=== PATIENT | female | born 1960 | race Caucasian/White ===

== ENCOUNTER 2017-10-17 17:18 | Inpatient (IN) | payer MEDICARE, MEDICAID ==
--- NOTE | 2017-10-17 19:21 | RAD ---
HISTORY: Right hip pain COMPARISONS: None VIEWS: 3, Frontal view of the pelvis with frontal and crosstable lateral views of the right hip FINDINGS: BONE DENSITY: Normal. BONES: There is a displaced fracture of the right iliac wing involving the anterior superior iliac spine. The patient is status post spinal fusion and laminectomy. JOINTS: There is no arthropathy. ALIGNMENT: There is no dislocation. SOFT TISSUES: Unremarkable. OTHER FINDINGS: None. IMPRESSION: DISPLACED FRACTURE THROUGH THE RIGHT ILIAC WING. THIS IS OF UNCLEAR ETIOLOGY IN THE ABSENCE OF TRAUMA.
[2017-10-17] MEDS ORDERED: Morphine INJ* 4 MG/ML 1 ML CARPUJECT IV ONE (19:22)
[2017-10-17] MEDS ORDERED: Morphine INJ* 4 MG/ML 1 ML CARPUJECT ONE (19:23)
[2017-10-17] MEDS ORDERED: Ondansetron INJ* 2 MG/ML VIAL ONE (19:23)
[2017-10-17] MEDS ORDERED: PROCHLORPERAZINE INJ 5 MG/ML 2 ML VIAL IV ONE (19:25)
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
--- NOTE | 2017-10-17 19:41 | RAD ---
HISTORY: Preop COMPARISONS: December 20, 2014 VIEWS: 3: frontal dual-energy view of the chest FINDINGS: CARDIOMEDIASTINAL SILHOUETTE: The cardiomediastinal silhouette is normal. FANTA: The fanta are normal. PLEURA: The costophrenic angles are sharp. No pleural abnormalities are noted. LUNG PARENCHYMA: The lungs are clear. ABDOMEN: The upper abdomen is clear. There is no subphrenic gas. BONES AND SOFT TISSUES: No bone or soft tissue abnormalities are noted. OTHER: Surgical clips noted at the level of the GE junction. IMPRESSION: NO ACTIVE CARDIOPULMONARY DISEASE.
[2017-10-17] MEDS ORDERED: NS 0.9% 1000 ML* 1,000 ML IV ONE (19:47)
[2017-10-17 20:12] LABS: ABS Basophils 0.1 10^3/ul (0-0.2); ABS Eosinophils 0.4 10^3/ul (0-0.6); ABS Lymphocytes 2.5 10^3/ul (1.0-4.8); ABS Monocytes 0.6 10^3/ul (0-0.8); ABS Neutrophils 6.4 10^3/ul (1.5-7.7); ABS Nucleated RBC 0 10^3/ul; Eosinophil % 3.9 % (0-6); Hematocrit 38 % (35-47); Hemoglobin 13.4 g/dl (12.0-16.0); Lymphocyte % 25.2 % (25-47); Mean Corpuscular HGB Conc 35 g/dl (31-36); Mean Corpuscular Hemoglobin 35 pg (27-31); Mean Corpuscular Volume 100 fL (80-97); Mean Platelet Volume 7 um3 (7.4-10.4); Nucleated Red Blood Cells % 0.3; Platelet Count 277 10^3/ul (150-450); Red Blood Count 3.82 10^6/ul (4.0-5.4); Red Cell Distribution Width 14 % (10.5-15)
[2017-10-17 20:24] LABS: EGFR Non-African American 77.9 (>60)
--- NOTE | 2017-10-17 20:25 | RAD ---
HISTORY: Pelvic fracture COMPARISONS: Plain film dated October 17, 2017 TECHNIQUE: Multiple contiguous axial CT images are obtained of the pelvis, with coronal and sagittal multiplanar reconstructions, without intravenous contrast administration. FINDINGS: BONE DENSITY: Normal. BONES: There is a fracture through the right iliac crest including the anterior superior iliac spine. There is no appreciable underlying bone lesion. The lateral fracture fragment is displaced approximately 0.7 cm posteriorly, with approximately 0.7 cm of diastasis along the fracture line no other bone lesions are identified. The patient is status post multilevel laminectomy and spinal fusion. JOINTS: There is no arthropathy. MUSCULATURE: There is enlargement of the right iliacus muscle and of the hip flexors suggestive of edema/muscular hematoma. ALIGNMENT: There is no dislocation. SOFT TISSUES: There is a nonobstructing right renal calyceal stone. Injection granulomata are noted in the buttocks. OTHER FINDINGS: None. IMPRESSION: THERE IS A SLIGHTLY DISPLACED FRACTURE OF THE RIGHT ILIAC WING. THERE IS NO APPRECIABLE UNDERLYING OSSEOUS LESION; HOWEVER, PATHOLOGIC FRACTURE SHOULD BE CONSIDERED IN THE ABSENCE OF A HISTORY OF TRAUMA
[2017-10-17] MEDS ORDERED: HYDROmorphone INJ* 2 MG/ML CARPUJECT SYRINGE IV SLOW PU ONE (20:48)
[2017-10-17] MEDS ORDERED: Potassium Chlor TAB* 10 MEQ TAB.ER PO ONE (21:00)
[2017-10-17] MEDS ORDERED: Diazepam TAB(NF) 2 MG TAB - use 2.5 of 5 mg tab autosub PO PRN (21:22)
[2017-10-17] MEDS ORDERED: Potassium Chlor TAB* 20 MEQ TAB.ER PO ONE (21:25)
[2017-10-17] MEDS ORDERED: PROCHLORPERAZINE INJ 5 MG/ML 2 ML VIAL IV PRN (21:25)
[2017-10-17] MEDS ORDERED: traZODone TAB* 100 MG PO PRN (21:28)
[2017-10-17] MEDS ORDERED: Albuterol 2.5 MG/3 ML NEB.SOL* (0.083%) INH PRN (21:28)
[2017-10-17] MEDS ORDERED: Albuterol HFA INHALER* 8 gm MDI INH PRN (21:28)
[2017-10-17] MEDS ORDERED: Ibuprofen TAB* 800 MG PO PRN (21:28)
[2017-10-17] MEDS: HYDROmorphone INJ* 2 MG/ML CARPUJECT SYRINGE IV SLOW PU PRN (23:35)
[2017-10-18] MEDS: Heparin VIAL(*) 5000 UNITS/ML VIAL (FIVE THOUSAND) SUBCUT SCH ×4 (00:49→21:19)
[2017-10-18] MEDS: oxyCODONE/Acetamin 5/325 MG* TAB PO PRN ×5 (00:51→17:08)
--- NOTE | 2017-10-18 03:19 | HP ---
CC: Winter Vora NP * [facility] MEDICINE HISTORY AND PHYSICAL: DATE OF ADMISSION: 10/17/17 PRIMARY CARE PHYSICIAN: Winter Vora NP ATTENDING PHYSICIAN: Dr. Edd Abbasi * (dictation provided by Katharina Melendez NP). CHIEF COMPLAINT: Right hip pain. HISTORY OF PRESENT ILLNESS: Ms. Melendez is a 57-year-old female with a past medical history of obesity, COPD, schizophrenia, hypothyroidism, who presents to the hospital with concern for right hip pain. Ms. Melendez states that about 5 weeks ago, she fell on the ice on the left side. After that she had significant pain in her right hip; however, over the intervening weeks it was getting better. She was not evaluated for this fall. Today, she went to stand and heard a crack and thereafter had a very severe pain to the right hip and was unable to ambulate or bear weight. For that reason, she came into emergency room for evaluation. She denies any other complaints. She has had no headaches, chest pain, fever, shortness of breath, cough, nausea, vomiting, diarrhea, or abdominal pain. In the emergency room, Ms. Melendez had a CT of her pelvis which confirmed that she had a displaced right iliac wing fracture. Her labs are remarkable only for a low potassium at 2.8. Her vitals were stable. Despite pain medications in the emergency department, she continues to be unable to ambulate due to severe pain; therefore, she was being placed on observation in the hospital. PAST MEDICAL HISTORY: 1. COPD. 2. Hypothyroidism. 3. GERD. 4. Migraine. 5. Cervical cancer, status post abdominal hysterectomy. 6. Cardiac ablation. 7. MRSA lung infection many years ago. 8. History of right knee arthroscopy with meniscectomy in 2016. 9. Right wrist surgery. 10. Lumbar fusion. 11. History of SVT. 12. Hyperlipidemia. 13. Hypertension. MEDICATIONS: Outpatient are: 1. Alendronate 70 mg p.o. every . 2. Dymista 1 spray both nares b.i.d. 3. Super B-complex 1 cap p.o. daily. 4. Calcium carbonate with vitamin D 1 tab p.o. b.i.d. 5. Fluticasone/salmeterol 230/21 one puff inhaled b.i.d. 6. Multivitamin and mineral 1 tab p.o. q.a.m. 7. [place]-3 fatty acid 2 caps p.o. daily. 8. Invega Trinza 240 mg injected q.90 days. 9. Albuterol 2.5 mg 0.083% inhaled q.4 hours p.r.n. 10. Albuterol inhaler 2 puffs inhaled q.4 hours p.r.n. 11. Amitriptyline 75 mg p.o. at bedtime. 12. Amlodipine 5 mg p.o. q.a.m. 13. Atorvastatin 20 mg p.o. q.a.m. 14. Clopidogrel 75 mg p.o. q.a.m. 15. Zetia 10 mg p.o. q.a.m. 16. Fluoxetine 60 mg p.o. q.a.m. 17. Gabapentin 800 mg p.o. t.i.d. 18. Ibuprofen 800 mg p.o. t.i.d. p.r.n. 19. Levothyroxine 50 mcg p.o. q.a.m. 20. Lisinopril 10 mg p.o. q.a.m. 21. Latuda 120 mg p.o. at dinner. 22. Montelukast 10 mg p.o. at bedtime. 23. Nicotine patch 7 mg daily. 24. Pantoprazole 40 mg p.o. q.a.m. 25. Pentoxifylline CR 400 mg p.o. t.i.d. 26. Tiotropium 800 mcg p.o. q.a.m. 27. Torsemide 10 mg p.o. q.a.m. 28. Trazodone 300 mg p.o. at bedtime p.r.n. ALLERGIES: ASPIRIN, PENICILLIN, and SULFA ANTIBIOTICS. FAMILY HISTORY: Mom related to emphysema. Dad also had emphysema, related to suicide. SOCIAL HISTORY: The patient is working hard to quit smoking, but still is smoking intermittently. She denies any alcohol or drug use. She states her daughter, Rika would be the healthcare proxy. REVIEW OF SYSTEMS: A 14-point review of systems was completed with Ms. Melendez and all those not mentioned above were negative. PHYSICAL EXAMINATION GENERAL: Ms. Melendez is lying in the bed. She is in no acute distress. VITAL SIGNS: Temperature 97.9, pulse rate 102, respiratory rate 17, O2 saturation 95% on room air, blood pressure 171/91. HEENT: Extraocular movements are intact. LUNGS: Lungs are actually with rhonchi bilaterally that clears with coughing. There is good aeration. There is no accessory muscle use. HEART: S1, S2. No murmur, rub, or gallop and regular. ABDOMEN: Soft, nontender with bowel sounds positive x4. EXTREMITIES: No cyanosis or edema. NEUROLOGIC: She is alert, she is oriented x3. She moves all extremities equally. There is no facial asymmetry or facial weakness. SKIN: Intact. DIAGNOSTIC STUDIES/LAB DATA: Sodium 140, potassium 2.8, chloride 102, serum bicarbonate 29, BUN 11, creatinine 0.76, glucose 106, lactic acid 1.9. WBC 10.0 , hemoglobin 13.4, hematocrit 38, platelet count 277. Chest x-ray is read as follows: "No active cardiopulmonary disease." Pelvis x-ray is read as follows: "Displaced fracture to the right iliac wing, this is of unclear etiology." The pelvis CT is read as follows: "Slightly displaced fracture of the right iliac wing. No appreciable underlying osseous lesion." EKG, sinus rhythm with a heart rate of about 80 and no evidence of ischemia. ASSESSMENT AND PLAN: Ms. Alicia Melendez is a 57-year-old female with a past medical history of chronic obstructive pulmonary disease, schizophrenia, hypertension, hyperlipidemia, osteoporosis, hypothyroidism, who presents today to the hospital with concern for right hip pain, found to have a right iliac wing fracture. The patient does endorse a fall about 4 weeks ago since which time, she has had right hip pain and now an acute pain when standing today with a loud crack. Our plans are for observation in the hospital for the followin. Right iliac wing fracture. According to Dr. Patel, this is a nonoperative fracture. Dr. Patel will be seeing the patient in consultation tomorrow. In the meantime, the patient will have pain medication p.r.n. Physical Therapy will be ordered. 2. Schizophrenia. Plan to continue home medications. 3. Hypertension. Plan to continue amlodipine, torsemide, lisinopril. 4. Hyperlipidemia. Continue atorvastatin and Zetia. 5. Chronic obstructive pulmonary disease. No evidence of acute exacerbation. Continue inhalers, nebulizers as per home. 6. Hypokalemia. Plan to replete and recheck labs in AM. 7. Hypothyroidism. Continue levothyroxine. 8. DVT prophylaxis with heparin subcu. 9. Code status is full code. TIME SPENT: Approximately 60 minutes were spent on the admission of this patient, more than half time was spent with the patient at the bedside, reviewing the events leading up to this hospitalization, performing the physical examination, and reviewing my plan of care. KATHARINA MELENDEZ NP [id number]/CPS #: [id number] PINKY
[2017-10-18] MEDS: HYDROmorphone INJ* 2 MG/ML CARPUJECT SYRINGE IV SLOW PU PRN ×3 (03:55→13:04)
[2017-10-18] MEDS: Levothyroxine TAB* 50 MCG TAB PO SCH (05:37)
[2017-10-18] MEDS ORDERED: Nicotine Inhaler* 10 MG AMP INH PRN (05:44)
[2017-10-18] MEDS ORDERED: Mouth Piece, Nicotine* 1 EACH CARTRIDGE INH PRN (05:44)
[2017-10-18 06:09] LABS: EGFR Non-African American 77.9 (>60)
[2017-10-18] MEDS ORDERED: Nicotine PATCH 7 MG/24 HR* PATCH TRANSDERM SCH (09:00)
[2017-10-18] MEDS ORDERED: Spiriva Inhaler DEVICE* 1 EACH DEVICE INH ONE (09:00)
[2017-10-18] MEDS ORDERED: Influenza VAC *QUAD* 2017-18* 0.5 ML SYRINGE IM ONE (09:00)
[2017-10-18] MEDS: Tiotropium CAP.INH* CAP.INH/18 MCG (USE ORDER SET !) INH SCH (09:45)
[2017-10-18] MEDS: Torsemide TAB* 20 MG PO SCH (09:46)
[2017-10-18] MEDS: FLUoxetine CAP* 20 MG PO SCH (09:47)
[2017-10-18] MEDS: Pentoxifylline CR TAB* 400 MG PO SCH ×3 (09:47→20:45)
[2017-10-18] MEDS: Atorvastatin* 20 MG TAB PO SCH (09:47)
[2017-10-18] MEDS: Gabapentin CAP(*) 400 MG PO SCH ×3 (09:47→20:44)
[2017-10-18] MEDS: CMCS: Pantoprazole TAB (NF) 40 MG TAB PO SCH (09:48)
[2017-10-18] MEDS: Lisinopril TAB* 10 MG PO SCH (09:48)
[2017-10-18] MEDS: Clopidogrel TAB* 75 MG PO SCH (09:49)
[2017-10-18] MEDS: amLODIPine TAB* 5 MG PO SCH (09:49)
[2017-10-18] MEDS: Ezetimibe TAB* 10 MG PO SCH (09:49)
[2017-10-18] MEDS ORDERED: Magnesium Chloride EC TAB* 64 MG PO ONE (13:46)
--- NOTE | 2017-10-18 13:54 | PN ---
Subjective Date of Service: 10/18/17 Interval History: Patient seen and examined. States she is unable to bear weight on RLE. States it feels like the bones in her hip/pelvis are grinding and pain is so severe she can't stand. States that after the fall the pain was "sore" but now she can' t walk. Denies cough/SOB, but states she feels like she's wheezing. No further complaints. Objective Active Medications: Albuterol (Ventolin 2.5 Mg/3 Ml Neb.Anita*) 2.5 mg INH Q4H PRN PRN Reason: SOB/WHEEZING Albuterol (Ventolin Hfa Inhaler*) 2 puff INH Q4H PRN PRN Reason: SOB/WHEEZING Amitriptyline HCl (Elavil Tab*) 75 mg PO BEDTIME [facility] Amlodipine Besylate (Norvasc Tab*) 5 mg PO [facility] Last Admin: 10/18/17 09:49 Dose: 5 mg Atorvastatin Calcium (Lipitor*) 20 mg PO [facility] Last Admin: 10/18/17 09:47 Dose: 20 mg Clopidogrel Bisulfate (Plavix Tab*) 75 mg PO [facility] Last Admin: 10/18/17 09:49 Dose: 75 mg Device (Nicotine Mouth Piece*) 1 each INH .USE WITH NICOTROL PRN PRN Reason: CRAVING Diazepam (Valium Tab(*)) 2 mg PO Q8H PRN PRN Reason: muscle spasm Ezetimibe (Zetia Tab*) 10 mg PO [facility] Last Admin: 10/18/17 09:49 Dose: 10 mg Fluoxetine HCl (Prozac Cap*) 60 mg PO [facility] Last Admin: 10/18/17 09:47 Dose: 60 mg Gabapentin (Neurontin Cap(*)) 800 mg PO TID [facility] Last Admin: 10/18/17 13:33 Dose: 800 mg Heparin Sodium (Porcine) (Heparin Vial(*)) 5,000 units SUBCUT Q8HR [facility] Last Admin: 10/18/17 13:33 Dose: 5,000 units Hydromorphone HCl (Dilaudid Inj*) 0.5 mg IV SLOW PU Q4H PRN PRN Reason: PAIN Last Admin: 10/18/17 13:04 Dose: 0.5 mg Ibuprofen (Motrin Tab*) 800 mg PO TID PRN PRN Reason: PAIN Levothyroxine Sodium (Synthroid Tab*) 50 mcg PO DAILY@0600 [facility] Last Admin: 10/18/17 05:37 Dose: 50 mcg Lisinopril (Prinivil Tab*) [facility] [place] Admin: 10/18/17 09:48 Dose: 10 mg Lurasidone HCl (Latuda) 120 mg PO 1800 [facility] Magnesium Chloride (Slow Mag Ec Tab*) 64 mg PO ONCE ONE Stop: 10/18/17 13:47 Montelukast Sodium (Singulair Tab*) 10 mg PO BEDTIME [facility] Nicotine (Nicotine Inhaler*) 10 mg INH Q2H PRN PRN Reason: CRAVING Oxycodone/Acetaminophen (Percocet 5/325 Tab*) 1 tab PO Q4H PRN PRN Reason: PAIN Oxycodone/Acetaminophen (Percocet 5/325 Tab*) 2 tab PO Q4H PRN PRN Reason: PAIN Last Admin: 10/18/17 13:04 Dose: 2 tab Pantoprazole Sodium (Protonix Tab (Nf)) 40 mg PO [facility] Last Admin: 10/18/17 09:48 Dose: 40 mg Pentoxifylline (Trental Cr Tab*) 400 mg PO TID [facility] Last Admin: 10/18/17 13:34 Dose: 400 mg Prochlorperazine Edisylate (Compazine Inj*) 5 mg IV Q6H PRN PRN Reason: NAUSEA/VOMITING Tiotropium [place] (Spiriva Cap.Inh*) 1 cap INH [facility] Last Admin: 10/18/17 09:45 Dose: 1 inh Torsemide (Demadex*) 10 mg PO [facility] Last Admin: 10/18/17 09:46 Dose: 10 mg Trazodone HCl (Desyrel Tab*) 300 mg PO BEDTIME PRN PRN Reason: SLEEP Vital Signs - 8 hr 10/18/17 10/18/17 10/18/17 07:30 07:33 09:13 Temperature 98.2 F Pulse Rate 91 Respiratory 16 16 16 Rate Blood Pressure 152/93 (mmHg) O2 Sat by Pulse 92 Oximetry 10/18/17 10/18/17 10/18/17 09:14 09:30 09:47 Temperature Pulse Rate Respiratory 16 16 16 Rate Blood Pressure (mmHg) O2 Sat by Pulse Oximetry 10/18/17 10/18/17 10/18/17 12:32 13:04 13:33 Temperature Pulse Rate Respiratory 16 16 16 Rate Blood Pressure (mmHg) O2 Sat by Pulse Oximetry Oxygen Devices in Use Now: None Appearance: Alert, NAD Eyes: No Scleral Icterus, PERRLA Ears/Nose/Mouth/Throat: NL Teeth, Lips, Gums, Mucous Membranes Moist Neck: NL Appearance and Movements; NL JVP, Trachea Midline Respiratory: Symmetrical Chest Expansion and Respiratory Effort - Course breath sounds, insp/exp wheeze bilaterally Cardiovascular: NL Sounds; No Murmurs; No JVD, RRR Abdominal: NL Sounds; No Tenderness; No Distention Extremities: No Edema, No Clubbing, Cyanosis Skin: No Rash or Ulcers Neurological: Alert and Oriented x 3, NL Sensation - cannot bear weight RLE, NL Muscle Strength and Tone Nutrition: Taking PO's Result Diagrams: 10/17/17 19:36 10/18/17 05:30 Diagnostic Imaging: Patient Name: JASON MUJICA Medical Record#: [id number] Ordering Physician: Leyla POPE Acct.#: [id number] : 1960 Age: 57 Sex: F Location: EMERGENCY DEPARTMENT Exam Date: 10/17/171957 ADM Status: REG ER Order Information: CT PELVIS W/O Accession Number: [id number] CPT: 02301 HISTORY: Pelvic fracture COMPARISONS: Plain film dated October 17, 2017 TECHNIQUE: Multiple contiguous axial CT images are obtained of the pelvis, with coronal and sagittal multiplanar reconstructions, without intravenous contrast administration. FINDINGS: BONE DENSITY: Normal. BONES: There is a fracture through the right iliac crest including the anterior superior iliac spine. There is no appreciable underlying bone lesion. The lateral fracture fragment is displaced approximately 0.7 cm posteriorly, with approximately 0.7 cm of diastasis along the fracture line no other bone lesions are identified. The patient is status post multilevel laminectomy and spinal fusion. JOINTS: There is no arthropathy. MUSCULATURE: There is enlargement of the right iliacus muscle and of the hip flexors suggestive of edema/muscular hematoma. ALIGNMENT: There is no dislocation. SOFT TISSUES: There is a nonobstructing right renal calyceal stone. Injection granulomata are noted in the buttocks. OTHER FINDINGS: None. IMPRESSION: THERE IS A SLIGHTLY DISPLACED FRACTURE OF THE RIGHT ILIAC WING. THERE IS NO APPRECIABLE UNDERLYING OSSEOUS LESION; HOWEVER, PATHOLOGIC FRACTURE SHOULD BE CONSIDERED IN THE ABSENCE OF A HISTORY OF TRAUMA <Electronically signed by Dharmesh Oropeza MD in [place]> 10/17/172020 Dictated By: Dharmesh Oropeza MD Dictated Date/Time: 10/17/172020 Transcribed Date/Time: 10/17/172017 Copy to: CC:Leyla POPE; Ermias Hardy MD; Winter Vora NP Imaging - [facility] Imaging - [place] [facility] [place] Imaging - [facility] [address] [address] ph ([phone]) ph ([phone]) ph [phone]) 1 of 1 Assess/Plan/Problems-Billing Assessment: - Patient Problems (1) 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 Patel appreciated - Not a surgical candidate, recommending pain control, PT, WBAT (2) COPD (chronic obstructive pulmonary disease) Code(s): J44.9 - CHRONIC OBSTRUCTIVE PULMONARY DISEASE, UNSPECIFIED SNOMED Code(s): 65791196 Comment: - Counseled on smoking cessation - Nicotine patch - No acute exac noted (3) DVT prophylaxis Code(s): YLC5676 - SNOMED Code(s): 697523229 Comment: -SQ (4) Full code status Code(s): Z78.9 - OTHER SPECIFIED HEALTH STATUS SNOMED Code(s): 365011802 (5) Hypothyroidism Current Visit: No Status: Chronic Code(s): E03.9 - HYPOTHYROIDISM, UNSPECIFIED SNOMED Code(s): 38986048 (6) Schizophrenia in remission Code(s): F20.9 - SCHIZOPHRENIA, UNSPECIFIED SNOMED Code(s): 2386207 Comment: - Stable on current home regimen (7) Hypokalemia Code(s): E87.6 - HYPOKALEMIA SNOMED Code(s): 26105219 Comment: - Replete and monitor Status and Disposition: Remain inpatient for pain control, PT and electrolyte correction, and then DC to rehab when appropriate bed/referral obtained. Counseling and/or Coordination of Care Minutes: coordinated with patient and CM
[2017-10-18] MEDS: Multivitamins/Minerals TAB PO SCH (15:17)
[2017-10-18] MEDS: Lurasidone(*) 120 MG TAB PO SCH (18:10)
--- NOTE | 2017-10-18 19:48 | CONS ---
ORTHOPEDIC CONSULTATION NOTE: DATE OF CONSULT: 10/18/17 Thank you for this orthopedic consultation. CHIEF COMPLAINT: Right hip pain. HISTORY OF PRESENT ILLNESS: Ms. Melendez is a 57-year-old female who reports she stood up yesterday and felt a crack in her right hip. She immediately had 10/ 10 pain and was unable to bear weight on the right side. She was brought to [facility] and found to have a displaced right iliac wing fracture. On questioning, the patient reports she had a fall 5 weeks ago onto the left side. She fell on some ice. After that she had right-sided pain that seemed to be getting better. The patient has a significant past medical history of osteoporosis. She has a history of cervical cancer, but no other known cancer. PAST MEDICAL HISTORY: COPD, hypothyroidism, GERD, migraines, cervical cancer, cardiac ablation, lung infection with MRSA, right knee arthroscopy from meniscal tear and arthritis, right wrist surgery, chronic back pain, SVT, hyperlipidemia, and hypertension. PAST SURGICAL HISTORY: Wrist surgery unspecified type, right knee arthroscopy with Dr. Patel in 2015, abdominal hysterectomy. HOME MEDICATIONS: 1. Alendronate 70 mg p.o. q. weekly. 2. Dymista 1 spray b.i.d. 3. Super B complex 1 capsule p.o. q. daily. 4. Calcium with vitamin D 1 tab p.o. b.i.d. 5. Fluticasone salmeterol 230/21 one puff inhaled b.i.d. 6. Invega Trinza 240 mg injected q. 90 days. 7. Albuterol 2.5 q.4 hours p.r.n. 8. Albuterol inhaler 2 puffs q.4 hours p.r.n. 9. Amitriptyline 75 mg p.o. q.h.s. 10. Amlodipine 5 mg p.o. q.a.m. 11. Atorvastatin 20 mg p.o. q.a.m. 12. Clopidogrel 75 mg p.o. q.a.m. 13. Zetia 10 mg p.o. q.a.m. 14. Fluoxetine 60 mg p.o. q.a.m. 15. Gabapentin 800 mg p.o. t.i.d. 16. Ibuprofen as needed. 17. Levothyroxine 50 mcg p.o. q.a.m. 18. Lisinopril 10 mg p.o. q.a.m. 19. Latuda 120 mg p.o. q.h.s. 20. Montelukast 10 mg p.o. q.h.s. 21. Pantoprazole 40 mg p.o. q.a.m. 22. Nicotine patch 7 mg daily. 23. Pentoxifylline 400 mg p.o. t.i.d. 24. Tiotropium 80 mcg p.o. q.a.m. 25. Torsemide 10 mg p.o. q.a.m. 26. Trazodone 300 mg p.o. q.h.s. ALLERGIES: ASPIRIN, PENICILLIN, SULFA. FAMILY HISTORY: Maternal and paternal; emphysema, mental illness. SOCIAL HISTORY: The patient uses tobacco intermittently. No alcohol or drug use. She lives alone. Her daughter Rika is her healthcare proxy, normally an independent ambulator. REVIEW OF SYSTEMS: Fourteen systems were reviewed with the patient today. Positive for subacute fall, positive for acute right hip pain. Negative for fevers, chills, chest pain, shortness of breath, nausea, vomiting, headache or dizziness. Otherwise, the patient reports review of systems is negative or not relevant. PHYSICAL EXAM: Vitals: Temperature 98.8, pulse 97, blood pressure 163/72. General: The patient is an overweight female, in no apparent distress, alert and oriented x3, pleasant mood and appropriate affect. She is lying in bed. Gait is not assessed. HEENT: Atraumatic, normocephalic. Pupils are equal and reactive to light. Chest: Unlabored breathing. Bilateral upper extremities: The patient's skin is intact. No abrasions or open wounds. 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 Right lower extremity; any motion of the hip causes severe pain, tenderness to palpation along the iliac wing. Thighs soft and compressible. Distally 5/5 including dorsiflexion and plantar-flexion strength. Full sensation to light touch in ulnar distributions and 2+ palpable DP pulse. Left lower extremity, the patient can flex the hip to 90 degrees. She is distally neurovascularly intact. DIAGNOSTIC STUDIES/LAB DATA: On 10/18/17, a.m. labs shows sodium 137, potassium low at 3.0, chloride 101, glucose 106, hematocrit 38, white blood cells 10, platelets 277,000. Radiographs: Multiple views of the right hip and a pelvis CT are reviewed. These show what looks to be a displaced right iliac wing fracture. No obvious sacral fracture. No obvious acetabular fracture. No obvious femoral neck fracture. Appearance of the fracture on plain films shows findings consistent with this being a subacute fracture versus heterotropic ossification involvement. ASSESSMENT AND PLAN: Ms. Melendez is a 57-year-old female with the acute onset of right hip pain and a fall 5 weeks ago. It is likely that the patient displaced a nondisplaced fracture yesterday with twisting motion at the waist. She has a displaced right iliac wing fracture with severe pain and difficulty weightbearing. She was admitted to [facility] for discharge planning and pain control. She was found to have hypokalemia. I would make this patient weightbearing as tolerated. She will likely have to protect weightbearing on the right lower extremity for 3 to 4 weeks at least before a satisfactory callus forms. She will need p.r.n. analgesia. She should have physical therapy. The patient reported to me that she lives alone and has no one that can stay with her fci. She will likely need a SNF rehab placement. I will follow along the patient. She can follow up with me as an outpatient in 2 weeks' time. Thank you for this orthopedic consultation. [id number]/LEANNA #: [id number] PINKY
[2017-10-18] MEDS: Amitriptyline TAB* 25 MG PO SCH (20:45)
[2017-10-18] MEDS: Montelukast Sodium TAB* 10 MG PO SCH (20:45)
[2017-10-18] MEDS ORDERED: Nicotine Patch Removal NOTE PATCH OFF SCH (21:00)
[2017-10-19] MEDS: Heparin VIAL(*) 5000 UNITS/ML VIAL (FIVE THOUSAND) SUBCUT SCH ×3 (05:30→23:24)
[2017-10-19] MEDS: oxyCODONE/Acetamin 5/325 MG* TAB PO PRN ×3 (05:31→18:15)
[2017-10-19] MEDS: Levothyroxine TAB* 50 MCG TAB PO SCH (05:32)
[2017-10-19 05:37] LABS: EGFR Non-African American 46.4 (>60)
[2017-10-19] MEDS: Multivitamins/Minerals TAB PO SCH (08:20)
[2017-10-19] MEDS: FLUoxetine CAP* 20 MG PO SCH (08:20)
[2017-10-19] MEDS: Ezetimibe TAB* 10 MG PO SCH (08:21)
[2017-10-19] MEDS: CMCS: Pantoprazole TAB (NF) 40 MG TAB PO SCH (08:21)
[2017-10-19] MEDS: Tiotropium CAP.INH* CAP.INH/18 MCG (USE ORDER SET !) INH SCH (08:21)
[2017-10-19] MEDS: amLODIPine TAB* 5 MG PO SCH (08:21)
[2017-10-19] MEDS: Pentoxifylline CR TAB* 400 MG PO SCH ×3 (08:21→20:39)
[2017-10-19] MEDS: Lisinopril TAB* 10 MG PO SCH (08:21)
[2017-10-19] MEDS: Atorvastatin* 20 MG TAB PO SCH (08:22)
[2017-10-19] MEDS: Clopidogrel TAB* 75 MG PO SCH (08:22)
[2017-10-19] MEDS: Torsemide TAB* 20 MG PO SCH (08:22)
[2017-10-19] MEDS: Gabapentin CAP(*) 400 MG PO SCH ×3 (08:22→20:39)
--- NOTE | 2017-10-19 09:07 | PN ---
Progress Note - Progress Note Date of Service: 10/19/17 SOAP: Subjective: []Patient seen at bedside s/p R iliac wing fracture. She was able to get out of bed to the chair today but reports a continued 9/10 pain at the fracture site as well as radiating down the right anterior leg. She has no numbness or tingling down her legs. Denies CP, dizziness, nausea, fever or chills. She has baseline SOB due to COPD. Objective: [] Vital Signs Temp 96.9 F 10/19/17 07:23 Pulse 90 10/19/17 07:23 Resp 18 10/19/17 08:22 BP 104/54 10/19/17 07:23 Pulse Ox 94 10/19/17 07:23 Intake & Output 10/18/17 10/19/17 10/19/17 18:59 06:59 18:59 Intake Total 1090 980 Output Total 1000 600 550 Balance 90 380 -550 Intake: Oral 1090 980 Output: Urine 1000 600 550 Other: Estimated Void Large # Bowel Movements 0 Laboratory Last Values WBC 10.0 10^3/ul (3.5-10.8) 10/17/17 19:36 RBC 3.82 10^6/ul (4.0-5.4) L 10/17/17 19:36 Hgb 13.4 g/dl (12.0-16.0) 10/17/17 19:36 Hct 38 % (35-47) 10/17/17 19:36 MCV 100 fL (80-97) H 10/17/17 19:36 MCH 35 pg (27-31) H 10/17/17 19:36 MCHC 35 g/dl (31-36) 10/17/17 19:36 RDW 14 % (10.5-15) 10/17/17 19:36 Plt Count 277 10^3/ul (150-450) 10/17/17 19:36 MPV 7 um3 (7.4-10.4) L 10/17/17 19:36 Neut % (Auto) 64.1 % (38-83) 10/17/17 19:36 Lymph % (Auto) 25.2 % (25-47) 10/17/17 19:36 Saline % (Auto) 6.0 % (1-9) 10/17/17 19:36 Eos % (Auto) 3.9 % (0-6) 10/17/17 19:36 Baso % (Auto) 0.8 % (0-2) 10/17/17 19:36 Absolute Neuts (auto) 6.4 10^3/ul (1.5-7.7) 10/17/17 19:36 Absolute Lymphs (auto) 2.5 10^3/ul (1.0-4.8) 10/17/17 19:36 Absolute Monos (auto) 0.6 10^3/ul (0-0.8) 10/17/17 19:36 Absolute Eos (auto) 0.4 10^3/ul (0-0.6) 10/17/17 19:36 Absolute Basos (auto) 0.1 10^3/ul (0-0.2) 10/17/17 19:36 Absolute Nucleated RBC 0 10^3/ul 10/17/17 19:36 Nucleated RBC % 0.3 10/17/17 19:36 Sodium 133 mmol/L (133-145) 10/19/17 05:02 Potassium 3.6 mmol/L (3.5-5.0) 10/19/17 05:02 Chloride 96 mmol/L (101-111) L 10/19/17 05:02 Carbon Dioxide 33 mmol/L (22-32) H 10/19/17 05:02 Anion Gap 4 mmol/L (2-11) 10/19/17 05:02 BUN 12 mg/dL (6-24) 10/19/17 05:02 Creatinine 1.19 mg/dL (0.51-0.95) H 10/19/17 05:02 Est GFR ( Amer) 59.7 (>60) 10/19/17 05:02 Est GFR (Non-Af Amer) 46.4 (>60) 10/19/17 05:02 BUN/Creatinine Ratio 10.1 (8-20) 10/19/17 05:02 Glucose 109 mg/dL (70-100) H 10/19/17 05:02 Lactic Acid 1.9 mmol/L (0.5-2.0) 10/17/17 19:36 Calcium 9.2 mg/dL (8.6-10.3) 10/19/17 05:02 Total Bilirubin 0.30 mg/dL (0.2-1.0) 10/17/17 19:36 AST 53 U/L (13-39) H 10/17/17 19:36 ALT 50 U/L (7-52) 10/17/17 19:36 Alkaline Phosphatase 76 U/L (34-104) 10/17/17 19:36 Total Protein 6.1 g/dL (6.4-8.9) L 10/17/17 19:36 Albumin 3.3 g/dL (3.2-5.2) 10/17/17 19:36 Globulin 2.8 g/dL (2-4) 10/17/17 19:36 Albumin/Globulin Ratio 1.2 (1-3) 10/17/17 19:36 General: Well appearing, NAD. Sitting comfortably in the chair RLE: Tenderness to palpation of the iliac wing. No lacerations, abrasions or ecchymosis. DF/PF intact. 2+ DP/PT BL LE: Calves supple and nontender without erythema, edema or palpable cords Assessment: []Right Iliac Wing Fracture Plan: []WBAT RLE PT/OT May DC when deemed medically stable, pain controlled with PO pain meds. Outpatient follow up with Dr Patel in 2 weeks Bed offers at [facility] and [facility]
[2017-10-19] MEDS: Lurasidone(*) 120 MG TAB PO SCH (18:15)
--- NOTE | 2017-10-19 19:12 | PN ---
Subjective Date of Service: 10/19/17 Interval History: Patient seen and examined. states she still cannot bear weight on affected side. States pain at rest as well. Denies any further symptoms or complaints. Appears comfortable otherwise. Objective Active Medications: Albuterol (Ventolin 2.5 Mg/3 Ml Neb.Anita*) 2.5 mg INH Q4H PRN PRN Reason: SOB/WHEEZING Albuterol (Ventolin Hfa Inhaler*) 2 puff INH Q4H PRN PRN Reason: SOB/WHEEZING Last Admin: 10/18/17 22:40 Dose: 2 puff Amitriptyline HCl (Elavil Tab*) 75 mg PO BEDTIME [facility] Last Admin: 10/18/17 20:45 Dose: 75 mg Amlodipine Besylate (Norvasc Tab*) 5 mg PO [facility] Last Admin: 10/19/17 08:21 Dose: 5 mg Atorvastatin Calcium (Lipitor*) 20 mg PO [facility] Last Admin: 10/19/17 08:22 Dose: 20 mg Clopidogrel Bisulfate (Plavix Tab*) 75 mg PO [facility] Last Admin: 10/19/17 08:22 Dose: 75 mg Device (Nicotine Mouth Piece*) 1 each INH .USE WITH NICOTROL PRN PRN Reason: CRAVING Diazepam (Valium Tab(*)) 2 mg PO Q8H PRN PRN Reason: muscle spasm Ezetimibe (Zetia Tab*) 10 mg PO [facility] Last Admin: 10/19/17 08:21 Dose: 10 mg Fluoxetine HCl (Prozac Cap*) 60 mg PO [facility] Last Admin: 10/19/17 08:20 Dose: 60 mg Gabapentin (Neurontin Cap(*)) 800 mg PO TID [facility] Last Admin: 10/19/17 14:32 Dose: 800 mg Heparin Sodium (Porcine) (Heparin Vial(*)) 5,000 units SUBCUT Q8HR [facility] Last Admin: 10/19/17 14:33 Dose: 5,000 units Ibuprofen (Motrin Tab*) 800 mg PO TID PRN PRN Reason: PAIN Levothyroxine Sodium (Synthroid Tab*) 50 mcg PO DAILY@0600 [facility] Last Admin: 10/19/17 05:32 Dose: 50 mcg Lisinopril (Prinivil Tab*) 10 mg PO [facility] Last Admin: 10/19/17 08:21 Dose: 10 mg Lurasidone HCl (Latuda) 120 mg PO 1800 [facility] Last Admin: 10/19/17 18:15 Dose: 120 mg Montelukast Sodium (Singulair Tab*) 10 mg PO BEDTIME [facility] Last Admin: 10/18/17 20:45 Dose: 10 mg Multivitamins/Minerals (Theragran/Minerals Tab*) 1 tab PO DAILY [facility] Last Admin: 10/19/17 08:20 Dose: 1 tab Nicotine (Nicotine Inhaler*) 10 mg INH Q2H PRN PRN Reason: CRAVING Oxycodone/Acetaminophen (Percocet 5/325 Tab*) 1 tab PO Q4H PRN PRN Reason: PAIN Oxycodone/Acetaminophen (Percocet 5/325 Tab*) 2 tab PO Q4H PRN PRN Reason: PAIN Last Admin: 10/19/17 18:15 Dose: 2 tab Pantoprazole Sodium (Protonix Tab (Nf)) 40 mg PO QAM [facility] Last Admin: 10/19/17 08:21 Dose: 40 mg Pentoxifylline (Trental Cr Tab*) 400 mg PO TID [facility] Last Admin: 10/19/17 14:33 Dose: 400 mg Prochlorperazine Edisylate (Compazine Inj*) 5 mg IV Q6H PRN PRN Reason: NAUSEA/VOMITING Tiotropium [place] (Spiriva Cap.Inh*) 1 cap INH QAM [facility] Last Admin: 10/19/17 08:21 Dose: 1 inh Torsemide (Demadex*) 10 mg PO QAM [facility] Last Admin: 10/19/17 08:22 Dose: 10 mg Trazodone HCl (Desyrel Tab*) 300 mg PO BEDTIME PRN PRN Reason: SLEEP Vital Signs - 8 hr 10/19/17 10/19/17 10/19/17 11:27 11:32 11:33 Temperature 97.9 F Pulse Rate 81 Respiratory 18 18 18 Rate Blood Pressure 102/51 (mmHg) O2 Sat by Pulse 96 Oximetry 10/19/17 10/19/17 10/19/17 11:34 14:32 14:33 Temperature Pulse Rate Respiratory 18 18 18 Rate Blood Pressure (mmHg) O2 Sat by Pulse Oximetry 10/19/17 10/19/17 10/19/17 15:41 17:45 18:15 Temperature 97.6 F Pulse Rate 83 Respiratory 18 18 20 Rate Blood Pressure 110/58 (mmHg) O2 Sat by Pulse 95 Oximetry Oxygen Devices in Use Now: Nasal Cannula Appearance: Alert, NAD, resting comfortably and tolerating meal Ears/Nose/Mouth/Throat: NL Teeth, Lips, Gums, Mucous Membranes Moist Neck: NL Appearance and Movements; NL JVP, Trachea Midline Respiratory: Symmetrical Chest Expansion and Respiratory Effort - diminished bases, mild expiratory wheeze improved Cardiovascular: NL Sounds; No Murmurs; No JVD, RRR Abdominal: NL Sounds; No Tenderness; No Distention Extremities: No Edema, No Clubbing, Cyanosis Skin: No Rash or Ulcers Neurological: Alert and Oriented x 3, NL Sensation, NL Muscle Strength and Tone Nutrition: Taking PO's Result Diagrams: 10/17/17 19:36 10/19/17 05:02 Diagnostic Imaging: Patient Name: JASON MUJICA Medical Record#: [id number] Ordering Physician: Leyla POPE Acct.#: [id number] : 1960 Age: 57 Sex: F Location: EMERGENCY DEPARTMENT Exam Date: 10/17/171957 ADM Status: REG ER Order Information: CT PELVIS W/O Accession Number: [id number] CPT: 81725 HISTORY: Pelvic fracture COMPARISONS: Plain film dated October 17, 2017 TECHNIQUE: Multiple contiguous axial CT images are obtained of the pelvis, with coronal and sagittal multiplanar reconstructions, without intravenous contrast administration. FINDINGS: BONE DENSITY: Normal. BONES: There is a fracture through the right iliac crest including the anterior superior iliac spine. There is no appreciable underlying bone lesion. The lateral fracture fragment is displaced approximately 0.7 cm posteriorly, with approximately 0.7 cm of diastasis along the fracture line no other bone lesions are identified. The patient is status post multilevel laminectomy and spinal fusion. JOINTS: There is no arthropathy. MUSCULATURE: There is enlargement of the right iliacus muscle and of the hip flexors suggestive of edema/muscular hematoma. ALIGNMENT: There is no dislocation. SOFT TISSUES: There is a nonobstructing right renal calyceal stone. Injection granulomata are noted in the buttocks. OTHER FINDINGS: None. IMPRESSION: THERE IS A SLIGHTLY DISPLACED FRACTURE OF THE RIGHT ILIAC WING. THERE IS NO APPRECIABLE UNDERLYING OSSEOUS LESION; HOWEVER, PATHOLOGIC FRACTURE SHOULD BE CONSIDERED IN THE ABSENCE OF A HISTORY OF TRAUMA <Electronically signed by Dharmesh Oropeza MD in [place]> 10/17/172020 Dictated By: Dharmesh Oropeza MD Dictated Date/Time: 10/17/172020 Transcribed Date/Time: 10/17/172017 Copy to: CC:Leyla POPE; Ermias Hardy MD; Winter Vora NP Imaging - [facility] Imaging - [facility] Imaging - [facility] [address] [address] ph [phone]) ph [phone] ph ([phone]) 1 of 1 Assess/Plan/Problems-Billing Assessment: This is a 57 year old female patient s/p fall 4 weeks ago with subsequent right iliac crest fracture being treated conservatively. 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 Patel appreciated - Not a surgical candidate, recommending pain control, PT, WBAT - DC IV dilaudid today, continue PO pain meds - Will DC to rehab tomorrow (2) COPD (chronic obstructive pulmonary disease) Code(s): J44.9 - CHRONIC OBSTRUCTIVE PULMONARY DISEASE, UNSPECIFIED SNOMED Code(s): 47256205 Comment: - Counseled on smoking cessation - Nicotine patch - No acute exac noted - Oxygen as needed (3) DVT prophylaxis Code(s): UYQ9874 - SNOMED Code(s): 558084775 Comment: -SQ (4) Full code status Code(s): Z78.9 - OTHER SPECIFIED HEALTH STATUS SNOMED Code(s): 576796791 (5) Hypothyroidism Current Visit: No Status: Chronic Code(s): E03.9 - HYPOTHYROIDISM, UNSPECIFIED SNOMED Code(s): 97263931 (6) Schizophrenia in remission Code(s): F20.9 - SCHIZOPHRENIA, UNSPECIFIED SNOMED Code(s): 8520918 Comment: - Stable on current home regimen (7) Hypokalemia Code(s): E87.6 - HYPOKALEMIA SNOMED Code(s): 84172712 Comment: - Resolved Status and Disposition: Discharge to [facility] Wednesday.
[2017-10-19] MEDS: Amitriptyline TAB* 25 MG PO SCH (20:39)
[2017-10-19] MEDS: Montelukast Sodium TAB* 10 MG PO SCH (20:39)
[2017-10-20 04:07] LABS: Hematocrit 36 % (35-47); Hemoglobin 12.2 g/dl (12.0-16.0)
[2017-10-20] MEDS ORDERED: Thiamine IV* 100 MG/ML 2 ML VIAL IM ONE (04:44)
--- NOTE | 2017-10-20 04:46 | PN ---
Progress Note - Progress Note Date of Service: 10/20/17 Note: Nursing called concerned for hypoxic saO2 in the high 80s to low 90s on 2L oxygen NC, tachycardia, & confusion. Mrs Melendze is a 57YO obese female admitted 10/17/2017 for a mildly displaced iliac wing fracture with no report of explanatory trauma and no finding of pathologic osseous lesion. Upon my evaluation, she is oriented to person and place, but cannot give the year nor reason for hospitalization. She denies complaints until asked to lift her RLE when she complains of pelvic & back pain. ECG showed sinus tachycardia rate 118, no ischemia. pCXR shows cardiomegaly w/ no infiltrate. H&H is stable, ruling out anemia 2nd pelvic hematoma. Straight cath for UA yielded ~1000cc, but neither her tachycardia nor mental status improved. Temperature curve is afebrile. Lungs are clear excepting upper airway rhonchi. CV is TR/RR. Abdomen is SNTND. Extremities are warm and dry. She has prominent asterixis. Despite denying alcohol consumption on admission, she now states she drinks 2-3 vodka and cranberries a day. At this point, it is highly likely her pelvic wing fracture is due to a fall while intoxicated which she may or may not recall. 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
[2017-10-20 04:52] LABS: Urine Appearance Clear; Urine Blood Negative (Negative); Urine Color Yellow; Urine Ketones Negative (Negative); Urine Protein Negative (Negative); Urine Specific Gravity 1.009 (1.010-1.030); Urine Urobilinogen Negative (Negative)
[2017-10-20] MEDS: LORazepam INJ* 2 MG/ML 1 ML VIAL IV PUSH SCH ×2 (04:53→07:26)
[2017-10-20 05:18] LABS: ABS Basophils 0 10^3/ul (0-0.2); ABS Eosinophils 0.3 10^3/ul (0-0.6); ABS Lymphocytes 1.7 10^3/ul (1.0-4.8); ABS Monocytes 0.5 10^3/ul (0-0.8); ABS Neutrophils 4.3 10^3/ul (1.5-7.7); ABS Nucleated RBC 0 10^3/ul; Eosinophil % 4.5 % (0-6); Hematocrit 36 % (35-47); Hemoglobin 12.3 g/dl (12.0-16.0); Lymphocyte % 24.3 % (25-47); Mean Corpuscular HGB Conc 34 g/dl (31-36); Mean Corpuscular Hemoglobin 35 pg (27-31); Mean Corpuscular Volume 103 fL (80-97); Mean Platelet Volume 7 um3 (7.4-10.4); Nucleated Red Blood Cells % 0.1; Platelet Count 263 10^3/ul (150-450); Red Cell Distribution Width 13 % (10.5-15); White Blood Count 6.9 10^3/ul (3.5-10.8)
[2017-10-20 05:22] LABS: EGFR Non-African American 54.8 (>60)
[2017-10-20] MEDS: Levothyroxine TAB* 50 MCG TAB PO SCH (06:03)
[2017-10-20] MEDS: Heparin VIAL(*) 5000 UNITS/ML VIAL (FIVE THOUSAND) SUBCUT SCH ×3 (06:11→23:48)
--- NOTE | 2017-10-20 07:40 | RAD ---
HISTORY: Sinus tachycardia, confusion COMPARISONS: None VIEWS: 1: frontal portable view of the chest at 4:33 AM FINDINGS: LINES AND TUBES: None. CARDIOMEDIASTINAL SILHOUETTE: The cardiomediastinal silhouette is normal for portable technique. PLEURA: The costophrenic angles are sharp. No pleural abnormalities are noted. LUNG PARENCHYMA: The lung volumes are low. There is minimal patchy alveolar opacification of the lung bases bilaterally. ABDOMEN: The upper abdomen is clear. There is no subphrenic gas. BONES AND SOFT TISSUES: No bone or soft tissue abnormalities are noted. IMPRESSION: LOW LUNG VOLUMES WITH PATCHY BIBASILAR ATELECTASIS VERSUS EARLY CONSOLIDATION
--- NOTE | 2017-10-20 08:20 | PN ---
Progress Note - Progress Note Date of Service: 10/20/17 SOAP: Subjective: []Patient seen at bedside. She was unable to communicate but did squeeze my hand when prompted. Hospitalist service saw patient early this morning for hypoxia, tachycardia and confusion likely due to delirium tremens and aspiration. She is alternatively being worked up for a PE which is less likely due to SQ heparin. Objective: [] Vital Signs Temp 102.2 F 10/20/17 07:16 Pulse 134 10/20/17 07:16 Resp 24 10/20/17 07:26 BP 162/76 10/20/17 07:16 Pulse Ox 94 10/20/17 07:16 Intake & Output 10/19/17 10/20/17 10/20/17 18:59 06:59 18:59 Intake Total 730 600 Output Total 1450 1150 Balance -720 -550 Intake: Oral 730 600 Output: Urine 1450 0 Straight Cath 1150 Other: # Bowel Movements 0 Laboratory Last Values WBC 6.9 10^3/ul (3.5-10.8) 10/20/17 03:55 RBC 3.50 10^6/ul (4.0-5.4) L 10/20/17 03:55 Hgb 12.3 g/dl (12.0-16.0) 10/20/17 03:55 Hct 36 % (35-47) 10/20/17 03:55 MCV 103 fL (80-97) H 10/20/17 03:55 MCH 35 pg (27-31) H 10/20/17 03:55 MCHC 34 g/dl (31-36) 10/20/17 03:55 RDW 13 % (10.5-15) 10/20/17 03:55 Plt Count 263 10^3/ul (150-450) 10/20/17 03:55 MPV 7 um3 (7.4-10.4) L 10/20/17 03:55 Neut % (Auto) 62.9 % (38-83) 10/20/17 03:55 Lymph % (Auto) 24.3 % (25-47) L 10/20/17 03:55 [place] % (Auto) 7.9 % (1-9) 10/20/17 03:55 Eos % (Auto) 4.5 % (0-6) 10/20/17 03:55 Baso % (Auto) 0.4 % (0-2) 10/20/17 03:55 Absolute Neuts (auto) 4.3 10^3/ul (1.5-7.7) 10/20/17 03:55 Absolute Lymphs (auto) 1.7 10^3/ul (1.0-4.8) 10/20/17 03:55 Absolute Monos (auto) 0.5 10^3/ul (0-0.8) 10/20/17 03:55 Absolute Eos (auto) 0.3 10^3/ul (0-0.6) 10/20/17 03:55 Absolute Basos (auto) 0 10^3/ul (0-0.2) 10/20/17 03:55 Absolute Nucleated RBC 0 10^3/ul 10/20/17 03:55 Nucleated RBC % 0.1 10/20/17 03:55 Sodium 137 mmol/L (133-145) 10/20/17 04:13 Potassium 4.1 mmol/L (3.5-5.0) 10/20/17 04:13 Chloride 101 mmol/L (101-111) 10/20/17 04:13 Carbon Dioxide 30 mmol/L (22-32) 10/20/17 04:13 Anion Gap 6 mmol/L (2-11) 10/20/17 04:13 BUN 16 mg/dL (6-24) 10/20/17 04:13 Creatinine 1.03 mg/dL (0.51-0.95) H 10/20/17 04:13 Est GFR ( Amer) 70.5 (>60) 10/20/17 04:13 Est GFR (Non-Af Amer) 54.8 (>60) 10/20/17 04:13 BUN/Creatinine Ratio 15.5 (8-20) 10/20/17 04:13 Glucose 122 mg/dL (70-100) H 10/20/17 04:13 Lactic Acid 1.9 mmol/L (0.5-2.0) 10/17/17 19:36 Calcium 8.6 mg/dL (8.6-10.3) 10/20/17 04:13 Total Bilirubin 0.30 mg/dL (0.2-1.0) 10/17/17 19:36 AST 53 U/L (13-39) H 10/17/17 19:36 ALT 50 U/L (7-52) 10/17/17 19:36 Alkaline Phosphatase 76 U/L (34-104) 10/17/17 19:36 Total Protein 6.1 g/dL (6.4-8.9) L 10/17/17 19:36 Albumin 3.3 g/dL (3.2-5.2) 10/17/17 19:36 Globulin 2.8 g/dL (2-4) 10/17/17 19:36 Albumin/Globulin Ratio 1.2 (1-3) 10/17/17 19:36 Urine Color Yellow 10/20/17 04:30 Urine Appearance Clear 10/20/17 04:30 Urine pH 5.0 (5-9) 10/20/17 04:30 Ur Specific [place] 1.009 (1.010-1.030) L 10/20/17 04:30 Urine Protein Negative (Negative) 10/20/17 04:30 Urine Ketones Negative (Negative) 10/20/17 04:30 Urine Blood Negative (Negative) 10/20/17 04:30 Urine Nitrate Negative (Negative) 10/20/17 04:30 Urine Bilirubin Negative (Negative) 10/20/17 04:30 Urine Urobilinogen Negative (Negative) 10/20/17 04:30 Ur Leukocyte Esterase Negative (Negative) 10/20/17 04:30 Urine Glucose Negative (Negative) 10/20/17 04:30 General: Patient is laying in bed without ability to communicate or follow commands, she was able to squeeze my hand but was otherwise not responding to my commands. She is tachypnic and has increased work of breathing BL LE: 2+ DP. Calves soft and nontender without erythema, edema or palpable cords. Assessment: []right iliac wing fracture Delirium Tremens, possible aspiration Plan: []- Once medically stable patient will be WBAT RLE and continue PT/OT - Per hospitalist service patient will be transferred to ICU, continue IV med including Ativan and thiamine, NPO except meds if she is able to swallow, support with IVF, Clindamycin for possible aspiration PNA, CTA ordered but pending - Dr Patel made aware
--- NOTE | 2017-10-20 08:42 | PN ---
Progress Note - Progress Note Date of Service: 10/20/17 Note: Arrived to see pt in distress. RR>30, HR 120's, 02 sat 94% on simple 02 mask, Tepm 102, pt squeezes hand to command, but nonverbal suspect due to sedation( received a total of 7 mg of IV Ativan this aM) and tachypnea. On exam :nonverbal, tachypneic, withdraws to pain in all 4 extr Resp: increased WOB, shallow breathing , decreased breath sounds at b/l bases CV: RRR, no murmur, tachy Adb: soft, NT, BS + A/P -Severe DT's-transfer to ICU, cont IV med including Ativan an thiamine -Place pt NPO except meds if she is able to swallow, support with IVF -start Clindamycin for possible aspiration PNA, labs reviewed, lactic acid ordered -CTA to r/o PE ordered at night -pending -Check ABG-suspect C02 retention -noted to have 1100 ml urine residual at night, Peñaloza ordered will sign off to the ICU attending
[2017-10-20] MEDS ORDERED: Multivitamins/Minerals TAB PO SCH (09:00)
[2017-10-20] MEDS ORDERED: Clindamycin 600 MG IVPREMIX(* 600 MG/50 ML SDV IV SCH (09:00)
[2017-10-20] MEDS ORDERED: Folic Acid TAB* 1 MG PO SCH (09:00)
[2017-10-20] MEDS ORDERED: Thiamine TAB* 100 MG TAB PO SCH (09:00)
[2017-10-20] MEDS ORDERED: D5LR 20 MEQ KCL 1000 ML BAG* 1,000 ML IV SCH ×2 (09:00→16:58)
[2017-10-20] MEDS ORDERED: Pantoprazole IV* 40 MG IV SCH (09:00)
[2017-10-20] MEDS: Tiotropium CAP.INH* CAP.INH/18 MCG (USE ORDER SET !) INH SCH (09:30)
[2017-10-20] MEDS: Clopidogrel TAB* 75 MG PO SCH (09:33)
[2017-10-20] MEDS: FLUoxetine CAP* 20 MG PO SCH (09:33)
[2017-10-20] MEDS ORDERED: Acetaminophen SUPP* 650 MG SUPP PR PRN (09:34)
[2017-10-20] MEDS ORDERED: Perflutren Lipid Microsphere* 3 ML VIAL ONE (10:55)
[2017-10-20] MEDS ORDERED: Thiamine IV* 100 MG/ML 2 ML VIAL IV SCH (11:00)
[2017-10-20] MEDS ORDERED: LORazepam INJ* 2 MG/ML 1 ML VIAL IV PUSH PRN (12:05)
[2017-10-20] MEDS ORDERED: Morphine INJ* 2 MG/ML 1 ML SYRINGE (TWO MG - NEW SYRINGE VERSION) IV PRN (12:06)
--- NOTE | 2017-10-20 14:08 | ECHO ---
Patient: JASON MUJICA [facility] Rec#: [id number] : 1960 Date: 10/20/2017 Age: 57y Height: 152.4 cm / 60.0 in Weight: 79.83 kg / 175.9 lbs Sex: F BSA: 1.77 Room#: ICU8 Admit Date#: 10/17/2017 Type: Inpatient Referring: Edd Abbasi MD Reading: Rylie Mckeon MD Control Systems Developer: Winter Alonso RDCS CC: Winter Vora NP Transthoracic Echocardiogram Indication: Resp Abn BP: 159/69 HR: 130 Rhythm: Tachycardia Findings History: COPD,,hypothyroid,GERD,cervical cancer,currently receiving WHAM protocol. Technical Comments: The study is technically limited due to poor apical windows. The study is technically limited due to patient body habitus. Definity used to enhance images. The study is technically limited due to the patient's history of COPD. Left Ventricle: The left ventricular chamber size is normal. Septal wall hypertrophy is observed. Global left ventricular wall motion and contractility are within normal limits. The left ventricle appears hyperdynamic. The estimated ejection fraction is greater than 65%. There is no consistent Doppler evidence of clinically significant diastolic dysfunction. The patient was unable to perform a Valsalva maneuver. Left Atrium: The left atrial chamber size is normal. Right Ventricle: The right ventricular cavity size is normal. The right ventricular global systolic function is normal. Right Atrium: The right atrial cavity size is normal. Aortic Valve: The aortic valve is trileaflet. There is no evidence of aortic valve thickening. There is no evidence of aortic regurgitation. There is no evidence of aortic stenosis. Mitral Valve: The mitral valve leaflets are mildly thickened. There is no evidence of mitral regurgitation. There is no evidence of mitral stenosis. Tricuspid Valve: The tricuspid valve leaflets are normal. There is no evidence of tricuspid valve regurgitation. There is no tricuspid stenosis. Pulmonic Valve: The pulmonic valve appears normal. There is no evidence of pulmonic regurgitation. There is no pulmonic stenosis. Pericardium: A pericardial fat pad is visualized. Aorta: There is no dilatation of the ascending aorta. There is no dilatation of the aortic arch. There is no dilation of the aortic root. Pulmonary Artery: The main pulmonary artery appears normal. Venous: The inferior vena cava appears normal in size. Contrast: Definity was used to optimize study. A total of 4 ml used. Intravenous contrast was used to enhance endocardial border definition. Conclusions The left ventricular chamber size is normal, septal wall hypertrophy is observed. The left ventricle appears hyperdynamic with normal global wall motion. The estimated ejection fraction is greater than 65%. The right ventricular global systolic function is normal. There is no evidence of aortic valve thickening with normal function. Normal function of all valves. Technically difficult study. No prior study to compare. Measurements Name Value Normal Range RVIDd (AP) 2D 3 cm (0.9 - 2.6) IVSd (2D) 1.1 cm (0.6 - 1) LVPWd (2D) 1 cm (0.6 - 1) LVIDd (2D) 4.1 cm (3.6 - 5.4) LVIDs (2D) 2.4 cm - LV FS (2D) 41 % (25 - 45) Aortic Annulus 1.7 cm (1.4 - 2.6) Ao root diameter (2D) 2.8 cm (2.1 - 3.5) Ascending Ao 2.6 cm (2.1 - 3.4) Aortic arch 2.4 cm (1.8 - 3.4) Descending Ao 1.3 cm - LA dimension (AP) 2D 2.6 cm (2.3 - 3.8) Name Value Normal Range MV E-wave Vmax 1.1 m/sec - MV deceleration time 104 msec - MV A-wave Vmax 1.3 m/sec - MV E:A ratio 0.84 ratio - LV septal e' Vmax 0.1 m/sec - LV lateral e' Vmax 0.09 m/sec - LV E:e' septal ratio 11 ratio - LV E:e' lateral ratio 12.22 ratio - Name Value Normal Range AV Vmax 1.8 m/sec - AV VTI 25.6 cm - AV peak gradient 13.06 mmHg - AV mean gradient 6.35 mmHg - LVOT Vmax 1.2 m/sec - LVOT VTI 17.8 cm - LVOT peak gradient 5.83 mmHg - LVOT mean gradient 3.14 mmHg - Name Value Normal Range IVC diameter 2 cm - Name Value Normal Range PV Vmax 1.6 m/sec - PV peak gradient 10.4 mmHg -
--- NOTE | 2017-10-20 17:14 | PN ---
Date of Service: 10/20/17 Critical Care Services: Patient admitted to ICU this AM because of suspected delirium tremens, which is Rxed with IV lorazepam. Vital Signs: Temp Pulse Resp BP SpO2 FiO2 98.5 F 94 24 129/68 94 93 Physical Exam: Gen:Somnolent but arousable. Lungs: Clear Extremities:No tremors or diaphoresis Fluid Balance (Past 24 Hours): 10/20/17 06:59 Intake Total 1330 Output Total 2600 Balance -1270 Weight Intake: IV Fluids D5LR W/20 MEQ KCL Oral 1330 Output: Urine 1450 Peñaloza Straight Cath 1150 Other: Estimated Void # Bowel Movements 0 Labs: 10/20/17 10/20/17 03:55 04:13 WBC 6.9 Hgb 12.3 Hct 36 MCV 103 Sodium 137 Potassium 4.1 Chloride 101 Carbon Dioxide 30 BUN 16 Creatinine 1.03 Glucose 122 Lactic Acid Calcium 8.6 Urine Color Urine Appearance Urine pH Ur Specific [place] Urine Protein Urine Ketones Urine Blood Urine Nitrate Urine Bilirubin Urine Urobilinogen Ur Leukocyte Esterase Urine Glucose 10/20/17 10/20/17 10/20/17 04:30 08:55 10:28 WBC RBC Hgb Hct MCV MCH MCHC RDW Plt Count MPV Neut % (Auto) Lymph % (Auto) [place] % (Auto) Eos % (Auto) Baso % (Auto) Absolute Neuts (auto) Absolute Lymphs (auto) Absolute Monos (auto) Absolute Eos (auto) Absolute Basos (auto) Absolute Nucleated RBC Nucleated RBC % ABG pH 7.36 ABG pCO2 62 H ABG pO2 72 L ABG HCO3 30.9 ABG O2 Saturation 96.9 ABG Base Excess 7.7 H O2 Delivery Device oxymask FiO2 3 Sodium Potassium Chloride Carbon Dioxide Anion Gap BUN Creatinine Est GFR ( Amer) Est GFR (Non-Af Amer) BUN/Creatinine Ratio Glucose Lactic Acid 0.5 Calcium Urine Color Yellow Urine Appearance Clear Urine pH 5.0 Ur Specific [place] 1.009 L Urine Protein Negative Urine Ketones Negative Urine Blood Negative Urine Nitrate Negative Urine Bilirubin Negative Urine Urobilinogen Negative Ur Leukocyte Esterase Negative Urine Glucose Negative Studies: None today Impression: 1. ETOH withdrawal, controlled with IV benzodiazepines. 2. COPD with hypercapnia Plan: Minimize benzodiazepine dose because of hypercapnia. Critical Care Time: 40 minutes
[2017-10-20] MEDS: Lurasidone(*) 120 MG TAB PO SCH (18:16)
[2017-10-21] MEDS: Acetaminophen TAB* 325 MG PO PRN ×3 (01:19→20:19)
[2017-10-21 04:51] LABS: Hematocrit 34 % (35-47); Hemoglobin 11.8 g/dl (12.0-16.0); Mean Corpuscular HGB Conc 34 g/dl (31-36); Mean Corpuscular Hemoglobin 35 pg (27-31); Mean Corpuscular Volume 102 fL (80-97); Mean Platelet Volume 7 um3 (7.4-10.4); Platelet Count 267 10^3/ul (150-450); Red Blood Count 3.39 10^6/ul (4.0-5.4); Red Cell Distribution Width 13 % (10.5-15); White Blood Count 8.3 10^3/ul (3.5-10.8)
[2017-10-21 05:29] LABS: EGFR Non-African American 96.7 (>60)
[2017-10-21] MEDS ORDERED: Mouth Piece, Nicotine* 1 EACH CARTRIDGE INH PRN ×2 (05:33)
[2017-10-21] MEDS ORDERED: Nicotine Inhaler* 10 MG AMP INH PRN (05:33)
[2017-10-21] MEDS: Heparin VIAL(*) 5000 UNITS/ML VIAL (FIVE THOUSAND) SUBCUT SCH ×3 (05:57→22:35)
[2017-10-21] MEDS: Levothyroxine TAB* 50 MCG TAB PO SCH (05:58)
[2017-10-21] MEDS: Tiotropium CAP.INH* CAP.INH/18 MCG (USE ORDER SET !) INH SCH (08:13)
--- NOTE | 2017-10-21 09:10 | PN ---
Date of Service: 10/21/17 Critical Care Services: Mental status much improved this AM - is awake, oriented, and in no apparent distress. ETOH withdrawal treated with relatively low doses of lorazepam (1 mg IV q 4h PRN) Vital Signs: Temp Pulse Resp BP SpO2 FiO2 97.3 F 94 20 150/75 93 93 Physical Exam: Gen:As mentioned earlier. Cardiac: No tachycardia. Extremities: No tremors or diaphoresis Fluid Balance (Past 24 Hours): 10/21/17 06:59 Intake Total 1297 Output Total 1900 Balance -603 Weight 173 lb Intake: IV Fluids 1297 D5LR W/20 MEQ KCL 1297 Oral Output: Urine Peñaloza 1900 Other: Estimated Void # Bowel Movements Labs: 10/21/17 10/21/17 10/21/17 04:40 04:40 06:05 WBC 8.3 Hgb 11.8 Hct 34 MCV 102 Plt Count 267 Sodium 139 Potassium TNP 3.7 Chloride 101 Carbon Dioxide 34 BUN 7 Creatinine 0.63 Glucose 123 Calcium 8.8 Magnesium 1.9 Studies: Cardiac ECHO yesterday: Normal study except for septal wall hypertrophy. Nutrition: Oral diet (unrestricted) to start today. Impression: No signs of ETOH withdrawal at the present time. Macrocytic anemia noted. Plan: Transfer out of ICU today. Start folate for macrocytic anemia.
[2017-10-21] MEDS: Clopidogrel TAB* 75 MG PO SCH (09:15)
[2017-10-21] MEDS: FLUoxetine CAP* 20 MG PO SCH (09:15)
[2017-10-21] MEDS ORDERED: NS 0.9% 1000 ML* 1,000 ML IV SCH (09:30)
[2017-10-21] MEDS: Folic Acid TAB* 1 MG PO SCH (09:36)
--- NOTE | 2017-10-21 14:17 | PN ---
Progress Note - Progress Note Date of Service: 10/21/17 SOAP: Subjective: []Patient seen at bedside. She is aware and communicating with me today. She confirms pain of fracture site and states that she is additionally sore all over. She is still somewhat confused. She confirms dizziness. She denies chest pain, shortness of breath or nausea. Objective: [] Vital Signs Temp 98.7 F 10/21/17 12:41 Pulse 92 10/21/17 12:41 Resp 20 10/21/17 12:57 BP 161/67 10/21/17 12:41 Pulse Ox 95 10/21/17 12:41 Intake & Output 10/20/17 10/21/17 10/21/17 18:59 06:59 18:59 Intake Total 470 827 Output Total 600 1300 950 Balance -130 -473 -950 Weight 173 lb 11.588 oz Intake: IV Fluids 470 827 D5LR W/20 MEQ KCL 470 827 Output: Urine 950 Peñaloza 600 1300 Other: Estimated Void Large Laboratory Last Values WBC 8.3 10^3/ul (3.5-10.8) 10/21/17 04:40 RBC 3.39 10^6/ul (4.0-5.4) L 10/21/17 04:40 Hgb 11.8 g/dl (12.0-16.0) L 10/21/17 04:40 Hct 34 % (35-47) L 10/21/17 04:40 MCV 102 fL (80-97) H 10/21/17 04:40 MCH 35 pg (27-31) H 10/21/17 04:40 MCHC 34 g/dl (31-36) 10/21/17 04:40 RDW 13 % (10.5-15) 10/21/17 04:40 Plt Count 267 10^3/ul (150-450) 10/21/17 04:40 MPV 7 um3 (7.4-10.4) L 10/21/17 04:40 Neut % (Auto) 62.9 % (38-83) 10/20/17 03:55 Lymph % (Auto) 24.3 % (25-47) L 10/20/17 03:55 [place] % (Auto) 7.9 % (1-9) 10/20/17 03:55 Eos % (Auto) 4.5 % (0-6) 10/20/17 03:55 Baso % (Auto) 0.4 % (0-2) 10/20/17 03:55 Absolute Neuts (auto) 4.3 10^3/ul (1.5-7.7) 10/20/17 03:55 Absolute Lymphs (auto) 1.7 10^3/ul (1.0-4.8) 10/20/17 03:55 Absolute Monos (auto) 0.5 10^3/ul (0-0.8) 10/20/17 03:55 Absolute Eos (auto) 0.3 10^3/ul (0-0.6) 10/20/17 03:55 Absolute Basos (auto) 0 10^3/ul (0-0.2) 10/20/17 03:55 Absolute Nucleated RBC 0 10^3/ul 10/20/17 03:55 Nucleated RBC % 0.1 10/20/17 03:55 Patient Temperature Not Reportable 10/20/17 08:55 ABG pH 7.36 (7.35-7.45) 10/20/17 08:55 ABG pH (Temp Correct) Not Reportable 10/20/17 08:55 ABG pCO2 62 mmHg (35-45) H 10/20/17 08:55 ABG pCO2 (Temp Corrct Not Reportable 10/20/17 08:55 ABG pO2 72 mmHg (80-100) L 10/20/17 08:55 ABG pO2 (Temp Correct Not Reportable 10/20/17 08:55 ABG HCO3 30.9 mmol/L (19-31) 10/20/17 08:55 ABG O2 Saturation 96.9 % (95-98) 10/20/17 08:55 ABG Base Excess 7.7 (-2.0-2.0) H 10/20/17 08:55 Respiration Rate Not Reportable 10/20/17 08:55 O2 Delivery Device oxymask 10/20/17 08:55 Ventilator Type Not Reportable 10/20/17 08:55 Vent Mode Not Reportable 10/20/17 08:55 FiO2 3 10/20/17 08:55 Inspiratory Time Not Reportable 10/20/17 08:55 PEEP Not Reportable 10/20/17 08:55 Pressure Support Not Reportable 10/20/17 08:55 Pressure Control Not Reportable 10/20/17 08:55 EPAP Not Reportable 10/20/17 08:55 IPAP Not Reportable 10/20/17 08:55 BiPAP Not Reportable 10/20/17 08:55 Sodium 139 mmol/L (133-145) 10/21/17 04:40 Potassium 3.7 mmol/L (3.5-5.0) 10/21/17 06:05 Chloride 101 mmol/L (101-111) 10/21/17 04:40 Carbon Dioxide 34 mmol/L (22-32) H 10/21/17 04:40 Anion Gap 4 mmol/L (2-11) 10/21/17 04:40 BUN 7 mg/dL (6-24) 10/21/17 04:40 Creatinine 0.63 mg/dL (0.51-0.95) 10/21/17 04:40 Est GFR ( Amer) 124.4 (>60) 10/21/17 04:40 Est GFR (Non-Af Amer) 96.7 (>60) 10/21/17 04:40 BUN/Creatinine Ratio 11.1 (8-20) 10/21/17 04:40 Glucose 123 mg/dL (70-100) H 10/21/17 04:40 Lactic Acid 0.5 mmol/L (0.5-2.0) 10/20/17 10:28 Calcium 8.8 mg/dL (8.6-10.3) 10/21/17 04:40 Magnesium 1.9 mg/dL (1.9-2.7) 10/21/17 04:40 Total Bilirubin 0.30 mg/dL (0.2-1.0) 10/17/17 19:36 AST 53 U/L (13-39) H 10/17/17 19:36 ALT 50 U/L (7-52) 10/17/17 19:36 Alkaline Phosphatase 76 U/L (34-104) 10/17/17 19:36 Total Protein 6.1 g/dL (6.4-8.9) L 10/17/17 19:36 Albumin 3.3 g/dL (3.2-5.2) 10/17/17 19:36 Globulin 2.8 g/dL (2-4) 10/17/17 19:36 Albumin/Globulin Ratio 1.2 (1-3) 10/17/17 19:36 Urine Color Yellow 10/20/17 04:30 Urine Appearance Clear 10/20/17 04:30 Urine pH 5.0 (5-9) 10/20/17 04:30 Ur Specific [place] 1.009 (1.010-1.030) L 10/20/17 04:30 Urine Protein Negative (Negative) 10/20/17 04:30 Urine Ketones Negative (Negative) 10/20/17 04:30 Urine Blood Negative (Negative) 10/20/17 04:30 Urine Nitrate Negative (Negative) 10/20/17 04:30 Urine Bilirubin Negative (Negative) 10/20/17 04:30 Urine Urobilinogen Negative (Negative) 10/20/17 04:30 Ur Leukocyte Esterase Negative (Negative) 10/20/17 04:30 Urine Glucose Negative (Negative) 10/20/17 04:30 Influenza A (Rapid) Negative (Negative) 10/20/17 22:36 Influenza B (Rapid) Negative (Negative) 10/20/17 22:36 General: Well appearing, NAD Psych: Alert and oriented to person, place and time. Somewhat unsure of place but answered correctly. RLE: Bruising over right iliac wing with tenderness over this area. Flexion and extension of right hip, knee and ankle intact. 2+ DP BL LE: Calves supple and nontender without erythema, edema or palpable cords Assessment: []Right Iliac Wing fracture Delirium Tremens Plan: []WBAT PT/OT Ortho to continue to follow When medically stable can DC. manager of case will need to meet with patient to discuss DC options when patient is medically ready.
[2017-10-21] MEDS: Lurasidone(*) 120 MG TAB PO SCH (17:28)
[2017-10-22] MEDS: Heparin VIAL(*) 5000 UNITS/ML VIAL (FIVE THOUSAND) SUBCUT SCH ×2 (05:22→14:11)
[2017-10-22] MEDS: Levothyroxine TAB* 50 MCG TAB PO SCH (05:23)
[2017-10-22] MEDS: Tiotropium CAP.INH* CAP.INH/18 MCG (USE ORDER SET !) INH SCH (07:36)
[2017-10-22] MEDS: oxyCODONE/Acetamin 5/325 MG* TAB PO PRN ×2 (08:00→12:10)
[2017-10-22] MEDS: Clopidogrel TAB* 75 MG PO SCH (08:26)
[2017-10-22] MEDS: FLUoxetine CAP* 20 MG PO SCH (08:26)
[2017-10-22] MEDS: Folic Acid TAB* 1 MG PO SCH (08:27)
[2017-10-22] MEDS ORDERED: Thiamine TAB* 100 MG TAB PO SCH (09:00)
[2017-10-22 11:50] VITALS: BP 132/62
--- NOTE | 2017-10-22 12:40 | PN ---
Progress Note - Progress Note Date of Service: 10/22/17 SOAP: Subjective: 57 y/o female with non-operative iliac fracture followed by Dr. Patel. Patient continues to c/o pain, has not worked with PT yet. NO questions. VSS afenrile overnight. Objective: General- Well appearing, NAD, AO. MSK- non-tender with palpation over the right hip, neg log roll internal, + pain in groin with external log roll and abd past 20 degrees. PF/ DF = b/l, PT 2+ bl, no edema. hip flexion with knee bent to 90, non-painful. Vital Signs Temp 97.3 F 10/22/17 11:19 Pulse 84 10/22/17 11:19 Resp 18 10/22/17 12:10 BP 132/62 10/22/17 11:19 Pulse Ox 97 10/22/17 11:19 Intake & Output 10/21/17 10/22/17 10/22/17 18:59 06:59 18:59 Intake Total 360 980 Output Total 1650 1925 1150 Balance -1290 -945 -1150 Intake: Oral 360 980 Output: Urine 950 625 Peñaloza 700 1300 1150 Other: Estimated Void Large # Bowel Movements 1 2 Estimated Stool Amount Small Large Assessment: Stable 57 y/o female with non-operative iliac fracture followed by Dr. Patel. Plan: - Continue PT/ OT - FOllow up with DR Patel ~ 2 weeks - mobilize/ work with PT. - likely SNF placement Active Medications Generic Name Dose Route Start Last Admin Trade Name Freq PRN Reason Stop Dose Admin Acetaminophen 650 mg 10/20/17 04:44 10/21/17 20:19 Tylenol Tab* PO 650 mg Q4H PRN Administration PAIN Albuterol 2.5 mg 10/17/17 21:28 Ventolin 2.5 Mg/3 Ml Neb.Anita* INH Q4H PRN SOB/WHEEZING Albuterol 2 puff 10/17/17 21:28 10/18/17 22:40 Ventolin Hfa Inhaler* INH 2 puff Q4H PRN Administration SOB/WHEEZING Clopidogrel Bisulfate 75 mg 10/18/17 09:00 10/22/17 08:26 Plavix Tab* PO 75 mg QAM CHRISTIANO Administration Fluoxetine HCl 60 mg 10/18/17 09:00 10/22/17 08:26 Prozac Cap* PO 60 mg QAM CHRISTIANO Administration Folic Acid 1 mg 10/21/17 10:00 10/22/17 08:27 Folvite Tab* PO 1 mg DAILY CHRISTIANO Administration Heparin Sodium (Porcine) 5,000 units 10/17/17 22:00 10/22/17 05:22 Heparin Vial(*) SUBCUT 5,000 units Q8HR CHRISTIANO Administration Sodium Chloride 1,000 mls @ 0 mls/hr 10/21/17 09:30 10/21/17 09:36 Ns 0.9% 1000 Ml* IV 10 mls/hr .PER RATE CHRISTIANO Administration KVO Levothyroxine Sodium 50 mcg 10/21/17 06:00 10/22/17 05:23 Synthroid Tab* PO 50 mcg DAILY@0600 CHRISTIANO Administration Lorazepam 1 mg 10/20/17 12:05 Ativan Inj* IV PUSH Q4H PRN ANXIETY Lurasidone HCl 120 mg 10/18/17 18:00 10/21/17 17:28 Latuda PO 120 mg 1800 CHRISTIANO Administration Morphine Sulfate 2 mg 10/20/17 12:06 Morphine Inj (Syringe)* IV Q2H PRN PAIN - MILD Oxycodone/Acetaminophen 1 tab 10/17/17 21:22 10/22/17 12:10 Percocet 5/325 Tab* PO 1 tab Q4H PRN Administration PAIN Oxycodone/Acetaminophen 2 tab 10/17/17 21:22 10/19/17 18:15 Percocet 5/325 Tab* PO 2 tab Q4H PRN Administration PAIN Prochlorperazine Edisylate 5 mg 10/17/17 21:25 Compazine Inj* IV Q6H PRN NAUSEA/VOMITING Thiamine HCl 100 mg 10/22/17 09:00 10/22/17 08:27 Vitamin B-1 Tab* PO 100 mg DAILY CHRISTIANO Administration Tiotropium [place] 1 cap 10/18/17 09:00 10/22/17 07:36 Spiriva Cap.Inh* INH 1 inh QAM CHRISTIANO Administration Trazodone HCl 300 mg 10/17/17 21:28 10/21/17 01:19 Desyrel Tab* PO 300 mg BEDTIME PRN Administration SLEEP
--- NOTE | 2017-10-23 18:34 | DS ---
DISCHARGE SUMMARY: DATE OF ADMISSION: 10/17/17 DATE OF DISCHARGE: 10/22/17 PRIMARY CARE PHYSICIAN: Winter Vora NP ATTENDING PHYSICIAN: Dr. Carmen Brownlee. PRINCIPAL DISCHARGE DIAGNOSES: 1. Iliac wing fracture. 2. Delirium tremens. PHYSICAL EXAMINATION AT DISCHARGE: General: Alert, well-appearing female, in no distress. HEENT: Pupils equal, round, and reactive to light. There is no nystagmus. Moist mucosa. Neck: No JVP. No lymphadenopathy. Chest: Regular rate and rhythm. PMI nondisplaced. Lungs: Clear bilaterally. Abdomen: Soft , nontender, nondistended. Extremities: No asterixis. Strength 5+ throughout. Neurologic: No hallucinations. Sensorium intact. HOSPITAL COURSE BY PROBLEM: 1. Iliac wing fracture. Ms. Melendez had fallen about a month prior to admission on the ice and said that she had had hip pain since that time. However, on the day of admission, she was standing and felt a crack in her hip, so she came to the emergency department. Imaging revealed an iliac wing fracture and Orthopedic Surgery was consulted. They recommended conservative management as this was a nonoperative fracture. She was treated with pain management and Physical Therapy, who recommended short-term rehab. She is being discharged to [facility] for short-term rehab. 2. Schizophrenia. She did have hallucinations during this hospitalization, and she was transferred to the ICU for concern for DTs, but she denied any etoh history, so it was determined that hallucinations were related to schizophrenia 3. History of SVT, status post ablation. She is allergic to ASPIRIN. For this reason, she is on Plavix. 4. Disposition. She is being discharged to [facility] for short-term rehab. 5. Diet. Unrestricted. 6. Activity. Weightbearing as tolerated. TIME SPENT: Greater than 60 minutes was spent on this discharge. [id number]/[facility] #: [id number] PINKY
== END 2017-10-22 14:59 | DRG 535 ==
LOC: ED 17:18 → SSU 21:18 → OBSVTOIN 22:00 → ICU 10-20 09:02 → SSU 10-21 12:50
PROVIDERS: ADMIT Hospitalist; ATTEND Internal Medicine
DX: S32.391A Other fracture of right ilium, initial encounter for closed fracture (principal); J69.0 Pneumonitis due to inhalation of food and vomit; F10.231 Alcohol dependence with withdrawal delirium; W00.0XXA Fall on same level due to ice and snow, initial encounter; Y92.9 Unspecified place or not applicable; J44.9 Chronic obstructive pulmonary disease, unspecified; E03.9 Hypothyroidism, unspecified; K21.9 Gastro-esophageal reflux disease without esophagitis; G43.909 Migraine, unspecified, not intractable, without status migrainosus; E78.5 Hyperlipidemia, unspecified; I10 Essential (primary) hypertension; F17.210 Nicotine dependence, cigarettes, uncomplicated; F20.9 Schizophrenia, unspecified; E87.6 Hypokalemia; D53.9 Nutritional anemia, unspecified; R33.9 Retention of urine, unspecified; R06.89 Other abnormalities of breathing; M81.0 Age-related osteoporosis without current pathological fracture; Z85.41 Personal history of malignant neoplasm of cervix uteri; Z79.1 Long term (current) use of non-steroidal anti-inflammatories (NSAID); Z79.899 Other long term (current) drug therapy; Z88.6 Allergy status to analgesic agent; Z88.2 Allergy status to sulfonamides; Z88.0 Allergy status to penicillin; Z81.8 Family history of other mental and behavioral disorders; Z82.5 Family history of asthma and other chronic lower respiratory diseases
CPT/HCPCS: 36415; 36600; 71045; 72192; 80048; 80053; 81003; 82803; 83605; 83735; 85014; 85018; 85025; 85027; 87040; 87502; 87641; 90686; 93005; 93306; 94640; 94760; 99283; A9270-GY; C8929; G8978-GP-CJ; G8979-GP-CI; G8980-GP-CJ; J1170; J1644; J2060; J2270; J2405; J3411

== ENCOUNTER 2017-11-20 18:12 | Emergency (ER) | payer MEDICARE, MEDICAID ==
[2017-11-20] MEDS ORDERED: Cyclobenzaprine TAB* 10 MG PO ONE (19:12)
[2017-11-20] MEDS ORDERED: oxyCODONE/Acetamin 5/325 MG* TAB PO ONE (19:13)
--- NOTE | 2017-11-20 20:51 | RAD ---
Indication: Low back pain. CT of the lumbar spine was obtained in the axial plane. Sagittal and coronal reconstructed images were obtained. The vertebral bodies appear normal in height. There is fusion of L4-L5. No fracture is identified. Degenerative disc disease at L3-L4 is noted. No fracture is identified. At L1-L2 and L2-L3 disc space is unremarkable. IMPRESSION: FUSION OF L4, L5 AND S1. GRADE 1 SPONDYLOLISTHESIS OF L3 ON 4.
[2017-11-20 21:35] VITALS: BP 134/70
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
== END 2017-11-20 21:34 | disposition home or self-care (01) ==
LOC: ED 18:12
DX: M54.5 Low back pain (principal); F17.210 Nicotine dependence, cigarettes, uncomplicated; Z86.79 Personal history of other diseases of the circulatory system; I25.2 Old myocardial infarction; Z95.2 Presence of prosthetic heart valve; Z85.41 Personal history of malignant neoplasm of cervix uteri
CPT/HCPCS: 72131; 99283; A9270-GY

== ENCOUNTER 2018-04-04 11:49 | Emergency (ER) | payer MEDICARE, MEDICAID ==
[2018-04-04] MEDS ORDERED: Tetan/Diph/Pertus SYR(Tdap)* 0.5 ML SYR(BOOSTRIX) use SYR IM ONE (12:27)
[2018-04-04 12:44] VITALS: BP 114/84
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
== END 2018-04-04 12:42 | disposition home or self-care (01) ==
LOC: ED 11:49
DX: S61.212A Laceration without foreign body of right middle finger without damage to nail, initial encounter (principal); W25.XXXA Contact with sharp glass, initial encounter; Y93.G1 Activity, food preparation and clean up; Y92.9 Unspecified place or not applicable; K21.9 Gastro-esophageal reflux disease without esophagitis; F20.9 Schizophrenia, unspecified; F17.210 Nicotine dependence, cigarettes, uncomplicated; E07.9 Disorder of thyroid, unspecified; Z23 Encounter for immunization; Z95.2 Presence of prosthetic heart valve; Z79.899 Other long term (current) drug therapy; Z88.6 Allergy status to analgesic agent; Z88.2 Allergy status to sulfonamides
CPT/HCPCS: 90471; 90715; 99282

== ENCOUNTER 2019-10-07 17:42 | Emergency (ER) | payer MEDICARE, MEDICAID ==
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
--- OUTSIDE RECORDS SUMMARY | 2019-10-07 18:09 | XMS REPORT ---
:1960 Author Organization [facility] Care Team Providers Name Role Phone Unavailable Unavailable Unavailable Problems Condition Condition Condition Status Onset Resolution Last Treating Comments Name Details Category Date Date Treatment Clinician Date Chronic Chronic Diagnosis Active Blaire obstructive obstructive 01-18 Bruno pulmonary pulmonary [id number] disease, disease, unspecified unspecified Patient's Patient's Diagnosis Active Blaire other other 01-18 Bruno noncomplian noncomplian [id number] ce with ce with medication medication regimen regimen Schizophren Schizophren Diagnosis Active Blaire ia, ia, 01-18 Bruno unspecified unspecified [id number] Essential Essential Diagnosis Active Blaire (primary) (primary) 01-18 Bruno hypertensio hypertensio [id number] n n Hypothyroid Hypothyroid Diagnosis Active Blaire ism, ism, 01-18 Bruno unspecified unspecified [id number] Dependence Dependence Diagnosis Active Blaire on on 01-18 Bruno supplementa supplementa [id number] l oxygen l oxygen Anemia, Anemia, Diagnosis Active Blaire unspecified unspecified Bruno [id number] Nicotine Nicotine Diagnosis Active Blaire dependence, dependence, Bruno cigarettes, cigarettes, [id number] uncomplicat uncomplicat ed ed Pain frequent Pain Mgmt Resolve 2018-11-09 Elissa pain d 01-18 08:50:00 Jessica 13:00: [id number] 00 Pain knowledge/s Pain Mgmt Resolve 2018-05-13 Elissa kill d 01-18 11:18:00 [place] deficit: pt 13:00: [id number] 00 Cardio knowledge/s Cardiovasc Resolve 2018-06-07 Elissa wheeler ular d 01-18 15:30:00 [place] deficit: pt 13:00: [id number] 00 Respiratory oxygen Respirator Resolve 2018-07-05 Elissa treatments y d 01-18 09:20:00 [place] in home 13:00: [id number] 00 Respiratory nebulizer Respirator Resolve 2018-07-05 Elissa treatment y d 01-18 09:20:00 [place] in home 13:00: [id number] 00 Respiratory dyspnea Respirator Resolve 2018-07-05 Elissa present y d 01-18 09:20:00 [place] 13:00: [id number] 00 Endo/Derek anti-coagul Endo/Derek Resolve 2018-07-12 Elissa ation d 01-18 09:48:00 Jessica therapy 13:00: [id number] 00 Nutrition nutritional Nutrition Resolve 2018-04-12 Elissa restriction d 01-18 10:11:00 [place] s 13:00: [id number] 00 Elimination urinary Eliminatio Resolve 2018-05-13 Elissa frequency n d 01-18 11:18:00 Jessica 13:00: [id number] 00 Neuro impaired Neuro/Emot Resolve 2018-08-09 Elissa decision-ma ion d 01-18 08:44:00 [place] rosanne 13:00: [id number] 00 Activity ADL Activity Resolve 2018-04-12 Adia assistance d 01-18 10:11:00 Guidelli required 13:00: [id number] 00 Safety risk for Safety Resolve 2018-05-13 Elissa hospitaliza d 01-18 11:18:00 Jessica tion 13:00: [id number] 00 Safety can be left Safety Resolve 2018-05-13 Elissa alone for d 01-18 11:18:00 Jessica only short 13:00: [id number] 00 Safety fall risk Safety Resolve 2018-05-13 Elissa factor d 01-18 11:18:00 Jessica present 13:00: [id number] 00 Medication knowledge/s Meds Resolve 2018-06-07 Elissa kill d 01-18 15:30:00 Jessica deficit: pt 13:00: [id number] 00 Medication oral med Meds Resolve 2018-06-07 Elissa assistance d 01-18 15:30:00 Jessica required 13:00: [id number] 00 Medication injectable Meds Resolve 2018-06-07 Elissa med d 01-18 15:30:00 Jessica assistance 13:00: [id number] required 00 Medication potential Meds Resolve 2018-06-07 Elissa clinically d 01-18 15:30:00 [place] significant 13:00: [id number] medication 00 issue Diagnoses knowledge/s Diagnoses Active Elissa kill 01-18 Jessica deficit: pt 13:00: [id number] 00 Musculoskel requires Musculoske Resolve 2018-05-13 Elissa etal human letal d 01-18 11:18:00 Jessica assist to 13:00: [id number] leave home 00 Musculoskel transfer Musculoske Resolve 2018-05-13 Adia etal assistance letal d 01-18 11:18:00 Guidelli required 13:00: [id number] 00 Respiratory lung sounds Respirator Resolve 2018-07-05 Elissa deficit y d 01-25 09:20:00 [place] 16:00: [id number] 00 Safety knowledge/s Safety Resolve 2018-05-13 Elissa kill d 01-25 11:18:00 [place] deficit: pt 16:00: [id number] 00 Elimination constipatio Eliminatio Resolve 2018-05-13 Elissa n n d 6-19 11:18:00 Cristal 11:43: [id number] 00 Nutrition nutritional Nutrition Resolve 2018-06-07 Elissa restriction d 17 15:30:00 Cristal s 11:18: [id number] 00 Respiratory smoker Respirator Resolve 2018-07-05 Elissa y d 06-07 09:20:00 Cristal 15:30: [id number] 00 Elimination urinary Eliminatio Resolve 2018-06-07 Elissa frequency n d 06-07 15:30:00 Cristal 15:30: [id number] 00 Safety knowledge/s Safety Active Elissa kill 06-07 Cristal deficit: pt 15:30: [id number] 00 Safety risk for Safety Resolve 2018-07-05 [facility] 09:[facility]00 Cristal tion 15:30: [id number] 00 Safety risk for Safety Unknown 2017-09 [facility] [place] tion 14:00: [id number] 00 Respiratory dyspnea Respirator Resolve 2017-092018-08-09 Blaire present y d 0-16 08:44:00 Bruno 09:48: [id number] 00 Respiratory lung sounds Respirator Resolve 2017-092018-08-09 Blaire deficit y d 016 08:44:00 Bruno 09:48: [id number] 00 Safety risk for Safety Resolve 2017-092018-08-09 Blaire hospitaliza d 016 08:44:00 Bruno tion 09:48: [id number] 00 Respiratory oxygen Respirator Resolve 2017-092018-08-09 Blaire treatments y d 1 08:44:00 Bruno in home 08:44: [id number] 00 Respiratory nebulizer Respirator Resolve 2017-092018-08-09 Blaire treatment y d 10-09 08:44:00 Bruno in home 08:44: [id number] 00 Neuro anxiety Neuro/Emot Resolve 2017-092018-08-09 Blaire present ion d 10-09 08:44:00 Bruno 08:44: [id number] 00 Safety risk for Safety Resolve 2017[facility]092018-08-[facility] [place] tion 10:46: [id number] 00 Respiratory oxygen Respirator Resolve 2017-092018-09-13 Blaire treatments y d 10-31 09:53:00 Bruno in home 09:20: [id number] 00 Respiratory lung sounds Respirator Resolve 2017-092018-09-13 Blaire deficit y d 10-31 09:53:00 Bruno 09:20: [id number] 00 Respiratory smoker Respirator Resolve 2017-092018-09-13 Blaire y d 10-31 09:53:00 Bruno 09:20: [id number] 00 Respiratory nebulizer Respirator Resolve 2017-092018-09-13 Blaire treatment y d 10-31 09:53:00 Bruno in home 09:20: [id number] 00 Endo/Derek anti-coagul Endo/Derek Resolve 2017-092018-09-13 Blaire ation d 10-31 09:53:00 Bruno therapy 09:20: [id number] 00 Neuro anxiety Neuro/Emot Resolve 2017-092018-09-13 Blaire present ion d 10-31 09:53:00 Bruno 09:20: [id number] 00 Safety safety Safety Resolve 2017-092018-08-30 Blaire hazards d 10-31 09:20:00 Bruno present 09:20: [id number] 00 Safety risk for Safety Resolve 2017-092018-09-13 Arin hospitaliza d 11-07 09:53:00 Carrier RN tion 10:00: 00 Respiratory dyspnea Respirator Resolve 2017-092018-09-13 Blaire present y d 11-14 09:53:00 Bruno 09:53: [id number] 00 Safety risk for Safety Resolve 2017-092018-09-26 [facility] hospital[facility] d 11-20 09:45:00 [place] tion 10:00: [id number] 00 Respiratory dyspnea Respirator Resolve 2017-092019-01-03 Blaire present y d 09:25:00 Bruno 09:45: [id number] 00 Respiratory oxygen Respirator Resolve 2017-092019-01-03 Blaire treatments y d 09:25:00 Bruno in home 09:45: [id number] 00 Respiratory lung sounds Respirator Resolve 2017-092018-10-25 Blaire deficit y d 09:26:00 Bruno 09:45: [id number] 00 Respiratory smoker Respirator Resolve 2017-092018-09-26 Blaire y d 2 09:45:00 Bruno 09:45: [id number] 00 Respiratory nebulizer Respirator Resolve 2017-092019-01-03 Blaire treatment y d 09:25:00 Bruno in home 09:45: [id number] 00 Medication oral med Meds Resolve 2017-092019-03-09 Blaire assistance d 14:06:00 Bruno required 09:45: [id number] 00 Medication injectable Meds Resolve 2017-092019-03-09 Blaire med d 14:06:00 Bruno assistance 09:45: [id number] required 00 Nutrition nutritional Nutrition Resolve 2018-11-09 Jazz restriction d 09-30 08:50:00 [place] s 12:19: [id number] 00 Safety risk for Safety Resolve 2018-10-25 [facility] hospitaliza d 09-30 09:26:00 [place] tion 12:19: [id number] 00 Respiratory lung sounds Respirator Resolve 2018-11-09 Jazz deficit y d 2 08:50:00 [place] 10:20: [id number] 00 Safety risk for Safety Resolve 2018-11-09 [facility] hospitaliza d 11-01 08:50:00 [place] tion 10:20: [id number] 00 Respiratory smoker Respirator Resolve 2018-12-20 Blaire y d 11-09 09:22:00 Bruno 08:50: [id number] 00 Neuro anxiety Neuro/Emot Resolve 2018-11-09 Blaire present ion d 11-09 08:50:00 Bruno 08:50: [id number] 00 Nutrition nutritional Nutrition Resolve 2018-12-06 Jazz restriction d 11-15 10:45:00 [place] s 11:00: [id number] 00 Safety risk for Safety Resolve 2018-12-06 [facility] hospitaliza d 11-15 10:45:00 [place] tion 11:00: [id number] 00 Respiratory lung sounds Respirator Resolve 2018-12-20 Blaire deficit y d 3 09:22:00 Bruno 10:45: [id number] 00 Respiratory pneumonia Respirator Resolve 2018-12-20 Blaire y d 312 09:22:00 Bruno 10:45: [id number] 00 Respiratory asthma Respirator Resolve 2019-01-03 Blaire y d 12-06 09:25:00 Bruno 10:45: [id number] 00 Nutrition nutritional Nutrition Resolve 2018-12-20 Blaire restriction d 12-13 09:22:00 Bruno s 09:45: [id number] 00 Safety risk for Safety Resolve 2018-12-20 Blaire hospitaliza d 12-13 09:22:00 Bruno tion 09:45: [id number] 00 Safety safety Safety Resolve 2018-2018-12-20 Blaire hazards d 3- 09:22:00 Bruno present 09:22: [id number] 00 Respiratory knowledge/s Respirator Resolve 2018-2019-01-03 Blaire kill y d 12-27 09:25:00 Bruno deficit: pt 10:07: [id number] 00 Respiratory lung sounds Respirator Resolve 2019-01-03 Blaire deficit y d 12-27 09:25:00 Bruno 10:07: [id number] 00 Respiratory CPAP Respirator Resolve 2019-01-03 Blaire treatments y d 12-27 09:25:00 Bruno in home 10:07: [id number] 00 Respiratory smoker Respirator Resolve 2019-01-03 Blaire y d 12-27 09:25:00 Bruno 10:07: [id number] 00 Nutrition nutritional Nutrition Resolve 2019-01-03 Blaire restriction d 12-27 09:25:00 Bruno s 10:07: [id number] 00 Neuro impaired Neuro/Emot Resolve 2019-01-03 Blaire decision-ma ion d 12-27 09:25:00 Bruno rosanne 10:07: [id number] 00 Safety risk for Safety Resolve 2019-01-03 Blaire hospitaliza d 12-27 09:25:00 Bruno tion 10:07: [id number] 00 Neuro memory Neuro/Emot Unknown Blaire deficit ion 01-03 Bruno needing 09:25: [id number] supervision 00 Respiratory dyspnea Respirator Resolve 2019-03-28 Blaire present y d 01-10 09:06:00 Bruno 09:27: [id number] 00 Respiratory knowledge/s Respirator Resolve 2019-03-07 Blaire kill y d 01-10 09:45:00 Bruno deficit: pt 09:27: [id number] 00 Respiratory lung sounds Respirator Resolve 2019-03-07 Blaire deficit y d 01-10 09:45:00 Bruno 09:27: [id number] 00 Respiratory smoker Respirator Resolve 2019-03-07 Blaire y d 01-10 09:45:00 Bruno 09:27: [id number] 00 Nutrition nutritional Nutrition Resolve 2019-02-07 Blaire restriction d 4-16 09:39:00 Bruno s 09:27: [id number] 00 Neuro impaired Neuro/Emot Unknown Blaire decision-ma ion 4-16 Bruno rosanne 09:27: [id number] 00 Neuro memory Neuro/Emot Unknown Blaire deficit ion 4-16 Bruno needing 09:27: [id number] supervision 00 Safety fall risk Safety Resolve 2019-02-07 Blaire factor d 416 09:39:00 Bruno present 09:27: [id number] 00 Safety risk for Safety Resolve 2019-02-07 Blaire hospitaliza d 01-10 09:39:00 Bruno tion 09:27: [id number] 00 Respiratory oxygen Respirator Resolve 2019-03-28 Elissa treatments y d 01-24 09:06:00 Barbara in home 09:00: [employer] 00 [id number] Respiratory nebulizer Respirator Resolve 2019-03-28 Elissa treatment y d 01-24 09:06:00 Barbara in home 09:00: [employer] 00 [id number] Respiratory asthma Respirator Resolve 2019-03-28 Consuelo y d 01-25 09:06:00 [place] 11:00: 00 Elimination urinary Eliminatio Resolve 2019-02-07 Elissa incontinenc n d 01-31 09:39:00 Barbara e 08:30: [employer] 00 [id number] Nutrition nutritional Nutrition Resolve 2019-03-07 Elissa restriction d 02-14 09:45:00 Barbara s 08:13: [employer] 00 [id number] Safety risk for Safety Resolve 2019-03-07 Elissa hospitaliza d 02-14 09:45:00 Barbara tion 08:13: [employer] 00 [id number] Respiratory lung sounds Respirator Resolve 2019-03-09 Blaire deficit y d 6 14:06:00 Bruno 14:06: [id number] 00 Respiratory smoker Respirator Resolve 2019-03-09 Blaire y d 6 14:06:00 Bruno 14:06: [id number] 00 Nutrition nutritional Nutrition Resolve 2019-03-28 Blaire restriction d 6-13 09:06:00 Bruno s 14:06: [id number] 00 Safety safety Safety Resolve 2019-03-28 Blaire hazards d 6-13 09:06:00 Bruno present 14:06: [id number] 00 Safety fall risk Safety Resolve 2019-03-28 Blaire factor d 6-13 09:06:00 Bruno present 14:06: [id number] 00 Safety risk for Safety Resolve 2019-03-28 Blaire hospitaliza d 613 09:06:00 Bruno tion 14:06: [id number] 00 Medication potential Meds Resolve 2019-03-09 Blaire clinically d 6 14:06:00 Bruno significant 14:06: [id number] medication 00 issue Respiratory lung sounds Respirator Resolve 2019-03-28 Elissa deficit y d 618 09:06:00 Barbara 07:45: [employer] 00 [id number] Respiratory lung sounds Respirator Resolve 2019-04-25 Elissa deficit y d 04-04 09:45:00 Barbara 08:00: [employer] 00 [id number] Nutrition nutritional Nutrition Resolve 2019-04-25 Elissa restriction d 04-04 09:45:00 Barbara s 08:00: [employer] 00 [id number] Safety risk for Safety Resolve 2019-04-25 Elissa hospitaliza d 04-04 09:45:00 Barbara tion 08:00: [employer] 00 [id number] Neuro anxiety Neuro/Emot Resolve 2019-04-25 Blaire present ion d 04-25 09:45:00 Bruno 09:45: [id number] 00 Safety risk for Safety Resolve 2019-05-09 Elissa hospitaliza d 05-02 12:05:00 Barbara tion 08:15: [employer] 00 [id number] Respiratory lung sounds Respirator Resolve 2019-05-30 Blaire deficit y d 8- 08:38:00 Bruno 12:05: [id number] 00 Medication injectable Meds Resolve 2019-05-30 Blaire med d 8 08:38:00 Bruno assistance 12:05: [id number] required 00 Safety risk for Safety Resolve 2019-05-30 [facility] 08:38:00 Barbara tion 08:02: [employer] 00 [id number] Neuro impaired Neuro/Emot Resolve 2019-05-30 Blaire decision-ma ion d 05-30 08:38:00 Bruno rosanne 08:38: [id number] 00 Neuro memory Neuro/Emot Resolve 2019-05-30 Blaire deficit ion d 05-30 08:38:00 Bruno needing 08:38: [id number] supervision 00 Safety risk for Safety Resolve 2019-06-27 Elissa [facility] d 9 08:40:00 Barbara tion 07:56: [employer] 00 [id number] Respiratory lung sounds Respirator Resolve 2019-06-27 Elissa deficit y d 9 08:40:00 Barbara 07:30: [employer] 00 [id number] Respiratory nebulizer Respirator Resolve 2018-092019-06-27 Blaire treatment y d 0-01 08:40:00 Bruno in home 08:40: [id number] 00 Elimination urinary Eliminatio Resolve 2018-092019-07-11 Elissa incontinenc n d 0-08 10:13:00 Barbara e 08:00: [employer] 00 [id number] Safety risk for Safety Resolve 2018-092019-08-07 Elissa [facility] d 0-08 12:15:00 Barbara tion 08:00: [employer] 00 [id number] Respiratory oxygen Respirator Resolve 2018-092019-10-03 Blaire treatments y d 0-15 09:32:00 Bruno in home 10:13: [id number] 00 Respiratory nebulizer Respirator Resolve 2018-092019-10-03 Blaire treatment y d 0-15 09:32:00 Bruno in home 10:13: [id number] 00 Respiratory lung sounds Respirator Resolve 2018-092019-07-11 Blaire deficit y d 0-15 10:13:00 Bruno 10:13: [id number] 00 Neuro anxiety Neuro/Emot Resolve 2018-092019-08-07 Blaire present ion d 0-15 12:15:00 Bruno 10:13: [id number] 00 Neuro impaired Neuro/Emot Unknown 2018-09 Blaire decision-ma ion 0-15 Bruno rosanne 10:13: [id number] 00 Safety safety Safety Resolve 2018-092019-08-07 Blaire hazards d 0-15 12:15:00 Bruno present 10:13: [id number] 00 Safety fall risk Safety Resolve 2018-092019-08-07 Blaire factor d 0-15 12:15:00 Bruno present 10:13: [id number] 00 Medication injectable Meds Resolve 2018-092019-08-07 Blaire med d 0-15 12:15:00 Bruno assistance 10:13: [id number] required 00 Medication oral med Meds Resolve 2018-092019-08-07 Blaire assistance d 0-15 12:15:00 Bruno required 10:13: [id number] 00 Respiratory lung sounds Respirator Resolve 2018-092019-08-07 Blaire deficit y d 1-11 12:15:00 Bruno 12:15: [id number] 00 Elimination [facility]09[facility] 10:[facility] Barbara e 08:00: [employer] 00 [id number] Safety risk for Safety Resolve 2018-092019-09-05 [facility] Barbara tion 08:00: [employer] 00 [id number] Nutrition nutritional Nutrition Active 2018-09 Rosamaria restriction 1-30 Malnoske s 10:55: RN 00 Respiratory lung sounds Respirator Resolve 2018-092019-09-05 Blaire deficit y d 2-10 10:26:00 Bruno 10:26: [id number] 00 Medication oral med Meds Resolve 2018-092019-10-03 Blaire assistance d 2-10 09:32:00 Bruno required 10:26: [id number] 00 Medication injectable Meds Active 2018-09 Blaire med 2-10 Bruno assistance 10:26: [id number] required 00 Safety risk for Safety Resolve 2018-092019-10-03 [facility] 09:32:00 Barbara tion 08:00: [employer] 00 [id number] Respiratory lung sounds Respirator Resolve 2019-10-03 Blaire deficit y d 10-03 09:32:00 Bruno 09:32: [id number] 00 Allergies, Adverse Reactions, Alerts Allergy Name Allergy Status Severity Reaction(s) Onset Inactive Treating Comments Type Date Date Clinician sulfa Unknown Active Mild to Rash Elissa Moderate 01-25 Jessica [id number] aspirin Base Active Moderate Hives Elissa Ingredient 01-25 Jessica [id number] penicillin G Base Active Moderate Difficulty Elissa Ingredient to Severe swallowing 01-25 Jessica [id number] Medications Ordered Filled Start Stop Current Ordering Indication Dosage Frequency Signature Comments Components Medication Medication Date Date Medication? Clinician (SIG) Name Name other other 2017- No [place] 2L Unknown 01-18 Klaus MARIEE Vitamin D3 Vitamin D3 2017- No [place] 1 Unknown 1,000 unit 1,000 unit 01-18 Klaus MARIEE capsule capsule oxyCODONE-a oxyCODONE-a No [place] 5-325 Unknown cetaminophe cetaminophe 01-18 Klaus MARIEE n 5 mg-325 n 5 mg-325 mg tablet mg tablet atorvastati atorvastati 2017- No [place] 40 mg Unknown n 40 mg n 40 mg 01-18 Klaus MARIEE tablet tablet nebulizers nebulizers 2018- No [place] 1 Unknown 01-18 Klaus MARIEE Nicoabiodun CQ Nicoderm CQ 2018- No [place] 7 mg Unknown 7 mg/24 hr 7 mg/24 hr 01-18 Klaus MARIEE daily daily transdermal transdermal patch patch lisinopril lisinopril 2017- No [place] 5 mg Unknown 5 mg tablet 5 mg tablet 01-18 Brenden MARIEErit montelukast montelukast No [place] 10 mg Unknown sodium 10 sodium 10 01-18 Brenden MARIEErit mg tablet mg tablet Advair Advair 2018- No [place] one Unknown Diskus 500 Diskus 500 01-18 Klaus MARIEE puff mcg-50 mcg-50 mcg/dose mcg/dose powder for powder for inhalation inhalation Ventolin Ventolin No [place] 2 puffs Unknown HFA 90 HFA 90 01-18 Brenden MARIEErit mcg/actuati mcg/actuati on aerosol on aerosol inhaler inhaler iron 325 mg iron 325 mg 2017- No [place] 325 mg Unknown (65 mg (65 mg 01-18 Klaus MARIEE iron) iron) tablet tablet multivitami multivitami 2017- No [place] 1 Unknown n capsule n capsule 01-18 ,Klaus Calcium 600 Calcium 600 No [place] 600 mg Unknown with with 01-18 Klaus MARIEE Vitamin D3 Vitamin D3 600 mg 600 mg (1,500 (1,500 mg)-400 mg)-400 unit unit capsule capsule Fish Oil Fish Oil No [place] 1 Unknown 1,000 mg 1,000 mg 01-18 ,Klaus (120 mg-180 (120 mg-180 mg) capsule mg) capsule Invega Invega No Emilio 1.5 ml Unknown Sustenna Sustenna 01-18 ,Martin 234 mg/1.5 234 mg/1.5 mL mL intramuscul intramuscul ar syringe ar syringe PROzac 20 PROzac 20 2017- No Emilio 60 mg Unknown mg capsule mg capsule 01-18 Martin MARIEE pantoprazol pantoprazol 2017- No [place] 40 mg Unknown e 40 mg e 40 mg 01-18 ,Klaus tablet,feng tablet,feng yed release yed release clopidogrel clopidogrel 2017- No [place] 75 mg Unknown 75 mg 75 mg 01-18 ,Klaus tablet tablet pentoxifyll pentoxifyll 2017- No [place] 400 mg Unknown ine ER 400 ine ER 400 01-18 ,Klaus mg mg tablet,exte tablet,exte nded nded release release Spiriva Spiriva 2018- No [place] 1 Unknown with with 01-18 ,Klaus HandiHaler HandiHaler 18 mcg and 18 mcg and inhalation inhalation capsules capsules alendronate alendronate No [place] 70 mg Unknown 70 mg 70 mg 01-18 ,Klaus tablet tablet torsemide torsemide 2017- No [place] 10 mg Unknown 10 mg 10 mg 01-18 ,Klaus tablet tablet Latuda 120 Latuda 120 No Emilio 120 mg Unknown mg tablet mg tablet 01-18 Martin MARIEE prazosin 1 prazosin 1 2018- No Emilio 1 mg Unknown mg capsule mg capsule 01-18 03- Martin MARIEE amitriptyli amitriptyli 2017- No Emilio 100 mg Unknown ne 100 mg ne 100 mg 01-18 ,Matrin tablet tablet cyclobenzap cyclobenzap 2017- No Emilio 10 mg Unknown rine 10 mg rine 10 mg 01-18 10-16 ,Martin tablet tablet traZODone traZODone 2017- No Emilio 200 mg Unknown 100 mg 100 mg 01-18 10-15 ,Martin tablet tablet B Complex 1 B Complex 1 No [place] 1 Unknown tablet tablet 01-18 Klaus MARIEE levothyroxi levothyroxi No [place] 50 mcg Unknown ne 50 mcg ne 50 mcg 01-18 ,Klaus capsule capsule other other No [place] Oxygen Unknown 01-18 Brenden MARIEErit Vitamin D3 Vitamin D3 No [place] 1 Unknown 1,000 unit 1,000 unit 01-18 MDKlaus capsule capsule atorvastati atorvastati No [place] 40 mg Unknown n 40 mg n 40 mg 01-18 MDKlaus tablet tablet lisinopril lisinopril No [place] 5 mg Unknown 5 mg tablet 5 mg tablet 01-18 Brenden MARIEErit iron 325 mg iron 325 mg No [place] 325 mg Unknown (65 mg (65 mg 01-18 ,Klaus iron) iron) tablet tablet multivitami multivitami No [place] 1 Unknown n capsule n capsule 01-18 Brenden MARIEErit PROzac 20 PROzac 20 No Emilio 60 mg Unknown mg capsule mg capsule -24 Martin MARIEE pantoprazol pantoprazol No [place] 40 mg Unknown e 40 mg e 40 mg 01-18 MD,Klaus tablet,feng tablet,feng yed release yed release clopidogrel clopidogrel 2018- No [place] 75 mg Unknown 75 mg 75 mg 01-18- MD,Klaus tablet tablet pentoxifyll pentoxifyll No [place] 400 mg Unknown ine ER 400 ine ER 400 01-18 MD,Klaus mg mg tablet,exte tablet,exte nded nded release release torsemide torsemide No [place] 10 mg Unknown 10 mg 10 mg 01-18 MD,Klaus tablet tablet amitriptyli amitriptyli 2018- No Emilio 100 mg Unknown ne 100 mg ne 100 mg 01-18 MD,Martin tablet tablet B Complex 1 B Complex 1 No [place] 1 Unknown tablet tablet 01-18 MD,Klaus traZODone traZODone 2017-09 No Emilio Unknown Unknown 150 mg 150 mg 0-15 MD,Martin tablet tablet cyclobenzap cyclobenzap 2017-09 No [place] Unknown Unknown rine 10 mg rine 10 mg 0-16 MD,Klaus tablet tablet prazosin 2 prazosin 2 2017-09- No Emilio Unknown Unknown mg capsule mg capsule 10-16 Martin MARIEE doxycycline doxycycline 2018- No [place] Unknown Unknown monohydrate monohydrate 11-25 ,Klaus 100 mg 100 mg capsule capsule prazosin 2 prazosin 2 2018- No Emilio Unknown Unknown mg capsule mg capsule 12-07 Martin MARIEE amitriptyli amitriptyli 2018- No [place] Unknown Unknown ne 50 mg ne 50 mg 12-13 MD,Klaus tablet tablet albuterol albuterol No [place] Unknown Unknown sulfate 2.5 sulfate 2.5 - MD,Klaus mg/3 mL mg/3 mL (0.083 %) (0.083 %) solution solution for for nebulizatio nebulizatio n n Flonase Flonase No [place]aza Unknown Unknown Allergy Allergy 12-27 Ngozi MARIEE Relief 50 Relief 50 mcg/actuati mcg/actuati on nasal on nasal spray,suspe spray,suspe nsion nsion amitriptyli amitriptyli 2018- No Meilio Unknown Unknown ne 50 mg ne 50 mg 12-13 ,Martin tablet tablet prazosin 2 prazosin 2 2018- No Emilio Unknown Unknown mg capsule mg capsule 03-23 Martin MARIEE prazosin 2 prazosin 2 2018- No Emilio Unknown Unknown mg capsule mg capsule 03-23 ,Martin amitriptyli amitriptyli No Emilio Unknown Unknown ne 100 mg ne 100 mg 03-28 ,Martin tablet tablet prazosin 5 prazosin 5 No Emilio Unknown Unknown mg capsule mg capsule 04-25 Martin MARIEE Trelegy Trelegy No [place] Unknown Unknown Ellipta 100 Ellipta 100 04-18 Ngozi MARIEE mcg-62.5 mcg-62.5 mcg-25 mcg mcg-25 mcg powder for powder for inhalation inhalation Chantix Chantix 2018- No [place] Unknown Unknown Starting Starting 05-23 Klaus MARIEE Month Box Month Box 0.5 mg 0.5 mg (11)-1 mg (11)-1 mg (42) (42) tablets in tablets in dose pack dose pack ciprofloxac ciprofloxac 2018-09- Yes [place] Unknown Unknown in 500 mg in 500 mg 07-28 Klaus MARIEE tablet tablet Vital Signs Vital Name Observation Time Observation Value Comments SYSTOLIC mm[Hg] 2019-10-03 18:09:45 140 mm[Hg] mm[Hg] Method: Sit SYSTOLIC mm[Hg] 2019-09-06 18:09:18 122 mm[Hg] mm[Hg] Method: Stand DIASTOLIC mm[Hg] 2019-10-03 18:09:45 80 mm[Hg] mm[Hg] Method: Sit DIASTOLIC mm[Hg] 2019-09-06 18:09:18 70 mm[Hg] mm[Hg] Method: Stand PULSE 2019-10-03 18:09:45 86 /min /min RESP RATE 2019-10-03 18:09:45 16 /min /min TEMP 2019-10-03 18:09:45 97.4 [degF] Procedures This patient has no known procedures. Results This patient has no known results.
--- OUTSIDE RECORDS SUMMARY | 2019-10-07 18:09 | XMS REPORT ---
:1960 Author Organization [facility] Care Team Providers Name Role Phone Unavailable Unavailable Unavailable Problems Condition Condition Condition Status Onset Resolution Last Treating Comments Name Details Category Date Date Treatment Clinician Date Chronic Chronic Diagnosis Active Blaire obstructive obstructive 01-18 Bruno pulmonary pulmonary [id number] disease, disease, unspecified unspecified Patient's Patient's Diagnosis Active Blaire other other 01-18 Bruno noncomplian noncomplian [id number] ce with ce with medication medication regimen regimen Schizophren Schizophren Diagnosis Active Blaire ia, ia, 01-18 Bruno unspecified unspecified [id number] Essential Essential Diagnosis Active Blaire (primary) (primary) 01-18 Bruno hypertensio hypertensio [id number] n n Hypothyroid Hypothyroid Diagnosis Active Blaire ism, ism, 01-18 Bruno unspecified unspecified [id number] Dependence Dependence Diagnosis Active Blaire on on 01-18 Bruno supplementa supplementa [id number] l oxygen l oxygen Anemia, Anemia, Diagnosis Active Blaire unspecified unspecified Bruno [id number] Nicotine Nicotine Diagnosis Active Blaire dependence, dependence, Bruno cigarettes, cigarettes, [id number] uncomplicat uncomplicat ed ed Pain frequent Pain Mgmt Resolve 2018-11-09 Elissa pain d 01-18 08:50:00 Jessica 13:00: [id number] 00 Pain knowledge/s Pain Mgmt Resolve 2018-05-13 Elissa kill d 01-18 11:18:00 [place] deficit: pt 13:00: [id number] 00 Cardio knowledge/s Cardiovasc Resolve 2018-06-07 Elissa wheeler ular d 01-18 15:30:00 [place] deficit: pt 13:00: [id number] 00 Respiratory oxygen Respirator Resolve 2018-07-05 Elissa treatments y d 01-18 09:20:00 [place] in home 13:00: [id number] 00 Respiratory nebulizer Respirator Resolve 2018-07-05 Elissa treatment y d 01-18 09:20:00 Jessica in home 13:00: [id number] 00 Respiratory dyspnea Respirator Resolve 2018-07-05 Elissa present y d 01-18 09:20:00 Jessica 13:00: [id number] 00 Endo/Derek anti-coagul Endo/Derek Resolve 2018-07-12 Elissa ation d 01-18 09:48:00 [place] therapy 13:00: [id number] 00 Nutrition nutritional Nutrition Resolve 2018-04-12 Elissa restriction d 01-18 10:11:00 [place] s 13:00: [id number] 00 Elimination urinary Eliminatio Resolve 2018-05-13 Elissa frequency n d 01-18 11:18:00 [place] 13:00: [id number] 00 Neuro impaired Neuro/Emot Resolve 2018-08-09 Elissa decision-ma ion d 01-18 08:44:00 [place] rosanne 13:00: [id number] 00 Activity ADL Activity Resolve 2018-04-12 Adia assistance d 01-18 10:11:00 Guid[place] required 13:00: [id number] 00 Safety risk for Safety Resolve 2018-05-13 Elissa hospitaliza d 01-18 11:18:00 Jessica tion 13:00: [id number] 00 Safety can be left Safety Resolve 2018-05-13 Elissa alone for d 01-18 11:18:00 [place] only short 13:00: [id number] 00 Safety fall risk Safety Resolve 2018-05-13 Elissa factor d 01-18 11:18:00 Jessica present 13:00: [id number] 00 Medication knowledge/s Meds Resolve 2018-06-07 Elissa kill d 01-18 15:30:00 [place] deficit: pt 13:00: [id number] 00 Medication oral med Meds Resolve 2018-06-07 Elissa assistance d 01-18 15:30:00 Jessica required 13:00: [id number] 00 Medication injectable Meds Resolve 2018-06-07 Elissa med d 01-18 15:30:00 [place] assistance 13:00: [id number] required 00 Medication potential Meds Resolve 2018-06-07 Elissa clinically d 01-18 15:30:00 [place] significant 13:00: [id number] medication 00 issue Diagnoses knowledge/s Diagnoses Active Elissa kill 01-18 [place] deficit: pt 13:00: [id number] 00 Musculoskel requires Musculoske Resolve 2018-05-13 Elissa etal human letal d 01-18 11:18:00 Jessica assist to 13:00: [id number] leave home 00 Musculoskel transfer Musculoske Resolve 2018-05-13 Adia etal assistance letal d 01-18 11:18:00 Guidelli required 13:00: [id number] 00 Respiratory lung sounds Respirator Resolve 2018-07-05 Elissa deficit y d 01-25 09:20:00 Jessica 16:00: [id number] 00 Safety knowledge/s Safety Resolve 2018-05-13 Elissa kill d 01-25 11:18:00 Jessica deficit: pt 16:00: [id number] 00 Elimination constipatio Eliminatio Resolve 2018-05-13 Elissa n n d 6-19 11:18:00 Cristal 11:43: [id number] 00 Nutrition nutritional Nutrition Resolve 2018-06-07 Elissa restriction d 17 15:30:00 Cristal s 11:18: [id number] 00 Respiratory smoker Respirator Resolve 2018-07-05 Elissa y d 06-07 09:20:00 Cristal 15:30: [id number] 00 Elimination urinary Eliminatio Resolve 2018-06-07 Elissa frequency n d 06-07 15:30:00 Cristal 15:30: [id number] 00 Safety knowledge/s Safety Active Elissa kill 06-07 Cristal deficit: pt 15:30: [id number] 00 Safety risk for Safety Resolve 2018-07-05 [facility] 09:20[facility]00 Cristal tion 15:30: [id number] 00 Safety risk for Safety Unknown 2017-09 [facility] [place] tion 14:00: [id number] 00 Respiratory dyspnea Respirator Resolve 2017-092018-08-09 Blaire present y d 0-16 08:44:00 Bruno 09:48: [id number] 00 Respiratory lung sounds Respirator Resolve 2017-092018-08-09 Blaire deficit y d 016 08:44:00 Bruno 09:48: [id number] 00 Safety risk for Safety Resolve 2017-092018-08-09 Blaire hospitaliza d 016 08:44:00 Bruno tion 09:48: [id number] 00 Respiratory oxygen Respirator Resolve 2017-092018-08-09 Blaire treatments y d 1 08:44:00 Bruno in home 08:44: [id number] 00 Respiratory nebulizer Respirator Resolve 2017-092018-08-09 Blaire treatment y d 10-09 08:44:00 Bruno in home 08:44: [id number] 00 Neuro anxiety Neuro/Emot Resolve 2017-092018-08-09 Blaire present ion d 10-09 08:44:00 Bruno 08:44: [id number] 00 Safety risk for Safety Resolve 2017[facility]092018-08-[facility] Wilkinson tion 10:46: [id number] 00 Respiratory oxygen Respirator Resolve 2017-092018-09-13 Blaire treatments y d 10-31 09:53:00 Bruno in home 09:20: [id number] 00 Respiratory lung sounds Respirator Resolve 2017-092018-09-13 Blaire deficit y d 10-31 09:53:00 Bruno 09:20: [id number] 00 Respiratory smoker Respirator Resolve 2017-092018-09-13 Blaire y d 10-31 09:53:00 Bruno 09:20: [id number] 00 Respiratory nebulizer Respirator Resolve 2017-092018-09-13 Blaire treatment y d 10-31 09:53:00 Bruno in home 09:20: [id number] 00 Endo/Derek anti-coagul Endo/Derek Resolve 2017-092018-09-13 Blaire ation d 10-31 09:53:00 Bruno therapy 09:20: [id number] 00 Neuro anxiety Neuro/Emot Resolve 2017-092018-09-13 Blaire present ion d 10-31 09:53:00 Bruno 09:20: [id number] 00 Safety safety Safety Resolve 2017-092018-08-30 Blaire hazards d 10-31 09:20:00 Bruno present 09:20: [id number] 00 Safety risk for Safety Resolve 2017-092018-09-13 Arin hospitaliza d 11-07 09:53:00 Carrier RN tion 10:00: 00 Respiratory dyspnea Respirator Resolve 2017-092018-09-13 Blaire present y d 11-14 09:53:00 Bruno 09:53: [id number] 00 Safety risk for Safety Resolve 2017-092018-09-26 [facility] 11-20 09:45:00 Wilkinson tion 10:00: [id number] 00 Respiratory dyspnea Respirator Resolve 2017-092019-01-03 Blaire present y d 09:25:00 Rbuno 09:45: [id number] 00 Respiratory oxygen Respirator Resolve 2017-092019-01-03 Blaire treatments y d 09:25:00 Bruno in home 09:45: [id number] 00 Respiratory lung sounds Respirator Resolve 2017-092018-10-25 Blaire deficit y d 09:26:00 Bruno 09:45: [id number] 00 Respiratory smoker Respirator Resolve 2017-092018-09-26 Blaire y d 2 09:45:00 Bruno 09:45: [id number] 00 Respiratory nebulizer Respirator Resolve 2017-092019-01-03 Blaire treatment y d 09:25:00 Bruno in home 09:45: [id number] 00 Medication oral med Meds Resolve 2017-092019-03-09 Blaire assistance d 14:06:00 Bruno required 09:45: [id number] 00 Medication injectable Meds Resolve 2017-092019-03-09 Blaire med d 14:06:00 Bruno assistance 09:45: [id number] required 00 Nutrition nutritional Nutrition Resolve 2018-11-09 Jazz restriction d 09-30 08:50:00 Wilkinson s 12:19: [id number] 00 Safety risk for Safety Resolve 2018-10-25 [facility] hospitaliza d 09-30 09:26:00 Wilkinson tion 12:19: [id number] 00 Respiratory lung sounds Respirator Resolve 2018-11-09 Jazz deficit y d 2 08:50:00 Wilkinson 10:20: [id number] 00 Safety risk for Safety Resolve 2018-11-09 [facility] hospital[facility] d 11-01 08:50:00 Wilkinson tion 10:20: [id number] 00 Respiratory smoker Respirator Resolve 2018-12-20 Blaire y d 11-09 09:22:00 Bruno 08:50: [id number] 00 Neuro anxiety Neuro/Emot Resolve 2018-11-09 Blaire present ion d 11-09 08:50:00 Bruno 08:50: [id number] 00 Nutrition nutritional Nutrition Resolve 2018-12-06 Jazz restriction d 11-15 10:45:00 Wilkinson s 11:00: [id number] 00 Safety risk for Safety Resolve 2018-12-06 [facility] hospital[facility] d 11-15 10:45:00 Wilkinson tion 11:00: [id number] 00 Respiratory lung sounds Respirator Resolve 2018-12-20 Blaire deficit y d 3 09:22:00 Bruno 10:45: [id number] 00 Respiratory pneumonia Respirator Resolve 2018-12-20 Blaire y d 312 09:22:00 Bruno 10:45: [id number] 00 Respiratory asthma Respirator Resolve 2019-01-03 Blaire y d 12-06 09:25:00 Bruno 10:45: [id number] 00 Nutrition nutritional Nutrition Resolve 2018-12-20 Blaire restriction d 12-13 09:22:00 Bruno s 09:45: [id number] 00 Safety risk for Safety Resolve 2018-12-20 Blaire hospitaliza d 12-13 09:22:00 Bruno tion 09:45: [id number] 00 Safety safety Safety Resolve 2018-2018-12-20 Blaire hazards d 3- 09:22:00 Bruno present 09:22: [id number] 00 Respiratory knowledge/s Respirator Resolve 2018-2019-01-03 Blaire kill y d 12-27 09:25:00 Bruno deficit: pt 10:07: [id number] 00 Respiratory lung sounds Respirator Resolve 2019-01-03 Blaire deficit y d 12-27 09:25:00 Bruno 10:07: [id number] 00 Respiratory CPAP Respirator Resolve 2019-01-03 Blaire treatments y d 12-27 09:25:00 Bruno in home 10:07: [id number] 00 Respiratory smoker Respirator Resolve 2019-01-03 Blaire y d 12-27 09:25:00 Bruno 10:07: [id number] 00 Nutrition nutritional Nutrition Resolve 2019-01-03 Blaire restriction d 12-27 09:25:00 Bruno s 10:07: [id number] 00 Neuro impaired Neuro/Emot Resolve 2019-01-03 Blaire decision-ma ion d 12-27 09:25:00 Bruno rosanne 10:07: [id number] 00 Safety risk for Safety Resolve 2019-01-03 Blaire hospitaliza d 12-27 09:25:00 Bruno tion 10:07: [id number] 00 Neuro memory Neuro/Emot Unknown Blaire deficit ion 01-03 Bruno needing 09:25: [id number] supervision 00 Respiratory dyspnea Respirator Resolve 2019-03-28 Blaire present y d 01-10 09:06:00 Bruno 09:27: [id number] 00 Respiratory knowledge/s Respirator Resolve 2019-03-07 Blaire kill y d 01-10 09:45:00 Bruno deficit: pt 09:27: [id number] 00 Respiratory lung sounds Respirator Resolve 2019-03-07 Blaire deficit y d 01-10 09:45:00 Bruno 09:27: [id number] 00 Respiratory smoker Respirator Resolve 2019-03-07 Blaire y d 01-10 09:45:00 Bruno 09:27: [id number] 00 Nutrition nutritional Nutrition Resolve 2019-02-07 Blaire restriction d 4-16 09:39:00 Bruno s 09:27: [id number] 00 Neuro impaired Neuro/Emot Unknown Blaire decision-ma ion 4-16 Bruno rosanne 09:27: [id number] 00 Neuro memory Neuro/Emot Unknown Blaire deficit ion 4-16 Bruno needing 09:27: [id number] supervision 00 Safety fall risk Safety Resolve 2019-02-07 Blaire factor d 416 09:39:00 Bruno present 09:27: [id number] 00 Safety risk for Safety Resolve 2019-02-07 Blaire hospitaliza d 01-10 09:39:00 Bruno tion 09:27: [id number] 00 Respiratory oxygen Respirator Resolve 2019-03-28 Elissa treatments y d 01-24 09:06:00 Barbara in home 09:00: [employer] 00 [id number] Respiratory nebulizer Respirator Resolve 2019-03-28 Elissa treatment y d 01-24 09:06:00 Barbara in home 09:00: [employer] 00 [id number] Respiratory asthma Respirator Resolve 2019-03-28 Consuelo y d 01-25 09:06:00 Valle[place] 11:00: 00 Elimination urinary Eliminatio Resolve 2019-02-07 Elissa incontinenc n d 01-31 09:39:00 Barbara e 08:30: [employer] 00 [id number] Nutrition nutritional Nutrition Resolve 2019-03-07 Elissa restriction d 02-14 09:45:00 Barbara s 08:13: [employer] 00 [id number] Safety risk for Safety Resolve 2019-03-07 Elissa hospitaliza d 02-14 09:45:00 Barbara tion 08:13: [employer] 00 [id number] Respiratory lung sounds Respirator Resolve 2019-03-09 Blaire deficit y d 6 14:06:00 Bruno 14:06: [id number] 00 Respiratory smoker Respirator Resolve 2019-03-09 Blaire y d 6 14:06:00 Bruno 14:06: [id number] 00 Nutrition nutritional Nutrition Resolve 2019-03-28 Blaire restriction d 6-13 09:06:00 Bruno s 14:06: [id number] 00 Safety safety Safety Resolve 2019-03-28 Blaire hazards d 6-13 09:06:00 Bruno present 14:06: [id number] 00 Safety fall risk Safety Resolve 2019-03-28 Blaire factor d 6-13 09:06:00 Bruno present 14:06: [id number] 00 Safety risk for Safety Resolve 2019-03-28 Blaire hospitaliza d 613 09:06:00 Bruno tion 14:06: [id number] 00 Medication potential Meds Resolve 2019-03-09 Blaire clinically d 6 14:06:00 Bruno significant 14:06: [id number] medication 00 issue Respiratory lung sounds Respirator Resolve 2019-03-28 Elissa deficit y d 618 09:06:00 Barbara 07:45: [employer] 00 [id number] Respiratory lung sounds Respirator Resolve 2019-04-25 Elissa deficit y d 04-04 09:45:00 Barbara 08:00: [employer] 00 [id number] Nutrition nutritional Nutrition Resolve 2019-04-25 Elissa restriction d 04-04 09:45:00 Barbara s 08:00: [employer] 00 [id number] Safety risk for Safety Resolve 2019-04-25 Elissa hospitaliza d 04-04 09:45:00 Barbara tion 08:00: [employer] 00 [id number] Neuro anxiety Neuro/Emot Resolve 2019-04-25 Blaire present ion d 04-25 09:45:00 Bruno 09:45: [id number] 00 Safety risk for Safety Resolve 2019-05-09 Elissa hospitaliza d 05-02 12:05:00 Barbara tion 08:15: [employer] 00 [id number] Respiratory lung sounds Respirator Resolve 2019-05-30 Blaire deficit y d 8- 08:38:00 Bruno 12:05: [id number] 00 Medication injectable Meds Resolve 2019-05-30 Blaire med d 8 08:38:00 Bruno assistance 12:05: [id number] required 00 Safety risk for Safety Resolve 2019-05-30 [facility] 08:38[facility]00 Barbara tion 08:02: [employer] 00 [id number] Neuro impaired Neuro/Emot Resolve 2019-05-30 Blaire decision-ma ion d 05-30 08:38:00 Bruno rosanne 08:38: [id number] 00 Neuro memory Neuro/Emot Resolve 2019-05-30 Blaire deficit ion d 05-30 08:38:00 Bruno needing 08:38: [id number] supervision 00 Safety risk for Safety Resolve 2019-06-27 Elissa [facility] d 9 08:40:00 Barbara tion 07:56: [employer] 00 [id number] Respiratory lung sounds Respirator Resolve 2019-06-27 Elissa deficit y d 9 08:40:00 Barbara 07:30: [employer] 00 [id number] Respiratory nebulizer Respirator Resolve 2018-092019-06-27 Blaire treatment y d 0-01 08:40:00 Bruno in home 08:40: [id number] 00 Elimination urinary Eliminatio Resolve 2018-092019-07-11 Elissa incontinenc n d 0-08 10:13:00 Barbara e 08:00: [employer] 00 [id number] Safety risk for Safety Resolve 2018-092019-08-07 Elissa [facility] d 0-08 12:15:00 Barbara tion 08:00: [employer] 00 [id number] Respiratory oxygen Respirator Resolve 2018-092019-10-03 Blaire treatments y d 0-15 09:32:00 Bruno in home 10:13: [id number] 00 Respiratory nebulizer Respirator Resolve 2018-092019-10-03 Blaire treatment y d 0-15 09:32:00 Bruno in home 10:13: [id number] 00 Respiratory lung sounds Respirator Resolve 2018-092019-07-11 Blaire deficit y d 0-15 10:13:00 Bruno 10:13: [id number] 00 Neuro anxiety Neuro/Emot Resolve 2018-092019-08-07 Blaire present ion d 0-15 12:15:00 Bruno 10:13: [id number] 00 Neuro impaired Neuro/Emot Unknown 2018-09 Blaire decision-ma ion 0-15 Bruno rosanne 10:13: [id number] 00 Safety safety Safety Resolve 2018-092019-08-07 Blaire hazards d 0-15 12:15:00 Bruno present 10:13: [id number] 00 Safety fall risk Safety Resolve 2018-092019-08-07 Blaire factor d 0-15 12:15:00 Bruno present 10:13: [id number] 00 Medication injectable Meds Resolve 2018-092019-08-07 Blaire med d 0-15 12:15:00 Bruno assistance 10:13: [id number] required 00 Medication oral med Meds Resolve 2018-092019-08-07 Blaire assistance d 0-15 12:15:00 Bruno required 10:13: [id number] 00 Respiratory lung sounds Respirator Resolve 2018-092019-08-07 Blaire deficit y d 1-11 12:15:00 Bruno 12:15: [id number] 00 Elimination urinary Eliminatio Resolve 2018-092019-09-05 [facility] incontinenc n d - 10:26:00 Barbara e 08:00: [employer] 00 [id number] Safety risk for Safety Resolve 2018-092019-09-05 [facility] - 10:26[facility]00 Barbara tion 08:00: [employer] 00 [id number] Nutrition nutritional Nutrition Active 2018- Rosamaria restriction 1-30 Malnoske s 10:55: RN 00 Respiratory lung sounds Respirator Resolve 2018-092019-09-05 Blaire deficit y d 2-10 10:26:00 Bruno 10:26: [id number] 00 Medication oral med Meds Resolve 2018-092019-10-03 Blaire assistance d 2-10 09:32:00 Bruno required 10:26: [id number] 00 Medication injectable Meds Resolve 2018-092019-10-03 Blaire med d 2-10 09:32:00 Bruno assistance 10:26: [id number] required 00 Safety risk for Safety Resolve 2018-092019-10-03 Elissa hospitaliza d 2-17 09:32:00 Barbara tion 08:00: [facility] 00 [id number] Respiratory lung sounds Respirator Resolve 2019-10-03 Blaire edge d 10-03 09:32:00 Bruno 09:32: [id number] 00 Allergies, Adverse Reactions, Alerts Allergy Name Allergy Status Severity Reaction(s) Onset Inactive Treating Comments Type Date Date Clinician sulfa Unknown Active Mild to Rash Elissa Moderate 01-25 Jessica [id number] aspirin Base Active Moderate Hives Elissa Ingredient 01-25 Jessica [id number] penicillin G Base Active Moderate Difficulty Elissa Ingredient to Severe swallowing 01-25 Jessica [id number] Medications Ordered Filled Start Stop Current Ordering [...] 5 mg tablet 5 mg tablet 01-18 Klaus MARIEE montelukast montelukast No [place] 10 mg Unknown sodium 10 sodium 10 01-18 Brenden MARIEErit mg tablet mg tablet Advair Advair 2018- No [place] one Unknown Diskus 500 Diskus 500 01-18 Klaus MARIEE puff mcg-50 mcg-50 mcg/dose mcg/dose powder for powder for inhalation inhalation Ventolin Ventolin No [place] 2 puffs Unknown HFA 90 HFA 90 01-18 Klaus MARIEE mcg/actuati mcg/actuati on aerosol on aerosol inhaler inhaler iron 325 mg iron 325 mg 2017- No [place] 325 mg Unknown (65 mg (65 mg 01-18 Klaus MARIEE iron) iron) tablet tablet multivitami multivitami 2017- No [place] 1 Unknown n capsule n capsule 01-18 Klaus MARIEE Calcium 600 Calcium 600 No [place] 600 mg Unknown with with 01-18 Klaus MARIEE Vitamin D3 Vitamin D3 600 mg 600 mg (1,500 (1,500 mg)-400 mg)-400 unit unit capsule capsule Fish Oil Fish Oil No [place] 1 Unknown 1,000 mg 1,000 mg 01-18 MDKlaus (120 mg-180 (120 mg-180 mg) capsule mg) [...] No [place] 1 Unknown with with 01-18 Klaus MARIEE HandiHaler HandiHaler 18 mcg and 18 mcg [...] 1 mg Unknown mg capsule mg capsule 01-18- Martin MARIEE amitriptyli amitriptyli 2017- No Emilio 100 mg Unknown ne 100 mg ne 100 mg 01-18 ,Martin tablet tablet cyclobenzap cyclobenzap 2017- No Emilio 10 mg Unknown rine 10 mg rine 10 mg 01-18 10-16 ,Martin tablet tablet traZODone traZODone 2017- No Emilio 200 mg Unknown 100 mg 100 mg 01-18 10-15 ,Martin tablet tablet B Complex 1 B Complex 1 2017- No [place] 1 Unknown tablet tablet 01-18 Klaus MARIEE levothyroxi levothyroxi No [place] 50 mcg Unknown ne 50 mcg ne 50 mcg 01-18 ,Klaus capsule capsule other other No [place] Oxygen Unknown 01-18 Klaus MARIEE Vitamin D3 Vitamin D3 No [place] 1 Unknown 1,000 unit 1,000 unit 01-18 ,Klaus capsule capsule atorvastati atorvastati No [place] 40 mg Unknown n 40 mg n 40 mg 01-18 ,Klaus tablet tablet lisinopril lisinopril No [place] 5 mg Unknown 5 mg tablet 5 mg tablet 01-18 Brenden MARIEErit iron 325 mg iron 325 mg No [place] 325 mg Unknown (65 mg (65 mg 01-18 Klaus MARIEE iron) iron) tablet tablet multivitami multivitami No [place] 1 Unknown n capsule n capsule 01-18 MD,Klaus PROzac 20 PROzac 20 No Emilio 60 mg Unknown mg capsule mg capsule 01-18 Martin MARIEE pantoprazol pantoprazol No [place] 40 mg Unknown e 40 mg e 40 mg 01-18 ,Klaus tablet,feng tablet,feng yed release yed release clopidogrel clopidogrel 2018- No [place] 75 mg Unknown 75 mg 75 mg 01-18 ,Klaus tablet tablet pentoxifyll pentoxifyll No [place] 400 mg Unknown ine ER 400 ine ER 400 01-18 MD,Klaus mg mg tablet,exte tablet,exte nded nded release release torsemide torsemide No [place] 10 mg Unknown 10 mg 10 mg 01-18 MD,Klaus tablet tablet amitriptyli amitriptyli 2018- No Emilio 100 mg Unknown ne 100 mg ne 100 mg 01-18 ,Martin tablet tablet B Complex 1 B Complex 1 No [place] 1 Unknown tablet tablet 01-18 ,Klaus traZODone traZODone 2017-09 No Emilio Unknown Unknown 150 mg 150 mg 0-15 ,Martin tablet tablet cyclobenzap cyclobenzap 2017-09 No [place] Unknown Unknown rine 10 mg rine 10 mg 0-16 ,Klaus tablet tablet prazosin 2 prazosin 2 2017-09- [...] ne 50 mg ne 50 mg 12-13 ,Klaus tablet tablet albuterol albuterol No [place] Unknown Unknown sulfate 2.5 sulfate 2.5 - MD,Klaus mg/3 mL mg/3 mL (0.083 %) (0.083 %) solution solution for for nebulizatio nebulizatio n n Flonase Flonase No Raza Unknown Unknown Allergy Allergy 12-27 ,Ngozi Relief 50 Relief 50 mcg/actuati mcg/actuati on nasal on nasal spray,suspe spray,suspe nsion nsion amitriptyli amitriptyli 2018- No Emilio Unknown Unknown ne 50 mg ne 50 [...] Unknown Unknown Ellipta 100 Ellipta 100 04-18 ,Ngozi mcg-62.5 mcg-62.5 mcg-25 mcg mcg-25 mcg powder for powder for inhalation inhalation Chantix Chantix 2018- No [place] Unknown Unknown Starting Starting 05-23 Klaus MARIEE Month Box Month Box 0.5 mg 0.5 mg (11)-1 mg (11)-1 mg (42) (42) tablets in tablets in dose pack dose pack ciprofloxac ciprofloxac 2018-09- Yes [place] Unknown Unknown in 500 mg in 500 mg 07-28 ,Klaus tablet tablet ezetimibe ezetimibe Yes [place] Unknown Unknown 10 mg 10 mg 10-03 ,Klaus tablet tablet Vital Signs Vital Name Observation [...]
--- OUTSIDE RECORDS SUMMARY | 2019-10-07 18:09 | XMS REPORT ---
:1960 Author Organization [facility] Care Team Providers Name Role Phone Unavailable Unavailable Unavailable Problems Condition Condition Condition Status Onset Resolution Last Treating Comments Name Details Category Date Date Treatment Clinician Date Chronic Chronic Diagnosis Active Blaire obstructive obstructive 01-18 Bruno pulmonary pulmonary [id number] disease, disease, unspecified unspecified Patient's Patient's Diagnosis Active Blaire other other 01-18 Bruno noncomplian noncomplian [id number] ce with ce with medication medication regimen regimen Schizophren Schizophren Diagnosis Active Blaire ia, ia, 01-18 Bruno unspecified unspecified [id number] Essential Essential Diagnosis Active Blaire (primary) (primary) 01-18 Bruno hypertensio hypertensio [id number] n n Hypothyroid Hypothyroid Diagnosis Active Blaire ism, ism, 01-18 Bruno unspecified unspecified [id number] Dependence Dependence Diagnosis Active Blaire on on 01-18 Bruno supplementa supplementa [id number] l oxygen l oxygen Anemia, Anemia, Diagnosis Active Blaire unspecified unspecified Bruno [id number] Nicotine Nicotine Diagnosis Active Blaire dependence, dependence, Bruno cigarettes, cigarettes, [id number] uncomplicat uncomplicat ed ed Pain frequent Pain Mgmt Resolve 2018-11-09 Elissa pain d 01-18 08:50:00 Jessica 13:00: [id number] 00 Pain knowledge/s Pain Mgmt Resolve 2018-05-13 Elissa kill d 01-18 11:18:00 Crane deficit: pt 13:00: [id number] 00 Cardio knowledge/s Cardiovasc Resolve 2018-06-07 Elissa wheeler ular d 01-18 15:30:00 Crane deficit: pt 13:00: [id number] 00 Respiratory oxygen Respirator Resolve 2018-07-05 Elissa treatments y d 01-18 09:20:00 Crane in home 13:00: [id number] 00 Respiratory nebulizer Respirator Resolve 2018-07-05 Elissa treatment y d 01-18 09:20:00 Crane in home 13:00: [id number] 00 Respiratory dyspnea Respirator Resolve 2018-07-05 Elissa present y d 01-18 09:20:00 Crane 13:00: [id number] 00 Endo/Derek anti-coagul Endo/Derek Resolve 2018-07-12 Elissa ation d 01-18 09:48:00 Jessica therapy 13:00: [id number] 00 Nutrition nutritional Nutrition Resolve 2018-04-12 Elissa restriction d 01-18 10:11:00 Crane s 13:00: [id number] 00 Elimination urinary Eliminatio Resolve 2018-05-13 Elissa frequency n d 01-18 11:18:00 Jessica 13:00: [id number] 00 Neuro impaired Neuro/Emot Resolve 2018-08-09 Elissa decision-ma ion d 01-18 08:44:00 Crane rosanne 13:00: [id number] 00 Activity ADL Activity Resolve 2018-04-12 Adia assistance d 01-18 10:11:00 Guidelli required 13:00: [id number] 00 Safety risk for Safety Resolve 2018-05-13 Elissa hospitaliza d 01-18 11:18:00 Jessica tion 13:00: [id number] 00 Safety can be left Safety Resolve 2018-05-13 Elissa alone for d 01-18 11:18:00 Jessica only short 13:00: [id number] 00 Safety fall risk Safety Resolve 2018-05-13 Elissa factor d 01-18 11:18:00 Jessica present 13:00: [id number] 00 Medication knowledge/s Meds Resolve 2018-06-07 Elissa kill d 01-18 15:30:00 Jessica deficit: pt 13:00: [id number] 00 Medication oral med Meds Resolve 2018-06-07 Elissa assistance d 01-18 15:30:00 Jessica required 13:00: [id number] 00 Medication injectable Meds Resolve 2018-06-07 Elissa med d 01-18 15:30:00 Jessica assistance 13:00: [id number] required 00 Medication potential Meds Resolve 2018-06-07 Elissa clinically d 01-18 15:30:00 Crane significant 13:00: [id number] medication 00 issue Diagnoses knowledge/s Diagnoses Active Elissa kill 01-18 Jessica deficit: pt 13:00: [id number] 00 Musculoskel requires Musculoske Resolve 2018-05-13 Elissa etal human letal d 01-18 11:18:00 Jessica assist to 13:00: [id number] leave home 00 Musculoskel transfer Musculoske Resolve 2018-05-13 Adia etal assistance letal d 01-18 11:18:00 Guidelli required 13:00: [id number] 00 Respiratory lung sounds Respirator Resolve 2018-07-05 Elissa deficit y d 01-25 09:20:00 Crane 16:00: [id number] 00 Safety knowledge/s Safety Resolve 2018-05-13 Elissa kill d 01-25 11:18:00 Crane deficit: pt 16:00: [id number] 00 Elimination constipatio Eliminatio Resolve 2018-05-13 Elissa n n d 6-19 11:18:00 Cristal 11:43: [id number] 00 Nutrition nutritional Nutrition Resolve 2018-06-07 Elissa restriction d 17 15:30:00 Cristal s 11:18: [id number] 00 Respiratory smoker Respirator Resolve 2018-07-05 Elissa y d 06-07 09:20:00 Cristal 15:30: [id number] 00 Elimination urinary Eliminatio Resolve 2018-06-07 Elissa frequency n d 06-07 15:30:00 Cristal 15:30: [id number] 00 Safety knowledge/s Safety Active Elissa kill 06-07 Cristal deficit: pt 15:30: [id number] 00 Safety risk for Safety Resolve 2018-07-05 [facility] 09:[facility] Cristal tion 15:30: [id number] 00 Safety risk for Safety Unknown 2017-09 [facility] [place] tion 14:00: [id number] 00 Respiratory dyspnea Respirator Resolve 2017-092018-08-09 Blaire present y d 0-16 08:44:00 Bruno 09:48: [id number] 00 Respiratory lung sounds Respirator Resolve 2017-092018-08-09 Blaire deficit y d 016 08:44:00 Bruno 09:48: [id number] 00 Safety risk for Safety Resolve 2017-092018-08-09 Blaire hospitaliza d 016 08:44:00 Bruno tion 09:48: [id number] 00 Respiratory oxygen Respirator Resolve 2017-092018-08-09 Blaire treatments y d 1 08:44:00 Bruno in home 08:44: [id number] 00 Respiratory nebulizer Respirator Resolve 2017-092018-08-09 Blaire treatment y d 10-09 08:44:00 Bruno in home 08:44: [id number] 00 Neuro anxiety Neuro/Emot Resolve 2017-092018-08-09 Blaire present ion d 10-09 08:44:00 Bruno 08:44: [id number] 00 Safety risk for Safety [facility] [place] tion 10:46: [id number] 00 Respiratory oxygen Respirator Resolve 2017-092018-09-13 Blaire treatments y d 10-31 09:53:00 Bruno in home 09:20: [id number] 00 Respiratory lung sounds Respirator Resolve 2017-092018-09-13 Blaire deficit y d 10-31 09:53:00 Bruno 09:20: [id number] 00 Respiratory smoker Respirator Resolve 2017-092018-09-13 Blaire y d 10-31 09:53:00 Bruno 09:20: [id number] 00 Respiratory nebulizer Respirator Resolve 2017-092018-09-13 Blaire treatment y d 10-31 09:53:00 Bruno in home 09:20: [id number] 00 Endo/Derek anti-coagul Endo/Derek Resolve 2017-092018-09-13 Blaire ation d 10-31 09:53:00 Bruno therapy 09:20: [id number] 00 Neuro anxiety Neuro/Emot Resolve 2017-092018-09-13 Blaire present ion d 10-31 09:53:00 Bruno 09:20: [id number] 00 Safety safety Safety Resolve 2017-092018-08-30 Blaire hazards d 10-31 09:20:00 Bruno present 09:20: [id number] 00 Safety risk for Safety Resolve 2017-092018-09-13 Arin hospitaliza d 11-07 09:53:00 Carrier RN tion 10:00: 00 Respiratory dyspnea Respirator Resolve 2017-092018-09-13 Blaire present y d 11-14 09:53:00 Bruno 09:53: [id number] 00 Safety risk for Safety Resolve 2017-092018-09-26 Jazz hospitaliza d 11-20 09:45:00 [place] tion 10:00: [id number] 00 Respiratory dyspnea Respirator Resolve 2017-092019-01-03 Blaire present y d 09:25:00 Bruno 09:45: [id number] 00 Respiratory oxygen Respirator Resolve 2017-092019-01-03 Blaire treatments y d 09:25:00 Bruno in home 09:45: [id number] 00 Respiratory lung sounds Respirator Resolve 2017-092018-10-25 Blaire deficit y d 09:26:00 Bruno 09:45: [id number] 00 Respiratory smoker Respirator Resolve 2017-092018-09-26 Blaire y d 2 09:45:00 Bruno 09:45: [id number] 00 Respiratory nebulizer Respirator Resolve 2017-092019-01-03 Blaire treatment y d 09:25:00 Bruno in home 09:45: [id number] 00 Medication oral med Meds Resolve 2017-092019-03-09 Blaire assistance d 14:06:00 Bruno required 09:45: [id number] 00 Medication injectable Meds Resolve 2017-092019-03-09 Blaire med d 14:06:00 Bruno assistance 09:45: [id number] required 00 Nutrition nutritional Nutrition Resolve 2018-11-09 Jazz restriction d 09-30 08:50:00 [place] s 12:19: [id number] 00 Safety risk for Safety Resolve 2018-10-25 Jazz hospitaliza d 09-30 09:26:00 [place] tion 12:19: [id number] 00 Respiratory lung sounds Respirator Resolve 2018-11-09 Jazz deficit y d 2 08:50:00 [place] 10:20: [id number] 00 Safety risk for Safety Resolve 2018-11-09 Jazz hospitaliza d 11-01 08:50:00 [place] tion 10:20: [id number] 00 Respiratory smoker Respirator Resolve 2018-12-20 Blaire y d 11-09 09:22:00 Bruno 08:50: [id number] 00 Neuro anxiety Neuro/Emot Resolve 2018-11-09 Blaire present ion d 11-09 08:50:00 Bruno 08:50: [id number] 00 Nutrition nutritional Nutrition Resolve 2018-12-06 Jazz restriction d 11-15 10:45:00 [place] s 11:00: [id number] 00 Safety risk for Safety Resolve 2018-12-06 Jazz hospitaliza d 11-15 10:45:00 [place] tion 11:00: [id number] 00 Respiratory lung sounds Respirator Resolve 2018-12-20 Blaire deficit y d 3 09:22:00 Bruno 10:45: [id number] 00 Respiratory pneumonia Respirator Resolve 2018-12-20 Blaire y d 312 09:22:00 Bruno 10:45: [id number] 00 Respiratory asthma Respirator Resolve 2019-01-03 Blaire y d 12-06 09:25:00 Bruno 10:45: [id number] 00 Nutrition nutritional Nutrition Resolve 2018-12-20 Blaire restriction d 12-13 09:22:00 Bruno s 09:45: [id number] 00 Safety risk for Safety Resolve 2018-12-20 Blaire hospitaliza d 12-13 09:22:00 Bruno tion 09:45: [id number] 00 Safety safety Safety Resolve 2018-2018-12-20 Blaire hazards d 3- 09:22:00 Bruno present 09:22: [id number] 00 Respiratory knowledge/s Respirator Resolve 2018-2019-01-03 Blaire kill y d 12-27 09:25:00 Bruno deficit: pt 10:07: [id number] 00 Respiratory lung sounds Respirator Resolve 2019-01-03 Blaire deficit y d 12-27 09:25:00 Bruno 10:07: [id number] 00 Respiratory CPAP Respirator Resolve 2019-01-03 Blaire treatments y d 12-27 09:25:00 Bruno in home 10:07: [id number] 00 Respiratory smoker Respirator Resolve 2019-01-03 Blaire y d 12-27 09:25:00 Bruno 10:07: [id number] 00 Nutrition nutritional Nutrition Resolve 2019-01-03 Blaire restriction d 12-27 09:25:00 Bruno s 10:07: [id number] 00 Neuro impaired Neuro/Emot Resolve 2019-01-03 Blaire decision-ma ion d 12-27 09:25:00 Bruno rosanne 10:07: [id number] 00 Safety risk for Safety Resolve 2019-01-03 Blaire hospitaliza d 12-27 09:25:00 Bruno tion 10:07: [id number] 00 Neuro memory Neuro/Emot Unknown Blaire deficit ion 01-03 Bruno needing 09:25: [id number] supervision 00 Respiratory dyspnea Respirator Resolve 2019-03-28 Blaire present y d 01-10 09:06:00 Bruno 09:27: [id number] 00 Respiratory knowledge/s Respirator Resolve 2019-03-07 Blaire kill y d 01-10 09:45:00 Bruno deficit: pt 09:27: [id number] 00 Respiratory lung sounds Respirator Resolve 2019-03-07 Blaire deficit y d 01-10 09:45:00 Bruno 09:27: [id number] 00 Respiratory smoker Respirator Resolve 2019-03-07 Blaire y d 01-10 09:45:00 Bruno 09:27: [id number] 00 Nutrition nutritional Nutrition Resolve 2019-02-07 Blaire restriction d 4-16 09:39:00 Bruno s 09:27: [id number] 00 Neuro impaired Neuro/Emot Unknown Blaire decision-ma ion 4-16 Bruno rosanne 09:27: [id number] 00 Neuro memory Neuro/Emot Unknown Blaire deficit ion 4-16 Bruno needing 09:27: [id number] supervision 00 Safety fall risk Safety Resolve 2019-02-07 Blaire factor d 416 09:39:00 Bruno present 09:27: [id number] 00 Safety risk for Safety Resolve 2019-02-07 Blaire hospitaliza d 01-10 09:39:00 Bruno tion 09:27: [id number] 00 Respiratory oxygen Respirator Resolve 2019-03-28 Elissa treatments y d 01-24 09:06:00 Barbara in home 09:00: [employer] 00 [id number] Respiratory nebulizer Respirator Resolve 2019-03-28 Elissa treatment y d 01-24 09:06:00 Barbara in home 09:00: [employer] 00 [id number] Respiratory asthma Respirator Resolve 2019-03-28 Consuelo y d 01-25 09:06:00 Vallely 11:00: 00 Elimination urinary Eliminatio Resolve 2019-02-07 Elissa incontinenc n d 01-31 09:39:00 Barbara e 08:30: [employer] 00 [id number] Nutrition nutritional Nutrition Resolve 2019-03-07 Elissa restriction d 02-14 09:45:00 Barbara s 08:13: [employer] 00 [id number] Safety risk for Safety Resolve 2019-03-07 Elissa hospitaliza d 02-14 09:45:00 Barbara tion 08:13: [employer] 00 [id number] Respiratory lung sounds Respirator Resolve 2019-03-09 Blaire deficit y d 6 14:06:00 Bruno 14:06: [id number] 00 Respiratory smoker Respirator Resolve 2019-03-09 Blaire y d 6 14:06:00 Bruno 14:06: [id number] 00 Nutrition nutritional Nutrition Resolve 2019-03-28 Blaire restriction d 6-13 09:06:00 Bruno s 14:06: [id number] 00 Safety safety Safety Resolve 2019-03-28 Blaire hazards d 6-13 09:06:00 Bruno present 14:06: [id number] 00 Safety fall risk Safety Resolve 2019-03-28 Blaire factor d 6-13 09:06:00 Bruno present 14:06: [id number] 00 Safety risk for Safety Resolve 2019-03-28 Blaire hospitaliza d 613 09:06:00 Bruno tion 14:06: [id number] 00 Medication potential Meds Resolve 2019-03-09 Blaire clinically d 6 14:06:00 Bruno significant 14:06: [id number] medication 00 issue Respiratory lung sounds Respirator Resolve 2019-03-28 Elissa deficit y d 618 09:06:00 Barbara 07:45: [employer] 00 [id number] Respiratory lung sounds Respirator Resolve 2019-04-25 Elissa deficit y d 04-04 09:45:00 Barbara 08:00: [employer] 00 [id number] Nutrition nutritional Nutrition Resolve 2019-04-25 Elissa restriction d 04-04 09:45:00 Barbara s 08:00: [employer] 00 [id number] Safety risk for Safety Resolve 2019-04-25 Elissa hospitaliza d 04-04 09:45:00 Barbara tion 08:00: [employer] 00 [id number] Neuro anxiety Neuro/Emot Resolve 2019-04-25 Blaire present ion d 04-25 09:45:00 Bruno 09:45: [id number] 00 Safety risk for Safety Resolve 2019-05-09 Elissa hospitaliza d 05-02 12:05:00 Barbara tion 08:15: [employer] 00 [id number] Respiratory lung sounds Respirator Resolve 2019-05-30 Blaire deficit y d 8- 08:38:00 Bruno 12:05: [id number] 00 Medication injectable Meds Resolve 2019-05-30 Blaire med d 8 08:38:00 Bruno assistance 12:05: [id number] required 00 Safety risk for Safety Resolve 2019-05-30 [facility] 08:38:00 Barbara tion 08:02: [employer] 00 [id number] Neuro impaired Neuro/Emot Resolve 2019-05-30 Blaire decision-ma ion d 05-30 08:38:00 Bruno rosanne 08:38: [id number] 00 Neuro memory Neuro/Emot Resolve 2019-05-30 Blaire deficit ion d 05-30 08:38:00 Bruno needing 08:38: [id number] supervision 00 Safety risk for Safety Resolve 2019-06-27 [facility] 08:40:00 Barbara tion 07:56: [employer] 00 [id number] Respiratory lung sounds Respirator Resolve 2019-06-27 Elissa deficit y d 9 08:40:00 Barbara 07:30: [employer] 00 [id number] Respiratory nebulizer Respirator Resolve 2018-092019-06-27 Blaire treatment y d 0-01 08:40:00 Bruno in home 08:40: [id number] 00 Elimination urinary Eliminatio Resolve 2018-092019-07-11 Elissa incontinenc n d 0-08 10:13:00 Barbara e 08:00: [employer] 00 [id number] Safety risk for Safety Resolve 2018-092019-08-07 [facility] 12:15:00 Barbara tion 08:00: [employer] 00 [id number] Respiratory oxygen Respirator Active 2018-09 Blaire treatments y 0-15 Bruno in home 10:13: [id number] 00 Respiratory nebulizer Respirator Active 2018-09 Blaire treatment y 0-15 Bruno in home 10:13: [id number] 00 Respiratory lung sounds Respirator Resolve 2018-092019-07-11 Blaire deficit y d 0-15 10:13:00 Bruno 10:13: [id number] 00 Neuro anxiety Neuro/Emot Resolve 2018-092019-08-07 Blaire present ion d 0-15 12:15:00 Bruno 10:13: [id number] 00 Neuro impaired Neuro/Emot Unknown 2018-09 Blaire decision-ma ion 0-15 Bruno rosanne 10:13: [id number] 00 Safety safety Safety Resolve 2018-092019-08-07 Blaire hazards d 0-15 12:15:00 Bruno present 10:13: [id number] 00 Safety fall risk Safety Resolve 2018-092019-08-07 Blaire factor d 0-15 12:15:00 Bruno present 10:13: [id number] 00 Medication injectable Meds Resolve 2018-092019-08-07 Blaire med d 0-15 12:15:00 Bruno assistance 10:13: [id number] required 00 Medication oral med Meds Resolve 2018-092019-08-07 Blaire assistance d 0-15 12:15:00 Bruno required 10:13: [id number] 00 Respiratory lung sounds Respirator Resolve 2018-092019-08-07 Blaire deficit y d 1-11 12:15:00 Bruno 12:15: [id number] 00 Elimination urinary Eliminatio Resolve 2018-092019-09-05 [facility] 10:26:00 Barbara e 08:00: [employer] 00 [id number] Safety risk for Safety Resolve 2018[facility]092019-09-05 [facility] 10:26[facility]00 Barbara tion 08:00: [employer] 00 [id number] Nutrition nutritional Nutrition Active 2018-09 Rosamaria restriction 1-30 Malnoske s 10:55: RN 00 Respiratory lung sounds Respirator Resolve 2018-092019-09-05 Blaire deficit y d 2-10 10:26:00 Bruno 10:26: [id number] 00 Medication oral med Meds Active 2018-09 Blaire assistance 2-10 Bruno required 10:26: [id number] 00 Medication injectable Meds Active 2018-09 Blaire med 2-10 Bruno assistance 10:26: [id number] required 00 Safety risk for Safety Active 2018-09 [facility] 11-13 Barbara tion 08:00: [employer] 00 [id number] Allergies, Adverse Reactions, Alerts Allergy Name Allergy Status Severity Reaction(s) Onset Inactive Treating Comments Type Date Date Clinician sulfa Unknown Active Mild to Rash Elissa Moderate 01-25 Jessica [id number] aspirin Base Active Moderate Hives Elissa Ingredient 01-25 Jessica [id number] penicillin G Base Active Moderate Difficulty Elissa Ingredient to Severe swallowing 01-25 Jessica [id number] Medications Ordered Filled Start Stop Current Ordering [...] mg Unknown sodium 10 sodium 10 01-18 MDKlaus mg tablet mg tablet Advair Advair 2018- [...] ,Klaus iron) iron) tablet tablet multivitami multivitami 2017- No [place] 1 Unknown n capsule n capsule 01-18 ,Klaus Calcium 600 Calcium 600 No [place] 600 mg Unknown with with 01-18 MD,Klaus Vitamin D3 Vitamin D3 600 mg 600 mg (1,500 (1,500 mg)-400 mg)-400 unit unit capsule capsule Fish Oil Fish Oil No [place] 1 Unknown 1,000 mg 1,000 mg 01-18 MD,Klaus (120 mg-180 (120 mg-180 mg) capsule mg) [...] mg Unknown 70 mg 70 mg 01-18 MD,Klaus tablet tablet torsemide torsemide 2017- No [place] 10 mg Unknown 10 mg 10 mg 01-18 MD,Klaus tablet tablet Latuda 120 Latuda 120 No Emilio 120 mg Unknown mg tablet mg tablet 01-18 Martin MARIEE prazosin 1 prazosin 1 2018- No Emilio 1 mg Unknown mg capsule mg capsule 01-18 Martin MARIEE amitriptyli amitriptyli 2017- No Emilio 100 mg Unknown ne 100 mg ne 100 mg 01-18 ,Martin tablet tablet cyclobenzap cyclobenzap No Emilio 10 mg Unknown rine 10 mg rine 10 mg 01-18 ,Martin tablet tablet traZODone traZODone 2017- No Emilio 200 mg Unknown 100 mg 100 mg 01-18 ,Martin tablet tablet B [...] tablet 5 mg tablet 01-18 Klaus MARIEE iron 325 mg iron 325 mg No [place] 325 mg Unknown (65 mg (65 mg 01-18 Klaus MARIEE iron) iron) tablet tablet multivitami multivitami No [place] 1 Unknown n capsule n capsule 01-18 Klaus MARIEE PROzac 20 PROzac 20 No Emilio 60 mg Unknown mg capsule mg capsule 01-18 Martin MARIEE pantoprazol pantoprazol No [place] 40 mg Unknown e 40 mg e 40 mg 01-18 ,Klaus tablet,feng tablet,feng yed release yed release clopidogrel clopidogrel 2018- No [place] 75 mg Unknown 75 mg 75 mg 01-18 MD,Klaus tablet tablet pentoxifyll pentoxifyll No [place] [...] Emilio Unknown Unknown 150 mg 150 mg 0- MD,Martin tablet tablet cyclobenzap cyclobenzap 2017-09 No [place] Unknown Unknown rine 10 mg rine 10 mg 0 MD,Klaus tablet tablet prazosin 2 prazosin 2 2017-09- No Emilio Unknown Unknown mg capsule mg capsule 10-16 Martin MARIEE doxycycline doxycycline 2018- No [place] Unknown Unknown monohydrate monohydrate 11-25 ,Klaus 100 mg 100 mg capsule capsule prazosin 2 prazosin 2 2018- No Emilio Unknown Unknown mg capsule mg capsule 12-07 ,Martin amitriptyli amitriptyli 2018- No [place] Unknown Unknown ne 50 mg ne 50 mg 12-13 ,Klaus tablet tablet albuterol albuterol No [place] Unknown Unknown sulfate 2.5 sulfate 2.5 12-27 MD,Klaus mg/3 mL mg/3 mL (0.083 %) (0.083 %) solution solution for for nebulizatio nebulizatio n n Flonase Flonase No Raza Unknown Unknown Allergy Allergy 12-27 MD,Ngozi Relief 50 Relief 50 mcg/actuati mcg/actuati on nasal on nasal spray,suspe spray,suspe nsion nsion amitriptyli amitriptyli 2018- No Emilio Unknown Unknown ne 50 mg ne 50 mg 12-13 ,Martin tablet tablet prazosin 2 prazosin 2 2018- No Emilio Unknown Unknown mg capsule mg capsule 03-23 Martin MARIEE prazosin 2 prazosin 2 2018- No Emilio Unknown Unknown mg capsule mg capsule 03-23 Martin MARIEE amitriptyli amitriptyli No Emilio Unknown Unknown ne [...] in 500 mg in 500 mg 07-28 Brenden MARIEErit tablet tablet Vital Signs Vital Name Observation Time Observation Value Comments SYSTOLIC mm[Hg] 2019-09-27 18:09:39 122 mm[Hg] mm[Hg] Method: Sit SYSTOLIC mm[Hg] 2019-09-06 18:09:18 122 mm[Hg] mm[Hg] Method: Stand DIASTOLIC mm[Hg] 2019-09-27 18:09:39 72 mm[Hg] mm[Hg] Method: Sit DIASTOLIC mm[Hg] 2019-09-06 18:09:18 70 mm[Hg] mm[Hg] Method: Stand PULSE 2019-09-27 18:09:39 88 /min /min RESP RATE 2019-09-27 18:09:39 16 /min /min TEMP 2019-09-27 18:09:39 97.9 [degF] Procedures This patient has no known procedures. Results This patient has no known results.
--- OUTSIDE RECORDS SUMMARY | 2019-10-07 18:09 | XMS REPORT ---
:1960 Author Organization [facility] Care Team Providers Name Role Phone Elissa Lopez Primary Care Physician Unavailable Allergies, Adverse Reactions, Alerts Allergy Code CodeSystem Reaction Severity Criticality Status Start Substance Date Moderate Medications Medication Medication Medication Start Stop Route Dose Status Fill Code CodeSystem Date Date Instructions prazosin 136200 RxNorm 2018- oral 2 mg 2 completed Take 2 03-23 capsule capsule every every night night for 30 day(s) Latuda 0695236 RxNorm 2018- oral 120 mg active for 30 03-01- tablet day(s) prazosin 334132 RxNorm 2018- oral 5 mg 1 active Take 1 04-13 capsule capsule at at bedtime for bedtime 30 day(s) fluoxetine 018343 RxNorm oral 20 mg active for 30 capsule day(s) Invega 813797 RxNorm 2018- IM 234 active Inject 1 Sustenna 5-17 11-01 mg/1.5 mL syringe 1 syringe every four every weeks for 28 four day(s) weeks amitriptyline 572564 RxNorm 2018- oral 100 mg active for 30 03-15-16 tablet day(s) prazosin 544372 RxNorm 2018- oral 2 mg completed for 30 03-23 capsule day(s) amitriptyline 552738 RxNorm 2017-09 2019- oral 50 mg completed for 30 10-16- tablet day(s) trazodone 679008 RxNorm 2018- oral 150 mg active for 30 10-18- tablet day(s) Latuda 7101130 RxNorm 2018- oral 120 mg completed for 30 11-15-05 tablet day(s) Nicorette 046453 RxNorm 2018- bucl 4 mg 1 active Chew 1 piece 04-13 gum as as directed directed for 30 day(s) Problems Problem Name Code CodeSystem Alternate Alternate Start End Status Narrative Code CodeSystem Date Date Schizophreni [id number] SNOMED-CT 2018- Active a, - unspecified Relevant diagnostic tests/laboratory data Narrative No Information Procedures Procedure Code CodeSystem Target Date of Status Service Device Device Device Name Site Procedure Delivery Code Name UID Location Comprehensiv [id number] SNOMED-CT () 2019-01-19 complete Mental e medication 0 d [facility], [place] [address] [place], [place], [id number] Comprehensiv [id number] SNOMED-CT () 2019-02-16 complete Mental e medication 0 d Health- services, [place] [address] [place], [place], [id number] Comprehensiv 037659 SNOMED-CT () 2019-04-13 complete Mental e medication 0 d Health- services, [place] [address] [place], [place], [id number] Comprehensiv 725584 SNOMED-CT () 2019-03-16 complete Mental e medication 0 d Health- services, [place] [address] [place], [place], [id number] Comprehensiv 077165 SNOMED-CT () 2019-05-11 complete Mental e medication 0 d Health- services, [place] [address] [place], [place], [id number] Comprehensiv 265983 SNOMED-CT () 2019-06-08 complete Mental e medication 0 d Health- services, [place] [address] [place], [place], [id number] Comprehensiv 661148 SNOMED-CT () 2019-07-06 complete Mental e medication 0 d Health- services, [place] [address] [place], [place], [id number] Comprehensiv 690007 SNOMED-CT () 2019-08-03 complete Mental e medication 0 d Health- services, [place] [address] [place], [place], [id number] Comprehensiv 937913 SNOMED-CT () 2019-08-31 complete Mental e medication 0 d Health- services, [place] [address] [place] [address] [place] [address], [id number] Comprehensiv 159764 SNOMED-CT () 2019-09-28 complete Mental e medication 0 d Health- services, [place] [address] [place] [address] [place] [address], [id number] Office or [id number] SNOMED-CT () 2019-05-17 complete Mental other 7 d Health- outpatient [place] visit for [address], established [id number] patient, [id number] which requires at least 2 of these 3 ferguson components: An expanded problem focused history; An expanded problem focused examination; Medical decision making of low Office or 375589 SNOMED-CT () 2019-03-23 complete Mental other 7 d Health- outpatient [place] visit for [address], established [id number] patient, [id number] which requires at least 2 of these 3 ferguson components: An expanded problem focused history; An expanded problem focused examination; Medical decision making of low Office or 991271 SNOMED-CT () 2019-04-13 complete Mental other 7 d Health- outpatient [place] visit for [address], established [id number] patient, [id number] which requires at least 2 of these 3 ferguson components: An expanded problem focused history; An expanded problem focused examination; Medical decision making of low Office or 879550 SNOMED-CT () 2019-07-19 complete Mental other 6 d Health- outpatient [place] visit for [address], established [id number] patient, [id number] which requires at least 2 of these 3 ferguson components: A problem focused history; A problem focused examination; Straightforw marilyn medical decision making. Alie SNOMED-CT () 2019-09-28 complete Mental d Health- [place] [address], [id number] SNOMED-CT () 2019-08-31 complete Mental d [address], [id number] SNOMED-CT () 2019-06-22 complete Mental d [address], [id number] SNOMED-CT () 2019-07-[address] [facility] Mental d [address], [id number] SNOMED-CT () 2019-05-25 complete Mental d [address], [id number] SNOMED-CT () 2019-06-[address] [facility] Mental d [address], [id number] [id number] SNOMED-CT () 2019-04-[address] [facility] Mental d [address], [id number] SNOMED-CT () 2019-08-[address] [facility] Mental d [address], [id number] SNOMED-CT () 2019-08-[address] [facility] Mental [address], [id number] [phone] Encounters/Encounter Diagnoses Encounter Name Encounter Diagnosis Diagnosis Diagnosis Date of Service Code Code Name CodeSystem Diagnosis Delivery Location [place] [id number] Schizophrenia SNOMED-CT 2019-09-28 Behavioral Medication , unspecified [facility] [address] [place], [place], [id number] Vital Signs No Information Social History Element Description Description Start End Code CodeSystem AdditionalInfo Date Date SexAssignedAtBirth Female 1960-1 F AdministrativeGender 04 Hospital Discharge Instructions Reason For Referral Medical Equipment FDA Assessments
[2019-10-07 18:10] LABS: ABS Basophils 0.1 10^3/ul (0-0.2); ABS Eosinophils 0.4 10^3/ul (0-0.6); ABS Lymphocytes 3.2 10^3/ul (1.0-4.8); ABS Monocytes 0.6 10^3/ul (0-0.8); ABS Neutrophils 3.1 10^3/ul (1.5-7.7); Eosinophil % 5.5 %; Hematocrit 40 % (35-47); Hemoglobin 13.8 g/dL (12.0-16.0); Lymphocyte % 43.7 %; Mean Corpuscular HGB Conc 35 g/dL (31-36); Mean Corpuscular Hemoglobin 36 pg (27-31); Mean Corpuscular Volume 103 fL (80-97); Mean Platelet Volume 5.9 fL (7.4-10.4); Nucleated Red Blood Cells % 0.1; Platelet Count 263 10^3/uL (150-450); Red Cell Distribution Width 14 % (10-15); White Blood Count 7.4 10^3/uL (3.5-10.8)
--- OUTSIDE RECORDS SUMMARY | 2019-10-07 18:10 | XMS REPORT ---
:1960 Author Organization [facility] Team Providers Name Role Phone Unavailable Unavailable Unavailable Problems Condition Condition Condition Status Onset Resolution Last Treating Comments Name Details Category Date Date Treatment Clinician Date Pain frequent Pain Mgmt Resolve 2018-11-09 Elissa pain d 01-18 08:50:00 Jessica 13:00: [id number] 00 Pain knowledge/s Pain Mgmt Resolve 2018-05-13 Elissa kill d 01-18 11:18:00 [place] deficit: pt 13:00: [id number] 00 Cardio knowledge/s Cardiovasc Resolve 2018-06-07 Elissa kill ular d 01-18 15:30:00 [place] deficit: pt 13:00: [id number] 00 Respiratory oxygen Respirator Resolve 2018-07-05 Elissa treatments y d 01-18 09:20:00 [place] in home 13:00: [id number] 00 Respiratory nebulizer Respirator Resolve 2018-07-05 Elissa treatment y d 01-18 09:20:00 Jessica in home 13:00: [id number] 00 Respiratory dyspnea Respirator Resolve 2018-07-05 Elissa present y d 01-18 09:20:00 [place] 13:00: [id number] 00 Endo/Derek anti-coagul Endo/Derek Resolve 2018-07-12 Elissa ation d 01-18 09:48:00 Jessica therapy 13:00: [id number] 00 Nutrition nutritional Nutrition Resolve 2018-04-12 Elissa restriction d 01-18 10:11:00 [place] s 13:00: [id number] 00 Elimination urinary Eliminatio Resolve 2018-05-13 Elissa frequency n d 01-18 11:18:00 Jessica 13:00: [id number] 00 Neuro impaired Neuro/Emot Resolve 2018-08-09 Elissa goldman-will ion d 01-18 08:44:00 Jessica rosanne 13:00: [id number] 00 Activity ADL Activity Resolve 2018-04-12 Adia assistance d 01-18 10:11:00 Guid[place] required 13:00: [id number] 00 Safety risk for Safety Resolve 2018-05-13 Elissa hospitaliza d 01-18 11:18:00 Jessica tion 13:00: [id number] 00 Safety can be left Safety Resolve 2018-05-13 Elissa strong for d 01-18 11:18:00 Jessica only short 13:00: [id number] 00 Safety fall risk Safety Resolve 2018-05-13 Elissa factor d 01-18 11:18:00 Jessica present 13:00: [id number] 00 Medication knowledge/s Meds Resolve 2018-06-07 Elissa kill d 01-18 15:30:00 [place] deficit: pt 13:00: [id number] 00 Medication oral med Meds Resolve 2018-06-07 Elissa assistance d 01-18 15:30:00 [place] required 13:00: [id number] 00 Medication injectable Meds Resolve 2018-06-07 Elissa med d 01-18 15:30:00 [place] assistance 13:00: [id number] required 00 Medication potential Meds Resolve 2018-06-07 Elissa clinically d 01-18 15:30:00 Jessica significant 13:00: [id number] medication 00 issue Diagnoses knowledge/s Diagnoses Active Elissa kill 01-18 [place] deficit: pt 13:00: [id number] 00 Musculoskel requires Musculoske Resolve 2018-05-13 Elissa etal human letal d 01-18 11:18:00 [place] assist to 13:00: [id number] leave home 00 Musculoskel transfer Musculoske Resolve 2018-05-13 Adia etal assistance letal d 01-18 11:18:00 Guidelli required 13:00: [id number] 00 Respiratory lung sounds Respirator Resolve 2018-07-05 Elissa deficit y d 01-25 09:20:00 [place] 16:00: [id number] 00 Safety knowledge/s Safety Resolve 2018-05-13 Elissa kill d 01-25 11:18:00 [place] deficit: pt 16:00: [id number] 00 Elimination constipatio Eliminatio Resolve 2018-05-13 Elissa n n d 03-15 11:18:00 Cristal 11:43: [id number] 00 Nutrition nutritional Nutrition Resolve 2018-06-07 Elissa restriction d 05-13 15:30:00 Cristal s 11:18: [id number] 00 Respiratory smoker Respirator Resolve 2018-07-05 Elissa y d 06-07 09:20:00 Cristal 15:30: [id number] 00 Elimination urinary Eliminatio Resolve 2018-06-07 Elissa frequency n d 06-07 15:30:00 Cristal 15:30: [id number] 00 Safety knowledge/s Safety Active Elissa kill 06-07 Cristal deficit: pt 15:30: [id number] 00 Safety risk for Safety Resolve 2018-07-05 Elissa hospitaliza d 06-07 09:20:00 Cristal tion 15:30: [id number] 00 Safety risk for Safety [facility] [place] [facility] 14:00: [id number] 00 Respiratory dyspnea Respirator Resolve 2017-092018-08-09 Blaire present y d 0-16 08:44:00 Bruno 09:48: [id number] 00 Respiratory lung sounds Respirator Resolve 2017-092018-08-09 Blaire deficit y d 0-16 08:44:00 Bruno 09:48: [id number] 00 Safety risk for Safety Resolve 2017-092018-08-09 Blaire hospitaliza d 0-16 08:44:00 Bruno tion 09:48: [id number] 00 Respiratory oxygen Respirator Resolve 2017-092018-08-09 Blaire treatments y d 1- 08:44:00 Bruno in home 08:44: [id number] 00 Respiratory nebulizer Respirator Resolve 2017-092018-08-09 Blaire treatment y d 10-09 08:44:00 Bruno in home 08:44: [id number] 00 Neuro anxiety Neuro/Emot Resolve 2017-092018-08-09 Blaire present ion d 10-09 08:44:00 Bruno 08:44: [id number] 00 Safety risk for Safety Resolve 2017-092018-08-30 Jazz hospitaliza d 10-16 09:20:00 [place] tion 10:46: [id number] 00 Respiratory oxygen Respirator Resolve 2017-092018-09-13 Blaire treatments y d 10-31 09:53:00 Bruno in home 09:20: [id number] 00 Respiratory lung sounds Respirator Resolve 2017-092018-09-13 Blaire deficit y d 10-31 09:53:00 Bruno 09:20: [id number] 00 Respiratory smoker Respirator Resolve 2017-092018-09-13 Blaire y d 10-31 09:53:00 Bruno 09:20: [id number] 00 Respiratory nebulizer Respirator Resolve 2017-092018-09-13 Blaire treatment y d 10-31 09:53:00 Bruno in home 09:20: [id number] 00 Endo/Derek anti-coagul Endo/Derek Resolve 2017-092018-09-13 Blaire ation d 10-31 09:53:00 Bruno therapy 09:20: [id number] 00 Neuro anxiety Neuro/Emot Resolve 2017-092018-09-13 Blaire present ion d 10-31 09:53:00 Bruno 09:20: [id number] 00 Safety safety Safety Resolve 2017-092018-08-30 Blaire hazards d 10-31 09:20:00 Bruno present 09:20: [id number] 00 Safety risk for Safety Resolve 2017-092018-09-13 Arin hospitaliza d 11-07 09:53:00 Carrier RN tion 10:00: 00 Respiratory dyspnea Respirator Resolve 2017-092018-09-13 Blaire present y d 11-14 09:53:00 Bruno 09:53: [id number] 00 Safety risk for Safety Resolve 2017-092018-09-26 Jazz hospitaliza d 11-20 09:45:00 [place] tion 10:00: [id number] 00 Respiratory dyspnea Respirator Resolve 2017-092019-01-03 Blaire present y d 09:25:00 Bruno 09:45: [id number] 00 Respiratory oxygen Respirator Resolve 2017-092019-01-03 Blaire treatments y d 09:25:00 Bruno in home 09:45: [id number] 00 Respiratory lung sounds Respirator Resolve 2017-092018-10-25 Blaire deficit y d 09:26:00 Bruno 09:45: [id number] 00 Respiratory smoker Respirator Resolve 2017-092018-09-26 Blaire y d 09:45:00 Bruno 09:45: [id number] 00 Respiratory nebulizer Respirator Resolve 2017-092019-01-03 Blaire treatment y d 09:25:00 Bruno in home 09:45: [id number] 00 Medication oral med Meds Resolve 2017-092019-03-09 Blaire assistance d 14:06:00 Bruno required 09:45: [id number] 00 Medication injectable Meds Resolve 2017-092019-03-09 Blaire med d 14:06:00 Bruno assistance 09:45: [id number] required 00 Nutrition nutritional Nutrition Resolve 2018-11-09 Jazz restriction d 1 08:50:00 [place] s 12:19: [id number] 00 Safety risk for Safety Resolve 2018-10-25 Jazz hospitaliza d 1 09:26:00 [place] tion 12:19: [id number] 00 Respiratory lung sounds Respirator Resolve 2018-11-09 Jazz deficit y d 11-01 08:50:00 [place] 10:20: [id number] 00 Safety risk for Safety Resolve 2018-11-09 Jazz hospitaliza d 11-01 08:50:00 [place] tion 10:20: [id number] 00 Respiratory smoker Respirator Resolve 2018-12-20 Blaire y d 11-09 09:22:00 Bruno 08:50: [id number] 00 Neuro anxiety Neuro/Emot Resolve 2018-11-09 Blaire present ion d 11-09 08:50:00 Bruno 08:50: [id number] 00 Nutrition nutritional Nutrition Resolve 2018-12-06 Jazz restriction d 11-15 10:45:00 [place] s 11:00: [id number] 00 Safety risk for Safety Resolve 2018-12-06 Jazz hospitaliza d 11-15 10:45:00 [place] tion 11:00: [id number] 00 Respiratory lung sounds Respirator Resolve 2018-12-20 Blaire deficit y d 12-06 09:22:00 Bruno 10:45: [id number] 00 Respiratory pneumonia Respirator Resolve 2018-12-20 Blaire y d 12-06 09:22:00 Bruno 10:45: [id number] 00 Respiratory asthma Respirator Resolve 2019-01-03 Blaire y d 12-06 09:25:00 Bruno 10:45: [id number] 00 Nutrition nutritional Nutrition Resolve 2018-12-20 Blaire restriction d 12-13 09:22:00 Bruno s 09:45: [id number] 00 Safety risk for Safety Resolve 2018-12-20 Blaire hospitaliza d 12-13 09:22:00 Bruno tion 09:45: [id number] 00 Safety safety Safety Resolve 2018-12-20 Blaire hazards d 12-20 09:22:00 Bruno present 09:22: [id number] 00 Respiratory knowledge/s Respirator Resolve 2019-01-03 Blaire kill y d 12-27 09:25:00 Bruno deficit: pt 10:07: [id number] 00 Respiratory lung sounds Respirator Resolve 2019-01-03 Blaire deficit y d 4 09:25:00 Bruno 10:07: [id number] 00 Respiratory CPAP Respirator Resolve 2019-01-03 Blaire treatments y d 4-02 09:25:00 Bruno in home 10:07: [id number] 00 Respiratory smoker Respirator Resolve 2019-01-03 Blaire y d 4-02 09:25:00 Bruno 10:07: [id number] 00 Nutrition nutritional Nutrition Resolve 2019-01-03 Blaire restriction d 12-27 09:25:00 Bruno s 10:07: [id number] 00 Neuro impaired Neuro/Emot Resolve 2019-01-03 Blaire decision-ma ion d 12-27 09:25:00 Bruno rosanne 10:07: [id number] 00 Safety risk for Safety Resolve 2019-01-03 Blaire hospitaliza d 12-27 09:25:00 Bruno tion 10:07: [id number] 00 Neuro memory Neuro/Emot Unknown Blaire deficit ion - Bruno needing 09:25: [id number] supervision 00 Respiratory dyspnea Respirator Resolve 2019-03-28 Blaire present y d 01-10 09:06:00 Bruno 09:27: [id number] 00 Respiratory knowledge/s Respirator Resolve 2019-03-07 Blaire kill y d 01-10 09:45:00 Bruno deficit: pt 09:27: [id number] 00 Respiratory lung sounds Respirator Resolve 2019-03-07 Blaire deficit y d 01-10 09:45:00 Bruno 09:27: [id number] 00 Respiratory smoker Respirator Resolve 2019-03-07 Blaire y d 01-10 09:45:00 Bruno 09:27: [id number] 00 Nutrition nutritional Nutrition Resolve 2019-02-07 Blaire restriction d 01-10 09:39:00 Bruno s 09:27: [id number] 00 Neuro impaired Neuro/Emot Unknown Blaire decision-ma ion 01-10 Bruno rosanne 09:27: [id number] 00 Neuro memory Neuro/Emot Unknown Blaire deficit ion 01-10 Bruno needing 09:27: [id number] supervision 00 Safety fall risk Safety Resolve 2019-02-07 Blaire factor d 01-10 09:39:00 Bruno present 09:27: [id number] 00 Safety risk for Safety Resolve 2019-02-07 Blaire hospitaliza d 01-10 09:39:00 Bruno tion 09:27: [id number] 00 Respiratory oxygen Respirator Resolve 2019-03-28 Elissa treatments y d 01-24 09:06:00 Barbara in home 09:00: [facility] 00 [id number] Respiratory nebulizer Respirator Resolve 2019-03-28 Elissa treatment y d 4-30 09:06:00 Barbara in home 09:00: [employer] 00 [id number] Respiratory asthma Respirator Resolve 2019-03-28 Consuelo y d 5- 09:06:00 [place] 11:00: 00 Elimination urinary Eliminatio Resolve 2019-02-07 Elissa incontinenc n d 01-31 09:39:00 Barbara e 08:30: [employer] 00 [id number] Nutrition nutritional Nutrition Resolve 2019-03-07 Elissa restriction d 02-14 09:45:00 Barbara s 08:13: [employer] 00 [id number] Safety risk for Safety Resolve 2019-03-07 Elissa hospitaliza d 02-14 09:45:00 Barbara tion 08:13: [employer] 00 [id number] Respiratory lung sounds Respirator Resolve 2019-03-09 Blaire deficit y d 6-13 14:06:00 Bruno 14:06: [id number] 00 Respiratory smoker Respirator Resolve 2019-03-09 Blaire y d 613 14:06:00 Bruno 14:06: [id number] 00 Nutrition nutritional Nutrition Resolve 2019-03-28 Blaire restriction d 6-13 09:06:00 Bruno s 14:06: [id number] 00 Safety safety Safety Resolve 2019-03-28 Blaire hazards d 6-13 09:06:00 Bruno present 14:06: [id number] 00 Safety fall risk Safety Resolve 2019-03-28 Blaire factor d 6-13 09:06:00 Bruno present 14:06: [id number] 00 Safety risk for Safety Resolve 2019-03-28 Blaire hospitaliza d 6-13 09:06:00 Bruno tion 14:06: [id number] 00 Medication potential Meds Resolve 2019-03-09 Blaire clinically d 6-13 14:06:00 Bruno significant 14:06: [id number] medication 00 issue Respiratory lung sounds Respirator Resolve 2019-03-28 Elissa deficit y d 6-18 09:06:00 Barbara 07:45: [employer] 00 [id number] Respiratory lung sounds Respirator Resolve 2019-04-25 Elissa deficit y d 04-04 09:45:00 Barbara 08:00: [employer] 00 [id number] Nutrition nutritional Nutrition Resolve 2019-04-25 Elissa restriction d 04-04 09:45:00 Barbara s 08:00: [employer] 00 [id number] Safety risk for Safety Resolve 2019-04-25 [facility] 04-04 09:45:00 Barbara tion 08:00: [employer] 00 [id number] Neuro anxiety Neuro/Emot Resolve 2019-04-25 Blaire present ion d 04-25 09:45:00 Bruno 09:45: [id number] 00 Safety risk for Safety Resolve 2019-05-09 [facility] 05-02 12:05:00 Barbara tion 08:15: [employer] 00 [id number] Respiratory lung sounds Respirator Resolve 2019-05-30 Blaire deficit y d 05-09 08:38:00 Bruno 12:05: [id number] 00 Medication injectable Meds Resolve 2019-05-30 Blaire med d 05-09 08:38:00 Bruno assistance 12:05: [id number] required 00 Safety risk for Safety Resolve 2019-05-30 Elissa [facility] d 05-16 08:38:00 Barbara tion 08:02: [employer] 00 [id number] Neuro impaired Neuro/Emot Resolve 2019-05-30 Blaire decision-ma ion d 05-30 08:38:00 Bruno rosanne 08:38: [id number] 00 Neuro memory Neuro/Emot Resolve 2019-05-30 Blaire deficit ion d 05-30 08:38:00 Bruno needing 08:38: [id number] supervision 00 Safety risk for Safety Resolve 2019-06-27 [facility] 06-06 08:40:00 Barbara tion 07:56: [employer] 00 [id number] Respiratory lung sounds Respirator Resolve 2019-06-27 Elissa deficit y d 06-13 08:40:00 Barbara 07:30: [employer] 00 [id number] Respiratory nebulizer Respirator Resolve 2018-092019-06-27 Blaire treatment y d 0-01 08:40:00 Bruno in home 08:40: [id number] 00 Elimination urinary Eliminatio Resolve 2018-092019-07-11 Elissa incontinenc n d 0-08 10:13:00 Barbara e 08:00: [employer] 00 [id number] Safety risk for Safety Resolve 2018-092019-08-07 Elissa hospitaliza d 0-08 12:15:00 Barbara tion 08:00: [employer] 00 [id number] Respiratory oxygen Respirator Active 2018-09 Blaire treatments y 0-15 Bruno in home 10:13: [id number] 00 Respiratory nebulizer Respirator Active 2018-09 Blaire treatment y 0-15 Bruno in home 10:13: [id number] 00 Respiratory lung sounds Respirator Resolve 2018-092019-07-11 Blaire deficit y d 0-15 10:13:00 Bruno 10:13: [id number] 00 Neuro anxiety Neuro/Emot Resolve 2018-092019-08-07 Blaire present ion d 0-15 12:15:00 Bruno 10:13: [id number] 00 Neuro impaired Neuro/Emot Unknown 2018-09 Blaire decision-ma ion 0-15 Bruno rosanne 10:13: [id number] 00 Safety safety Safety Resolve 2018-092019-08-07 Blaire hazards d 0-15 12:15:00 Bruno present 10:13: [id number] 00 Safety fall risk Safety Resolve 2018-092019-08-07 Blaire factor d 0-15 12:15:00 Bruno present 10:13: [id number] 00 Medication injectable Meds Resolve 2018-092019-08-07 Blaire med d 0-15 12:15:00 Bruno assistance 10:13: [id number] required 00 Medication oral med Meds Resolve 2018-092019-08-07 Blaire assistance d 0-15 12:15:00 Bruno required 10:13: [id number] 00 Respiratory lung sounds Respirator Resolve 2018-092019-08-07 Blaire deficit y d 1-11 12:15:00 Bruno 12:15: [id number] 00 Elimination urinary Eliminatio Resolve 2018-092019-09-05 Elissa de souzaenc n d 10-15 10:26:00 Barbara e 08:00: [employer] 00 [id number] Safety risk for Safety Resolve 2018-092019-09-05 Elissa jiniza d -19 10:26:00 Barbara tion 08:00: [employer] 00 [id number] Nutrition nutritional Nutrition Active 2018-09 Rosamaria restriction -30 [place] s 10:55: RN 00 Respiratory lung sounds Respirator Resolve 2018-092019-09-05 Blaire deficit y d 2- 10:26:00 Bruno 10:26: [id number] 00 Medication oral med Meds Active 2018-09 Blaire assistance 2- Bruno required 10:26: [id number] 00 Medication injectable Meds Active 2018-09 Blaire med 11-06 Bruno assistance 10:26: [id number] required 00 Allergies, Adverse Reactions, Alerts Allergy Name Allergy Status Severity Reaction(s) Onset Inactive Treating Comments Type Date Date Clinician sulfa Unknown Active Mild to Rash Elissa Moderate 5-01 Jessica [id number] aspirin Base Active Moderate Hives 2018 Elissa Ingredient 5-01 [place] [id number] penicillin G Base Active Moderate Difficulty 2018 Elissa Ingredient to Severe swallowing 5-01 Jessica [id number] Medications Ordered Filled Start Stop Current Ordering [...] No [place] 1 Unknown 01-18 Klaus MARIEE CQ Nicoderm CQ 2018- No [place] 7 [...] 1 Unknown 1,000 mg 1,000 mg 01-18 Brenden MARIEErit (120 mg-180 (120 mg-180 mg) capsule mg) capsule Invega Invega No Emilio 1.5 ml Unknown Sustenna Sustenna 01-18 Martin MARIEE 234 mg/1.5 234 mg/1.5 mL mL intramuscul [...] 2018- No [place] 1 Unknown with with 01-18- ,Klaus HandiHaler HandiHaler 18 mcg and 18 [...] mg Unknown mg capsule mg capsule 01-18 03-13 Martin MARIEE amitriptyli amitriptyli 2017- No Emilio [...] No [place] 1 Unknown tablet tablet 01-18 Brenden MARIEErit levothyroxi levothyroxi No [place] 50 mcg Unknown ne 50 mcg ne 50 mcg 01-18 MD,Klaus capsule capsule other other No [place] Oxygen Unknown 01-18 Klaus MAIREE Vitamin D3 Vitamin D3 No [place] 1 Unknown 1,000 unit 1,000 unit 4-24 ,Klaus capsule capsule atorvastati atorvastati No [place] 40 mg Unknown n 40 mg n 40 mg - ,Klaus tablet tablet lisinopril lisinopril No [place] 5 mg Unknown 5 mg tablet 5 mg tablet -24 ,Klaus iron 325 mg iron 325 mg No [place] 325 mg Unknown (65 mg (65 mg - ,Klaus iron) iron) tablet tablet multivitami multivitami No [place] 1 Unknown n capsule n capsule -24 ,Klaus PROzac 20 PROzac 20 No Emilio 60 mg Unknown mg capsule mg capsule 01-18 Martin MARIEE pantoprazol pantoprazol No [place] 40 mg Unknown e 40 mg e 40 mg 01-18 ,Klaus tablet,feng tablet,feng yed release yed release clopidogrel clopidogrel 2018- No [place] 75 mg Unknown 75 mg 75 mg 01-18- ,Klaus tablet tablet pentoxifyll pentoxifyll No [place] 400 mg Unknown ine ER 400 ine ER 400 01-18 MD,Klaus mg mg tablet,exte tablet,exte nded nded release release torsemide torsemide No [place] 10 mg Unknown 10 mg 10 mg 01-18 MD,Klaus tablet tablet amitriptyli amitriptyli 2018- No Emilio 100 mg Unknown ne 100 mg ne 100 mg 01-18- ,Martin tablet tablet B Complex 1 B Complex 1 No [place] 1 Unknown tablet tablet 24 ,Klaus traZODone traZODone 2017-09 No Emilio Unknown Unknown 150 mg 150 mg 0-15 ,Martin tablet tablet cyclobenzap cyclobenzap 2017-09 No [place] Unknown Unknown rine 10 mg rine 10 mg 0-16 MD,Klaus tablet tablet prazosin 2 prazosin 2 2017-09- No Emilio Unknown Unknown mg capsule mg capsule 10-16- Martin MARIEE doxycycline doxycycline 2018- No [place] Unknown Unknown monohydrate monohydrate 11-25- Brenden MARIEErit 100 mg 100 mg capsule capsule prazosin 2 prazosin 2 2018- No Emilio Unknown Unknown mg capsule mg capsule 12-07 Martin MARIEE amitriptyli amitriptyli 2018- No [place] Unknown Unknown ne 50 mg ne 50 mg 12-13 MDKlaus tablet tablet albuterol albuterol No [place] Unknown Unknown sulfate 2.5 sulfate 2.5 12-27 Brenden MARIEErit mg/3 mL mg/3 mL (0.083 %) (0.083 %) solution solution for for nebulizatio nebulizatio n n Flonase Flonase No Raza Unknown Unknown Allergy Allergy 12-27 Ngozi MARIEE Relief 50 Relief 50 mcg/actuati mcg/actuati on nasal on nasal spray,suspe spray,suspe nsion nsion amitriptyli amitriptyli 2018- No Emilio Unknown Unknown ne 50 mg ne 50 mg 12-13 Martin MARIEE tablet tablet prazosin 2 prazosin 2 2018- No Emilio Unknown Unknown mg capsule mg capsule 03-23 Martin MARIEE prazosin 2 prazosin 2 2018- No Emilio Unknown Unknown mg capsule mg capsule 03-23 Martin MARIEE amitriptyli amitriptyli No Emilio Unknown Unknown ne 100 mg ne 100 mg 03-28 Martin MARIEE tablet tablet prazosin 5 prazosin 5 No Emilio Unknown Unknown mg capsule mg capsule 04-25 Martin MARIEE [facility] No R[place] Unknown Unknown Ellipta 100 Ellipta 100 04-18 Ngozi MARIEE mcg-62.5 mcg-62.5 mcg-25 mcg mcg-25 mcg powder for powder for inhalation inhalation Chantix Chantix 2018- No [place] Unknown Unknown Starting Starting 05-23 12-14 Klaus MARIEE Month Box Month Box 0.5 mg 0.5 mg (11)-1 mg (11)-1 mg (42) (42) tablets in tablets in dose pack dose pack ciprofloxac ciprofloxac 2018-09 2019- Yes Heetderrashaun Unknown Unknown in 500 mg in 500 mg 007-28 ,Klaus tablet tablet Vital Signs Vital Name Observation Time Observation Value Comments SYSTOLIC mm[Hg] 2019-09-06 18:09:18 122 mm[Hg] mm[Hg] Method: Sit SYSTOLIC mm[Hg] 2019-09-06 18:09:18 122 mm[Hg] mm[Hg] Method: Stand DIASTOLIC mm[Hg] 2019-09-06 18:09:18 70 mm[Hg] mm[Hg] Method: Sit DIASTOLIC mm[Hg] 2019-09-06 18:09:18 70 mm[Hg] mm[Hg] Method: Stand PULSE 2019-09-06 18:09:18 93 /min /min RESP RATE 2019-09-06 18:09:18 16 /min /min TEMP 2019-09-06 18:09:18 98 [degF] Procedures This patient has no known procedures. Results This patient has no known results.
--- OUTSIDE RECORDS SUMMARY | 2019-10-07 18:10 | XMS REPORT ---
:1960 Author Organization [facility] Care Team Providers Name Role Phone Unavailable Unavailable Unavailable Problems Condition Condition Condition Status Onset Resolution Last Treating Comments Name Details Category Date Date Treatment Clinician Date Chronic Chronic Diagnosis Active Blaire obstructive obstructive 01-18 Bruno pulmonary pulmonary [id number] disease, disease, unspecified unspecified Patient's Patient's Diagnosis Active Blaire other other 01-18 Bruno noncomplian noncomplian [id number] ce with ce with medication medication regimen regimen Schizophren Schizophren Diagnosis Active Blaire ia, ia, 01-18 Bruno unspecified unspecified [id number] Essential Essential Diagnosis Active Blaire (primary) (primary) 01-18 Bruno hypertensio hypertensio [id number] n n Hypothyroid Hypothyroid Diagnosis Active Blaire ism, ism, 01-18 Bruno unspecified unspecified [id number] Dependence Dependence Diagnosis Active Blaire on on 01-18 Bruno supplementa supplementa [id number] l oxygen l oxygen Anemia, Anemia, Diagnosis Active Blaire unspecified unspecified Bruno [id number] Nicotine Nicotine Diagnosis Active Blaire dependence, dependence, Bruno cigarettes, cigarettes, [id number] uncomplicat uncomplicat ed ed Pain frequent Pain Mgmt Resolve 2018-11-09 Elissa pain d 01-18 08:50:00 Jessica 13:00: [id number] 00 Pain knowledge/s Pain Mgmt Resolve 2018-05-13 Elissa kill d 01-18 11:18:00 Jessica deficit: pt 13:00: [id number] 00 Cardio knowledge/s Cardiovasc Resolve 2018-06-07 Elissa wheeler ular d 01-18 15:30:00 Randolph deficit: pt 13:00: [id number] 00 Respiratory oxygen Respirator Resolve 2018-07-05 Elissa treatments y d 01-18 09:20:00 Jessica in home 13:00: [id number] 00 Respiratory nebulizer Respirator Resolve 2018-07-05 Elissa treatment y d 01-18 09:20:00 Jessica in home 13:00: [id number] 00 Respiratory dyspnea Respirator Resolve 2018-07-05 Elissa present y d 01-18 09:20:00 Randolph 13:00: [id number] 00 Endo/Derek anti-coagul Endo/Derek Resolve 2018-07-12 Elissa ation d 01-18 09:48:00 Jessica therapy 13:00: [id number] 00 Nutrition nutritional Nutrition Resolve 2018-04-12 Elissa restriction d 01-18 10:11:00 Randolph s 13:00: [id number] 00 Elimination urinary Eliminatio Resolve 2018-05-13 Elissa frequency n d 01-18 11:18:00 Jessica 13:00: [id number] 00 Neuro impaired Neuro/Emot Resolve 2018-08-09 Elissa decision-ma ion d 01-18 08:44:00 Jessica rosanne 13:00: [id number] 00 Activity ADL Activity Resolve 2018-04-12 Adia assistance d 01-18 10:11:00 Guidelli required 13:00: [id number] 00 Safety risk for Safety Resolve 2018-05-13 Elissa hospitaliza d 01-18 11:18:00 Randolph tion 13:00: [id number] 00 Safety can be left Safety Resolve 2018-05-13 Elissa alone for d 01-18 11:18:00 Jessica only short 13:00: [id number] 00 Safety fall risk Safety Resolve 2018-05-13 Elissa factor d 01-18 11:18:00 Randolph present 13:00: [id number] 00 Medication knowledge/s Meds Resolve 2018-06-07 Elissa kill d 01-18 15:30:00 Randolph deficit: pt 13:00: [id number] 00 Medication oral med Meds Resolve 2018-06-07 Elissa assistance d 01-18 15:30:00 Randolph required 13:00: [id number] 00 Medication injectable Meds Resolve 2018-06-07 Elissa med d 01-18 15:30:00 Randolph assistance 13:00: [id number] required 00 Medication potential Meds Resolve 2018-06-07 Elissa clinically d 01-18 15:30:00 Jessica significant 13:00: [id number] medication 00 issue Diagnoses knowledge/s Diagnoses Active Elissa kill 01-18 Jessica deficit: pt 13:00: [id number] 00 Musculoskel requires Musculoske Resolve 2018-05-13 Elissa etal human letal d 01-18 11:18:00 Randolph assist to 13:00: [id number] leave home 00 Musculoskel transfer Musculoske Resolve 2018-05-13 Adia etal assistance letal d 01-18 11:18:00 Guidelli required 13:00: [id number] 00 Respiratory lung sounds Respirator Resolve 2018-07-05 Elissa deficit y d 01-25 09:20:00 Randolph 16:00: [id number] 00 Safety knowledge/s Safety Resolve 2018-05-13 Elissa kill d 01-25 11:18:00 Jessica deficit: pt 16:00: [id number] 00 Elimination constipatio Eliminatio Resolve 2018-05-13 Elissa n n d 6-19 11:18:00 Cristal 11:43: [id number] 00 Nutrition nutritional Nutrition Resolve 2018-06-07 Elissa restriction d 17 15:30:00 Cristal s 11:18: [id number] 00 Respiratory smoker Respirator Resolve 2018-07-05 Elissa y d 06-07 09:20:00 Cristal 15:30: [id number] 00 Elimination urinary Eliminatio Resolve 2018-06-07 Elissa frequency n d 06-07 15:30:00 Cristal 15:30: [id number] 00 Safety knowledge/s Safety Active Elissa kill 06-07 Cristal deficit: pt 15:30: [id number] 00 Safety risk for Safety Resolve 2018-07-05 [facility] 09:[facility] Cristal tion 15:30: [id number] 00 Safety risk for Safety Unknown 2017-09 [facility] Mingo tion 14:00: [id number] 00 Respiratory dyspnea Respirator Resolve 2017-092018-08-09 Blaire present y d 0-16 08:44:00 Bruno 09:48: [id number] 00 Respiratory lung sounds Respirator Resolve 2017-092018-08-09 Blaire deficit y d 016 08:44:00 Bruno 09:48: [id number] 00 Safety risk for Safety Resolve 2017-092018-08-09 Blaire hospitaliza d 016 08:44:00 Bruno tion 09:48: [id number] 00 Respiratory oxygen Respirator Resolve 2017-092018-08-09 Blaire treatments y d 1 08:44:00 Bruno in home 08:44: [id number] 00 Respiratory nebulizer Respirator Resolve 2017-092018-08-09 Blaire treatment y d 10-09 08:44:00 Bruno in home 08:44: [id number] 00 Neuro anxiety Neuro/Emot Resolve 2017-092018-08-09 Blaire present ion d 10-09 08:44:00 Bruno 08:44: [id number] 00 Safety risk for Safety [facility]08[facility] 09:[facility] Mingo tion 10:46: [id number] 00 Respiratory oxygen Respirator Resolve 2017-092018-09-13 Blaire treatments y d 10-31 09:53:00 Bruno in home 09:20: [id number] 00 Respiratory lung sounds Respirator Resolve 2017-092018-09-13 Blaire deficit y d 10-31 09:53:00 Bruno 09:20: [id number] 00 Respiratory smoker Respirator Resolve 2017-092018-09-13 Blaire y d 10-31 09:53:00 Bruno 09:20: [id number] 00 Respiratory nebulizer Respirator Resolve 2017-092018-09-13 Blaire treatment y d 10-31 09:53:00 Bruno in home 09:20: [id number] 00 Endo/Derek anti-coagul Endo/Derek Resolve 2017-092018-09-13 Blaire ation d 10-31 09:53:00 Bruno therapy 09:20: [id number] 00 Neuro anxiety Neuro/Emot Resolve 2017-092018-09-13 Blaire present ion d 10-31 09:53:00 Bruno 09:20: [id number] 00 Safety safety Safety Resolve 2017-092018-08-30 Blaire hazards d 10-31 09:20:00 Bruno present 09:20: [id number] 00 Safety risk for Safety Resolve 2017-092018-09-13 Arin hospital[facility] d 11-07 09:53:00 Carrier RN tion 10:00: 00 Respiratory dyspnea Respirator Resolve 2017-092018-09-13 Blaire present y d 11-14 09:53:00 Bruno 09:53: [id number] 00 Safety risk for Safety Resolve 2017-092018-09-26 [facility] hospital[facility] d 11-20 09:45:00 Mingo tion 10:00: [id number] 00 Respiratory dyspnea Respirator Resolve 2017-092019-01-03 Blaire present y d 09:25:00 Bruno 09:45: [id number] 00 Respiratory oxygen Respirator Resolve 2017-092019-01-03 Blaire treatments y d 09:25:00 Bruno in home 09:45: [id number] 00 Respiratory lung sounds Respirator Resolve 2017-092018-10-25 Blaire deficit y d 09:26:00 Bruno 09:45: [id number] 00 Respiratory smoker Respirator Resolve 2017-092018-09-26 Blaire y d 2 09:45:00 Bruno 09:45: [id number] 00 Respiratory nebulizer Respirator Resolve 2017-092019-01-03 Blaire treatment y d 09:25:00 Bruno in home 09:45: [id number] 00 Medication oral med Meds Resolve 2017-092019-03-09 Blaire assistance d 14:06:00 Bruno required 09:45: [id number] 00 Medication injectable Meds Resolve 2017-092019-03-09 Blaire med d 14:06:00 Bruno assistance 09:45: [id number] required 00 Nutrition nutritional Nutrition Resolve 2018-11-09 Jazz restriction d 09-30 08:50:00 Mingo s 12:19: [id number] 00 Safety risk for Safety Resolve 2018-10-25 Jazz hospitaliza d 09-30 09:26:00 Mingo tion 12:19: [id number] 00 Respiratory lung sounds Respirator Resolve 2018-11-09 Jazz deficit y d 2 08:50:00 Mingo 10:20: [id number] 00 Safety risk for Safety Resolve 2018-11-09 Jazz hospitaliza d 11-01 08:50:00 Mingo tion 10:20: [id number] 00 Respiratory smoker Respirator Resolve 2018-12-20 Blaire y d 11-09 09:22:00 Bruno 08:50: [id number] 00 Neuro anxiety Neuro/Emot Resolve 2018-11-09 Blaire present ion d 11-09 08:50:00 Bruno 08:50: [id number] 00 Nutrition nutritional Nutrition Resolve 2018-12-06 Jazz restriction d 11-15 10:45:00 Mingo s 11:00: [id number] 00 Safety risk for Safety Resolve 2018-12-06 Jazz hospitaliza d 11-15 10:45:00 Mingo tion 11:00: [id number] 00 Respiratory lung sounds Respirator Resolve 2018-12-20 Blaire deficit y d 3 09:22:00 Bruno 10:45: [id number] 00 Respiratory pneumonia Respirator Resolve 2018-12-20 Blaire y d 312 09:22:00 Bruno 10:45: [id number] 00 Respiratory asthma Respirator Resolve 2019-01-03 Blaire y d 12-06 09:25:00 Bruno 10:45: [id number] 00 Nutrition nutritional Nutrition Resolve 2018-12-20 Blaire restriction d 12-13 09:22:00 Bruno s 09:45: [id number] 00 Safety risk for Safety Resolve 2018-12-20 Blaire hospitaliza d 12-13 09:22:00 Bruno tion 09:45: [id number] 00 Safety safety Safety Resolve 2018-2018-12-20 Blaire hazards d 3- 09:22:00 Bruno present 09:22: [id number] 00 Respiratory knowledge/s Respirator Resolve 2018-2019-01-03 Blaire kill y d 12-27 09:25:00 Bruno deficit: pt 10:07: [id number] 00 Respiratory lung sounds Respirator Resolve 2019-01-03 Blaire deficit y d 12-27 09:25:00 Bruno 10:07: [id number] 00 Respiratory CPAP Respirator Resolve 2019-01-03 Blaire treatments y d 12-27 09:25:00 Bruno in home 10:07: [id number] 00 Respiratory smoker Respirator Resolve 2019-01-03 Blaire y d 12-27 09:25:00 Bruno 10:07: [id number] 00 Nutrition nutritional Nutrition Resolve 2019-01-03 Blaire restriction d 12-27 09:25:00 Bruno s 10:07: [id number] 00 Neuro impaired Neuro/Emot Resolve 2019-01-03 Blaire decision-ma ion d 12-27 09:25:00 Bruno rosanne 10:07: [id number] 00 Safety risk for Safety Resolve 2019-01-03 Blaire hospitaliza d 12-27 09:25:00 Bruno tion 10:07: [id number] 00 Neuro memory Neuro/Emot Unknown Blaire deficit ion 01-03 Bruno needing 09:25: [id number] supervision 00 Respiratory dyspnea Respirator Resolve 2019-03-28 Blaire present y d 01-10 09:06:00 Bruno 09:27: [id number] 00 Respiratory knowledge/s Respirator Resolve 2019-03-07 Blaire kill y d 01-10 09:45:00 Bruno deficit: pt 09:27: [id number] 00 Respiratory lung sounds Respirator Resolve 2019-03-07 Blaire deficit y d 01-10 09:45:00 Bruno 09:27: [id number] 00 Respiratory smoker Respirator Resolve 2019-03-07 Blaire y d 01-10 09:45:00 Bruno 09:27: [id number] 00 Nutrition nutritional Nutrition Resolve 2019-02-07 Blaire restriction d 4-16 09:39:00 Bruno s 09:27: [id number] 00 Neuro impaired Neuro/Emot Unknown Blaire decision-ma ion 4-16 Bruno rosanne 09:27: [id number] 00 Neuro memory Neuro/Emot Unknown Blaire deficit ion 4-16 Bruno needing 09:27: [id number] supervision 00 Safety fall risk Safety Resolve 2019-02-07 Blaire factor d 416 09:39:00 Brnuo present 09:27: [id number] 00 Safety risk for Safety Resolve 2019-02-07 Blaire hospitaliza d 01-10 09:39:00 Bruno tion 09:27: [id number] 00 Respiratory oxygen Respirator Resolve 2019-03-28 Elissa treatments y d 01-24 09:06:00 Barbara in home 09:00: [employer] 00 [id number] Respiratory nebulizer Respirator Resolve 2019-03-28 Elissa treatment y d 01-24 09:06:00 Barbara in home 09:00: [employer] 00 [id number] Respiratory asthma Respirator Resolve 2019-03-28 Consuelo y d 01-25 09:06:00 Vallely 11:00: 00 Elimination urinary Eliminatio Resolve 2019-02-07 Elissa incontinenc n d 01-31 09:39:00 Barbara e 08:30: [employer] 00 [id number] Nutrition nutritional Nutrition Resolve 2019-03-07 Elissa restriction d 02-14 09:45:00 Barbara s 08:13: [employer] 00 [id number] Safety risk for Safety Resolve 2019-03-07 Elissa hospitaliza d 02-14 09:45:00 Barbara tion 08:13: [employer] 00 [id number] Respiratory lung sounds Respirator Resolve 2019-03-09 Blaire deficit y d 6 14:06:00 Bruno 14:06: [id number] 00 Respiratory smoker Respirator Resolve 2019-03-09 Blaire y d 6 14:06:00 Bruno 14:06: [id number] 00 Nutrition nutritional Nutrition Resolve 2019-03-28 Blaire restriction d 6-13 09:06:00 Bruno s 14:06: [id number] 00 Safety safety Safety Resolve 2019-03-28 Blaire hazards d 6-13 09:06:00 Bruno present 14:06: [id number] 00 Safety fall risk Safety Resolve 2019-03-28 Blaire factor d 6-13 09:06:00 Bruno present 14:06: [id number] 00 Safety risk for Safety Resolve 2019-03-28 Blaire hospitaliza d 613 09:06:00 Bruno tion 14:06: [id number] 00 Medication potential Meds Resolve 2019-03-09 Blaire clinically d 6 14:06:00 Bruno significant 14:06: [id number] medication 00 issue Respiratory lung sounds Respirator Resolve 2019-03-28 Elissa deficit y d 618 09:06:00 Barbara 07:45: [employer] 00 [id number] Respiratory lung sounds Respirator Resolve 2019-04-25 Elissa deficit y d 04-04 09:45:00 Barbara 08:00: [employer] 00 [id number] Nutrition nutritional Nutrition Resolve 2019-04-25 Elissa restriction d 04-04 09:45:00 Barbara s 08:00: [employer] 00 [id number] Safety risk for Safety Resolve 2019-04-25 Elissa hospitaliza d 04-04 09:45:00 Barbara tion 08:00: [employer] 00 [id number] Neuro anxiety Neuro/Emot Resolve 2019-04-25 Blaire present ion d 04-25 09:45:00 Bruno 09:45: [id number] 00 Safety risk for Safety Resolve 2019-05-09 Elissa hospitaliza d 05-02 12:05:00 Barbara tion 08:15: [employer] 00 [id number] Respiratory lung sounds Respirator Resolve 2019-05-30 Blaire deficit y d 8- 08:38:00 Bruno 12:05: [id number] 00 Medication injectable Meds Resolve 2019-05-30 Blaire med d 8 08:38:00 Bruno assistance 12:05: [id number] required 00 Safety risk for Safety Resolve 2019-05-30 [facility] 08:38[facility]00 Barbara tion 08:02: [employer] 00 [id number] Neuro impaired Neuro/Emot Resolve 2019-05-30 Blaire decision-ma ion d 05-30 08:38:00 Bruno rosanne 08:38: [id number] 00 Neuro memory Neuro/Emot Resolve 2019-05-30 Blaire deficit ion d 05-30 08:38:00 Bruno needing 08:38: [id number] supervision 00 Safety risk for Safety Resolve 2019-06-27 [facility] 08:40:00 Barbara tion 07:56: [employer] 00 [id number] Respiratory lung sounds Respirator Resolve 2019-06-27 Elissa deficit y d 9 08:40:00 Barbara 07:30: [employer] 00 [id number] Respiratory nebulizer Respirator Resolve 2018-092019-06-27 Blaire treatment y d 0-01 08:40:00 Bruno in home 08:40: [id number] 00 Elimination urinary Eliminatio Resolve 2018-092019-07-11 Elissa incontinenc n d 0-08 10:13:00 Barbara e 08:00: [employer] 00 [id number] Safety risk for Safety Resolve 2018-092019-08-07 [facility] 12:15:00 Barbara tion 08:00: [employer] 00 [id number] Respiratory oxygen Respirator Active 2018-09 Blaire treatments y 0-15 Bruno in home 10:13: [id number] 00 Respiratory nebulizer Respirator Active 2018-09 Blaire treatment y 0-15 Bruno in home 10:13: [id number] 00 Respiratory lung sounds Respirator Resolve 2018-092019-07-11 Blaire deficit y d 0-15 10:13:00 Bruno 10:13: [id number] 00 Neuro anxiety Neuro/Emot Resolve 2018-092019-08-07 Blaire present ion d 0-15 12:15:00 Bruno 10:13: [id number] 00 Neuro impaired Neuro/Emot Unknown 2018-09 Blaire decision-ma ion 0-15 Bruno rosanne 10:13: [id number] 00 Safety safety Safety Resolve 2018-092019-08-07 Blaire hazards d 0-15 12:15:00 Bruno present 10:13: [id number] 00 Safety fall risk Safety Resolve 2018-092019-08-07 Blaire factor d 0-15 12:15:00 Bruno present 10:13: [id number] 00 Medication injectable Meds Resolve 2018-092019-08-07 Blaire med d 0-15 12:15:00 Bruno assistance 10:13: [id number] required 00 Medication oral med Meds Resolve 2018-092019-08-07 Blaire assistance d 0-15 12:15:00 Bruno required 10:13: [id number] 00 Respiratory lung sounds Respirator Resolve 2018-092019-08-07 Blaire deficit y d 1-11 12:15:00 Bruno 12:15: [id number] 00 Elimination urinary Eliminatio Resolve 2018-092019-09-05 Elissa incontinenc n d 1-19 10:26:00 Barbara e 08:00: [employer] 00 [id number] Safety risk for Safety Resolve 2018-092019-09-05 Elissa hospitaliza d 1-19 10:26:00 Barbara tion 08:00: [employer] 00 [id number] Nutrition nutritional Nutrition Active 2018-09 Rosamaria restriction 1-30 Malnoske s 10:55: RN 00 Respiratory lung sounds Respirator Resolve 2018-092019-09-05 Blaire deficit y d 2-10 10:26:00 Bruno 10:26: [id number] 00 Medication oral med Meds Active 2018-09 Blaire assistance 2-10 Bruno required 10:26: [id number] 00 Medication injectable Meds Active 2018-09 Blaire med 2-10 Bruno assistance 10:26: [id number] required 00 Allergies, Adverse Reactions, Alerts Allergy Name Allergy Status Severity Reaction(s) Onset Inactive Treating Comments Type Date Date Clinician sulfa Unknown Active Mild to Rash Elissa Moderate 5-01 Jessica [id number] aspirin Base Active Moderate Hives Elissa Ingredient 5-01 Randolph [id number] penicillin G Base Active Moderate Difficulty Elissa Ingredient to Severe swallowing 01-25 Jessica [id number] Medications Ordered Filled Start Stop Current Ordering [...] 40 mg e 40 mg 01-18 ,Klaus tablet,fegn tablet,feng yed release yed release clopidogrel clopidogrel [...] ne 100 mg 01-18 MD,Martin tablet tablet cyclobenzap cyclobenzap 2017- No Emilio 10 mg Unknown rine 10 mg rine 10 mg 01-18 10-16 MD,Martin tablet tablet traZODone traZODone 2017- No Emilio 200 mg Unknown 100 mg 100 mg 01-18 10-15 MD,Martin tablet tablet B Complex 1 B Complex 1 2017- No [place] 1 Unknown tablet tablet 01-18 Brenden MARIEErit levothyroxi levothyroxi No [place] 50 mcg Unknown ne 50 mcg ne 50 mcg 01-18 MD,Klaus capsule capsule other other No [place] Oxygen Unknown 01-18 ,Klaus Vitamin D3 Vitamin D3 No [place] 1 [...] 1 Unknown n capsule n capsule 01-18 MDKlaus PROzac 20 PROzac 20 No Emilio 60 [...] Unknown rine 10 mg rine 10 mg 0- MD,Klaus tablet tablet prazosin 2 prazosin 2 2017-09- No Emilio Unknown Unknown mg capsule mg capsule 10-16 ,Martin doxycycline doxycycline 2018- No [place] Unknown Unknown [...] Unknown ne 50 mg ne 50 mg 12-13- ,Martin tablet tablet prazosin 2 prazosin 2 [...] Unknown Unknown Ellipta 100 Ellipta 100 04-18 MDNgozi mcg-62.5 mcg-62.5 mcg-25 mcg mcg-25 mcg powder [...]
--- OUTSIDE RECORDS SUMMARY | 2019-10-07 18:10 | XMS REPORT ---
:1960 Author Organization [facility] Care Team Providers Name Role Phone Unavailable Unavailable Unavailable Problems Condition Condition Condition Status Onset Resolution Last Treating Comments Name Details Category Date Date Treatment Clinician Date Chronic Chronic Diagnosis Active Blaire obstructive obstructive 01-18 Bruno pulmonary pulmonary [id number] disease, disease, unspecified unspecified Patient's Patient's Diagnosis Active Blaire other other 01-18 Bruno noncomplian noncomplian [id number] ce with ce with medication medication regimen regimen Schizophren Schizophren Diagnosis Active Blaire ia, ia, 01-18 Bruno unspecified unspecified [id number] Essential Essential Diagnosis Active Blaire (primary) (primary) 01-18 Bruno hypertensio hypertensio [id number] n n Hypothyroid Hypothyroid Diagnosis Active Blaire ism, ism, 01-18 Bruno unspecified unspecified [id number] Dependence Dependence Diagnosis Active Blaire on on 01-18 Bruno supplementa supplementa [id number] l oxygen l oxygen Anemia, Anemia, Diagnosis Active Blaire unspecified unspecified Bruno [id number] Nicotine Nicotine Diagnosis Active Blaire dependence, dependence, Bruno cigarettes, cigarettes, [id number] uncomplicat uncomplicat ed ed Pain frequent Pain Mgmt Resolve 2018-11-09 Elissa pain d 01-18 08:50:00 Jessica 13:00: [id number] 00 Pain knowledge/s Pain Mgmt Resolve 2018-05-13 Elissa kill d 01-18 11:18:00 Downey deficit: pt 13:00: [id number] 00 Cardio knowledge/s Cardiovasc Resolve 2018-06-07 Elissa wheeler ular d 01-18 15:30:00 Downey deficit: pt 13:00: [id number] 00 Respiratory oxygen Respirator Resolve 2018-07-05 Elissa treatments y d 01-18 09:20:00 Downey in home 13:00: [id number] 00 Respiratory nebulizer Respirator Resolve 2018-07-05 Elissa treatment y d 01-18 09:20:00 Downey in home 13:00: [id number] 00 Respiratory dyspnea Respirator Resolve 2018-07-05 Elissa present y d 01-18 09:20:00 Downey 13:00: [id number] 00 Endo/Derek anti-coagul Endo/Derek Resolve 2018-07-12 Elissa ation d 01-18 09:48:00 Jessica therapy 13:00: [id number] 00 Nutrition nutritional Nutrition Resolve 2018-04-12 Elissa restriction d 01-18 10:11:00 Downey s 13:00: [id number] 00 Elimination urinary Eliminatio Resolve 2018-05-13 Elissa frequency n d 01-18 11:18:00 Jessica 13:00: [id number] 00 Neuro impaired Neuro/Emot Resolve 2018-08-09 Elissa decision-ma ion d 01-18 08:44:00 Downey rosanne 13:00: [id number] 00 Activity ADL Activity Resolve 2018-04-12 Adia assistance d 01-18 10:11:00 Guidelli required 13:00: [id number] 00 Safety risk for Safety Resolve 2018-05-13 Elissa hospitaliza d 01-18 11:18:00 Jessica tion 13:00: [id number] 00 Safety can be left Safety Resolve 2018-05-13 Elissa alone for d 01-18 11:18:00 Jessica only short 13:00: [id number] 00 Safety fall risk Safety Resolve 2018-05-13 Elissa factor d 01-18 11:18:00 Jessica present 13:00: [id number] 00 Medication knowledge/s Meds Resolve 2018-06-07 Elissa kill d 01-18 15:30:00 Jessica deficit: pt 13:00: [id number] 00 Medication oral med Meds Resolve 2018-06-07 Elissa assistance d 01-18 15:30:00 Jessica required 13:00: [id number] 00 Medication injectable Meds Resolve 2018-06-07 Elissa med d 01-18 15:30:00 Jessica assistance 13:00: [id number] required 00 Medication potential Meds Resolve 2018-06-07 Elissa clinically d 01-18 15:30:00 Downey significant 13:00: [id number] medication 00 issue Diagnoses knowledge/s Diagnoses Active Elissa kill 01-18 Jessica deficit: pt 13:00: [id number] 00 Musculoskel requires Musculoske Resolve 2018-05-13 Elissa etal human letal d 01-18 11:18:00 Jessica assist to 13:00: [id number] leave home 00 Musculoskel transfer Musculoske Resolve 2018-05-13 Adia etal assistance letal d 01-18 11:18:00 Guidelli required 13:00: [id number] 00 Respiratory lung sounds Respirator Resolve 2018-07-05 Elissa deficit y d 01-25 09:20:00 Downey 16:00: [id number] 00 Safety knowledge/s Safety Resolve 2018-05-13 Elissa kill d 01-25 11:18:00 Downey deficit: pt 16:00: [id number] 00 Elimination constipatio Eliminatio Resolve 2018-05-13 Elissa n n d 6-19 11:18:00 Cristal 11:43: [id number] 00 Nutrition nutritional Nutrition Resolve 2018-06-07 Elissa restriction d 17 15:30:00 Cristal s 11:18: [id number] 00 Respiratory smoker Respirator Resolve 2018-07-05 Elissa y d 06-07 09:20:00 Cristal 15:30: [id number] 00 Elimination urinary Eliminatio Resolve 2018-06-07 Elissa frequency n d 06-07 15:30:00 Cristal 15:30: [id number] 00 Safety knowledge/s Safety Active Elissa kill 06-07 Cristal deficit: pt 15:30: [id number] 00 Safety risk for Safety Resolve 2018-07-05 [facility] Cristal tion 15:30: [id number] 00 Safety risk for Safety Unknown 2017-09 [facility] [place] tion 14:00: [id number] 00 Respiratory dyspnea Respirator Resolve 2017-092018-08-09 Blaire present y d 0-16 08:44:00 Bruno 09:48: [id number] 00 Respiratory lung sounds Respirator Resolve 2017-092018-08-09 Blaire deficit y d 016 08:44:00 Bruno 09:48: [id number] 00 Safety risk for Safety Resolve 2017-092018-08-09 Blaire hospitaliza d 016 08:44:00 Bruno tion 09:48: [id number] 00 Respiratory oxygen Respirator Resolve 2017-092018-08-09 Blaire treatments y d 1 08:44:00 Bruno in home 08:44: [id number] 00 Respiratory nebulizer Respirator Resolve 2017-092018-08-09 Blaire treatment y d 10-09 08:44:00 Bruno in home 08:44: [id number] 00 Neuro anxiety Neuro/Emot Resolve 2017-092018-08-09 Blaire present ion d 10-09 08:44:00 Bruno 08:44: [id number] 00 Safety risk for Safety Resolve 2017-092018-08-30 [facility] 10-16 09:20:00 Oakes tion 10:46: [id number] 00 Respiratory oxygen Respirator Resolve 2017-092018-09-13 Blaire treatments y d 10-31 09:53:00 Bruno in home 09:20: [id number] 00 Respiratory lung sounds Respirator Resolve 2017-092018-09-13 Blaire deficit y d 10-31 09:53:00 Bruno 09:20: [id number] 00 Respiratory smoker Respirator Resolve 2017-092018-09-13 Blaire y d 10-31 09:53:00 Bruno 09:20: [id number] 00 Respiratory nebulizer Respirator Resolve 2017-092018-09-13 Blaire treatment y d 10-31 09:53:00 Bruno in home 09:20: [id number] 00 Endo/Derek anti-coagul Endo/Derek Resolve 2017-092018-09-13 Blaire ation d 10-31 09:53:00 Bruno therapy 09:20: [id number] 00 Neuro anxiety Neuro/Emot Resolve 2017-092018-09-13 Blaire present ion d 10-31 09:53:00 Bruno 09:20: [id number] 00 Safety safety Safety Resolve 2017-092018-08-30 Blaire hazards d 10-31 09:20:00 Bruno present 09:20: [id number] 00 Safety risk for Safety Resolve 2017-092018-09-13 Arin hospitaliza d 11-07 09:53:00 Carrier RN tion 10:00: 00 Respiratory dyspnea Respirator Resolve 2017-092018-09-13 Blaire present y d 11-14 09:53:00 Bruno 09:53: [id number] 00 Safety risk for Safety Resolve 2017-092018-09-26 Jazz hospitaliza d 11-20 09:45:00 Oakes tion 10:00: [id number] 00 Respiratory dyspnea Respirator Resolve 2017-092019-01-03 Blaire present y d 09:25:00 Bruno 09:45: [id number] 00 Respiratory oxygen Respirator Resolve 2017-092019-01-03 Blaire treatments y d 09:25:00 Bruno in home 09:45: [id number] 00 Respiratory lung sounds Respirator Resolve 2017-092018-10-25 Blaire deficit y d 09:26:00 Bruno 09:45: [id number] 00 Respiratory smoker Respirator Resolve 2017-092018-09-26 Blaire y d 2 09:45:00 Bruno 09:45: [id number] 00 Respiratory nebulizer Respirator Resolve 2017-092019-01-03 Blaire treatment y d 09:25:00 Bruno in home 09:45: [id number] 00 Medication oral med Meds Resolve 2017-092019-03-09 Blaire assistance d 14:06:00 Bruno required 09:45: [id number] 00 Medication injectable Meds Resolve 2017-092019-03-09 Blaire med d 14:06:00 Bruno assistance 09:45: [id number] required 00 Nutrition nutritional Nutrition Resolve 2018-11-09 Jazz restriction d 09-30 08:50:00 Oakes s 12:19: [id number] 00 Safety risk for Safety Resolve 2018-10-25 Jazz hospitaliza d 09-30 09:26:00 Oakes tion 12:19: [id number] 00 Respiratory lung sounds Respirator Resolve 2018-11-09 Jazz deficit y d 2 08:50:00 Oakes 10:20: [id number] 00 Safety risk for Safety Resolve 2018-11-09 Jazz hospitaliza d 11-01 08:50:00 Oakes tion 10:20: [id number] 00 Respiratory smoker Respirator Resolve 2018-12-20 Blaire y d 11-09 09:22:00 Bruno 08:50: [id number] 00 Neuro anxiety Neuro/Emot Resolve 2018-11-09 Blaire present ion d 11-09 08:50:00 Bruno 08:50: [id number] 00 Nutrition nutritional Nutrition Resolve 2018-12-06 Jazz restriction d 11-15 10:45:00 Oakes s 11:00: [id number] 00 Safety risk for Safety Resolve 2018-12-06 Jazz hospitaliza d 11-15 10:45:00 Oakes tion 11:00: [id number] 00 Respiratory lung sounds Respirator Resolve 2018-12-20 Blaire deficit y d 3 09:22:00 Bruno 10:45: [id number] 00 Respiratory pneumonia Respirator Resolve 2018-12-20 Blaire y d 312 09:22:00 Bruno 10:45: [id number] 00 Respiratory asthma Respirator Resolve 2019-01-03 Blaire y d 12-06 09:25:00 Bruno 10:45: [id number] 00 Nutrition nutritional Nutrition Resolve 2018-12-20 Blaire restriction d 12-13 09:22:00 Bruno s 09:45: [id number] 00 Safety risk for Safety Resolve 2018-12-20 Blaire hospitaliza d 12-13 09:22:00 Bruno tion 09:45: [id number] 00 Safety safety Safety Resolve 2018-2018-12-20 Blaire hazards d 3- 09:22:00 Bruno present 09:22: [id number] 00 Respiratory knowledge/s Respirator Resolve 2018-2019-01-03 Blaire kill y d 12-27 09:25:00 Bruno deficit: pt 10:07: [id number] 00 Respiratory lung sounds Respirator Resolve 2019-01-03 Blaire deficit y d 12-27 09:25:00 Bruno 10:07: [id number] 00 Respiratory CPAP Respirator Resolve 2019-01-03 Blaire treatments y d 12-27 09:25:00 Bruno in home 10:07: [id number] 00 Respiratory smoker Respirator Resolve 2019-01-03 Blaire y d 12-27 09:25:00 Bruno 10:07: [id number] 00 Nutrition nutritional Nutrition Resolve 2019-01-03 Blaire restriction d 12-27 09:25:00 Bruno s 10:07: [id number] 00 Neuro impaired Neuro/Emot Resolve 2019-01-03 Blaire decision-ma ion d 12-27 09:25:00 Bruno rosanne 10:07: [id number] 00 Safety risk for Safety Resolve 2019-01-03 Blaire hospitaliza d 12-27 09:25:00 Bruno tion 10:07: [id number] 00 Neuro memory Neuro/Emot Unknown Blaire deficit ion 01-03 Bruno needing 09:25: [id number] supervision 00 Respiratory dyspnea Respirator Resolve 2019-03-28 Blaire present y d 01-10 09:06:00 Bruno 09:27: [id number] 00 Respiratory knowledge/s Respirator Resolve 2019-03-07 Blaire kill y d 01-10 09:45:00 Bruno deficit: pt 09:27: [id number] 00 Respiratory lung sounds Respirator Resolve 2019-03-07 Blaire deficit y d 01-10 09:45:00 Bruno 09:27: [id number] 00 Respiratory smoker Respirator Resolve 2019-03-07 Blaire y d 01-10 09:45:00 Bruno 09:27: [id number] 00 Nutrition nutritional Nutrition Resolve 2019-02-07 Blaire restriction d 4-16 09:39:00 Bruno s 09:27: [id number] 00 Neuro impaired Neuro/Emot Unknown Blaire decision-ma ion 4-16 Bruno rosanne 09:27: [id number] 00 Neuro memory Neuro/Emot Unknown Blaire deficit ion 4-16 Bruno needing 09:27: [id number] supervision 00 Safety fall risk Safety Resolve 2019-02-07 Blaire factor d 416 09:39:00 Bruno present 09:27: [id number] 00 Safety risk for Safety Resolve 2019-02-07 Blaire hospitaliza d 01-10 09:39:00 Bruno tion 09:27: [id number] 00 Respiratory oxygen Respirator Resolve 2019-03-28 Elissa treatments y d 01-24 09:06:00 Barbara in home 09:00: [employer] 00 [id number] Respiratory nebulizer Respirator Resolve 2019-03-28 Elissa treatment y d 01-24 09:06:00 Barbara in home 09:00: [employer] 00 [id number] Respiratory asthma Respirator Resolve 2019-03-28 Consuelo y d 01-25 09:06:00 Vallely 11:00: 00 Elimination urinary Eliminatio Resolve 2019-02-07 Elissa incontinenc n d 01-31 09:39:00 Barbara e 08:30: [employer] 00 [id number] Nutrition nutritional Nutrition Resolve 2019-03-07 Elissa restriction d 02-14 09:45:00 Barbara s 08:13: [employer] 00 [id number] Safety risk for Safety Resolve 2019-03-07 Elissa hospitaliza d 02-14 09:45:00 Barbara tion 08:13: [employer] 00 [id number] Respiratory lung sounds Respirator Resolve 2019-03-09 Blaire deficit y d 6 14:06:00 Bruno 14:06: [id number] 00 Respiratory smoker Respirator Resolve 2019-03-09 Blaire y d 6 14:06:00 Bruno 14:06: [id number] 00 Nutrition nutritional Nutrition Resolve 2019-03-28 Blaire restriction d 6-13 09:06:00 Bruno s 14:06: [id number] 00 Safety safety Safety Resolve 2019-03-28 Blaire hazards d 6-13 09:06:00 Bruno present 14:06: [id number] 00 Safety fall risk Safety Resolve 2019-03-28 Blaire factor d 6-13 09:06:00 Bruno present 14:06: [id number] 00 Safety risk for Safety Resolve 2019-03-28 Blaire hospitaliza d 613 09:06:00 Bruno tion 14:06: [id number] 00 Medication potential Meds Resolve 2019-03-09 Blaire clinically d 6 14:06:00 Bruno significant 14:06: [id number] medication 00 issue Respiratory lung sounds Respirator Resolve 2019-03-28 Elissa deficit y d 618 09:06:00 Barbara 07:45: [employer] 00 [id number] Respiratory lung sounds Respirator Resolve 2019-04-25 Elissa deficit y d 04-04 09:45:00 Barbara 08:00: [employer] 00 [id number] Nutrition nutritional Nutrition Resolve 2019-04-25 Elissa restriction d 04-04 09:45:00 Barbara s 08:00: [employer] 00 [id number] Safety risk for Safety Resolve 2019-04-25 Elissa hospitaliza d 04-04 09:45:00 Barbara tion 08:00: [employer] 00 [id number] Neuro anxiety Neuro/Emot Resolve 2019-04-25 Blaire present ion d 04-25 09:45:00 Bruno 09:45: [id number] 00 Safety risk for Safety Resolve 2019-05-09 Elissa hospitaliza d 05-02 12:05:00 Barbara tion 08:15: [employer] 00 [id number] Respiratory lung sounds Respirator Resolve 2019-05-30 Blaire deficit y d 8- 08:38:00 Bruno 12:05: [id number] 00 Medication injectable Meds Resolve 2019-05-30 Blaire med d 8 08:38:00 Bruno assistance 12:05: [id number] required 00 Safety risk for Safety Resolve 2019-05-30 [facility] 08:38[facility] Barbara tion 08:02: [employer] 00 [id number] Neuro impaired Neuro/Emot Resolve 2019-05-30 Blaire decision-ma ion d 05-30 08:38:00 Bruno rosanne 08:38: [id number] 00 Neuro memory Neuro/Emot Resolve 2019-05-30 Blaire deficit ion d 05-30 08:38:00 Bruno needing 08:38: [id number] supervision 00 Safety risk for Safety Resolve 2019-06-27 [facility] 08:40:00 Barbara tion 07:56: [employer] 00 [id number] Respiratory lung sounds Respirator Resolve 2019-06-27 Elissa deficit y d 9 08:40:00 Barbara 07:30: [employer] 00 [id number] Respiratory nebulizer Respirator Resolve 2018-092019-06-27 Blaire treatment y d 0-01 08:40:00 Bruno in home 08:40: [id number] 00 Elimination urinary Eliminatio Resolve 2018-092019-07-11 Elissa incontinenc n d 0-08 10:13:00 Barbara e 08:00: [employer] 00 [id number] Safety risk for Safety Resolve 2018-092019-08-07 [facility] 12:15:00 Barbara tion 08:00: [employer] 00 [id number] Respiratory oxygen Respirator Active 2018-09 Blaire treatments y 0-15 Bruno in home 10:13: [id number] 00 Respiratory nebulizer Respirator Active 2018-09 Blaire treatment y 0-15 Bruno in home 10:13: [id number] 00 Respiratory lung sounds Respirator Resolve 2018-092019-07-11 Blaire deficit y d 0-15 10:13:00 Bruno 10:13: [id number] 00 Neuro anxiety Neuro/Emot Resolve 2018-092019-08-07 Blaire present ion d 0-15 12:15:00 Bruno 10:13: [id number] 00 Neuro impaired Neuro/Emot Unknown 2018-09 Blaire decision-ma ion 0-15 Bruno rosanne 10:13: [id number] 00 Safety safety Safety Resolve 2018-092019-08-07 Blaire hazards d 0-15 12:15:00 Bruno present 10:13: [id number] 00 Safety fall risk Safety Resolve 2018-092019-08-07 Blaire factor d 0-15 12:15:00 Bruno present 10:13: [id number] 00 Medication injectable Meds Resolve 2018-092019-08-07 Blaire med d 0-15 12:15:00 Bruno assistance 10:13: [id number] required 00 Medication oral med Meds Resolve 2018-092019-08-07 Blaire assistance d 0-15 12:15:00 Bruno required 10:13: [id number] 00 Respiratory lung sounds Respirator Resolve 2018-092019-08-07 Blaire deficit y d 1-11 12:15:00 Bruno 12:15: [id number] 00 Elimination [facility] Barbara e 08:00: [employer] 00 [id number] Safety [facility] for [facility] Barbara tion 08:00: [employer] 00 [id number] Nutrition nutritional Nutrition Active 2018-09 Rosamaria restriction 1-30 Malnoske s 10:55: RN 00 Respiratory lung sounds Respirator Resolve 2018-092019-09-05 Blaire deficit y d 2-10 10:26:00 Bruno 10:26: [id number] 00 Medication oral med Meds Active 2018-09 Blaire assistance 2-10 Bruno required 10:26: [id number] 00 Medication injectable Meds Active 2018-09 Blaire med 2-10 Bruno assistance 10:26: [id number] required 00 Safety risk for Safety Active 2018-09 [facility] 11-13 Barbara tion 08:00: [employer] 00 [id number] Allergies, Adverse Reactions, Alerts Allergy Name Allergy Status Severity Reaction(s) Onset Inactive Treating Comments Type Date Date Clinician sulfa Unknown Active Mild to Rash Elissa Moderate 01-25 Jessica [id number] aspirin Base Active Moderate Hives Elissa Ingredient 01-25 Jessica [id number] penicillin G Base Active Moderate Difficulty Elissa Ingredient to Severe swallowing 01-25 Jessica [id number] Medications Ordered Filled Start Stop Current Ordering [...] Observation Time Observation Value Comments SYSTOLIC mm[Hg] 2019-09-19 18:09:31 126 mm[Hg] mm[Hg] Method: Sit SYSTOLIC mm[Hg] 2019-09-06 18:09:18 122 mm[Hg] mm[Hg] Method: Stand DIASTOLIC mm[Hg] 2019-09-19 18:09:31 68 mm[Hg] mm[Hg] Method: Sit DIASTOLIC mm[Hg] 2019-09-06 18:09:18 70 mm[Hg] mm[Hg] Method: Stand PULSE 2019-09-19 18:09:31 82 /min /min RESP RATE 2019-09-19 18:09:31 16 /min /min TEMP 2019-09-19 18:09:31 98 [degF] Procedures This patient has no known procedures. Results This patient has no known results.
--- OUTSIDE RECORDS SUMMARY | 2019-10-07 18:10 | XMS REPORT ---
:1960 Author Organization [facility] Care Team Providers Name Role Phone Unavailable Unavailable Unavailable Problems Condition Condition Condition Status Onset Resolution Last Treating Comments Name Details Category Date Date Treatment Clinician Date Pain frequent Pain Mgmt Resolve 2018-11-09 Elissa pain d 01-18 08:50:00 Jessica 13:00: [id number] 00 Pain knowledge/s Pain Mgmt Resolve 2018-05-13 Elissa kill d 01-18 11:18:00 [place] deficit: pt 13:00: [id number] 00 Cardio knowledge/s Cardiovasc Resolve 2018-06-07 Elissa kill ular d 01-18 15:30:00 [place] deficit: pt 13:00: [id number] 00 Respiratory oxygen Respirator Resolve 2018-07-05 Elissa treatments y d 01-18 09:20:00 [place] in home 13:00: [id number] 00 Respiratory nebulizer Respirator Resolve 2018-07-05 Elissa treatment y d 01-18 09:20:00 Jessica in home 13:00: [id number] 00 Respiratory dyspnea Respirator Resolve 2018-07-05 Elissa present y d 01-18 09:20:00 [place] 13:00: [id number] 00 Endo/Derek anti-coagul Endo/Derek Resolve 2018-07-12 Elissa ation d 01-18 09:48:00 Jessica therapy 13:00: [id number] 00 Nutrition nutritional Nutrition Resolve 2018-04-12 Elissa restriction d 01-18 10:11:00 [place] s 13:00: [id number] 00 Elimination urinary Eliminatio Resolve 2018-05-13 Elissa frequency n d 01-18 11:18:00 Jessica 13:00: [id number] 00 Neuro impaired Neuro/Emot Resolve 2018-08-09 Elissa goldman-will ion d 01-18 08:44:00 Jessica rosanne 13:00: [id number] 00 Activity ADL Activity Resolve 2018-04-12 Adia assistance d 01-18 10:11:00 [place] required 13:00: [id number] 00 Safety risk for Safety Resolve 2018-05-13 Elissa hospitaliza d 01-18 11:18:00 Jessica tion 13:00: [id number] 00 Safety can be left Safety Resolve 2018-05-13 Elissa strong for d 01-18 11:18:00 Jessica only short 13:00: [id number] 00 Safety fall risk Safety Resolve 2018-05-13 Elissa factor d 01-18 11:18:00 Jessica present 13:00: [id number] 00 Medication knowledge/s Meds Resolve 2018-06-07 Elissa kill d 01-18 15:30:00 [place] deficit: pt 13:00: [id number] 00 Medication oral med Meds Resolve 2018-06-07 Elissa assistance d 01-18 15:30:00 [place] required 13:00: [id number] 00 Medication injectable Meds Resolve 2018-06-07 Elissa med d 01-18 15:30:00 [place] assistance 13:00: [id number] required 00 Medication potential Meds Resolve 2018-06-07 Elissa clinically d 01-18 15:30:00 Jessica significant 13:00: [id number] medication 00 issue Diagnoses knowledge/s Diagnoses Active Elissa kill 01-18 [place] deficit: pt 13:00: [id number] 00 Musculoskel requires Musculoske Resolve 2018-05-13 Elissa etal human letal d 01-18 11:18:00 [place] assist to 13:00: [id number] leave home 00 Musculoskel transfer Musculoske Resolve 2018-05-13 Adia etal assistance letal d 01-18 11:18:00 [place] required 13:00: [id number] 00 Respiratory lung sounds Respirator Resolve 2018-07-05 Elissa deficit y d 01-25 09:20:00 [place] 16:00: [id number] 00 Safety knowledge/s Safety Resolve 2018-05-13 Elissa kill d 01-25 11:18:00 [place] deficit: pt 16:00: [id number] 00 Elimination constipatio Eliminatio Resolve 2018-05-13 Elissa n n d 03-15 11:18:00 Cristal 11:43: [id number] 00 Nutrition nutritional Nutrition Resolve 2018-06-07 Elissa restriction d 05-13 15:30:00 Cristal s 11:18: [id number] 00 Respiratory smoker Respirator Resolve 2018-07-05 Elissa y d 06-07 09:20:00 Cristal 15:30: [id number] 00 Elimination urinary Eliminatio Resolve 2018-06-07 Elissa frequency n d 06-07 15:30:00 Cristal 15:30: [id number] 00 Safety knowledge/s Safety Active Elissa kill 06-07 Cristal deficit: pt 15:30: [id number] 00 Safety risk for Safety Resolve 2018-07-05 Elissa hospitaliza d 06-07 09:20:00 Cristal tion 15:30: [id number] 00 Safety risk for Safety [facility] [place] [facility]ion 14:00: [id number] 00 Respiratory dyspnea Respirator Resolve 2017-092018-08-09 Blaire present y d 0-16 08:44:00 Bruno 09:48: [id number] 00 Respiratory lung sounds Respirator Resolve 2017-092018-08-09 Blaire deficit y d 0-16 08:44:00 Bruno 09:48: [id number] 00 Safety risk for Safety Resolve 2017-092018-08-09 Blaire hospitaliza d 0-16 08:44:00 Bruno tion 09:48: [id number] 00 Respiratory oxygen Respirator Resolve 2017-092018-08-09 Blaire treatments y d 1- 08:44:00 Bruno in home 08:44: [id number] 00 Respiratory nebulizer Respirator Resolve 2017-092018-08-09 Blaire treatment y d 10-09 08:44:00 Bruno in home 08:44: [id number] 00 Neuro anxiety Neuro/Emot Resolve 2017-092018-08-09 Blaire present ion d 10-09 08:44:00 Bruno 08:44: [id number] 00 Safety risk for Safety Resolve 2017-092018-08-30 [facility] hospitaliza d 10-16 09:20:00 [place] tion 10:46: [id number] 00 Respiratory oxygen Respirator Resolve 2017-092018-09-13 Blaire treatments y d 10-31 09:53:00 Bruno in home 09:20: [id number] 00 Respiratory lung sounds Respirator Resolve 2017-092018-09-13 Blaire deficit y d 10-31 09:53:00 Bruno 09:20: [id number] 00 Respiratory smoker Respirator Resolve 2017-092018-09-13 Blaire y d 10-31 09:53:00 Bruno 09:20: [id number] 00 Respiratory nebulizer Respirator Resolve 2017-092018-09-13 Blaire treatment y d 10-31 09:53:00 Bruno in home 09:20: [id number] 00 Endo/Derek anti-coagul Endo/Derek Resolve 2017-092018-09-13 Blaire ation d 10-31 09:53:00 Bruno therapy 09:20: [id number] 00 Neuro anxiety Neuro/Emot Resolve 2017-092018-09-13 Blaire present ion d 10-31 09:53:00 Bruno 09:20: [id number] 00 Safety safety Safety Resolve 2017-092018-08-30 Blaire hazards d 10-31 09:20:00 Bruno present 09:20: [id number] 00 Safety risk for Safety Resolve 2017-092018-09-13 Arin hospitaliza d 11-07 09:53:00 Carrier RN tion 10:00: 00 Respiratory dyspnea Respirator Resolve 2017-092018-09-13 Blaire present y d 11-14 09:53:00 Bruno 09:53: [id number] 00 Safety risk for Safety Resolve 2017-092018-09-26 [facility] hospital[facility] d 11-20 09:45:00 [place] tion 10:00: [id number] 00 Respiratory dyspnea Respirator Resolve 2017-092019-01-03 Blaire present y d 09:25:00 Bruno 09:45: [id number] 00 Respiratory oxygen Respirator Resolve 2017-092019-01-03 Blaire treatments y d 09:25:00 Bruno in home 09:45: [id number] 00 Respiratory lung sounds Respirator Resolve 2017-092018-10-25 Blaire deficit y d 09:26:00 Bruno 09:45: [id number] 00 Respiratory smoker Respirator Resolve 2017-092018-09-26 Blaire y d 09:45:00 Bruno 09:45: [id number] 00 Respiratory nebulizer Respirator Resolve 2017-092019-01-03 Blaire treatment y d 09:25:00 Bruno in home 09:45: [id number] 00 Medication oral med Meds Resolve 2017-092019-03-09 Blaire assistance d 14:06:00 Bruno required 09:45: [id number] 00 Medication injectable Meds Resolve 2017-092019-03-09 Blaire med d 14:06:00 Bruno assistance 09:45: [id number] required 00 Nutrition nutritional Nutrition Resolve 2018-11-09 Jazz restriction d 1 08:50:00 [place] s 12:19: [id number] 00 Safety risk for Safety Resolve 2018-10-25 [facility] hospitaliza d 1 09:26:00 [place] tion 12:19: [id number] 00 Respiratory lung sounds Respirator Resolve 2018-11-09 Jazz deficit y d 11-01 08:50:00 [place] 10:20: [id number] 00 Safety risk for Safety Resolve 2018-11-09 [facility] hospitaliza d 11-01 08:50:00 [place] tion 10:20: [id number] 00 Respiratory smoker Respirator Resolve 2018-12-20 Blaire y d 11-09 09:22:00 Bruno 08:50: [id number] 00 Neuro anxiety Neuro/Emot Resolve 2018-11-09 Blaire present ion d 11-09 08:50:00 Bruno 08:50: [id number] 00 Nutrition nutritional Nutrition Resolve 2018-12-06 Jazz restriction d 11-15 10:45:00 [place] s 11:00: [id number] 00 Safety risk for Safety Resolve 2018-12-06 [facility] hospitaliza d 11-15 10:45:00 [place] tion 11:00: [id number] 00 Respiratory lung sounds Respirator Resolve 2018-12-20 Blaire deficit y d 12-06 09:22:00 Bruno 10:45: [id number] 00 Respiratory pneumonia Respirator Resolve 2018-12-20 Blaire y d 12-06 09:22:00 Bruno 10:45: [id number] 00 Respiratory asthma Respirator Resolve 2019-01-03 Blaire y d 12-06 09:25:00 Bruno 10:45: [id number] 00 Nutrition nutritional Nutrition Resolve 2018-12-20 Blaire restriction d 12-13 09:22:00 Bruno s 09:45: [id number] 00 Safety risk for Safety Resolve 2018-12-20 Blaire hospitaliza d 12-13 09:22:00 Bruno tion 09:45: [id number] 00 Safety safety Safety Resolve 2018-12-20 Blaire hazards d 12-20 09:22:00 Bruno present 09:22: [id number] 00 Respiratory knowledge/s Respirator Resolve 2019-01-03 Blaire kill y d 12-27 09:25:00 Bruno deficit: pt 10:07: [id number] 00 Respiratory lung sounds Respirator Resolve 2019-01-03 Blaire deficit y d 4 09:25:00 Bruno 10:07: [id number] 00 Respiratory CPAP Respirator Resolve 2019-01-03 Blaire treatments y d 4-02 09:25:00 Bruno in home 10:07: [id number] 00 Respiratory smoker Respirator Resolve 2019-01-03 Blaire y d 4-02 09:25:00 Bruno 10:07: [id number] 00 Nutrition nutritional Nutrition Resolve 2019-01-03 Blaire restriction d 12-27 09:25:00 Bruno s 10:07: [id number] 00 Neuro impaired Neuro/Emot Resolve 2019-01-03 Blaire decision-ma ion d 12-27 09:25:00 Bruno rosanne 10:07: [id number] 00 Safety risk for Safety Resolve 2019-01-03 Blaire hospitaliza d 12-27 09:25:00 Bruno tion 10:07: [id number] 00 Neuro memory Neuro/Emot Unknown Blaire deficit ion - Bruno needing 09:25: [id number] supervision 00 Respiratory dyspnea Respirator Resolve 2019-03-28 Blaire present y d 01-10 09:06:00 Bruno 09:27: [id number] 00 Respiratory knowledge/s Respirator Resolve 2019-03-07 Blaire kill y d 01-10 09:45:00 Bruno deficit: pt 09:27: [id number] 00 Respiratory lung sounds Respirator Resolve 2019-03-07 Blaire deficit y d 01-10 09:45:00 Bruno 09:27: [id number] 00 Respiratory smoker Respirator Resolve 2019-03-07 Blaire y d 01-10 09:45:00 Bruno 09:27: [id number] 00 Nutrition nutritional Nutrition Resolve 2019-02-07 Blaire restriction d 01-10 09:39:00 Bruno s 09:27: [id number] 00 Neuro impaired Neuro/Emot Unknown Blaire decision-ma ion 01-10 Bruno rosanne 09:27: [id number] 00 Neuro memory Neuro/Emot Unknown Blaire deficit ion 01-10 Bruno needing 09:27: [id number] supervision 00 Safety fall risk Safety Resolve 2019-02-07 Blaire factor d 01-10 09:39:00 Bruno present 09:27: [id number] 00 Safety risk for Safety Resolve 2019-02-07 Blaire hospitaliza d 01-10 09:39:00 Bruno tion 09:27: [id number] 00 Respiratory oxygen Respirator Resolve 2019-03-28 Elissa treatments y d 01-24 09:06:00 Barbara in home 09:00: [facility] 00 [id number] Respiratory nebulizer Respirator Resolve 2019-03-28 Elissa treatment y d 4-30 09:06:00 Barbara in home 09:00: [employer] 00 [id number] Respiratory asthma Respirator Resolve 2019-03-28 Consuelo y d 5- 09:06:00 [place] 11:00: 00 Elimination urinary Eliminatio Resolve 2019-02-07 Elissa incontinenc n d 01-31 09:39:00 Barbara e 08:30: [employer] 00 [id number] Nutrition nutritional Nutrition Resolve 2019-03-07 Elissa restriction d 02-14 09:45:00 Barbara s 08:13: [employer] 00 [id number] Safety risk for Safety Resolve 2019-03-07 Elissa hospitaliza d 02-14 09:45:00 Barbara tion 08:13: [employer] 00 [id number] Respiratory lung sounds Respirator Resolve 2019-03-09 Blaire deficit y d 6-13 14:06:00 Bruno 14:06: [id number] 00 Respiratory smoker Respirator Resolve 2019-03-09 Blaire y d 613 14:06:00 Bruno 14:06: [id number] 00 Nutrition nutritional Nutrition Resolve 2019-03-28 Blaire restriction d 6-13 09:06:00 Bruno s 14:06: [id number] 00 Safety safety Safety Resolve 2019-03-28 Blaire hazards d 6-13 09:06:00 Bruno present 14:06: [id number] 00 Safety fall risk Safety Resolve 2019-03-28 Blaire factor d 6-13 09:06:00 Bruno present 14:06: [id number] 00 Safety risk for Safety Resolve 2019-03-28 Blaire hospitaliza d 6-13 09:06:00 Bruno tion 14:06: [id number] 00 Medication potential Meds Resolve 2019-03-09 Blaire clinically d 6-13 14:06:00 Bruno significant 14:06: [id number] medication 00 issue Respiratory lung sounds Respirator Resolve 2019-03-28 Elissa deficit y d 6-18 09:06:00 Barbara 07:45: [employer] 00 [id number] Respiratory lung sounds Respirator Resolve 2019-04-25 Elissa deficit y d 04-04 09:45:00 Barbara 08:00: [employer] 00 [id number] Nutrition nutritional Nutrition Resolve 2019-04-25 Elissa restriction d 04-04 09:45:00 Barbara s 08:00: [employer] 00 [id number] Safety risk for Safety Resolve 2019-04-25 [facility] 09:[facility] Barbara tion 08:00: [employer] 00 [id number] Neuro anxiety Neuro/Emot Resolve 2019-04-25 Blaire present ion d 04-25 09:45:00 Bruno 09:45: [id number] 00 Safety risk for Safety Resolve 2019-05-09 [facility] 12:05:00 Barbara tion 08:15: [employer] 00 [id number] Respiratory lung sounds Respirator Resolve 2019-05-30 Blaire deficit y d 05-09 08:38:00 Bruno 12:05: [id number] 00 Medication injectable Meds Resolve 2019-05-30 Blaire med d 05-09 08:38:00 Bruno assistance 12:05: [id number] required 00 Safety risk for Safety Resolve 2019-05-30 Elissa [facility] d 05-16 08:38:00 Barbara tion 08:02: [employer] 00 [id number] Neuro impaired Neuro/Emot Resolve 2019-05-30 Blaire decision-ma ion d 05-30 08:38:00 Bruno rosanne 08:38: [id number] 00 Neuro memory Neuro/Emot Resolve 2019-05-30 Blaire deficit ion d 05-30 08:38:00 Bruno needing 08:38: [id number] supervision 00 Safety risk for Safety Resolve 2019-06-27 [facility] 08:40:00 Barbara tion 07:56: [employer] 00 [id number] Respiratory lung sounds Respirator Resolve 2019-06-27 Elissa deficit y d 06-13 08:40:00 Barbara 07:30: [employer] 00 [id number] Respiratory nebulizer Respirator Resolve 2018-092019-06-27 Blaire treatment y d 0-01 08:40:00 Bruno in home 08:40: [id number] 00 Elimination urinary Eliminatio Resolve 2018-092019-07-11 Elissa incontinenc n d 0-08 10:13:00 Barbara e 08:00: [employer] 00 [id number] Safety risk for Safety Resolve 2018-092019-08-07 Elissa hospitaliza d 0-08 12:15:00 Barbara tion 08:00: [employer] 00 [id number] Respiratory oxygen Respirator Active 2018-09 Blaire treatments y 0-15 Bruno in home 10:13: [id number] 00 Respiratory nebulizer Respirator Active 2018-09 Blaire treatment y 0-15 Bruno in home 10:13: [id number] 00 Respiratory lung sounds Respirator Resolve 2018-092019-07-11 Blaire deficit y d 0-15 10:13:00 Bruno 10:13: [id number] 00 Neuro anxiety Neuro/Emot Resolve 2018-092019-08-07 Blaire present ion d 0-15 12:15:00 Bruno 10:13: [id number] 00 Neuro impaired Neuro/Emot Unknown 2018-09 Blaire decision-ma ion 0-15 Bruno rosanne 10:13: [id number] 00 Safety safety Safety Resolve 2018-092019-08-07 Blaire hazards d 0-15 12:15:00 Bruno present 10:13: [id number] 00 Safety fall risk Safety Resolve 2018-092019-08-07 Blaire factor d 0-15 12:15:00 Bruno present 10:13: [id number] 00 Medication injectable Meds Resolve 2018-092019-08-07 Blaire med d 0-15 12:15:00 Bruno assistance 10:13: [id number] required 00 Medication oral med Meds Resolve 2018-092019-08-07 Blaire assistance d 0-15 12:15:00 Bruno required 10:13: [id number] 00 Respiratory lung sounds Respirator Resolve 2018-092019-08-07 Blaire deficit y d 1-11 12:15:00 Bruno 12:15: [id number] 00 Elimination urinary Eliminatio Resolve 2018-092019-09-05 Elissa de souzaenc n d 10-15 10:26:00 Barbara e 08:00: [employer] 00 [id number] Safety risk for Safety Resolve 2018-092019-09-05 Elissa jiniza d -19 10:26:00 Barbara tion 08:00: [employer] 00 [id number] Nutrition nutritional Nutrition Active 2018-09 Rosamaria restriction -30 Mal[place] s 10:55: RN 00 Respiratory lung sounds Respirator Resolve 2018-092019-09-05 Blaire deficit y d 2- 10:26:00 Bruno 10:26: [id number] 00 Medication oral med Meds Active 2018-09 Blaire assistance 2- Bruno required 10:26: [id number] 00 Medication injectable Meds Active 2018-09 Blaire med 11-06 Bruno assistance 10:26: [id number] required 00 Allergies, Adverse Reactions, Alerts Allergy Name Allergy Status Severity Reaction(s) Onset Inactive Treating Comments Type Date Date Clinician sulfa Unknown Active Mild to Rash Elissa Moderate 5-01 Jessica [id number] aspirin Base Active Moderate Hives 2018 Elissa Ingredient 5-01 [place] [id number] penicillin G Base Active Moderate Difficulty 2018 Elissa Ingredient to Severe swallowing 5-01 Jessica [id number] Medications Ordered Filled Start Stop Current Ordering [...] mg Unknown mg tablet mg tablet 01-18 aMrtin MARIEE prazosin 1 prazosin 1 2018- No [...] mg capsule mg capsule 04-25 Martin MARIEE [facility] Trele No Raza Unknown Unknown Ellipta 100 [...]
--- OUTSIDE RECORDS SUMMARY | 2019-10-07 18:10 | XMS REPORT ---
:1960 Author Organization [facility] Care Team Providers Name Role Phone Unavailable Unavailable Unavailable Problems Condition Condition Condition Status Onset Resolution Last Treating Comments Name Details Category Date Date Treatment Clinician Date Chronic Chronic Diagnosis Active Blaire obstructive obstructive 01-18 Bruno pulmonary pulmonary [id number] disease, disease, unspecified unspecified Patient's Patient's Diagnosis Active Blaire other other 01-18 Bruno noncomplian noncomplian [id number] ce with ce with medication medication regimen regimen Schizophren Schizophren Diagnosis Active Blaire ia, ia, 01-18 Bruno unspecified unspecified [id number] Essential Essential Diagnosis Active Blaire (primary) (primary) 01-18 Bruno hypertensio hypertensio [id number] n n Hypothyroid Hypothyroid Diagnosis Active Blaire ism, ism, 01-18 Bruno unspecified unspecified [id number] Dependence Dependence Diagnosis Active Blaire on on 01-18 Bruno supplementa supplementa [id number] l oxygen l oxygen Anemia, Anemia, Diagnosis Active Blaire unspecified unspecified Bruno [id number] Nicotine Nicotine Diagnosis Active Blaire dependence, dependence, Bruno cigarettes, cigarettes, [id number] uncomplicat uncomplicat ed ed Pain frequent Pain Mgmt Resolve 2018-11-09 Elissa pain d 01-18 08:50:00 Jessica 13:00: [id number] 00 Pain knowledge/s Pain Mgmt Resolve 2018-05-13 Elissa kill d 01-18 11:18:00 Jessica deficit: pt 13:00: [id number] 00 Cardio knowledge/s Cardiovasc Resolve 2018-06-07 Elissa wheeler ular d 01-18 15:30:00 Weippe deficit: pt 13:00: [id number] 00 Respiratory oxygen Respirator Resolve 2018-07-05 Elissa treatments y d 01-18 09:20:00 Jessica in home 13:00: [id number] 00 Respiratory nebulizer Respirator Resolve 2018-07-05 Elissa treatment y d 01-18 09:20:00 Jessica in home 13:00: [id number] 00 Respiratory dyspnea Respirator Resolve 2018-07-05 Elissa present y d 01-18 09:20:00 [place] 13:00: [id number] 00 Endo/Derek anti-coagul Endo/Derek Resolve 2018-07-12 Elissa ation d 01-18 09:48:00 Jessica therapy 13:00: [id number] 00 Nutrition nutritional Nutrition Resolve 2018-04-12 Elissa restriction d 01-18 10:11:00 [place] s 13:00: [id number] 00 Elimination urinary Eliminatio Resolve 2018-05-13 Elissa frequency n d 01-18 11:18:00 Jessica 13:00: [id number] 00 Neuro impaired Neuro/Emot Resolve 2018-08-09 Elissa decision-ma ion d 01-18 08:44:00 Jessica rosanne 13:00: [id number] 00 Activity ADL Activity Resolve 2018-04-12 Adia assistance d 01-18 10:11:00 Guidelli required 13:00: [id number] 00 Safety risk for Safety Resolve 2018-05-13 Elissa hospitaliza d 01-18 11:18:00 [place] tion 13:00: [id number] 00 Safety can be left Safety Resolve 2018-05-13 Elissa alone for d 01-18 11:18:00 Jessica only short 13:00: [id number] 00 Safety fall risk Safety Resolve 2018-05-13 Elissa factor d 01-18 11:18:00 [place] present 13:00: [id number] 00 Medication knowledge/s Meds Resolve 2018-06-07 Elissa kill d 01-18 15:30:00 [place] deficit: pt 13:00: [id number] 00 Medication oral med Meds Resolve 2018-06-07 Elissa assistance d 01-18 15:30:00 [place] required 13:00: [id number] 00 Medication injectable Meds Resolve 2018-06-07 Elissa med d 01-18 15:30:00 [place] assistance 13:00: [id number] required 00 Medication potential Meds Resolve 2018-06-07 Elissa clinically d 01-18 15:30:00 Jessica significant 13:00: [id number] medication 00 issue Diagnoses knowledge/s Diagnoses Active Elissa kill 01-18 Jessica deficit: pt 13:00: [id number] 00 Musculoskel requires Musculoske Resolve 2018-05-13 Elissa etal human letal d 01-18 11:18:00 [place]ippe assist to 13:00: [id number] leave home 00 Musculoskel transfer Musculoske Resolve 2018-05-13 Adia etal assistance letal d 01-18 11:18:00 Guidelli required 13:00: [id number] 00 Respiratory lung sounds Respirator Resolve 2018-07-05 Elissa deficit y d 01-25 09:20:00 [place] 16:00: [id number] 00 Safety knowledge/s Safety Resolve 2018-05-13 Elissa kill d 01-25 11:18:00 Jessica deficit: pt 16:00: [id number] 00 Elimination constipatio Eliminatio Resolve 2018-05-13 Elissa n n d 6-19 11:18:00 Cristal 11:43: [id number] 00 Nutrition nutritional Nutrition Resolve 2018-06-07 Elissa restriction d 17 15:30:00 Cristal s 11:18: [id number] 00 Respiratory smoker Respirator Resolve 2018-07-05 Elissa y d 06-07 09:20:00 Cristal 15:30: [id number] 00 Elimination urinary Eliminatio Resolve 2018-06-07 Elissa frequency n d 06-07 15:30:00 Cristal 15:30: [id number] 00 Safety knowledge/s Safety Active Elissa kill 06-07 Cristal deficit: pt 15:30: [id number] 00 Safety risk for Safety Resolve 2018-07-05 [facility] 09:[facility] Cristal tion 15:30: [id number] 00 Safety risk for Safety Unknown 2017-09 [facility] [place] tion 14:00: [id number] 00 Respiratory dyspnea Respirator Resolve 2017-092018-08-09 Blaire present y d 0-16 08:44:00 Bruno 09:48: [id number] 00 Respiratory lung sounds Respirator Resolve 2017-092018-08-09 Blaire deficit y d 016 08:44:00 Bruno 09:48: [id number] 00 Safety risk for Safety Resolve 2017-092018-08-09 Blaire hospitaliza d 016 08:44:00 Bruno tion 09:48: [id number] 00 Respiratory oxygen Respirator Resolve 2017-092018-08-09 Blaire treatments y d 1 08:44:00 Bruno in home 08:44: [id number] 00 Respiratory nebulizer Respirator Resolve 2017-092018-08-09 Blaire treatment y d 10-09 08:44:00 Bruno in home 08:44: [id number] 00 Neuro anxiety Neuro/Emot Resolve 2017-092018-08-09 Blaire present ion d 10-09 08:44:00 Bruno 08:44: [id number] 00 Safety risk for Safety Resolve 2017[facility]092018[facility]08-[facility] [place] tion 10:46: [id number] 00 Respiratory oxygen Respirator Resolve 2017-092018-09-13 Blaire treatments y d 10-31 09:53:00 Bruno in home 09:20: [id number] 00 Respiratory lung sounds Respirator Resolve 2017-092018-09-13 Blaire deficit y d 10-31 09:53:00 Bruno 09:20: [id number] 00 Respiratory smoker Respirator Resolve 2017-092018-09-13 Blaire y d 10-31 09:53:00 Bruno 09:20: [id number] 00 Respiratory nebulizer Respirator Resolve 2017-092018-09-13 Blaire treatment y d 10-31 09:53:00 Bruno in home 09:20: [id number] 00 Endo/Derek anti-coagul Endo/Derek Resolve 2017-092018-09-13 Blaire ation d 10-31 09:53:00 Bruno therapy 09:20: [id number] 00 Neuro anxiety Neuro/Emot Resolve 2017-092018-09-13 Blaire present ion d 10-31 09:53:00 Bruno 09:20: [id number] 00 Safety safety Safety Resolve 2017-092018-08-30 Blaire hazards d 10-31 09:20:00 Bruno present 09:20: [id number] 00 Safety risk for Safety Resolve 2017-092018-09-13 [facility] d 11-07 09:53:00 Carrier RN tion 10:00: 00 Respiratory dyspnea Respirator Resolve 2017-092018-09-13 Blaire present y d 11-14 09:53:00 Bruno 09:53: [id number] 00 Safety risk for Safety Resolve 2017-092018-09-26 [facility] 11-20 09:45:00 [place] tion 10:00: [id number] 00 Respiratory dyspnea Respirator Resolve 2017-092019-01-03 Blaire present y d 09:25:00 Bruno 09:45: [id number] 00 Respiratory oxygen Respirator Resolve 2017-092019-01-03 Blaire treatments y d 09:25:00 Bruno in home 09:45: [id number] 00 Respiratory lung sounds Respirator Resolve 2017-092018-10-25 Blaire deficit y d 09:26:00 Bruno 09:45: [id number] 00 Respiratory smoker Respirator Resolve 2017-092018-09-26 Blaire y d 2 09:45:00 Bruno 09:45: [id number] 00 Respiratory nebulizer Respirator Resolve 2017-092019-01-03 Blaire treatment y d 09:25:00 Bruno in home 09:45: [id number] 00 Medication oral med Meds Resolve 2017-092019-03-09 Blaire assistance d 14:06:00 Bruno required 09:45: [id number] 00 Medication injectable Meds Resolve 2017-092019-03-09 Blaire med d 14:06:00 Bruno assistance 09:45: [id number] required 00 Nutrition nutritional Nutrition Resolve 2018-11-09 Jazz restriction d 09-30 08:50:00 [place] s 12:19: [id number] 00 Safety risk for Safety Resolve 2018-10-25 [facility] hospitaliza d 09-30 09:26:00 [place] tion 12:19: [id number] 00 Respiratory lung sounds Respirator Resolve 2018-11-09 Jazz deficit y d 2 08:50:00 [place] 10:20: [id number] 00 Safety risk for Safety Resolve 2018-11-09 [facility] hospitaliza d 11-01 08:50:00 [place] tion 10:20: [id number] 00 Respiratory smoker Respirator Resolve 2018-12-20 Blaire y d 11-09 09:22:00 Bruno 08:50: [id number] 00 Neuro anxiety Neuro/Emot Resolve 2018-11-09 Blaire present ion d 11-09 08:50:00 Bruno 08:50: [id number] 00 Nutrition nutritional Nutrition Resolve 2018-12-06 Jazz restriction d 11-15 10:45:00 [place] s 11:00: [id number] 00 Safety risk for Safety Resolve 2018-12-06 [facility] hospital[facility] d 11-15 10:45:00 [place] tion 11:00: [id number] 00 Respiratory lung sounds Respirator Resolve 2018-12-20 Blaire deficit y d 3 09:22:00 Bruno 10:45: [id number] 00 Respiratory pneumonia Respirator Resolve 2018-12-20 Blaire y d 312 09:22:00 Bruno 10:45: [id number] 00 Respiratory asthma Respirator Resolve 2019-01-03 Blaire y d 12-06 09:25:00 Bruno 10:45: [id number] 00 Nutrition nutritional Nutrition Resolve 2018-12-20 Blaire restriction d 12-13 09:22:00 Bruno s 09:45: [id number] 00 Safety risk for Safety Resolve 2018-12-20 Blaire hospitaliza d 12-13 09:22:00 Bruno tion 09:45: [id number] 00 Safety safety Safety Resolve 2018-2018-12-20 Blaire hazards d 3- 09:22:00 Bruno present 09:22: [id number] 00 Respiratory knowledge/s Respirator Resolve 2018-2019-01-03 Blaire kill y d 12-27 09:25:00 Bruno deficit: pt 10:07: [id number] 00 Respiratory lung sounds Respirator Resolve 2019-01-03 Blaire deficit y d 12-27 09:25:00 Bruno 10:07: [id number] 00 Respiratory CPAP Respirator Resolve 2019-01-03 Blaire treatments y d 12-27 09:25:00 Bruno in home 10:07: [id number] 00 Respiratory smoker Respirator Resolve 2019-01-03 Blaire y d 12-27 09:25:00 Bruno 10:07: [id number] 00 Nutrition nutritional Nutrition Resolve 2019-01-03 Blaire restriction d 12-27 09:25:00 Bruno s 10:07: [id number] 00 Neuro impaired Neuro/Emot Resolve 2019-01-03 Blaire decision-ma ion d 12-27 09:25:00 Bruno rosanne 10:07: [id number] 00 Safety risk for Safety Resolve 2019-01-03 Blaire hospitaliza d 12-27 09:25:00 Bruno tion 10:07: [id number] 00 Neuro memory Neuro/Emot Unknown Blaire deficit ion 01-03 Bruno needing 09:25: [id number] supervision 00 Respiratory dyspnea Respirator Resolve 2019-03-28 Blaire present y d 01-10 09:06:00 Bruno 09:27: [id number] 00 Respiratory knowledge/s Respirator Resolve 2019-03-07 Blaire kill y d 01-10 09:45:00 Bruno deficit: pt 09:27: [id number] 00 Respiratory lung sounds Respirator Resolve 2019-03-07 Blaire deficit y d 01-10 09:45:00 Bruno 09:27: [id number] 00 Respiratory smoker Respirator Resolve 2019-03-07 Blaire y d 01-10 09:45:00 Bruno 09:27: [id number] 00 Nutrition nutritional Nutrition Resolve 2019-02-07 Blaire restriction d 4-16 09:39:00 Bruno s 09:27: [id number] 00 Neuro impaired Neuro/Emot Unknown Blaire decision-ma ion 4-16 Bruno rosanne 09:27: [id number] 00 Neuro memory Neuro/Emot Unknown Blaire deficit ion 4-16 Bruno needing 09:27: [id number] supervision 00 Safety fall risk Safety Resolve 2019-02-07 Blaire factor d 416 09:39:00 Bruno present 09:27: [id number] 00 Safety risk for Safety Resolve 2019-02-07 Blaire hospitaliza d 01-10 09:39:00 Bruno tion 09:27: [id number] 00 Respiratory oxygen Respirator Resolve 2019-03-28 Elissa treatments y d 01-24 09:06:00 Barbara in home 09:00: [employer] 00 [id number] Respiratory nebulizer Respirator Resolve 2019-03-28 Elissa treatment y d 01-24 09:06:00 Barbara in home 09:00: [employer] 00 [id number] Respiratory asthma Respirator Resolve 2019-03-28 Consuelo y d 01-25 09:06:00 [place] 11:00: 00 Elimination urinary Eliminatio Resolve 2019-02-07 Elissa incontinenc n d 01-31 09:39:00 Barbara e 08:30: [employer] 00 [id number] Nutrition nutritional Nutrition Resolve 2019-03-07 Elissa restriction d 02-14 09:45:00 Barbara s 08:13: [employer] 00 [id number] Safety risk for Safety Resolve 2019-03-07 Elissa hospitaliza d 02-14 09:45:00 Barbara tion 08:13: [employer] 00 [id number] Respiratory lung sounds Respirator Resolve 2019-03-09 Blaire deficit y d 6 14:06:00 Bruno 14:06: [id number] 00 Respiratory smoker Respirator Resolve 2019-03-09 Blaire y d 6 14:06:00 Bruno 14:06: [id number] 00 Nutrition nutritional Nutrition Resolve 2019-03-28 Blaire restriction d 6-13 09:06:00 Bruno s 14:06: [id number] 00 Safety safety Safety Resolve 2019-03-28 Blaire hazards d 6-13 09:06:00 Bruno present 14:06: [id number] 00 Safety fall risk Safety Resolve 2019-03-28 Blaire factor d 6-13 09:06:00 Bruno present 14:06: [id number] 00 Safety risk for Safety Resolve 2019-03-28 Blaire hospitaliza d 613 09:06:00 Bruno tion 14:06: [id number] 00 Medication potential Meds Resolve 2019-03-09 Blaire clinically d 6 14:06:00 Bruno significant 14:06: [id number] medication 00 issue Respiratory lung sounds Respirator Resolve 2019-03-28 Elissa deficit y d 618 09:06:00 Barbara 07:45: [employer] 00 [id number] Respiratory lung sounds Respirator Resolve 2019-04-25 Elissa deficit y d 04-04 09:45:00 Barbara 08:00: [employer] 00 [id number] Nutrition nutritional Nutrition Resolve 2019-04-25 Elissa restriction d 04-04 09:45:00 Barbara s 08:00: [employer] 00 [id number] Safety risk for Safety Resolve 2019-04-25 Elissa hospitaliza d 04-04 09:45:00 Barbara tion 08:00: [employer] 00 [id number] Neuro anxiety Neuro/Emot Resolve 2019-04-25 Blaire present ion d 04-25 09:45:00 Bruno 09:45: [id number] 00 Safety risk for Safety Resolve 2019-05-09 Elissa hospitaliza d 05-02 12:05:00 Barbara tion 08:15: [employer] 00 [id number] Respiratory lung sounds Respirator Resolve 2019-05-30 Blaire deficit y d 8- 08:38:00 Bruno 12:05: [id number] 00 Medication injectable Meds Resolve 2019-05-30 Blaire med d 8 08:38:00 Bruno assistance 12:05: [id number] required 00 Safety risk for Safety Resolve 2019-05-30 [facility] 08:38[facility] Barbara tion 08:02: [employer] 00 [id number] Neuro impaired Neuro/Emot Resolve 2019-05-30 Blaire decision-ma ion d 05-30 08:38:00 Bruno rosanne 08:38: [id number] 00 Neuro memory Neuro/Emot Resolve 2019-05-30 Blaire deficit ion d 05-30 08:38:00 Bruno needing 08:38: [id number] supervision 00 Safety risk for Safety Resolve 2019-06-27 [facility] 08:40:00 Barbara tion 07:56: [employer] 00 [id number] Respiratory lung sounds Respirator Resolve 2019-06-27 Elissa deficit y d 9 08:40:00 Barbara 07:30: [employer] 00 [id number] Respiratory nebulizer Respirator Resolve 2018-092019-06-27 Blaire treatment y d 0-01 08:40:00 Bruno in home 08:40: [id number] 00 Elimination urinary Eliminatio Resolve 2018-092019-07-11 Elissa incontinenc n d 0-08 10:13:00 Barbara e 08:00: [employer] 00 [id number] Safety risk for Safety Resolve 2018-092019-08-07 [facility] 12:15:00 Barbara tion 08:00: [employer] 00 [id number] Respiratory oxygen Respirator Active 2018-09 Blaire treatments y 0-15 Bruno in home 10:13: [id number] 00 Respiratory nebulizer Respirator Active 2018-09 Blaire treatment y 0-15 Bruno in home 10:13: [id number] 00 Respiratory lung sounds Respirator Resolve 2018-092019-07-11 Blaire deficit y d 0-15 10:13:00 Bruno 10:13: [id number] 00 Neuro anxiety Neuro/Emot Resolve 2018-092019-08-07 Blaire present ion d 0-15 12:15:00 Bruno 10:13: [id number] 00 Neuro impaired Neuro/Emot Unknown 2018-09 Blaire decision-ma ion 0-15 Bruno rosanne 10:13: [id number] 00 Safety safety Safety Resolve 2018-092019-08-07 Blaire hazards d 0-15 12:15:00 Bruno present 10:13: [id number] 00 Safety fall risk Safety Resolve 2018-092019-08-07 Blaire factor d 0-15 12:15:00 Bruno present 10:13: [id number] 00 Medication injectable Meds Resolve 2018-092019-08-07 Blaire med d 0-15 12:15:00 Bruno assistance 10:13: [id number] required 00 Medication oral med Meds Resolve 2018-092019-08-07 Blaire assistance d 0-15 12:15:00 Bruno required 10:13: [id number] 00 Respiratory lung sounds Respirator Resolve 2018-092019-08-07 Blaire deficit y d 1-11 12:15:00 Bruno 12:15: [id number] 00 Elimination [facility]09[facility] 10:[facility]00 Barbara e 08:00: [employer] 00 [id number] Safety risk for Safety [facility] Barbara tion 08:00: [employer] 00 [id number] Nutrition nutritional Nutrition Active 2018-09 Rosamaria restriction 1-30 Malnoske s 10:55: RN 00 Respiratory lung sounds Respirator Resolve 2018-092019-09-05 Blaire deficit y d 2-10 10:26:00 Bruno 10:26: [id number] 00 Medication oral med Meds Active 2018-09 Blaire assistance 2-10 Bruno required 10:26: [id number] 00 Medication injectable Meds Active 2018-09 Blaire med 2-10 Bruno assistance 10:26: [id number] required 00 Safety risk for Safety Active 2018-09 [facility] 11-13 Barbara tion 08:00: [employer] 00 [id number] Allergies, Adverse Reactions, Alerts Allergy Name Allergy Status Severity Reaction(s) Onset Inactive Treating Comments Type Date Date Clinician sulfa Unknown Active Mild to Rash Elissa Moderate 01-25 Jessica [id number] aspirin Base Active Moderate Hives Elissa Ingredient 01-25 Jessica [id number] penicillin G Base Active Moderate Difficulty Elissa Ingredient to Severe swallowing 01-25 Jessica [id number] Medications Ordered Filled Start Stop Current Ordering Indication Dosage Frequency Signature Comments Components Medication Medication Date Date Medication? Clinician (SIG) Name Name other other 2017- No [place] 2L Unknown 01-18 Klaus MARIEE Vitamin D3 Vitamin D3 2017- No [place] 1 Unknown 1,000 unit 1,000 unit 01-18 Klaus MARIEE capsule capsule oxyCODONE-a oxyCODONE-a No [place] 5-325 Unknown cetaminophe cetaminophe 01-18 lKaus MARIEE n 5 mg-325 n 5 mg-325 [...]
--- OUTSIDE RECORDS SUMMARY | 2019-10-07 18:10 | XMS REPORT ---
:1960 Author Organization [facility] Care Team Providers Name Role Phone Unavailable Unavailable Unavailable Problems Condition Condition Condition Status Onset Resolution Last Treating Comments Name Details Category Date Date Treatment Clinician Date Chronic Chronic Diagnosis Active Blaire obstructive obstructive 01-18 Bruno pulmonary pulmonary [id number] disease, disease, unspecified unspecified Patient's Patient's Diagnosis Active Blaire other other 01-18 Bruno noncomplian noncomplian [id number] ce with ce with medication medication regimen regimen Schizophren Schizophren Diagnosis Active Blaire ia, ia, 01-18 Bruno unspecified unspecified [id number] Essential Essential Diagnosis Active Blaire (primary) (primary) 01-18 Bruno hypertensio hypertensio [id number] n n Hypothyroid Hypothyroid Diagnosis Active Blaire ism, ism, 01-18 Bruno unspecified unspecified [id number] Dependence Dependence Diagnosis Active Blaire on on 01-18 Bruno supplementa supplementa [id number] l oxygen l oxygen Anemia, Anemia, Diagnosis Active Blaire unspecified unspecified Bruno [id number] Nicotine Nicotine Diagnosis Active Blaire dependence, dependence, Bruno cigarettes, cigarettes, [id number] uncomplicat uncomplicat ed ed Pain frequent Pain Mgmt Resolve 2018-11-09 Elissa pain d 01-18 08:50:00 Jessica 13:00: [id number] 00 Pain knowledge/s Pain Mgmt Resolve 2018-05-13 Elissa kill d 01-18 11:18:00 Jessica deficit: pt 13:00: [id number] 00 Cardio knowledge/s Cardiovasc Resolve 2018-06-07 Elissa wheeler ular d 01-18 15:30:00 [place] deficit: pt 13:00: [id number] 00 Respiratory oxygen Respirator Resolve 2018-07-05 Elissa treatments y d 01-18 09:20:00 Jessica in home 13:00: [id number] 00 Respiratory nebulizer Respirator Resolve 2018-07-05 Elissa treatment y d 01-18 09:20:00 Jessica in home 13:00: [id number] 00 Respiratory dyspnea Respirator Resolve 2018-07-05 Elissa present y d 01-18 09:20:00 [place] 13:00: [id number] 00 Endo/Derek anti-coagul Endo/Derek Resolve 2018-07-12 Elissa ation d 01-18 09:48:00 Jessica therapy 13:00: [id number] 00 Nutrition nutritional Nutrition Resolve 2018-04-12 Elissa restriction d 01-18 10:11:00 [place] s 13:00: [id number] 00 Elimination urinary Eliminatio Resolve 2018-05-13 Elissa frequency n d 01-18 11:18:00 Jessica 13:00: [id number] 00 Neuro impaired Neuro/Emot Resolve 2018-08-09 Elissa decision-ma ion d 01-18 08:44:00 Jessica rosanne 13:00: [id number] 00 Activity ADL Activity Resolve 2018-04-12 Adia assistance d 01-18 10:11:00 Guidelli required 13:00: [id number] 00 Safety risk for Safety Resolve 2018-05-13 Elissa hospitaliza d 01-18 11:18:00 [place] tion 13:00: [id number] 00 Safety can be left Safety Resolve 2018-05-13 Elissa alone for d 01-18 11:18:00 Jessica only short 13:00: [id number] 00 Safety fall risk Safety Resolve 2018-05-13 Elissa factor d 01-18 11:18:00 [place] present 13:00: [id number] 00 Medication knowledge/s Meds Resolve 2018-06-07 Elissa kill d 01-18 15:30:00 [place] deficit: pt 13:00: [id number] 00 Medication oral med Meds Resolve 2018-06-07 Elissa assistance d 01-18 15:30:00 [place] required 13:00: [id number] 00 Medication injectable Meds Resolve 2018-06-07 Elissa med d 01-18 15:30:00 [place] assistance 13:00: [id number] required 00 Medication potential Meds Resolve 2018-06-07 Elissa clinically d 01-18 15:30:00 Jessica significant 13:00: [id number] medication 00 issue Diagnoses knowledge/s Diagnoses Active Elissa kill 01-18 Jessica deficit: pt 13:00: [id number] 00 Musculoskel requires Musculoske Resolve 2018-05-13 Elissa etal human letal d 01-18 11:18:00 [place] assist to 13:00: [id number] leave home 00 Musculoskel transfer Musculoske Resolve 2018-05-13 Adia etal assistance letal d 01-18 11:18:00 Guidelli required 13:00: [id number] 00 Respiratory lung sounds Respirator Resolve 2018-07-05 Elissa deficit y d 01-25 09:20:00 [place] 16:00: [id number] 00 Safety knowledge/s Safety Resolve 2018-05-13 Elissa kill d 01-25 11:18:00 Jessica deficit: pt 16:00: [id number] 00 Elimination constipatio Eliminatio Resolve 2018-05-13 Elissa n n d 6-19 11:18:00 Cristal 11:43: [id number] 00 Nutrition nutritional Nutrition Resolve 2018-06-07 Elissa restriction d 17 15:30:00 Cristal s 11:18: [id number] 00 Respiratory smoker Respirator Resolve 2018-07-05 Elissa y d 06-07 09:20:00 Cristal 15:30: [id number] 00 Elimination urinary Eliminatio Resolve 2018-06-07 Elissa frequency n d 06-07 15:30:00 Cristal 15:30: [id number] 00 Safety knowledge/s Safety Active Elissa kill 06-07 Cristal deficit: pt 15:30: [id number] 00 Safety risk for Safety Resolve 2018-07-05 [facility] 09:[facility] Cristal tion 15:30: [id number] 00 Safety risk for Safety Unknown 2017-09 [facility] [place] tion 14:00: [id number] 00 Respiratory dyspnea Respirator Resolve 2017-092018-08-09 Blaire present y d 0-16 08:44:00 Bruno 09:48: [id number] 00 Respiratory lung sounds Respirator Resolve 2017-092018-08-09 Blaire deficit y d 016 08:44:00 Bruno 09:48: [id number] 00 Safety risk for Safety Resolve 2017-092018-08-09 Blaire hospitaliza d 016 08:44:00 Bruno tion 09:48: [id number] 00 Respiratory oxygen Respirator Resolve 2017-092018-08-09 Blaire treatments y d 1 08:44:00 Bruno in home 08:44: [id number] 00 Respiratory nebulizer Respirator Resolve 2017-092018-08-09 Blaire treatment y d 10-09 08:44:00 Bruno in home 08:44: [id number] 00 Neuro anxiety Neuro/Emot Resolve 2017-092018-08-09 Blaire present ion d 10-09 08:44:00 Bruno 08:44: [id number] 00 Safety risk for Safety Resolve 2017-092018-08-30 Herrick Campusa d 10-16 09:20:00 [place] tion 10:46: [id number] 00 Respiratory oxygen Respirator Resolve 2017-092018-09-13 Blaire treatments y d 10-31 09:53:00 Bruno in home 09:20: [id number] 00 Respiratory lung sounds Respirator Resolve 2017-092018-09-13 Blaire deficit y d 10-31 09:53:00 Bruno 09:20: [id number] 00 Respiratory smoker Respirator Resolve 2017-092018-09-13 Blaire y d 10-31 09:53:00 Bruno 09:20: [id number] 00 Respiratory nebulizer Respirator Resolve 2017-092018-09-13 Blaire treatment y d 10-31 09:53:00 Bruno in home 09:20: [id number] 00 Endo/Derek anti-coagul Endo/Derek Resolve 2017-092018-09-13 Blaire ation d 10-31 09:53:00 Bruno therapy 09:20: [id number] 00 Neuro anxiety Neuro/Emot Resolve 2017-092018-09-13 Blaire present ion d 10-31 09:53:00 Bruno 09:20: [id number] 00 Safety safety Safety Resolve 2017-092018-08-30 Blaire hazards d 10-31 09:20:00 Bruno present 09:20: [id number] 00 Safety risk for Safety Resolve 2017-092018-09-13 Arin hospitaliza d 11-07 09:53:00 Carrier RN tion 10:00: 00 Respiratory dyspnea Respirator Resolve 2017-092018-09-13 Blaire present y d 11-14 09:53:00 Bruno 09:53: [id number] 00 Safety risk for Safety Resolve 2017-092018-09-26 [facility] hospital[facility] d 11-20 09:45:00 [place] tion 10:00: [id number] 00 Respiratory dyspnea Respirator Resolve 2017-092019-01-03 Blaire present y d 09:25:00 Bruno 09:45: [id number] 00 Respiratory oxygen Respirator Resolve 2017-092019-01-03 Blaire treatments y d 09:25:00 Bruno in home 09:45: [id number] 00 Respiratory lung sounds Respirator Resolve 2017-092018-10-25 Blaire deficit y d 09:26:00 Bruno 09:45: [id number] 00 Respiratory smoker Respirator Resolve 2017-092018-09-26 Blaire y d 2 09:45:00 Bruno 09:45: [id number] 00 Respiratory nebulizer Respirator Resolve 2017-092019-01-03 Blaire treatment y d 09:25:00 Bruno in home 09:45: [id number] 00 Medication oral med Meds Resolve 2017-092019-03-09 Blaire assistance d 14:06:00 Bruno required 09:45: [id number] 00 Medication injectable Meds Resolve 2017-092019-03-09 Blaire med d 14:06:00 Bruno assistance 09:45: [id number] required 00 Nutrition nutritional Nutrition Resolve 2018-11-09 Jazz restriction d 09-30 08:50:00 [place] s 12:19: [id number] 00 Safety risk for Safety Resolve 2018-10-25 [facility] hospitaliza d 09-30 09:26:00 [place] tion 12:19: [id number] 00 Respiratory lung sounds Respirator Resolve 2018-11-09 Jazz deficit y d 2 08:50:00 [place] 10:20: [id number] 00 Safety risk for Safety Resolve 2018-11-09 [facility] hospitaliza d 11-01 08:50:00 [place] tion 10:20: [id number] 00 Respiratory smoker Respirator Resolve 2018-12-20 Blaire y d 11-09 09:22:00 Bruno 08:50: [id number] 00 Neuro anxiety Neuro/Emot Resolve 2018-11-09 Blaire present ion d 11-09 08:50:00 Bruno 08:50: [id number] 00 Nutrition nutritional Nutrition Resolve 2018-12-06 Jazz restriction d 11-15 10:45:00 [place] s 11:00: [id number] 00 Safety risk for Safety Resolve 2018-12-06 [facility] hospitaliza d 11-15 10:45:00 [place] tion 11:00: [id number] 00 Respiratory lung sounds Respirator Resolve 2018-12-20 Blaire deficit y d 3 09:22:00 Bruno 10:45: [id number] 00 Respiratory pneumonia Respirator Resolve 2018-12-20 Blaire y d 312 09:22:00 Bruno 10:45: [id number] 00 Respiratory asthma Respirator Resolve 2019-01-03 Blaire y d 12-06 09:25:00 Bruno 10:45: [id number] 00 Nutrition nutritional Nutrition Resolve 2018-12-20 Blaire restriction d 12-13 09:22:00 Bruno s 09:45: [id number] 00 Safety risk for Safety Resolve 2018-12-20 Blaire hospitaliza d 12-13 09:22:00 Bruno tion 09:45: [id number] 00 Safety safety Safety Resolve 2018-2018-12-20 Blaire hazards d 3- 09:22:00 Bruno present 09:22: [id number] 00 Respiratory knowledge/s Respirator Resolve 2018-2019-01-03 Blaire kill y d 12-27 09:25:00 Bruno deficit: pt 10:07: [id number] 00 Respiratory lung sounds Respirator Resolve 2019-01-03 Blaire deficit y d 12-27 09:25:00 Bruno 10:07: [id number] 00 Respiratory CPAP Respirator Resolve 2019-01-03 Blaire treatments y d 12-27 09:25:00 Bruno in home 10:07: [id number] 00 Respiratory smoker Respirator Resolve 2019-01-03 Blaire y d 12-27 09:25:00 Bruno 10:07: [id number] 00 Nutrition nutritional Nutrition Resolve 2019-01-03 Blaire restriction d 12-27 09:25:00 Bruno s 10:07: [id number] 00 Neuro impaired Neuro/Emot Resolve 2019-01-03 Blaire decision-ma ion d 12-27 09:25:00 Bruno rosanne 10:07: [id number] 00 Safety risk for Safety Resolve 2019-01-03 Blaire hospitaliza d 12-27 09:25:00 Bruno tion 10:07: [id number] 00 Neuro memory Neuro/Emot Unknown Blaire deficit ion 01-03 Bruno needing 09:25: [id number] supervision 00 Respiratory dyspnea Respirator Resolve 2019-03-28 Blaire present y d 01-10 09:06:00 Bruno 09:27: [id number] 00 Respiratory knowledge/s Respirator Resolve 2019-03-07 Blaire kill y d 01-10 09:45:00 Bruno deficit: pt 09:27: [id number] 00 Respiratory lung sounds Respirator Resolve 2019-03-07 Blaire deficit y d 01-10 09:45:00 Bruno 09:27: [id number] 00 Respiratory smoker Respirator Resolve 2019-03-07 Blaire y d 01-10 09:45:00 Bruno 09:27: [id number] 00 Nutrition nutritional Nutrition Resolve 2019-02-07 Blaire restriction d 4-16 09:39:00 Bruno s 09:27: [id number] 00 Neuro impaired Neuro/Emot Unknown Blaire decision-ma ion 4-16 Bruno rosanne 09:27: [id number] 00 Neuro memory Neuro/Emot Unknown Blaire deficit ion 4-16 Bruno needing 09:27: [id number] supervision 00 Safety fall risk Safety Resolve 2019-02-07 Blaire factor d 416 09:39:00 Bruno present 09:27: [id number] 00 Safety risk for Safety Resolve 2019-02-07 Blaire hospitaliza d 01-10 09:39:00 Bruno tion 09:27: [id number] 00 Respiratory oxygen Respirator Resolve 2019-03-28 Elissa treatments y d 01-24 09:06:00 Barbara in home 09:00: [employer] 00 [id number] Respiratory nebulizer Respirator Resolve 2019-03-28 Elissa treatment y d 01-24 09:06:00 Barbara in home 09:00: [employer] 00 [id number] Respiratory asthma Respirator Resolve 2019-03-28 Consuelo y d 01-25 09:06:00 [place] 11:00: 00 Elimination urinary Eliminatio Resolve 2019-02-07 Elissa incontinenc n d 01-31 09:39:00 Barbara e 08:30: [employer] 00 [id number] Nutrition nutritional Nutrition Resolve 2019-03-07 Elissa restriction d 02-14 09:45:00 Barbara s 08:13: [employer] 00 [id number] Safety risk for Safety Resolve 2019-03-07 Elissa hospitaliza d 02-14 09:45:00 Barbara tion 08:13: [employer] 00 [id number] Respiratory lung sounds Respirator Resolve 2019-03-09 Blaire deficit y d 6 14:06:00 Bruno 14:06: [id number] 00 Respiratory smoker Respirator Resolve 2019-03-09 Bliare y d 6 14:06:00 Bruno 14:06: [id number] 00 Nutrition nutritional Nutrition Resolve 2019-03-28 Blaire restriction d 6-13 09:06:00 Bruno s 14:06: [id number] 00 Safety safety Safety Resolve 2019-03-28 Blaire hazards d 6-13 09:06:00 Bruno present 14:06: [id number] 00 Safety fall risk Safety Resolve 2019-03-28 Blaire factor d 6-13 09:06:00 Bruno present 14:06: [id number] 00 Safety risk for Safety Resolve 2019-03-28 Blaire hospitaliza d 613 09:06:00 Bruno tion 14:06: [id number] 00 Medication potential Meds Resolve 2019-03-09 Blaire clinically d 6 14:06:00 Bruno significant 14:06: [id number] medication 00 issue Respiratory lung sounds Respirator Resolve 2019-03-28 Elissa deficit y d 618 09:06:00 Barbara 07:45: [employer] 00 [id number] Respiratory lung sounds Respirator Resolve 2019-04-25 Elissa deficit y d 04-04 09:45:00 Barbara 08:00: [employer] 00 [id number] Nutrition nutritional Nutrition Resolve 2019-04-25 Elissa restriction d 04-04 09:45:00 Barbara s 08:00: [employer] 00 [id number] Safety risk for Safety Resolve 2019-04-25 Elissa hospitaliza d 04-04 09:45:00 Barbara tion 08:00: [employer] 00 [id number] Neuro anxiety Neuro/Emot Resolve 2019-04-25 Blaire present ion d 04-25 09:45:00 Bruno 09:45: [id number] 00 Safety risk for Safety Resolve 2019-05-09 Elissa hospitaliza d 05-02 12:05:00 Barbara tion 08:15: [employer] 00 [id number] Respiratory lung sounds Respirator Resolve 2019-05-30 Blaire deficit y d 8- 08:38:00 Bruno 12:05: [id number] 00 Medication injectable Meds Resolve 2019-05-30 Blaire med d 8 08:38:00 Bruno assistance 12:05: [id number] required 00 Safety risk for Safety Resolve 2019-05-30 [facility] 08:38:00 Barbara tion 08:02: [employer] 00 [id number] Neuro impaired Neuro/Emot Resolve 2019-05-30 Blaire decision-ma ion d 05-30 08:38:00 Bruno rosanne 08:38: [id number] 00 Neuro memory Neuro/Emot Resolve 2019-05-30 Blaire deficit ion d 05-30 08:38:00 Bruno needing 08:38: [id number] supervision 00 Safety risk for Safety Resolve 2019-06-27 [facility] 08:40:00 Barbara tion 07:56: [employer] 00 [id number] Respiratory lung sounds Respirator Resolve 2019-06-27 Elissa deficit y d 9 08:40:00 Barbara 07:30: [employer] 00 [id number] Respiratory nebulizer Respirator Resolve 2018-092019-06-27 Blaire treatment y d 0-01 08:40:00 Bruno in home 08:40: [id number] 00 Elimination urinary Eliminatio Resolve 2018-092019-07-11 Elissa incontinenc n d 0-08 10:13:00 Barbara e 08:00: [employer] 00 [id number] Safety risk for Safety Resolve 2018-092019-08-07 [facility] 12:15:00 Barbara tion 08:00: [employer] 00 [id number] Respiratory oxygen Respirator Active 2018-09 Blaire treatments y 0-15 Bruno in home 10:13: [id number] 00 Respiratory nebulizer Respirator Active 2018-09 Blaire treatment y 0-15 Bruno in home 10:13: [id number] 00 Respiratory lung sounds Respirator Resolve 2018-092019-07-11 Blaire deficit y d 0-15 10:13:00 Bruno 10:13: [id number] 00 Neuro anxiety Neuro/Emot Resolve 2018-092019-08-07 Blaire present ion d 0-15 12:15:00 Bruno 10:13: [id number] 00 Neuro impaired Neuro/Emot Unknown 2018-09 Blaire decision-ma ion 0-15 Bruno rosanne 10:13: [id number] 00 Safety safety Safety Resolve 2018-092019-08-07 Blaire hazards d 0-15 12:15:00 Bruno present 10:13: [id number] 00 Safety fall risk Safety Resolve 2018-092019-08-07 Blaire factor d 0-15 12:15:00 Bruno present 10:13: [id number] 00 Medication injectable Meds Resolve 2018-092019-08-07 Blaire med d 0-15 12:15:00 Bruno assistance 10:13: [id number] required 00 Medication oral med Meds Resolve 2018-092019-08-07 Blaire assistance d 0-15 12:15:00 Bruno required 10:13: [id number] 00 Respiratory lung sounds Respirator Resolve 2018-092019-08-07 Blaire deficit y d 1-11 12:15:00 Bruno 12:15: [id number] 00 Elimination urinary Eliminatio Resolve 2018[facility]092019[facility]09-05 [facility] 10:26[facility]00 Barbara e 08:00: [employer] 00 [id number] Safety risk for Safety Res[facility] 2018[facility]092019[facility] 10:[facility] Barbara tion 08:00: [employer] 00 [id number] Nutrition nutritional Nutrition Active 2018-09 Rosamaria restriction 1-30 Malnoske s 10:55: RN 00 Respiratory lung sounds Respirator Resolve 2018-092019-09-05 Blaire deficit y d 2-10 10:26:00 Bruno 10:26: [id number] 00 Medication oral med Meds Active 2018-09 Blaire assistance 2-10 Bruno required 10:26: [id number] 00 Medication injectable Meds Active 2018-09 Blaire med 2-10 Bruno assistance 10:26: [id number] required 00 Safety risk for Safety Active 2018-09 [facility] 11-13 Barbara tion 08:00: [employer] 00 [id number] Allergies, Adverse Reactions, Alerts Allergy Name Allergy Status Severity Reaction(s) Onset Inactive Treating Comments Type Date Date Clinician sulfa Unknown Active Mild to Rash Elissa Moderate 01-25 Jessica [id number] aspirin Base Active Moderate Hives Elissa Ingredient 01-25 Jessica [id number] penicillin G Base Active Moderate Difficulty Elissa Ingredient to Severe swallowing 01-25 Jessica [id number] Medications Ordered Filled Start Stop Current Ordering [...] nebulizers 2018- No He[place]ks 1 Unknown 01-18 Kalus MARIEE Nicoabiodun CQ Nicoderm CQ 2018- No [place] 7 mg Unknown 7 mg/24 hr 7 mg/24 hr 01-18 Klaus MAIREE daily daily transdermal transdermal patch patch lisinopril [...] Observation Time Observation Value Comments SYSTOLIC mm[Hg] 2019-09-13 18:09:25 128 mm[Hg] mm[Hg] Method: Sit SYSTOLIC mm[Hg] 2019-09-06 18:09:18 122 mm[Hg] mm[Hg] Method: Stand DIASTOLIC mm[Hg] 2019-09-13 18:09:25 72 mm[Hg] mm[Hg] Method: Sit DIASTOLIC mm[Hg] 2019-09-06 18:09:18 70 mm[Hg] mm[Hg] Method: Stand PULSE 2019-09-13 18:09:25 86 /min /min RESP RATE 2019-09-13 18:09:25 16 /min /min TEMP 2019-09-13 18:09:25 98.3 [degF] Procedures This patient has no known procedures. Results This patient has no known results.
--- OUTSIDE RECORDS SUMMARY | 2019-10-07 18:10 | XMS REPORT ---
:1960 Author Organization [facility] Care Team Providers Name Role Phone Elissa Lopez Primary Care Physician Unavailable Allergies, Adverse Reactions, Alerts Allergy Code CodeSystem Reaction Severity Criticality Status Start Substance Date Moderate Medications Medication Medication Medication Start Stop Route Dose Status Fill Code CodeSystem Date Date Instructions amitriptyline [id number] RxNorm 2019- oral 100 mg active for 30 03-15-16 tablet day(s) prazosin 801181 RxNorm 2018- oral 5 mg 1 active Take 1 04-13 capsule capsule at at bedtime for bedtime 30 day(s) Latuda 3884658 RxNorm 2018- oral 120 mg completed for 30 11-15- tablet day(s) Nicorette 064164 RxNorm 2018- bucl 4 mg 1 active Chew 1 piece 04-13 gum as as directed directed for 30 day(s) fluoxetine 138459 RxNorm oral 20 mg active for 30 capsule day(s) amitriptyline 459753 RxNorm 2017-09 2019- oral 50 mg completed for 30 10-16- tablet day(s) trazodone 008078 RxNorm 2018- oral 150 mg active for 30 10-18- tablet day(s) prazosin 225805 RxNorm 2018- oral 2 mg 2 completed Take 2 03-23 capsule capsule every every night night for 30 day(s) Latuda 0248692 RxNorm 2018- oral 120 mg active for 30 03-01-04 tablet day(s) prazosin 786986 RxNorm 2019- oral 2 mg completed for 30 - capsule day(s) Invega 589408 RxNorm 2018- IM 234 active Inject 1 Sustenna 02-10 mg/1.5 mL syringe 1 syringe every four every weeks for 28 four day(s) weeks Problems Problem Name Code CodeSystem Alternate Alternate Start End Status Narrative Code CodeSystem Date Date Schizophreni [id number] SNOMED-CT 2018- Active a, - unspecified Relevant diagnostic tests/laboratory data Narrative No Information Procedures Procedure Code CodeSystem Target Date of Status Service Device Device Device Name Site Procedure Delivery Code Name UID Location Comprehensiv 898321 SNOMED-CT () 2019-01-19 complete Mental e medication 0 d [facility]- services, [place] [address] [place], [place], [id number] Comprehensiv 866677 SNOMED-CT () 2019-02-16 complete Mental e medication 0 d Health- services, [place] [address] [place], [place], [id number] Comprehensiv 358567 SNOMED-CT () 2019-04-13 complete Mental e medication 0 d Health- services, [place] per [place] [address] [place], [place], [id number] Comprehensiv 106119 SNOMED-CT () 2019-03-16 complete Mental e medication 0 d Health- services, [place] per [place] [address] [place], [place], [id number] Comprehensiv 881101 SNOMED-CT () 2019-05-11 complete Mental e medication 0 d Health- services, [place] [address] [place], [place], [id number] Comprehensiv 189402 SNOMED-CT () 2019-06-08 complete Mental e medication 0 d Health- services, [place] per [place] [address] [place], [place], [id number] Comprehensiv 560803 SNOMED-CT () 2019-07-06 complete Mental e medication 0 d Health- services, [place] [address] [place], [place], [id number] [id number] Comprehensiv 041709 SNOMED-CT () 2019-08-03 complete Mental e medication 0 d Health- services, [place] [address] [place], [place], [id number] [id number] Comprehensiv 232171 SNOMED-CT () 2019-08-31 complete Mental e medication 0 d Health- services, [place] per [address], [id number] Office or 517463 SNOMED-CT () 2019-05-17 complete Mental other 7 d Health- outpatient [place] visit for [address], [facility], established [id number] patient, [id number] which requires at least 2 of these 3 ferguson components: An expanded problem focused history; An expanded problem focused examination; Medical decision making of low Office or 495243 SNOMED-CT () 2019-03-23 complete Mental other 7 d Health- outpatient [place] visit for [address], [facility], established [id number] patient, [id number] which requires at least 2 of these 3 ferguson components: An expanded problem focused history; An expanded problem focused examination; Medical decision making of low Office or 260944 SNOMED-CT () 2019-04-13 complete Mental other 7 d Health- outpatient [place] visit for [address], [facility], established [id number] patient, [id number] which requires at least 2 of these 3 fegruson components: An expanded problem focused history; An expanded problem focused examination; Medical decision making of low Office or 125477 SNOMED-CT () 2019-07-19 complete Mental other 6 d Health- outpatient [place] visit for [address], [facility], established [id number] patient, [id number] which requires at least 2 of these 3 ferguson components: A problem focused history; A problem focused examination; Straightforw marilyn medical decision making. Counselin SNOMED-CT () 2019-08-31 complete Mental d Health- [place], [id number] SNOMED-CT () 2019-06-22 complete Mental d Health- [address], [id number] SNOMED-CT () 2019-07-06 [facility] [address] [place] [place], [place], [id number] SNOMED-CT () 2019-05-25 complete Mental d [address], [id number] SNOMED-CT () 2019-06-08 complete Mental d [address], [id number] SNOMED-CT () 2019-04-13 complete Mental d [address], [id number] SNOMED-CT () 2019-08-17 [facility] Mental d [address], [id number] SNOMED-CT () 2019-08-03 [facility] Mental d [address], [id number] [phone] Encounters/Encounter Diagnoses Encounter Name Encounter Diagnosis Diagnosis Diagnosis Date of Service Code Code Name CodeSystem Diagnosis Delivery Location [place] [id number] Schizophrenia SNOMED-CT 2019-08-31 Behavioral Medication , unspecified [facility] [address] [place], [place], [id number] Vital Signs No Information Social History Element Description Description Start End Code CodeSystem AdditionalInfo Date Date SexAssignedAtBirth Female 0 F AdministrativeGender -04 Hospital Discharge Instructions Reason For Referral Medical Equipment FDA Assessments
--- OUTSIDE RECORDS SUMMARY | 2019-10-07 18:11 | XMS REPORT ---
:1960 Author Organization [facility] Care Team Providers Name Role Phone Unavailable Unavailable Unavailable Problems Condition Condition Condition Status Onset Resolution Last Treating Comments Name Details Category Date Date Treatment Clinician Date Pain frequent Pain Mgmt Resolve 2018-11-09 Elissa pain d 01-18 08:50:00 Jessica 13:00: [id number] 00 Pain knowledge/s Pain Mgmt Resolve 2018-05-13 Elissa kill d 01-18 11:18:00 [place] deficit: pt 13:00: [id number] 00 Cardio knowledge/s Cardiovasc Resolve 2018-06-07 Elissa kill ular d 01-18 15:30:00 [place] deficit: pt 13:00: [id number] 00 Respiratory oxygen Respirator Resolve 2018-07-05 Elissa treatments y d 01-18 09:20:00 [place] in home 13:00: [id number] 00 Respiratory nebulizer Respirator Resolve 2018-07-05 Elissa treatment y d 01-18 09:20:00 Jessica in home 13:00: [id number] 00 Respiratory dyspnea Respirator Resolve 2018-07-05 Elissa present y d 01-18 09:20:00 [place] 13:00: [id number] 00 Endo/Derek anti-coagul Endo/Derek Resolve 2018-07-12 Elissa ation d 01-18 09:48:00 Jessica therapy 13:00: [id number] 00 Nutrition nutritional Nutrition Resolve 2018-04-12 Elissa restriction d 01-18 10:11:00 [place] s 13:00: [id number] 00 Elimination urinary Eliminatio Resolve 2018-05-13 Elissa frequency n d 01-18 11:18:00 Jessica 13:00: [id number] 00 Neuro impaired Neuro/Emot Resolve 2018-08-09 Elissa goldman-will ion d 01-18 08:44:00 Jessica rosanne 13:00: [id number] 00 Activity ADL Activity Resolve 2018-04-12 Adia assistance d 01-18 10:11:00 Guidelli required 13:00: [id number] 00 Safety risk for Safety Resolve 2018-05-13 Elissa hospitaliza d 01-18 11:18:00 Jessica tion 13:00: [id number] 00 Safety can be left Safety Resolve 2018-05-13 Elissa strong for d 01-18 11:18:00 Jessica only short 13:00: [id number] 00 Safety fall risk Safety Resolve 2018-05-13 Elissa factor d 01-18 11:18:00 Jessica present 13:00: [id number] 00 Medication knowledge/s Meds Resolve 2018-06-07 Elissa kill d 01-18 15:30:00 [place] deficit: pt 13:00: [id number] 00 Medication oral med Meds Resolve 2018-06-07 Elissa assistance d 01-18 15:30:00 [place] required 13:00: [id number] 00 Medication injectable Meds Resolve 2018-06-07 Elissa med d 01-18 15:30:00 [place] assistance 13:00: [id number] required 00 Medication potential Meds Resolve 2018-06-07 Elissa clinically d 01-18 15:30:00 Jessica significant 13:00: [id number] medication 00 issue Diagnoses knowledge/s Diagnoses Active Elissa kill 01-18 [place] deficit: pt 13:00: [id number] 00 Musculoskel requires Musculoske Resolve 2018-05-13 Elissa etal human letal d 01-18 11:18:00 [place] assist to 13:00: [id number] leave home 00 Musculoskel transfer Musculoske Resolve 2018-05-13 Adia etal assistance letal d 01-18 11:18:00 Guidelli required 13:00: [id number] 00 Respiratory lung sounds Respirator Resolve 2018-07-05 Elissa deficit y d 01-25 09:20:00 [place] 16:00: [id number] 00 Safety knowledge/s Safety Resolve 2018-05-13 Elissa kill d 01-25 11:18:00 [place] deficit: pt 16:00: [id number] 00 Elimination constipatio Eliminatio Resolve 2018-05-13 Elissa n n d 03-15 11:18:00 Cristal 11:43: [id number] 00 Nutrition nutritional Nutrition Resolve 2018-06-07 Elissa restriction d 05-13 15:30:00 Cristal s 11:18: [id number] 00 Respiratory smoker Respirator Resolve 2018-07-05 Elissa y d 06-07 09:20:00 Cristal 15:30: [id number] 00 Elimination urinary Eliminatio Resolve 2018-06-07 Elissa frequency n d 06-07 15:30:00 Cristal 15:30: [id number] 00 Safety knowledge/s Safety Active Elissa kill 06-07 Cristal deficit: pt 15:30: [id number] 00 Safety risk for Safety Resolve 2018-07-05 Elissa hospitaliza d 06-07 09:20:00 Cristal tion 15:30: [id number] 00 Safety risk for Safety [facility] [place] [facility] 14:00: [id number] 00 Respiratory dyspnea Respirator Resolve 2017-092018-08-09 Blaire present y d 0-16 08:44:00 Bruno 09:48: [id number] 00 Respiratory lung sounds Respirator Resolve 2017-092018-08-09 Blaire deficit y d 0-16 08:44:00 Bruno 09:48: [id number] 00 Safety risk for Safety Resolve 2017-092018-08-09 Blaire hospitaliza d 0-16 08:44:00 Bruno tion 09:48: [id number] 00 Respiratory oxygen Respirator Resolve 2017-092018-08-09 Blaire treatments y d 1- 08:44:00 Bruno in home 08:44: [id number] 00 Respiratory nebulizer Respirator Resolve 2017-092018-08-09 Blaire treatment y d 10-09 08:44:00 Bruno in home 08:44: [id number] 00 Neuro anxiety Neuro/Emot Resolve 2017-092018-08-09 Blaire present ion d 10-09 08:44:00 Bruno 08:44: [id number] 00 Safety risk for Safety Resolve 2017-092018-08-30 [facility] hospitaliza d 10-16 09:20:00 [place] tion 10:46: [id number] 00 Respiratory oxygen Respirator Resolve 2017-092018-09-13 Blaire treatments y d 10-31 09:53:00 Bruno in home 09:20: [id number] 00 Respiratory lung sounds Respirator Resolve 2017-092018-09-13 Blaire deficit y d 10-31 09:53:00 Bruno 09:20: [id number] 00 Respiratory smoker Respirator Resolve 2017-092018-09-13 Blaire y d 10-31 09:53:00 Bruno 09:20: [id number] 00 Respiratory nebulizer Respirator Resolve 2017-092018-09-13 Blaire treatment y d 10-31 09:53:00 Bruno in home 09:20: [id number] 00 Endo/Derek anti-coagul Endo/Derek Resolve 2017-092018-09-13 Blaire ation d 10-31 09:53:00 Bruno therapy 09:20: [id number] 00 Neuro anxiety Neuro/Emot Resolve 2017-092018-09-13 Blaire present ion d 10-31 09:53:00 Bruno 09:20: [id number] 00 Safety safety Safety Resolve 2017-092018-08-30 Blaire hazards d 10-31 09:20:00 Bruno present 09:20: [id number] 00 Safety risk for Safety Resolve 2017-092018-09-13 Arin hospitaliza d 11-07 09:53:00 Carrier RN tion 10:00: 00 Respiratory dyspnea Respirator Resolve 2017-092018-09-13 Blaire present y d 11-14 09:53:00 Bruno 09:53: [id number] 00 Safety risk for Safety Resolve 2017-092018-09-26 [facility] 11-20 09:45:00 [place] tion 10:00: [id number] 00 Respiratory dyspnea Respirator Resolve 2017-092019-01-03 Blaire present y d 09:25:00 Bruno 09:45: [id number] 00 Respiratory oxygen Respirator Resolve 2017-092019-01-03 Blaire treatments y d 09:25:00 Bruno in home 09:45: [id number] 00 Respiratory lung sounds Respirator Resolve 2017-092018-10-25 Blaire deficit y d 09:26:00 Bruno 09:45: [id number] 00 Respiratory smoker Respirator Resolve 2017-092018-09-26 Blaire y d 09:45:00 Bruno 09:45: [id number] 00 Respiratory nebulizer Respirator Resolve 2017-092019-01-03 Blaire treatment y d 09:25:00 Bruno in home 09:45: [id number] 00 Medication oral med Meds Resolve 2017-092019-03-09 Blaire assistance d 14:06:00 Bruno required 09:45: [id number] 00 Medication injectable Meds Resolve 2017-092019-03-09 Blaire med d 14:06:00 Bruno assistance 09:45: [id number] required 00 Nutrition nutritional Nutrition Resolve 2018-11-09 Jazz restriction d 1 08:50:00 [place] s 12:19: [id number] 00 Safety risk for Safety Resolve 2018-10-25 [facility] hospital[facility] d 1 09:26:00 [place] tion 12:19: [id number] 00 Respiratory lung sounds Respirator Resolve 2018-11-09 Jazz deficit y d 11-01 08:50:00 [place] 10:20: [id number] 00 Safety risk for Safety Resolve 2018-11-09 [facility] d 11-01 08:50:00 [place] tion 10:20: [id number] 00 Respiratory smoker Respirator Resolve 2018-12-20 Blaire y d 11-09 09:22:00 Bruno 08:50: [id number] 00 Neuro anxiety Neuro/Emot Resolve 2018-11-09 Blaire present ion d 11-09 08:50:00 Bruno 08:50: [id number] 00 Nutrition nutritional Nutrition Resolve 2018-12-06 Jazz restriction d 11-15 10:45:00 [place] s 11:00: [id number] 00 Safety risk for Safety Resolve 2018-12-06 [facility] hospital[facility] d 11-15 10:45:00 [place] tion 11:00: [id number] 00 Respiratory lung sounds Respirator Resolve 2018-12-20 Blaire deficit y d 12-06 09:22:00 Bruno 10:45: [id number] 00 Respiratory pneumonia Respirator Resolve 2018-12-20 Blaire y d 12-06 09:22:00 Bruno 10:45: [id number] 00 Respiratory asthma Respirator Resolve 2019-01-03 Blaire y d 12-06 09:25:00 Bruno 10:45: [id number] 00 Nutrition nutritional Nutrition Resolve 2018-12-20 Blaire restriction d 12-13 09:22:00 Bruno s 09:45: [id number] 00 Safety risk for Safety Resolve 2018-12-20 Blaire hospitaliza d 12-13 09:22:00 Bruno tion 09:45: [id number] 00 Safety safety Safety Resolve 2018-12-20 Blaire hazards d 12-20 09:22:00 Bruno present 09:22: [id number] 00 Respiratory knowledge/s Respirator Resolve 2019-01-03 Blaire kill y d 12-27 09:25:00 Bruno deficit: pt 10:07: [id number] 00 Respiratory lung sounds Respirator Resolve 2019-01-03 Blaire deficit y d 4 09:25:00 Bruno 10:07: [id number] 00 Respiratory CPAP Respirator Resolve 2019-01-03 Blaire treatments y d 4-02 09:25:00 Bruno in home 10:07: [id number] 00 Respiratory smoker Respirator Resolve 2019-01-03 Blaire y d 4-02 09:25:00 Bruno 10:07: [id number] 00 Nutrition nutritional Nutrition Resolve 2019-01-03 Blaire restriction d 12-27 09:25:00 Bruno s 10:07: [id number] 00 Neuro impaired Neuro/Emot Resolve 2019-01-03 Blaire decision-ma ion d 12-27 09:25:00 Bruno rosanne 10:07: [id number] 00 Safety risk for Safety Resolve 2019-01-03 Blaire hospitaliza d 12-27 09:25:00 Bruno tion 10:07: [id number] 00 Neuro memory Neuro/Emot Unknown Blaire deficit ion - Bruno needing 09:25: [id number] supervision 00 Respiratory dyspnea Respirator Resolve 2019-03-28 Blaire present y d 01-10 09:06:00 Bruno 09:27: [id number] 00 Respiratory knowledge/s Respirator Resolve 2019-03-07 Blaire kill y d 01-10 09:45:00 Bruno deficit: pt 09:27: [id number] 00 Respiratory lung sounds Respirator Resolve 2019-03-07 Blaire deficit y d 01-10 09:45:00 Bruno 09:27: [id number] 00 Respiratory smoker Respirator Resolve 2019-03-07 Blaire y d 01-10 09:45:00 Bruno 09:27: [id number] 00 Nutrition nutritional Nutrition Resolve 2019-02-07 Blaire restriction d 01-10 09:39:00 Bruno s 09:27: [id number] 00 Neuro impaired Neuro/Emot Unknown Blaire decision-ma ion 01-10 Bruno rosanne 09:27: [id number] 00 Neuro memory Neuro/Emot Unknown Blaire deficit ion 01-10 Bruno needing 09:27: [id number] supervision 00 Safety fall risk Safety Resolve 2019-02-07 Blaire factor d 01-10 09:39:00 Bruno present 09:27: [id number] 00 Safety risk for Safety Resolve 2019-02-07 Blaire hospitaliza d 01-10 09:39:00 Bruno tion 09:27: [id number] 00 Respiratory oxygen Respirator Resolve 2019-03-28 Elissa treatments y d 01-24 09:06:00 Barbara in home 09:00: [facility] 00 [id number] Respiratory nebulizer Respirator Resolve 2019-03-28 Elissa treatment y d 4-30 09:06:00 Barbara in home 09:00: [employer] 00 [id number] Respiratory asthma Respirator Resolve 2019-03-28 Consuelo y d 5- 09:06:00 [place] 11:00: 00 Elimination urinary Eliminatio Resolve 2019-02-07 Elissa incontinenc n d 01-31 09:39:00 Barbara e 08:30: [employer] 00 [id number] Nutrition nutritional Nutrition Resolve 2019-03-07 Elissa restriction d 02-14 09:45:00 Barbara s 08:13: [employer] 00 [id number] Safety risk for Safety Resolve 2019-03-07 Elissa hospitaliza d 02-14 09:45:00 Barbara tion 08:13: [employer] 00 [id number] Respiratory lung sounds Respirator Resolve 2019-03-09 Blaire deficit y d 6-13 14:06:00 Bruno 14:06: [id number] 00 Respiratory smoker Respirator Resolve 2019-03-09 Blaire y d 613 14:06:00 Bruno 14:06: [id number] 00 Nutrition nutritional Nutrition Resolve 2019-03-28 Blaire restriction d 6-13 09:06:00 Bruno s 14:06: [id number] 00 Safety safety Safety Resolve 2019-03-28 Blaire hazards d 6-13 09:06:00 Bruno present 14:06: [id number] 00 Safety fall risk Safety Resolve 2019-03-28 Blaire factor d 6-13 09:06:00 Bruno present 14:06: [id number] 00 Safety risk for Safety Resolve 2019-03-28 Blaire hospitaliza d 6-13 09:06:00 Bruno tion 14:06: [id number] 00 Medication potential Meds Resolve 2019-03-09 Blaire clinically d 6-13 14:06:00 Bruno significant 14:06: [id number] medication 00 issue Respiratory lung sounds Respirator Resolve 2019-03-28 Elissa deficit y d 6-18 09:06:00 Barbara 07:45: [employer] 00 [id number] Respiratory lung sounds Respirator Resolve 2019-04-25 Elissa deficit y d 04-04 09:45:00 Barbara 08:00: [employer] 00 [id number] Nutrition nutritional Nutrition Resolve 2019-04-25 Elissa restriction d 04-04 09:45:00 Barbara s 08:00: [employer] 00 [id number] Safety risk for Safety Resolve 2019-04-25 [facility] 09:45:00 Barbara tion 08:00: [employer] 00 [id number] Neuro anxiety Neuro/Emot Resolve 2019-04-25 Blaire present ion d 04-25 09:45:00 Bruno 09:45: [id number] 00 Safety risk for Safety Resolve 2019-05-09 [facility] 05-02 12:05:00 Barbara tion 08:15: [employer] 00 [id number] Respiratory lung sounds Respirator Resolve 2019-05-30 Blaire deficit y d 05-09 08:38:00 Bruno 12:05: [id number] 00 Medication injectable Meds Resolve 2019-05-30 Blaire med d 05-09 08:38:00 Bruno assistance 12:05: [id number] required 00 Safety risk for Safety Resolve 2019-05-30 Elissa [facility] d 05-16 08:38:00 Barbara tion 08:02: [employer] 00 [id number] Neuro impaired Neuro/Emot Resolve 2019-05-30 Blaire decision-ma ion d 05-30 08:38:00 Bruno rosanne 08:38: [id number] 00 Neuro memory Neuro/Emot Resolve 2019-05-30 Blaire deficit ion d 05-30 08:38:00 Bruno needing 08:38: [id number] supervision 00 Safety risk for Safety Resolve 2019-06-27 [facility] 06-06 08:40:00 Barbara tion 07:56: [employer] 00 [id number] Respiratory lung sounds Respirator Resolve 2019-06-27 Elissa deficit y d 06-13 08:40:00 Barbara 07:30: [employer] 00 [id number] Respiratory nebulizer Respirator Resolve 2018-092019-06-27 Blaire treatment y d 0-01 08:40:00 Bruno in home 08:40: [id number] 00 Elimination urinary Eliminatio Resolve 2018-092019-07-11 Elissa incontinenc n d 0-08 10:13:00 Barbara e 08:00: [employer] 00 [id number] Safety risk for Safety Resolve 2018-092019-08-07 Elissa hospitaliza d 0-08 12:15:00 Barbara tion 08:00: [employer] 00 [id number] Respiratory oxygen Respirator Active 2018-09 Blaire treatments y 0-15 Bruno in home 10:13: [id number] 00 Respiratory nebulizer Respirator Active 2018-09 Blaire treatment y 0-15 Bruno in home 10:13: [id number] 00 Respiratory lung sounds Respirator Resolve 2018-092019-07-11 Blaire deficit y d 0-15 10:13:00 Bruno 10:13: [id number] 00 Neuro anxiety Neuro/Emot Resolve 2018-092019-08-07 Blaire present ion d 0-15 12:15:00 Bruno 10:13: [id number] 00 Neuro impaired Neuro/Emot Unknown 2018-09 Blaire decision-ma ion 0-15 Bruno rosanne 10:13: [id number] 00 Safety safety Safety Resolve 2018-092019-08-07 Blaire hazards d 0-15 12:15:00 Bruno present 10:13: [id number] 00 Safety fall risk Safety Resolve 2018-092019-08-07 Blaire factor d 0-15 12:15:00 Bruno present 10:13: [id number] 00 Medication injectable Meds Resolve 2018-092019-08-07 Blaire med d 0-15 12:15:00 Bruno assistance 10:13: [id number] required 00 Medication oral med Meds Resolve 2018-092019-08-07 Blaire assistance d 0-15 12:15:00 Bruno required 10:13: [id number] 00 Respiratory lung sounds Respirator Resolve 2018-092019-08-07 Blaire deficit y d 1-11 12:15:00 Bruno 12:15: [id number] 00 Elimination urinary Eliminatio Active 2018-09 Elissa incontinenc n 10-15 Barbara e 08:00: [employer] 00 [id number] Safety risk for Safety Active 2018-09 Elissa hospitaliza 10-15 Barbara tion 08:00: [employer] 00 [id number] Nutrition nutritional Nutrition Active 2018-09 Rosamaria restriction 10-26 Trista s 10:55: RN 00 Allergies, Adverse Reactions, Alerts Allergy Name Allergy Status Severity Reaction(s) Onset Inactive Treating Comments Type Date Date Clinician sulfa Unknown Active Mild to Rash Elissa Moderate 5- [place] [id number] aspirin Base Active Moderate Hives Elissa Ingredient 5- [place] [id number] penicillin G Base Active Moderate Difficulty Elissa Ingredient to Severe swallowing 01-25 Jessica [id number] Medications Ordered Filled Start Stop Current Ordering [...] No [place] 1 Unknown 01-18 Klaus MARIEE Nicoderluis felipe CQ Nicoderm CQ 2018- No [place] 7 mg Unknown 7 mg/24 hr 7 mg/24 hr 01-18 Klaus MARIEE daily daily transdermal transdermal patch patch lisinopril lisinopril 2017- No [place] 5 mg Unknown 5 mg tablet 5 mg tablet 01-18 Klaus MARIEE montelukast montelukast No [place] 10 mg Unknown sodium 10 sodium 10 01-18 ,Klaus mg tablet mg tablet Advair Advair 2018- No [place] one Unknown Diskus 500 Diskus 500 01-18 ,Klaus puff mcg-50 mcg-50 mcg/dose mcg/dose powder for powder for inhalation inhalation Ventolin Ventolin No [place] 2 puffs Unknown HFA 90 HFA 90 01-18 ,Klaus mcg/actuati mcg/actuati on aerosol on aerosol inhaler inhaler iron 325 mg iron 325 mg 2017- No [place] 325 mg Unknown (65 mg (65 mg 01-18 ,Klaus iron) iron) tablet tablet multivitami multivitami 2017- No [place] 1 Unknown n capsule n capsule 01-18 ,Klaus Calcium 600 Calcium 600 No [place] 600 mg Unknown with with 01-18 ,Klaus Vitamin D3 Vitamin D3 600 mg 600 [...] 2018- No [place] 1 Unknown with with 01-18-23 ,Klaus HandiHaler HandiHaler 18 mcg and 18 mcg and inhalation inhalation capsules capsules alendronate alendronate No [place] 70 mg Unknown 70 mg 70 mg 01-18 MD,Klaus tablet tablet torsemide torsemide 2017- No [place] 10 mg Unknown 10 mg 10 mg 01-18 MD,Klaus tablet tablet Latuda 120 Latuda 120 No Emilio 120 mg Unknown mg tablet mg tablet 01-18 ,Martin prazosin 1 prazosin 1 2018- No Emilio 1 mg Unknown mg capsule mg capsule 01-18 03- ,Martin amitriptyli amitriptyli No Emilio 100 mg Unknown ne 100 [...] 5 mg tablet 5 mg tablet 01-18 ,Klaus iron 325 mg iron 325 mg No [place] 325 mg Unknown (65 mg (65 mg 01-18 MD,Klaus iron) iron) tablet tablet multivitami multivitami No [place] 1 Unknown n capsule n capsule - ,Klaus PROzac 20 PROzac 20 No Emilio [...] [place] Unknown Unknown sulfate 2.5 sulfate 2.5 4 MD,Klaus mg/3 mL mg/3 mL (0.083 %) (0.083 %) solution solution for for nebulizatio nebulizatio n n Flonase Flonase No [place] Unknown Unknown Allergy Allergy 4 ,Ngozi Relief 50 Relief 50 mcg/actuati mcg/actuati on nasal on nasal spray,suspe spray,suspe nsion nsion amitriptyli amitriptyli 2018- No Emilio Unknown Unknown ne 50 mg ne 50 mg 12-13 ,Martin tablet tablet prazosin 2 prazosin 2 2018- No Emilio Unknown Unknown mg capsule mg capsule 03-23 ,Martin prazosin 2 prazosin 2 2018- No Emilio [...] for powder for inhalation inhalation Chantix Chantix No [place] Unknown Unknown Starting Starting 05-23 Klaus MARIEE Month Box Month Box 0.5 mg 0.5 mg (11)-1 mg (11)-1 mg (42) (42) tablets in tablets in dose pack dose pack ciprofloxac ciprofloxac 2018-09- Yes [place] Unknown Unknown in 500 mg in 500 mg 07-28 ,Klaus tablet tablet Vital Signs Vital Name Observation Time Observation Value Comments SYSTOLIC mm[Hg] 2019-09-04 18:09:16 132 mm[Hg] mm[Hg] Method: Sit SYSTOLIC mm[Hg] 2019-05-11 18:07:20 104 mm[Hg] mm[Hg] Method: Stand DIASTOLIC mm[Hg] 2019-09-04 18:09:16 74 mm[Hg] mm[Hg] Method: Sit DIASTOLIC mm[Hg] 2019-05-11 18:07:20 59 mm[Hg] mm[Hg] Method: Stand PULSE 2019-09-04 18:09:16 84 /min /min RESP RATE 2019-09-04 18:09:16 16 /min /min TEMP 2019-09-04 18:09:16 98.2 [degF] Procedures This patient has no known procedures. Results This patient has no known results.
--- OUTSIDE RECORDS SUMMARY | 2019-10-07 18:11 | XMS REPORT ---
:1960 Author Organization [facility] Care Team Providers Name Role Phone Unavailable Unavailable Unavailable Problems Condition Condition Condition Status Onset Resolution Last Treating Comments Name Details Category Date Date Treatment Clinician Date Pain frequent Pain Mgmt Resolve 2018-11-09 Elissa pain d 01-18 08:50:00 Jessica 13:00: [id number] 00 Pain knowledge/s Pain Mgmt Resolve 2018-05-13 Elissa kill d 01-18 11:18:00 [place] deficit: pt 13:00: [id number] 00 Cardio knowledge/s Cardiovasc Resolve 2018-06-07 Elissa kill ular d 01-18 15:30:00 [place] deficit: pt 13:00: [id number] 00 Respiratory oxygen Respirator Resolve 2018-07-05 Elissa treatments y d 01-18 09:20:00 [place] in home 13:00: [id number] 00 Respiratory nebulizer Respirator Resolve 2018-07-05 Elissa treatment y d 01-18 09:20:00 Jessica in home 13:00: [id number] 00 Respiratory dyspnea Respirator Resolve 2018-07-05 Elissa present y d 01-18 09:20:00 [place] 13:00: [id number] 00 Endo/Derek anti-coagul Endo/Derek Resolve 2018-07-12 Elissa ation d 01-18 09:48:00 Jessica therapy 13:00: [id number] 00 Nutrition nutritional Nutrition Resolve 2018-04-12 Elissa restriction d 01-18 10:11:00 [place] s 13:00: [id number] 00 Elimination urinary Eliminatio Resolve 2018-05-13 Elissa frequency n d 01-18 11:18:00 Jessica 13:00: [id number] 00 Neuro impaired Neuro/Emot Resolve 2018-08-09 Elissa goldman-will ion d 01-18 08:44:00 Jessica rosanne 13:00: [id number] 00 Activity ADL Activity Resolve 2018-04-12 Adia assistance d 01-18 10:11:00 Guidelli required 13:00: [id number] 00 Safety risk for Safety Resolve 2018-05-13 Elissa hospitaliza d 01-18 11:18:00 Jessica tion 13:00: [id number] 00 Safety can be left Safety Resolve 2018-05-13 Elissa strong for d 01-18 11:18:00 Jessica only short 13:00: [id number] 00 Safety fall risk Safety Resolve 2018-05-13 Elissa factor d 01-18 11:18:00 Jessica present 13:00: [id number] 00 Medication knowledge/s Meds Resolve 2018-06-07 Elissa kill d 01-18 15:30:00 [place] deficit: pt 13:00: [id number] 00 Medication oral med Meds Resolve 2018-06-07 Elissa assistance d 01-18 15:30:00 [place] required 13:00: [id number] 00 Medication injectable Meds Resolve 2018-06-07 Elissa med d 01-18 15:30:00 [place] assistance 13:00: [id number] required 00 Medication potential Meds Resolve 2018-06-07 Elissa clinically d 01-18 15:30:00 Jessica significant 13:00: [id number] medication 00 issue Diagnoses knowledge/s Diagnoses Active Elissa kill 01-18 [place] deficit: pt 13:00: [id number] 00 Musculoskel requires Musculoske Resolve 2018-05-13 Elissa etal human letal d 01-18 11:18:00 [place] assist to 13:00: [id number] leave home 00 Musculoskel transfer Musculoske Resolve 2018-05-13 Adia etal assistance letal d 01-18 11:18:00 Guidelli required 13:00: [id number] 00 Respiratory lung sounds Respirator Resolve 2018-07-05 Elissa deficit y d 01-25 09:20:00 [place] 16:00: [id number] 00 Safety knowledge/s Safety Resolve 2018-05-13 Elissa kill d 01-25 11:18:00 [place] deficit: pt 16:00: [id number] 00 Elimination constipatio Eliminatio Resolve 2018-05-13 Elissa n n d 03-15 11:18:00 Cristal 11:43: [id number] 00 Nutrition nutritional Nutrition Resolve 2018-06-07 Elissa restriction d 05-13 15:30:00 Cristal s 11:18: [id number] 00 Respiratory smoker Respirator Resolve 2018-07-05 Elissa y d 06-07 09:20:00 Cristal 15:30: [id number] 00 Elimination urinary Eliminatio Resolve 2018-06-07 Elissa frequency n d 06-07 15:30:00 Cristal 15:30: [id number] 00 Safety knowledge/s Safety Active Elissa kill 06-07 Cristal deficit: pt 15:30: [id number] 00 Safety risk for Safety Resolve 2018-07-05 Elissa hospitaliza d 06-07 09:20:00 Cristal tion 15:30: [id number] 00 Safety risk for Safety [facility] tion 14:00: [id number] 00 Respiratory dyspnea Respirator Resolve 2017-092018-08-09 Blaire present y d 0-16 08:44:00 Bruno 09:48: [id number] 00 Respiratory lung sounds Respirator Resolve 2017-092018-08-09 Blaire deficit y d 0-16 08:44:00 Bruno 09:48: [id number] 00 Safety risk for Safety Resolve 2017-092018-08-09 Blaire hospitaliza d 0-16 08:44:00 Bruno tion 09:48: [id number] 00 Respiratory oxygen Respirator Resolve 2017-092018-08-09 Blaire treatments y d 1- 08:44:00 Bruno in home 08:44: [id number] 00 Respiratory nebulizer Respirator Resolve 2017-092018-08-09 Blaire treatment y d 10-09 08:44:00 Bruno in home 08:44: [id number] 00 Neuro anxiety Neuro/Emot Resolve 2017-092018-08-09 Blaire present ion d 10-09 08:44:00 Bruno 08:44: [id number] 00 Safety risk for Safety Resolve 2017-092018-08-30 [facility] hospital[facility] d 10-16 09:20:00 Belle tion 10:46: [id number] 00 Respiratory oxygen Respirator Resolve 2017-092018-09-13 Blaire treatments y d 10-31 09:53:00 Bruno in home 09:20: [id number] 00 Respiratory lung sounds Respirator Resolve 2017-092018-09-13 Blaire deficit y d 10-31 09:53:00 Bruno 09:20: [id number] 00 Respiratory smoker Respirator Resolve 2017-092018-09-13 Blaire y d 10-31 09:53:00 Bruno 09:20: [id number] 00 Respiratory nebulizer Respirator Resolve 2017-092018-09-13 Blaire treatment y d 10-31 09:53:00 Bruno in home 09:20: [id number] 00 Endo/Derek anti-coagul Endo/Derek Resolve 2017-092018-09-13 Blaire ation d 10-31 09:53:00 Bruno therapy 09:20: [id number] 00 Neuro anxiety Neuro/Emot Resolve 2017-092018-09-13 Blaire present ion d 10-31 09:53:00 Bruno 09:20: [id number] 00 Safety safety Safety Resolve 2017-092018-08-30 Blaire hazards d 10-31 09:20:00 Bruno present 09:20: [id number] 00 Safety risk for Safety Resolve 2017-092018-09-13 Arin hospitaliza d 11-07 09:53:00 Carrier RN tion 10:00: 00 Respiratory dyspnea Respirator Resolve 2017-092018-09-13 Blaire present y d 11-14 09:53:00 Bruno 09:53: [id number] 00 Safety risk for Safety Resolve 2017-092018-09-26 [facility] hospital[facility] d 11-20 09:45:00 Belle tion 10:00: [id number] 00 Respiratory dyspnea Respirator Resolve 2017-092019-01-03 Blaire present y d 09:25:00 Bruno 09:45: [id number] 00 Respiratory oxygen Respirator Resolve 2017-092019-01-03 Blaire treatments y d 09:25:00 Bruno in home 09:45: [id number] 00 Respiratory lung sounds Respirator Resolve 2017-092018-10-25 Blaire deficit y d 09:26:00 Bruno 09:45: [id number] 00 Respiratory smoker Respirator Resolve 2017-092018-09-26 Blaire y d 09:45:00 Bruno 09:45: [id number] 00 Respiratory nebulizer Respirator Resolve 2017-092019-01-03 Blaire treatment y d 09:25:00 Bruno in home 09:45: [id number] 00 Medication oral med Meds Resolve 2017-092019-03-09 Blaire assistance d 14:06:00 Bruno required 09:45: [id number] 00 Medication injectable Meds Resolve 2017-092019-03-09 Blaire med d 14:06:00 Bruno assistance 09:45: [id number] required 00 Nutrition nutritional Nutrition Resolve 2018-11-09 Jazz restriction d 1 08:50:00 Belle s 12:19: [id number] 00 Safety risk for Safety Resolve 2018-10-25 Jazz hospitaliza d 1 09:26:00 Belle tion 12:19: [id number] 00 Respiratory lung sounds Respirator Resolve 2018-11-09 Jazz deficit y d 11-01 08:50:00 Belle 10:20: [id number] 00 Safety risk for Safety Resolve 2018-11-09 [facility] hospitaliza d 11-01 08:50:00 Belle tion 10:20: [id number] 00 Respiratory smoker Respirator Resolve 2018-12-20 Blaire y d 11-09 09:22:00 Bruno 08:50: [id number] 00 Neuro anxiety Neuro/Emot Resolve 2018-11-09 Blaire present ion d 11-09 08:50:00 Bruno 08:50: [id number] 00 Nutrition nutritional Nutrition Resolve 2018-12-06 Jazz restriction d 11-15 10:45:00 Belle s 11:00: [id number] 00 Safety risk for Safety Resolve 2018-12-06 [facility] hospitaliza d 11-15 10:45:00 Belle tion 11:00: [id number] 00 Respiratory lung sounds Respirator Resolve 2018-12-20 Blaire deficit y d 12-06 09:22:00 Bruno 10:45: [id number] 00 Respiratory pneumonia Respirator Resolve 2018-12-20 Blaire y d 12-06 09:22:00 Bruno 10:45: [id number] 00 Respiratory asthma Respirator Resolve 2019-01-03 Blaire y d 12-06 09:25:00 Bruno 10:45: [id number] 00 Nutrition nutritional Nutrition Resolve 2018-12-20 Blaire restriction d 12-13 09:22:00 Bruno s 09:45: [id number] 00 Safety risk for Safety Resolve 2018-12-20 Blaire hospitaliza d 12-13 09:22:00 Bruno tion 09:45: [id number] 00 Safety safety Safety Resolve 2018-12-20 Blaire hazards d 12-20 09:22:00 Bruno present 09:22: [id number] 00 Respiratory knowledge/s Respirator Resolve 2019-01-03 Blaire kill y d 12-27 09:25:00 Bruno deficit: pt 10:07: [id number] 00 Respiratory lung sounds Respirator Resolve 2019-01-03 Blaire deficit y d 4 09:25:00 Bruno 10:07: [id number] 00 Respiratory CPAP Respirator Resolve 2019-01-03 Blaire treatments y d 4-02 09:25:00 Bruno in home 10:07: [id number] 00 Respiratory smoker Respirator Resolve 2019-01-03 Blaire y d 4-02 09:25:00 Bruno 10:07: [id number] 00 Nutrition nutritional Nutrition Resolve 2019-01-03 Blaire restriction d 12-27 09:25:00 Bruno s 10:07: [id number] 00 Neuro impaired Neuro/Emot Resolve 2019-01-03 Blaire decision-ma ion d 12-27 09:25:00 Bruno rosanne 10:07: [id number] 00 Safety risk for Safety Resolve 2019-01-03 Blaire hospitaliza d 12-27 09:25:00 Bruno tion 10:07: [id number] 00 Neuro memory Neuro/Emot Unknown Blaire deficit ion - Bruno needing 09:25: [id number] supervision 00 Respiratory dyspnea Respirator Resolve 2019-03-28 Blaire present y d 01-10 09:06:00 Bruno 09:27: [id number] 00 Respiratory knowledge/s Respirator Resolve 2019-03-07 Blaire kill y d 01-10 09:45:00 Bruno deficit: pt 09:27: [id number] 00 Respiratory lung sounds Respirator Resolve 2019-03-07 Blaire deficit y d 01-10 09:45:00 Bruno 09:27: [id number] 00 Respiratory smoker Respirator Resolve 2019-03-07 Blaire y d 01-10 09:45:00 Bruno 09:27: [id number] 00 Nutrition nutritional Nutrition Resolve 2019-02-07 Blaire restriction d 01-10 09:39:00 Bruno s 09:27: [id number] 00 Neuro impaired Neuro/Emot Unknown Blaire decision-ma ion 01-10 Bruno rosanne 09:27: [id number] 00 Neuro memory Neuro/Emot Unknown Blaire deficit ion 01-10 Bruno needing 09:27: [id number] supervision 00 Safety fall risk Safety Resolve 2019-02-07 Blaire factor d 01-10 09:39:00 Bruno present 09:27: [id number] 00 Safety risk for Safety Resolve 2019-02-07 Blaire hospitaliza d 01-10 09:39:00 Bruno tion 09:27: [id number] 00 Respiratory oxygen Respirator Resolve 2019-03-28 Elissa treatments y d 01-24 09:06:00 Barbara in home 09:00: [facility] 00 [id number] Respiratory nebulizer Respirator Resolve 2019-03-28 Elissa treatment y d 4-30 09:06:00 Barbara in home 09:00: [employer] 00 [id number] Respiratory asthma Respirator Resolve 2019-03-28 Consuelo y d 5- 09:06:00 Vallely 11:00: 00 Elimination urinary Eliminatio Resolve 2019-02-07 Elissa incontinenc n d 01-31 09:39:00 Barbara e 08:30: [employer] 00 [id number] Nutrition nutritional Nutrition Resolve 2019-03-07 Elissa restriction d 02-14 09:45:00 Barbara s 08:13: [employer] 00 [id number] Safety risk for Safety Resolve 2019-03-07 Elissa hospitaliza d 02-14 09:45:00 Barbara tion 08:13: [employer] 00 [id number] Respiratory lung sounds Respirator Resolve 2019-03-09 Blaire deficit y d 6-13 14:06:00 Bruno 14:06: [id number] 00 Respiratory smoker Respirator Resolve 2019-03-09 Blaire y d 613 14:06:00 Bruno 14:06: [id number] 00 Nutrition nutritional Nutrition Resolve 2019-03-28 Blaire restriction d 6-13 09:06:00 Bruno s 14:06: [id number] 00 Safety safety Safety Resolve 2019-03-28 Blaire hazards d 6-13 09:06:00 Bruno present 14:06: [id number] 00 Safety fall risk Safety Resolve 2019-03-28 Blaire factor d 6-13 09:06:00 Bruno present 14:06: [id number] 00 Safety risk for Safety Resolve 2019-03-28 Blaire hospitaliza d 6-13 09:06:00 Bruno tion 14:06: [id number] 00 Medication potential Meds Resolve 2019-03-09 Blaire clinically d 6-13 14:06:00 Bruno significant 14:06: [id number] medication 00 issue Respiratory lung sounds Respirator Resolve 2019-03-28 Elissa deficit y d 6-18 09:06:00 Barbara 07:45: [employer] 00 [id number] Respiratory lung sounds Respirator Resolve 2019-04-25 Elissa deficit y d 04-04 09:45:00 Barbara 08:00: [employer] 00 [id number] Nutrition nutritional Nutrition Resolve 2019-04-25 Elissa restriction d 04-04 09:45:00 Barbara s 08:00: [employer] 00 [id number] Safety risk for Safety Resolve 2019-04-25 [facility] 09:45:00 Barbara tion 08:00: [employer] 00 [id number] Neuro anxiety Neuro/Emot Resolve 2019-04-25 Blaire present ion d 04-25 09:45:00 Bruno 09:45: [id number] 00 Safety risk for Safety Resolve 2019-05-09 [facility] 05-[facility] 12:05:00 Barbara tion 08:15: [employer] 00 [id number] Respiratory lung sounds Respirator Resolve 2019-05-30 Blaire deficit y d 05-09 08:38:00 Bruno 12:05: [id number] 00 Medication injectable Meds Resolve 2019-05-30 Blaire med d 05-09 08:38:00 Bruno assistance 12:05: [id number] required 00 Safety risk for Safety Resolve 2019-05-30 Elissa [facility] d 05-16 08:38:00 Barbara tion 08:02: [employer] 00 [id number] Neuro impaired Neuro/Emot Resolve 2019-05-30 Blaire decision-ma ion d 05-30 08:38:00 Bruno rosanne 08:38: [id number] 00 Neuro memory Neuro/Emot Resolve 2019-05-30 Blaire deficit ion d 05-30 08:38:00 Bruno needing 08:38: [id number] supervision 00 Safety risk for Safety Resolve 2019-06-27 [facility] 08:40:00 Barbara tion 07:56: [employer] 00 [id number] Respiratory lung sounds Respirator Resolve 2019-06-27 Elissa deficit y d 06-13 08:40:00 Barbara 07:30: [employer] 00 [id number] Respiratory nebulizer Respirator Resolve 2018-092019-06-27 Blaire treatment y d 0-01 08:40:00 Bruno in home 08:40: [id number] 00 Elimination urinary Eliminatio Resolve 2018-092019-07-11 Elissa incontinenc n d 0-08 10:13:00 Barbara e 08:00: [employer] 00 [id number] Safety risk for Safety Resolve 2018-092019-08-07 Elissa hospitaliza d 0-08 12:15:00 Barbara tion 08:00: [employer] 00 [id number] Respiratory oxygen Respirator Active 2018-09 Blaire treatments y 0-15 Bruno in home 10:13: [id number] 00 Respiratory nebulizer Respirator Active 2018-09 Blaire treatment y 0-15 Bruno in home 10:13: [id number] 00 Respiratory lung sounds Respirator Resolve 2018-092019-07-11 Blaire deficit y d 0-15 10:13:00 Bruno 10:13: [id number] 00 Neuro anxiety Neuro/Emot Resolve 2018-092019-08-07 Blaire present ion d 0-15 12:15:00 Bruno 10:13: [id number] 00 Neuro impaired Neuro/Emot Unknown 2018-09 Blaire decision-ma ion 0-15 Bruno rosanne 10:13: [id number] 00 Safety safety Safety Resolve 2018-092019-08-07 Blaire hazards d 0-15 12:15:00 Bruno present 10:13: [id number] 00 Safety fall risk Safety Resolve 2018-092019-08-07 Blaire factor d 0-15 12:15:00 Bruno present 10:13: [id number] 00 Medication injectable Meds Resolve 2018-092019-08-07 Blaire med d 0-15 12:15:00 Bruno assistance 10:13: [id number] required 00 Medication oral med Meds Resolve 2018-092019-08-07 Blaire assistance d 0-15 12:15:00 Bruno required 10:13: [id number] 00 Respiratory lung sounds Respirator Resolve 2018-092019-08-07 Blaire deficit y d 1-11 12:15:00 Bruno 12:15: [id number] 00 Elimination urinary Eliminatio Resolve 2018-092019-09-05 Elissa de souzaenc n d 10-15 10:26:00 Barbara e 08:00: [employer] 00 [id number] Safety risk for Safety Resolve 2018-092019-09-05 Elissa ijniza d -19 10:26:00 Barbara tion 08:00: [employer] 00 [id number] Nutrition nutritional Nutrition Active 2018-09 Rosamaria restriction -30 Malnoske s 10:55: RN 00 Respiratory lung sounds Respirator Resolve 2018-092019-09-05 Blaire deficit y d 2- 10:26:00 Bruno 10:26: [id number] 00 Medication oral med Meds Active 2018-09 Blaire assistance 2- Bruno required 10:26: [id number] 00 Medication injectable Meds Active 2018-09 Blaire med 11-06 Bruno assistance 10:26: [id number] required 00 Allergies, Adverse Reactions, Alerts Allergy Name Allergy Status Severity Reaction(s) Onset Inactive Treating Comments Type Date Date Clinician sulfa Unknown Active Mild to Rash Elissa Moderate 5-01 Jessica [id number] aspirin Base Active Moderate Hives 2018 Elissa Ingredient 5-01 [place] [id number] penicillin G Base Active Moderate Difficulty 2018 Elissa Ingredient to Severe swallowing 5-01 Jessica [id number] Medications Ordered Filled Start Stop Current Ordering [...] mg capsule mg capsule 04-25 Martin MARIEE [facility] Trele No [place] Unknown Unknown Ellipta 100 Ellipta 100 04-18 Ngozi MARIEE mcg-62.5 mcg-62.5 mcg-25 mcg mcg-25 mcg powder for powder for inhalation inhalation Chantix Chantix 2018- No Heetderks Unknown Unknown Starting Starting 05-23 12-14 Klasu MARIEE Month Box Month Box 0.5 mg [...]
--- OUTSIDE RECORDS SUMMARY | 2019-10-07 18:11 | XMS REPORT ---
:1960 Author Organization [facility] Care Team Providers Name Role Phone Elissa Lopez Primary Care Physician Unavailable Allergies, Adverse Reactions, Alerts Allergy Code CodeSystem Reaction Severity Criticality Status Start Substance Date Moderate Medications Medication Medication Medication Start Stop Route Dose Status Fill Code CodeSystem Date Date Instructions prazosin 296011 RxNorm 2018- oral 2 mg 2 completed Take 2 03-23 capsule capsule every every night night for 30 day(s) Latuda 6330160 RxNorm 2018- oral 120 mg active for 30 03-01- tablet day(s) amitriptyline 717178 RxNorm 2017-09- oral 50 mg completed for 30 10-16- tablet day(s) trazodone 954683 RxNorm 2018- oral 150 mg active for 30 10-18- tablet day(s) Nicorette 279859 RxNorm 2018- bucl 4 mg 1 active Chew 1 piece 04-13 gum as as directed directed for 30 day(s) amitriptyline 381959 RxNorm 2018- oral 100 mg active for 30 03-15 12-16 tablet day(s) Invega 352010 RxNorm 2019- IM 234 active Inject 1 Sustenna 5-17 11-01 mg/1.5 mL syringe 1 syringe every four every weeks for 28 four day(s) weeks prazosin 005152 RxNorm 2019- oral 2 mg completed for 30 03-23 capsule day(s) prazosin 155952 RxNorm 2018- oral 5 mg 1 active Take 1 04-13 capsule capsule at at bedtime for bedtime 30 day(s) Latuda 9760654 RxNorm 2018- oral 120 mg completed for 30 11-15- tablet day(s) fluoxetine 004205 RxNorm oral 20 mg active for 30 capsule day(s) Problems Problem Name Code CodeSystem Alternate Alternate Start End Status Narrative Code CodeSystem Date Date Schizophreni [id number] SNOMED-CT Active a, - unspecified Relevant diagnostic tests/laboratory data Narrative No Information Procedures Procedure Code CodeSystem Target Date of Status Service Device Device Device Name Site Procedure Delivery Code Name UID Location Comprehensiv 776217 SNOMED-CT () 2019-01-19 complete Mental e medication 0 d Health- services, [place] [address], [place], [id number] Comprehensiv 217498 SNOMED-CT () 2019-02-16 complete Mental e medication 0 d Health- services, [place] [address], [place], [id number] Comprehensiv 910100 SNOMED-CT () 2019-04-13 complete Mental e medication 0 d Health- services, [place] [address], [place], [id number] Comprehensiv 286781 SNOMED-CT () 2019-03-16 complete Mental e medication 0 d Health- services, [place] [address], [place], [id number] Comprehensiv 877136 SNOMED-CT () 2019-05-11 complete Mental e medication 0 d Health- services, [place] [address], [place], [id number] Comprehensiv 657873 SNOMED-CT () 2019-06-08 complete Mental e medication 0 d Health- services, [place] [address], [place], [id number] Comprehensiv 427676 SNOMED-CT () 2019-07-06 complete Mental e medication 0 d Health- services, [place] [address], [place], [id number] Comprehensiv 212584 SNOMED-CT () 2019-08-03 complete Mental e medication 0 d Health- services, [place] [address], [place], [id number] [id number] Office or 734675 SNOMED-CT () 2019-05-17 complete Mental other 7 d Health- outpatient [place] visit for [address], established [id number] patient, [id number] which requires at least 2 of these 3 ferguson components: An expanded problem focused history; An expanded problem focused examination; Medical decision making of low Office or 106528 SNOMED-CT () 2019-03-23 complete Mental other 7 d Health- outpatient [place] visit for [address], established [id number] patient, [id number] which requires at least 2 of these 3 ferguson components: An expanded problem focused history; An expanded problem focused examination; Medical decision making of low Office or 652747 SNOMED-CT () 2019-04-13 complete Mental other 7 d Health- outpatient [place] visit for [address], established [id number] patient, [id number] which requires at least 2 of these 3 ferugson components: An expanded problem focused history; An expanded problem focused examination; Medical decision making of low Office or 363221 SNOMED-CT () 2019-07-19 complete Mental other 6 d Health- outpatient [place] visit for [address], established [id number] patient, [id number] which requires at least 2 of these 3 ferguson components: A problem focused history; A problem focused examination; Straightforw marilyn medical decision making. Salvatorein SNOMED-CT () 2019-06-22 complete Mental d Health- [address], [id number] SNOMED-CT () 2019-07-06 complete Mental d Health- [address], [id number] SNOMED-CT () 2019-05-25 complete Mental d Health[address], [id number] SNOMED-CT () 2019-06-08 complete Mental d Health- [address], [id number] SNOMED-CT () 2019-04-13 complete Mental d [address], [id number] SNOMED-CT () 2019-08-17 complete Mental d [address], [id number] SNOMED-CT () 2019-08-03 complete Mental d [address], [id number] Encounters/Encounter Diagnoses Encounter Name Encounter Diagnosis Diagnosis Diagnosis Date of Service Code Code Name CodeSystem Diagnosis Delivery Location [facility] [id number] Schizophrenia SNOMED-CT 2019-08-17 Behavioral Individual 30 , unspecified [facility] [address] [place] [address], [id number] Vital Signs No Information Social History Element Description Description Start End Code CodeSystem AdditionalInfo Date Date SexAssignedAtBirth Female 0 F AdministrativeGender 09-30 Hospital Discharge Instructions Reason For Referral Medical Equipment FDA Assessments
--- OUTSIDE RECORDS SUMMARY | 2019-10-07 18:11 | XMS REPORT ---
:1960 Author Organization [facility] Care Team Providers Name Role Phone Unavailable Unavailable Unavailable Problems Condition Condition Condition Status Onset Resolution Last Treating Comments Name Details Category Date Date Treatment Clinician Date Pain frequent Pain Mgmt Resolve 2018-11-09 Elissa pain d 01-18 08:50:00 Jessica 13:00: [id number] Pain knowledge/s Pain Mgmt Resolve 2018-05-13 Elissa kill d 01-18 11:18:00 [place] deficit: pt 13:00: [id number] 00 Cardio knowledge/s Cardiovasc Resolve 2018-06-07 Elissa kill ular d 01-18 15:30:00 [place] deficit: pt 13:00: [id number] 00 Respiratory oxygen Respirator Resolve 2018-07-05 Elissa treatments y d 01-18 09:20:00 Jessica in home 13:00: [id number] 00 Respiratory nebulizer Respirator Resolve 2018-07-05 Elissa treatment y d 01-18 09:20:00 Jessica in home 13:00: [id number] 00 Respiratory dyspnea Respirator Resolve 2018-07-05 Elissa present y d 01-18 09:20:00 [place] 13:00: [id number] 00 Endo/Derek anti-coagul Endo/Derek Resolve 2018-07-12 Elissa ation d 01-18 09:48:00 Jessica therapy 13:00: [id number] 00 Nutrition nutritional Nutrition Resolve 2018-04-12 Elissa restriction d 01-18 10:11:00 [place] s 13:00: [id number] 00 Elimination urinary Eliminatio Resolve 2018-05-13 Elissa frequency n d 01-18 11:18:00 Jessica 13:00: [id number] 00 Neuro impaired Neuro/Emot Resolve 2018-08-09 Elissa goldman-will ion d 01-18 08:44:00 Jessica rosanne 13:00: [id number] 00 Activity ADL Activity Resolve 2018-04-12 Adia assistance d 01-18 10:11:00 Guid[place] required 13:00: [id number] 00 Safety risk for Safety Resolve 2018-05-13 Elissa hospitaliza d 01-18 11:18:00 [place] tion 13:00: [id number] 00 Safety can be left Safety Resolve 2018-05-13 Elissa strong for d 01-18 11:18:00 [place] only short 13:00: [id number] 00 Safety fall risk Safety Resolve 2018-05-13 Elissa factor d 01-18 11:18:00 Jessica present 13:00: [id number] 00 Medication knowledge/s Meds Resolve 2018-06-07 Elissa kill d 01-18 15:30:00 Jessica deficit: pt 13:00: [id number] 00 Medication oral med Meds Resolve 2018-06-07 Elissa assistance d 01-18 15:30:00 [place] required 13:00: [id number] 00 Medication injectable Meds Resolve 2018-06-07 Elissa med d 01-18 15:30:00 [place] assistance 13:00: [id number] required 00 Medication potential Meds Resolve 2018-06-07 Elissa clinically d 01-18 15:30:00 Jessica significant 13:00: [id number] medication 00 issue Diagnoses knowledge/s Diagnoses Active Elissa kill 01-18 [place] deficit: pt 13:00: [id number] 00 Musculoskel requires Musculoske Resolve 2018-05-13 Elissa etal human letal d 01-18 11:18:00 Jessica assist to 13:00: [id number] leave home 00 Musculoskel transfer Musculoske Resolve 2018-05-13 Adia etal assistance letal d 01-18 11:18:00 [place] required 13:00: [id number] 00 Respiratory lung sounds Respirator Resolve 2018-07-05 Elissa deficit y d 01-25 09:20:00 Jessica 16:00: [id number] 00 Safety knowledge/s Safety Resolve 2018-05-13 Elissa kill d 01-25 11:18:00 [place] deficit: pt 16:00: [id number] 00 Elimination constipatio Eliminatio Resolve 2018-05-13 Elissa n n d 03-15 11:18:00 Cristal 11:43: [id number] 00 Nutrition nutritional Nutrition Resolve 2018-06-07 Elissa restriction d 05-13 15:30:00 Cristal s 11:18: [id number] 00 Respiratory smoker Respirator Resolve 2018-07-05 Elissa y d 06-07 09:20:00 Cristal 15:30: [id number] 00 Elimination urinary Eliminatio Resolve 2018-06-07 Elissa frequency n d 06-07 15:30:00 Cristal 15:30: [id number] 00 Safety knowledge/s Safety Active Elissa kill 06-07 Cristal deficit: pt 15:30: [id number] 00 Safety risk for Safety Resolve 2018-07-05 Elissa hospitaliza d 06-07 09:20:00 Cristal tion 15:30: [id number] 00 Safety [facility] for [facility] 14:00: [id number] 00 Respiratory dyspnea Respirator Resolve 2017-092018-08-09 Blaire present y d 0-16 08:44:00 Bruno 09:48: [id number] 00 Respiratory lung sounds Respirator Resolve 2017-092018-08-09 Blaire deficit y d 0-16 08:44:00 Bruno 09:48: [id number] 00 Safety risk for Safety Resolve 2017-092018-08-09 Blaire hospitaliza d 0-16 08:44:00 Bruno tion 09:48: [id number] 00 Respiratory oxygen Respirator Resolve 2017-092018-08-09 Blaire treatments y d 1- 08:44:00 Bruno in home 08:44: [id number] 00 Respiratory nebulizer Respirator Resolve 2017-092018-08-09 Blaire treatment y d 10-09 08:44:00 Bruno in home 08:44: [id number] 00 Neuro anxiety Neuro/Emot Resolve 2017-092018-08-09 Blaire present ion d 10-09 08:44:00 Bruno 08:44: [id number] 00 Safety risk for Safety Resolve 2017-092018-08-30 [facility] hospitaliza d 10-16 09:20:00 Cameron tion 10:46: [id number] 00 Respiratory oxygen Respirator Resolve 2017-092018-09-13 Blaire treatments y d 10-31 09:53:00 Bruno in home 09:20: [id number] 00 Respiratory lung sounds Respirator Resolve 2017-092018-09-13 Blaire deficit y d 10-31 09:53:00 Bruno 09:20: [id number] 00 Respiratory smoker Respirator Resolve 2017-092018-09-13 Blaire y d 10-31 09:53:00 Bruno 09:20: [id number] 00 Respiratory nebulizer Respirator Resolve 2017-092018-09-13 Blaire treatment y d 10-31 09:53:00 Bruno in home 09:20: [id number] 00 Endo/Derek anti-coagul Endo/Derek Resolve 2017-092018-09-13 Blaire ation d 10-31 09:53:00 Bruno therapy 09:20: [id number] 00 Neuro anxiety Neuro/Emot Resolve 2017-092018-09-13 Blaire present ion d 10-31 09:53:00 Bruno 09:20: [id number] 00 Safety safety Safety Resolve 2017-092018-08-30 Blaire hazards d 10-31 09:20:00 Bruno present 09:20: [id number] 00 Safety risk for Safety Resolve 2017-092018-09-13 Arin hospitaliza d 11-07 09:53:00 Carrier RN tion 10:00: 00 Respiratory dyspnea Respirator Resolve 2017-092018-09-13 Blaire present y d 11-14 09:53:00 Bruno 09:53: [id number] 00 Safety risk for Safety Resolve 2017-092018-09-26 [facility] hospitaliza d 11-20 09:45:00 Cameron tion 10:00: [id number] 00 Respiratory dyspnea Respirator Resolve 2017-092019-01-03 Blaire present y d 09:25:00 Bruno 09:45: [id number] 00 Respiratory oxygen Respirator Resolve 2017-092019-01-03 Blaire treatments y d 09:25:00 Bruno in home 09:45: [id number] 00 Respiratory lung sounds Respirator Resolve 2017-092018-10-25 Blaire deficit y d 09:26:00 Bruno 09:45: [id number] 00 Respiratory smoker Respirator Resolve 2017-092018-09-26 Blaire y d 09:45:00 Bruno 09:45: [id number] 00 Respiratory nebulizer Respirator Resolve 2017-092019-01-03 Blaire treatment y d 09:25:00 Bruno in home 09:45: [id number] 00 Medication oral med Meds Resolve 2017-092019-03-09 Blaire assistance d 14:06:00 Bruno required 09:45: [id number] 00 Medication injectable Meds Resolve 2017-092019-03-09 Blaire med d 14:06:00 Bruno assistance 09:45: [id number] required 00 Nutrition nutritional Nutrition Resolve 2018-11-09 Jazz restriction d 1 08:50:00 Cameron s 12:19: [id number] 00 Safety risk for Safety Resolve 2018-10-25 Jazz hospitaliza d 1 09:26:00 Cameron tion 12:19: [id number] 00 Respiratory lung sounds Respirator Resolve 2018-11-09 Jazz deficit y d 11-01 08:50:00 Cameron 10:20: [id number] 00 Safety risk for Safety Resolve 2018-11-09 [facility] hospitaliza d 11-01 08:50:00 Cameron tion 10:20: [id number] 00 Respiratory smoker Respirator Resolve 2018-12-20 Blaire y d 11-09 09:22:00 Bruno 08:50: [id number] 00 Neuro anxiety Neuro/Emot Resolve 2018-11-09 Blaire present ion d 11-09 08:50:00 Bruno 08:50: [id number] 00 Nutrition nutritional Nutrition Resolve 2018-12-06 Jazz restriction d 11-15 10:45:00 Cameron s 11:00: [id number] 00 Safety risk for Safety Resolve 2018-12-06 [facility] hospitaliza d 11-15 10:45:00 Cameron tion 11:00: [id number] 00 Respiratory lung sounds Respirator Resolve 2018-12-20 Blaire deficit y d 12-06 09:22:00 Bruno 10:45: [id number] 00 Respiratory pneumonia Respirator Resolve 2018-12-20 Blaire y d 12-06 09:22:00 Bruno 10:45: [id number] 00 Respiratory asthma Respirator Resolve 2019-01-03 Blaire y d 12-06 09:25:00 Bruno 10:45: [id number] 00 Nutrition nutritional Nutrition Resolve 2018-12-20 Blaire restriction d 12-13 09:22:00 Bruno s 09:45: [id number] 00 Safety risk for Safety Resolve 2018-12-20 Blaire hospitaliza d 12-13 09:22:00 Bruno tion 09:45: [id number] 00 Safety safety Safety Resolve 2018-12-20 Blaire hazards d 12-20 09:22:00 Bruno present 09:22: [id number] 00 Respiratory knowledge/s Respirator Resolve 2019-01-03 Blaire kill y d 12-27 09:25:00 Bruno deficit: pt 10:07: [id number] 00 Respiratory lung sounds Respirator Resolve 2019-01-03 Blaire deficit y d 4 09:25:00 Bruno 10:07: [id number] 00 Respiratory CPAP Respirator Resolve 2019-01-03 Blaire treatments y d 4-02 09:25:00 Bruno in home 10:07: [id number] 00 Respiratory smoker Respirator Resolve 2019-01-03 Blaire y d 4-02 09:25:00 Bruno 10:07: [id number] 00 Nutrition nutritional Nutrition Resolve 2019-01-03 Blaire restriction d 12-27 09:25:00 Bruno s 10:07: [id number] 00 Neuro impaired Neuro/Emot Resolve 2019-01-03 Blaire decision-ma ion d 12-27 09:25:00 Bruno rosanne 10:07: [id number] 00 Safety risk for Safety Resolve 2019-01-03 Blaire hospitaliza d 12-27 09:25:00 Bruno tion 10:07: [id number] 00 Neuro memory Neuro/Emot Unknown Blaire deficit ion - Bruno needing 09:25: [id number] supervision 00 Respiratory dyspnea Respirator Resolve 2019-03-28 Blaire present y d 01-10 09:06:00 Bruno 09:27: [id number] 00 Respiratory knowledge/s Respirator Resolve 2019-03-07 Blaire kill y d 01-10 09:45:00 Bruno deficit: pt 09:27: [id number] 00 Respiratory lung sounds Respirator Resolve 2019-03-07 Blaire deficit y d 01-10 09:45:00 Bruno 09:27: [id number] 00 Respiratory smoker Respirator Resolve 2019-03-07 Blaire y d 01-10 09:45:00 Bruno 09:27: [id number] 00 Nutrition nutritional Nutrition Resolve 2019-02-07 Blaire restriction d 01-10 09:39:00 Bruno s 09:27: [id number] 00 Neuro impaired Neuro/Emot Unknown Blaire decision-ma ion 01-10 Bruno rosanne 09:27: [id number] 00 Neuro memory Neuro/Emot Unknown Blaire deficit ion 01-10 Bruno needing 09:27: [id number] supervision 00 Safety fall risk Safety Resolve 2019-02-07 Blaire factor d 01-10 09:39:00 Bruno present 09:27: [id number] 00 Safety risk for Safety Resolve 2019-02-07 Blaire hospitaliza d 01-10 09:39:00 Bruno tion 09:27: [id number] 00 Respiratory oxygen Respirator Resolve 2019-03-28 Elissa treatments y d 01-24 09:06:00 Barbara in home 09:00: [facility] 00 [id number] Respiratory nebulizer Respirator Resolve 2019-03-28 Elissa treatment y d 4-30 09:06:00 Barbara in home 09:00: [employer] 00 [id number] Respiratory asthma Respirator Resolve 2019-03-28 Consuelo y d 5- 09:06:00 [place] 11:00: 00 Elimination urinary Eliminatio Resolve 2019-02-07 Elissa incontinenc n d 01-31 09:39:00 Barbara e 08:30: [employer] 00 [id number] Nutrition nutritional Nutrition Resolve 2019-03-07 Elissa restriction d 02-14 09:45:00 Barbara s 08:13: [employer] 00 [id number] Safety risk for Safety Resolve 2019-03-07 Elissa hospitaliza d 02-14 09:45:00 Barbara tion 08:13: [employer] 00 [id number] Respiratory lung sounds Respirator Resolve 2019-03-09 Blaire deficit y d 6-13 14:06:00 Bruno 14:06: [id number] 00 Respiratory smoker Respirator Resolve 2019-03-09 Blaire y d 613 14:06:00 Bruno 14:06: [id number] 00 Nutrition nutritional Nutrition Resolve 2019-03-28 Blaire restriction d 6-13 09:06:00 Bruno s 14:06: [id number] 00 Safety safety Safety Resolve 2019-03-28 Blaire hazards d 6-13 09:06:00 Bruno present 14:06: [id number] 00 Safety fall risk Safety Resolve 2019-03-28 Blaire factor d 6-13 09:06:00 Bruno present 14:06: [id number] 00 Safety risk for Safety Resolve 2019-03-28 Blaire hospitaliza d 6-13 09:06:00 Bruno tion 14:06: [id number] 00 Medication potential Meds Resolve 2019-03-09 Blaire clinically d 6-13 14:06:00 Bruno significant 14:06: [id number] medication 00 issue Respiratory lung sounds Respirator Resolve 2019-03-28 Elissa deficit y d 6-18 09:06:00 Barbara 07:45: [employer] 00 [id number] Respiratory lung sounds Respirator Resolve 2019-04-25 Elissa deficit y d 04-04 09:45:00 Barbara 08:00: [employer] 00 [id number] Nutrition nutritional Nutrition Resolve 2019-04-25 Elissa restriction d 04-04 09:45:00 Barbara s 08:00: [employer] 00 [id number] Safety risk for Safety Resolve 2019-04-25 [facility] 09:45[facility]00 Barbara tion 08:00: [employer] 00 [id number] Neuro anxiety Neuro/Emot Resolve 2019-04-25 Blaire present ion d 04-25 09:45:00 Bruno 09:45: [id number] 00 Safety risk for Safety Resolve 2019-05-09 [facility] 12:05:00 Barbara tion 08:15: [employer] 00 [id number] Respiratory lung sounds Respirator Resolve 2019-05-30 Blaire deficit y d 05-09 08:38:00 Bruno 12:05: [id number] 00 Medication injectable Meds Resolve 2019-05-30 Blaire med d 05-09 08:38:00 Bruno assistance 12:05: [id number] required 00 Safety risk for Safety Resolve 2019-05-30 Elissa [facility] d 05-16 08:38:00 Barbara tion 08:02: [employer] 00 [id number] Neuro impaired Neuro/Emot Resolve 2019-05-30 Blaire decision-ma ion d 05-30 08:38:00 Bruno rosanne 08:38: [id number] 00 Neuro memory Neuro/Emot Resolve 2019-05-30 Blaire deficit ion d 05-30 08:38:00 Bruno needing 08:38: [id number] supervision 00 Safety risk for Safety Resolve 2019-06-27 [facility] 08:40:00 Barbara tion 07:56: [employer] 00 [id number] Respiratory lung sounds Respirator Resolve 2019-06-27 Elissa deficit y d 06-13 08:40:00 Barbara 07:30: [employer] 00 [id number] Respiratory nebulizer Respirator Resolve 2018-092019-06-27 Blaire treatment y d 0-01 08:40:00 Bruno in home 08:40: [id number] 00 Elimination urinary Eliminatio Resolve 2018-092019-07-11 Elissa incontinenc n d 0-08 10:13:00 Barbara e 08:00: [employer] 00 [id number] Safety risk for Safety Resolve 2018-092019-08-07 Elissa hospitaliza d 0-08 12:15:00 Barbara tion 08:00: [employer] 00 [id number] Respiratory oxygen Respirator Active 2018-09 Blaire treatments y 0-15 Bruno in home 10:13: [id number] 00 Respiratory nebulizer Respirator Active 2018-09 Blaire treatment y 0-15 Bruno in home 10:13: [id number] 00 Respiratory lung sounds Respirator Resolve 2018-092019-07-11 Blaire deficit y d 0-15 10:13:00 Bruno 10:13: [id number] 00 Neuro anxiety Neuro/Emot Resolve 2018-092019-08-07 Blaire present ion d 0-15 12:15:00 Bruno 10:13: [id number] 00 Neuro impaired Neuro/Emot Unknown 2018-09 Blaire decision-ma ion 0-15 Bruno rosanne 10:13: [id number] 00 Safety safety Safety Resolve 2018-092019-08-07 Blaire hazards d 0-15 12:15:00 Bruno present 10:13: [id number] 00 Safety fall risk Safety Resolve 2018-092019-08-07 Blaire factor d 0-15 12:15:00 Bruno present 10:13: [id number] 00 Medication injectable Meds Resolve 2018-092019-08-07 Blaire med d 0-15 12:15:00 Bruno assistance 10:13: [id number] required 00 Medication oral med Meds Resolve 2018-092019-08-07 Blaire assistance d 0-15 12:15:00 Bruno required 10:13: [id number] 00 Respiratory lung sounds Respirator Resolve 2018-092019-08-07 Blaire deficit y d 1-11 12:15:00 Bruno 12:15: [id number] 00 Elimination urinary Eliminatio Active 2018-09 Elissa incontinenc n 10-15 Barbara e 08:00: [employer] 00 [id number] Safety risk for Safety Active 2018-09 Elissa hospitaliza 10-15 Barbara tion 08:00: [employer] 00 [id number] Nutrition nutritional Nutrition Active 2018-09 Rosamaria restriction 10-26 Trista s 10:55: RN 00 Allergies, Adverse Reactions, Alerts Allergy Name Allergy Status Severity Reaction(s) Onset Inactive Treating Comments Type Date Date Clinician sulfa Unknown Active Mild to Rash Elissa Moderate 5- Jessica [id number] aspirin Base Active Moderate Hives Elissa Ingredient 5- [place] [id number] penicillin G Base Active Moderate Difficulty Elissa Ingredient to Severe swallowing 01-25 Jessica [id number] Medications Ordered Filled Start Stop Current Ordering [...] mg Unknown 10 mg 10 mg 01-18 MD,Kalus tablet tablet Latuda 120 Latuda 120 No [...] Unknown Unknown sulfate 2.5 sulfate 2.5 4 ,Klaus mg/3 mL mg/3 mL (0.083 %) (0.083 [...] Observation Time Observation Value Comments SYSTOLIC mm[Hg] 2019-08-26 18:09:07 140 mm[Hg] mm[Hg] Method: Sit SYSTOLIC mm[Hg] 2019-05-11 18:07:20 104 mm[Hg] mm[Hg] Method: Stand DIASTOLIC mm[Hg] 2019-08-26 18:09:07 82 mm[Hg] mm[Hg] Method: Sit DIASTOLIC mm[Hg] 2019-05-11 18:07:20 59 mm[Hg] mm[Hg] Method: Stand PULSE 2019-08-26 18:09:07 78 /min /min RESP RATE 2019-08-26 18:09:07 16 /min /min TEMP 2019-08-26 18:09:07 98.3 [degF] Procedures This patient has no known procedures. Results This patient has no known results.
--- OUTSIDE RECORDS SUMMARY | 2019-10-07 18:11 | XMS REPORT ---
:1960 Author Organization [facility] Care Team Providers Name Role Phone Unavailable Unavailable Unavailable Problems Condition Condition Condition Status Onset Resolution Last Treating Comments Name Details Category Date Date Treatment Clinician Date Pain frequent Pain Mgmt Resolve 2018-11-09 Elissa pain d 01-18 08:50:00 Jessica 13:00: [id number] 00 Pain knowledge/s Pain Mgmt Resolve 2018-05-13 Elissa kill d 01-18 11:18:00 Shallowater deficit: pt 13:00: [id number] 00 Cardio knowledge/s Cardiovasc Resolve 2018-06-07 Elissa kill ular d 01-18 15:30:00 Shallowater deficit: pt 13:00: [id number] 00 Respiratory oxygen Respirator Resolve 2018-07-05 Elissa treatments y d 01-18 09:20:00 Jessica in home 13:00: [id number] 00 Respiratory nebulizer Respirator Resolve 2018-07-05 Elissa treatment y d 01-18 09:20:00 Jessica in home 13:00: [id number] 00 Respiratory dyspnea Respirator Resolve 2018-07-05 Elissa present y d 01-18 09:20:00 Sh[place] 13:00: [id number] 00 Endo/Derek anti-coagul Endo/Derek Resolve 2018-07-12 Elissa ation d 01-18 09:48:00 Jessica therapy 13:00: [id number] 00 Nutrition nutritional Nutrition Resolve 2018-04-12 Elissa restriction d 01-18 10:11:00 Shallowater s 13:00: [id number] 00 Elimination urinary Eliminatio Resolve 2018-05-13 Elissa frequency n d 01-18 11:18:00 Jessica 13:00: [id number] 00 Neuro impaired Neuro/Emot Resolve 2018-08-09 Elissa goldman-will ion d 01-18 08:44:00 Jessica rosanne 13:00: [id number] 00 Activity ADL Activity Resolve 2018-04-12 Adia assistance d 01-18 10:11:00 Guidelli required 13:00: [id number] 00 Safety risk for Safety Resolve 2018-05-13 Elissa hospitaliza d 01-18 11:18:00 [place] tion 13:00: [id number] 00 Safety can be left Safety Resolve 2018-05-13 Elissa strong for d 01-18 11:18:00 Shallowater only short 13:00: [id number] 00 Safety fall risk Safety Resolve 2018-05-13 Elissa factor d 01-18 11:18:00 Jessica present 13:00: [id number] 00 Medication knowledge/s Meds Resolve 2018-06-07 Elissa kill d 01-18 15:30:00 Jessica deficit: pt 13:00: [id number] 00 Medication oral med Meds Resolve 2018-06-07 Elissa assistance d 01-18 15:30:00 Sh[place] required 13:00: [id number] 00 Medication injectable Meds Resolve 2018-06-07 Elissa med d 01-18 15:30:00 Sh[place] assistance 13:00: [id number] required 00 Medication potential Meds Resolve 2018-06-07 Elissa clinically d 01-18 15:30:00 Jessica significant 13:00: [id number] medication 00 issue Diagnoses knowledge/s Diagnoses Active Elissa kill 01-18 Shallowater deficit: pt 13:00: [id number] 00 Musculoskel requires Musculoske Resolve 2018-05-13 Elissa etal human letal d 01-18 11:18:00 Jessica assist to 13:00: [id number] leave home 00 Musculoskel transfer Musculoske Resolve 2018-05-13 Adia etal assistance letal d 01-18 11:18:00 Guidelli required 13:00: [id number] 00 Respiratory lung sounds Respirator Resolve 2018-07-05 Elissa deficit y d 01-25 09:20:00 Jessica 16:00: [id number] 00 Safety knowledge/s Safety Resolve 2018-05-13 Elissa kill d 01-25 11:18:00 Shallowater deficit: pt 16:00: [id number] 00 Elimination constipatio Eliminatio Resolve 2018-05-13 Elissa n n d 03-15 11:18:00 Cristal 11:43: [id number] 00 Nutrition nutritional Nutrition Resolve 2018-06-07 Elissa restriction d 05-13 15:30:00 Cristal s 11:18: [id number] 00 Respiratory smoker Respirator Resolve 2018-07-05 Elissa y d 06-07 09:20:00 Cristal 15:30: [id number] 00 Elimination urinary Eliminatio Resolve 2018-06-07 Elissa frequency n d 06-07 15:30:00 Cristal 15:30: [id number] 00 Safety knowledge/s Safety Active Elissa kill 06-07 Cristal deficit: pt 15:30: [id number] 00 Safety risk for Safety Resolve 2018-07-05 Elissa hospitaliza d 06-07 09:20:00 Cristal tion 15:30: [id number] 00 [facility] for [facility] 14:[facility]: [id number] 00 Respiratory dyspnea Respirator Resolve 2017-092018-08-09 Blaire present y d 0-16 08:44:00 Bruno 09:48: [id number] 00 Respiratory lung sounds Respirator Resolve 2017-092018-08-09 Blaire deficit y d 0-16 08:44:00 Bruno 09:48: [id number] 00 Safety risk for Safety Resolve 2017-092018-08-09 Blaire hospitaliza d 0-16 08:44:00 Bruno tion 09:48: [id number] 00 Respiratory oxygen Respirator Resolve 2017-092018-08-09 Blaire treatments y d 1- 08:44:00 Bruno in home 08:44: [id number] 00 Respiratory nebulizer Respirator Resolve 2017-092018-08-09 Blaire treatment y d 10-09 08:44:00 Bruno in home 08:44: [id number] 00 Neuro anxiety Neuro/Emot Resolve 2017-092018-08-09 Balire present ion d 10-09 08:44:00 Bruno 08:44: [id number] 00 Safety risk for Safety Resolve 2017-092018-08-30 [facility] hospital[facility] d 10-16 09:20:00 Morrow tion 10:46: [id number] 00 Respiratory oxygen Respirator Resolve 2017-092018-09-13 Blaire treatments y d 10-31 09:53:00 Bruno in home 09:20: [id number] 00 Respiratory lung sounds Respirator Resolve 2017-092018-09-13 Blaire deficit y d 10-31 09:53:00 Bruno 09:20: [id number] 00 Respiratory smoker Respirator Resolve 2017-092018-09-13 Blaire y d 10-31 09:53:00 Bruno 09:20: [id number] 00 Respiratory nebulizer Respirator Resolve 2017-092018-09-13 Blaire treatment y d 10-31 09:53:00 Bruno in home 09:20: [id number] 00 Endo/Derek anti-coagul Endo/Derek Resolve 2017-092018-09-13 Blaire ation d 10-31 09:53:00 Bruno therapy 09:20: [id number] 00 Neuro anxiety Neuro/Emot Resolve 2017-092018-09-13 Blaire present ion d 10-31 09:53:00 Bruno 09:20: [id number] 00 Safety safety Safety Resolve 2017-092018-08-30 Blaire hazards d 10-31 09:20:00 Bruno present 09:20: [id number] 00 Safety risk for Safety Resolve 2017-092018-09-13 Arin hospitaliza d 11-07 09:53:00 Carrier RN tion 10:00: 00 Respiratory dyspnea Respirator Resolve 2017-092018-09-13 Blaire present y d 11-14 09:53:00 Bruno 09:53: [id number] 00 Safety risk for Safety Resolve 2017-092018-09-26 [facility] d 11-20 09:45:00 Morrow tion 10:00: [id number] 00 Respiratory dyspnea Respirator Resolve 2017-092019-01-03 Blaire present y d 09:25:00 Bruno 09:45: [id number] 00 Respiratory oxygen Respirator Resolve 2017-092019-01-03 Blaire treatments y d 09:25:00 Bruno in home 09:45: [id number] 00 Respiratory lung sounds Respirator Resolve 2017-092018-10-25 Blaire deficit y d 09:26:00 Bruno 09:45: [id number] 00 Respiratory smoker Respirator Resolve 2017-092018-09-26 Blaire y d 09:45:00 Bruno 09:45: [id number] 00 Respiratory nebulizer Respirator Resolve 2017-092019-01-03 Blaire treatment y d 09:25:00 Bruno in home 09:45: [id number] 00 Medication oral med Meds Resolve 2017-092019-03-09 Blaire assistance d 14:06:00 Bruno required 09:45: [id number] 00 Medication injectable Meds Resolve 2017-092019-03-09 Blaire med d 14:06:00 Bruno assistance 09:45: [id number] required 00 Nutrition nutritional Nutrition Resolve 2018-11-09 Jazz restriction d 1 08:50:00 Morrow s 12:19: [id number] 00 Safety risk for Safety Resolve 2018-10-25 [facility] hospitaliza d 1 09:26:00 Morrow tion 12:19: [id number] 00 Respiratory lung sounds Respirator Resolve 2018-11-09 Jazz deficit y d 11-01 08:50:00 Morrow 10:20: [id number] 00 Safety risk for Safety Resolve 2018-11-09 [facility] hospitaliza d 11-01 08:50:00 Morrow tion 10:20: [id number] 00 Respiratory smoker Respirator Resolve 2018-12-20 Blaire y d 11-09 09:22:00 Bruno 08:50: [id number] 00 Neuro anxiety Neuro/Emot Resolve 2018-11-09 Blaire present ion d 11-09 08:50:00 Bruno 08:50: [id number] 00 Nutrition nutritional Nutrition Resolve 2018-12-06 Jazz restriction d 11-15 10:45:00 Morrow s 11:00: [id number] 00 Safety risk for Safety Resolve 2018-12-06 [facility] hospitaliza d 11-15 10:45:00 Morrow tion 11:00: [id number] 00 Respiratory lung sounds Respirator Resolve 2018-12-20 Blaire deficit y d 12-06 09:22:00 Bruno 10:45: [id number] 00 Respiratory pneumonia Respirator Resolve 2018-12-20 Blaire y d 12-06 09:22:00 Bruno 10:45: [id number] 00 Respiratory asthma Respirator Resolve 2019-01-03 Blaire y d 12-06 09:25:00 Bruno 10:45: [id number] 00 Nutrition nutritional Nutrition Resolve 2018-12-20 Blaire restriction d 12-13 09:22:00 Bruno s 09:45: [id number] 00 Safety risk for Safety Resolve 2018-12-20 Blaire hospitaliza d 12-13 09:22:00 Bruno tion 09:45: [id number] 00 Safety safety Safety Resolve 2018-12-20 Blaire hazards d 12-20 09:22:00 Bruno present 09:22: [id number] 00 Respiratory knowledge/s Respirator Resolve 2019-01-03 Blaire kill y d 12-27 09:25:00 Bruno deficit: pt 10:07: [id number] 00 Respiratory lung sounds Respirator Resolve 2019-01-03 Blaire deficit y d 4 09:25:00 Bruno 10:07: [id number] 00 Respiratory CPAP Respirator Resolve 2019-01-03 Blaire treatments y d 4-02 09:25:00 Bruno in home 10:07: [id number] 00 Respiratory smoker Respirator Resolve 2019-01-03 Blaire y d 4-02 09:25:00 Bruno 10:07: [id number] 00 Nutrition nutritional Nutrition Resolve 2019-01-03 Blaire restriction d 12-27 09:25:00 Bruno s 10:07: [id number] 00 Neuro impaired Neuro/Emot Resolve 2019-01-03 Blaire decision-ma ion d 12-27 09:25:00 Bruno rosanne 10:07: [id number] 00 Safety risk for Safety Resolve 2019-01-03 Blaire hospitaliza d 12-27 09:25:00 Bruno tion 10:07: [id number] 00 Neuro memory Neuro/Emot Unknown Blaire deficit ion - Bruno needing 09:25: [id number] supervision 00 Respiratory dyspnea Respirator Resolve 2019-03-28 Blaire present y d 01-10 09:06:00 Bruno 09:27: [id number] 00 Respiratory knowledge/s Respirator Resolve 2019-03-07 Blaire kill y d 01-10 09:45:00 Bruno deficit: pt 09:27: [id number] 00 Respiratory lung sounds Respirator Resolve 2019-03-07 Blaire deficit y d 01-10 09:45:00 Bruno 09:27: [id number] 00 Respiratory smoker Respirator Resolve 2019-03-07 Blaire y d 01-10 09:45:00 Bruno 09:27: [id number] 00 Nutrition nutritional Nutrition Resolve 2019-02-07 Blaire restriction d 01-10 09:39:00 Bruno s 09:27: [id number] 00 Neuro impaired Neuro/Emot Unknown Blaire decision-ma ion 01-10 Bruno rosanne 09:27: [id number] 00 Neuro memory Neuro/Emot Unknown Blaire deficit ion 01-10 Bruno needing 09:27: [id number] supervision 00 Safety fall risk Safety Resolve 2019-02-07 Blaire factor d 01-10 09:39:00 Bruno present 09:27: [id number] 00 Safety risk for Safety Resolve 2019-02-07 Blaire hospitaliza d 01-10 09:39:00 Bruno tion 09:27: [id number] 00 Respiratory oxygen Respirator Resolve 2019-03-28 Elissa treatments y d 01-24 09:06:00 Barbara in home 09:00: [facility] 00 [id number] Respiratory nebulizer Respirator Resolve 2019-03-28 Elissa treatment y d 4-30 09:06:00 Barbara in home 09:00: [employer] 00 [id number] Respiratory asthma Respirator Resolve 2019-03-28 Consuelo y d 5- 09:06:00 Vallely 11:00: 00 Elimination urinary Eliminatio Resolve 2019-02-07 Elissa incontinenc n d 01-31 09:39:00 Barbara e 08:30: [employer] 00 [id number] Nutrition nutritional Nutrition Resolve 2019-03-07 Elissa restriction d 02-14 09:45:00 Barbara s 08:13: [employer] 00 [id number] Safety risk for Safety Resolve 2019-03-07 Elissa hospitaliza d 02-14 09:45:00 Barbara tion 08:13: [employer] 00 [id number] Respiratory lung sounds Respirator Resolve 2019-03-09 Blaire deficit y d 6-13 14:06:00 Bruno 14:06: [id number] 00 Respiratory smoker Respirator Resolve 2019-03-09 Blaire y d 613 14:06:00 Bruno 14:06: [id number] 00 Nutrition nutritional Nutrition Resolve 2019-03-28 Blaire restriction d 6-13 09:06:00 Bruno s 14:06: [id number] 00 Safety safety Safety Resolve 2019-03-28 Blaire hazards d 6-13 09:06:00 Bruno present 14:06: [id number] 00 Safety fall risk Safety Resolve 2019-03-28 Blaire factor d 6-13 09:06:00 Bruno present 14:06: [id number] 00 Safety risk for Safety Resolve 2019-03-28 Blaire hospitaliza d 6-13 09:06:00 Bruno tion 14:06: [id number] 00 Medication potential Meds Resolve 2019-03-09 Blaire clinically d 6-13 14:06:00 Bruno significant 14:06: [id number] medication 00 issue Respiratory lung sounds Respirator Resolve 2019-03-28 Elissa deficit y d 6-18 09:06:00 Barbara 07:45: [employer] 00 [id number] Respiratory lung sounds Respirator Resolve 2019-04-25 Elissa deficit y d 04-04 09:45:00 Barbara 08:00: [employer] 00 [id number] Nutrition nutritional Nutrition Resolve 2019-04-25 Elissa restriction d 04-04 09:45:00 Barbara s 08:00: [employer] 00 [id number] Safety risk for Safety Resolve 2019-04-25 [facility] 09:45:00 Barbara tion 08:00: [employer] 00 [id number] Neuro anxiety Neuro/Emot Resolve 2019-04-25 Blaire present ion d 04-25 09:45:00 Bruno 09:45: [id number] 00 Safety risk for Safety Resolve 2019-05-09 [facility] 12:05:00 Barbara tion 08:15: [employer] 00 [id number] Respiratory lung sounds Respirator Resolve 2019-05-30 Blaire deficit y d 05-09 08:38:00 Bruno 12:05: [id number] 00 Medication injectable Meds Resolve 2019-05-30 Blaire med d 05-09 08:38:00 Bruno assistance 12:05: [id number] required 00 Safety risk for Safety Resolve 2019-05-30 Elissa [facility] d 05-16 08:38:00 Barbara tion 08:02: [employer] 00 [id number] Neuro impaired Neuro/Emot Resolve 2019-05-30 Blaire decision-ma ion d 05-30 08:38:00 Bruno rosanne 08:38: [id number] 00 Neuro memory Neuro/Emot Resolve 2019-05-30 Blaire deficit ion d 05-30 08:38:00 Bruno needing 08:38: [id number] supervision 00 Safety risk for Safety Resolve 2019-06-27 [facility] 08:40:00 Barbara tion 07:56: [employer] 00 [id number] Respiratory lung sounds Respirator Resolve 2019-06-27 Elissa deficit y d 06-13 08:40:00 Barbara 07:30: [employer] 00 [id number] Respiratory nebulizer Respirator Resolve 2018-092019-06-27 Blaire treatment y d 0-01 08:40:00 Bruno in home 08:40: [id number] 00 Elimination urinary Eliminatio Resolve 2018-092019-07-11 Elissa incontinenc n d 0-08 10:13:00 Barbara e 08:00: [employer] 00 [id number] Safety risk for Safety Resolve 2018-092019-08-07 Elissa hospitaliza d 0-08 12:15:00 Barbara tion 08:00: [employer] 00 [id number] Respiratory oxygen Respirator Active 2018-09 Blaire treatments y 0-15 Bruno in home 10:13: [id number] 00 Respiratory nebulizer Respirator Active 2018-09 Blaire treatment y 0-15 Bruno in home 10:13: [id number] 00 Respiratory lung sounds Respirator Resolve 2018-092019-07-11 Blaire deficit y d 0-15 10:13:00 Bruno 10:13: [id number] 00 Neuro anxiety Neuro/Emot Resolve 2018-092019-08-07 Blaire present ion d 0-15 12:15:00 Bruno 10:13: [id number] 00 Neuro impaired Neuro/Emot Unknown 2018-09 Blaire decision-ma ion 0-15 Bruno rosanne 10:13: [id number] 00 Safety safety Safety Resolve 2018-092019-08-07 Blaire hazards d 0-15 12:15:00 Bruno present 10:13: [id number] 00 Safety fall risk Safety Resolve 2018-092019-08-07 Blaire factor d 0-15 12:15:00 Bruno present 10:13: [id number] 00 Medication injectable Meds Resolve 2018-092019-08-07 Blaire med d 0-15 12:15:00 Bruno assistance 10:13: [id number] required 00 Medication oral med Meds Resolve 2018-092019-08-07 Blaire assistance d 0-15 12:15:00 Bruno required 10:13: [id number] 00 Respiratory lung sounds Respirator Resolve 2018-092019-08-07 Blaire deficit y d 1-11 12:15:00 Bruno 12:15: [id number] 00 Elimination urinary Eliminatio Active 2018-09 Elissa incontinenc n 10-15 Barbara e 08:00: [employer] 00 [id number] Safety risk for Safety Active 2018-09 Elissa hospitaliza 10-15 Barbara tion 08:00: [employer] 00 [id number] Nutrition nutritional Nutrition Active 2018-09 Rosamaria restriction 10-26 Trista s 10:55: RN 00 Allergies, Adverse Reactions, Alerts Allergy Name Allergy Status Severity Reaction(s) Onset Inactive Treating Comments Type Date Date Clinician sulfa Unknown Active Mild to Rash Elissa Moderate 5- Jessica [id number] aspirin Base Active Moderate Hives Elissa Ingredient 5- Shallowater [id number] penicillin G Base Active Moderate Difficulty Elissa Ingredient to Severe swallowing 01-25 Jessica [id number] Medications Ordered Filled Start Stop Current Ordering [...]
--- OUTSIDE RECORDS SUMMARY | 2019-10-07 18:11 | XMS REPORT ---
:1960 Author [facility] Care Team Providers Name Role Phone Unavailable Unavailable Unavailable Problems Condition Condition Condition Status Onset Resolution Last Treating Comments Name Details Category Date Date Treatment Clinician Date Pain frequent Pain Mgmt Resolve 2018-11-09 Elissa pain d 01-18 08:50:00 Jessica 13:00: [id number] 00 Pain knowledge/s Pain Mgmt Resolve 2018-05-13 Elissa kill d 01-18 11:18:00 [place] deficit: pt 13:00: [id number] 00 Cardio knowledge/s Cardiovasc Resolve 2018-06-07 Elissa kill ular d 01-18 15:30:00 [place] deficit: pt 13:00: [id number] 00 Respiratory oxygen Respirator Resolve 2018-07-05 Elissa treatments y d 01-18 09:20:00 [place] in home 13:00: [id number] 00 Respiratory nebulizer Respirator Resolve 2018-07-05 Elissa treatment y d 01-18 09:20:00 Jessica in home 13:00: [id number] 00 Respiratory dyspnea Respirator Resolve 2018-07-05 Elissa present y d 01-18 09:20:00 [place] 13:00: [id number] 00 Endo/Derek anti-coagul Endo/Derek Resolve 2018-07-12 Elissa ation d 01-18 09:48:00 Jessica therapy 13:00: [id number] 00 Nutrition nutritional Nutrition Resolve 2018-04-12 Elissa restriction d 01-18 10:11:00 [place] s 13:00: [id number] 00 Elimination urinary Eliminatio Resolve 2018-05-13 Elissa frequency n d 01-18 11:18:00 Jessica 13:00: [id number] 00 Neuro impaired Neuro/Emot Resolve 2018-08-09 Elissa goldman-will ion d 01-18 08:44:00 Jessica rosanne 13:00: [id number] 00 Activity ADL Activity Resolve 2018-04-12 Adia assistance d 01-18 10:11:00 [place] required 13:00: [id number] 00 Safety risk for Safety Resolve 2018-05-13 Elissa hospitaliza d 01-18 11:18:00 Jessica tion 13:00: [id number] 00 Safety can be left Safety Resolve 2018-05-13 Elissa strong for d 01-18 11:18:00 Jessica only short 13:00: [id number] 00 Safety fall risk Safety Resolve 2018-05-13 Elissa factor d 01-18 11:18:00 Jessica present 13:00: [id number] 00 Medication knowledge/s Meds Resolve 2018-06-07 Elissa kill d 01-18 15:30:00 [place] deficit: pt 13:00: [id number] 00 Medication oral med Meds Resolve 2018-06-07 Elissa assistance d 01-18 15:30:00 [place] required 13:00: [id number] 00 Medication injectable Meds Resolve 2018-06-07 Elissa med d 01-18 15:30:00 [place] assistance 13:00: [id number] required 00 Medication potential Meds Resolve 2018-06-07 Elissa clinically d 01-18 15:30:00 Jessica significant 13:00: [id number] medication 00 issue Diagnoses knowledge/s Diagnoses Active Elissa kill 01-18 [place] deficit: pt 13:00: [id number] 00 Musculoskel requires Musculoske Resolve 2018-05-13 Elissa etal human letal d 01-18 11:18:00 [place] assist to 13:00: [id number] leave home 00 Musculoskel transfer Musculoske Resolve 2018-05-13 Adia etal assistance letal d 01-18 11:18:00 [place] required 13:00: [id number] 00 Respiratory lung sounds Respirator Resolve 2018-07-05 Elissa deficit y d 01-25 09:20:00 [place] 16:00: [id number] 00 Safety knowledge/s Safety Resolve 2018-05-13 Elissa kill d 01-25 11:18:00 [place] deficit: pt 16:00: [id number] 00 Elimination constipatio Eliminatio Resolve 2018-05-13 Elissa n n d 03-15 11:18:00 Cristal 11:43: [id number] 00 Nutrition nutritional Nutrition Resolve 2018-06-07 Elissa restriction d 05-13 15:30:00 Cristal s 11:18: [id number] 00 Respiratory smoker Respirator Resolve 2018-07-05 Elissa y d 06-07 09:20:00 Cristal 15:30: [id number] 00 Elimination urinary Eliminatio Resolve 2018-06-07 Elissa frequency n d 06-07 15:30:00 Cristal 15:30: [id number] 00 Safety knowledge/s Safety Active Elissa kill 06-07 Cristal deficit: pt 15:30: [id number] 00 Safety risk for Safety Resolve 2018-07-05 Elissa hospitaliza d 06-07 09:20:00 Cristal tion 15:30: [id number] 00 Safety risk for [facility] [place] [facility] 14:00: [id number] 00 Respiratory dyspnea Respirator Resolve 2017-092018-08-09 Blaire present y d 0-16 08:44:00 [place] 09:48: [id number] 00 Respiratory lung sounds Respirator Resolve 2017-092018-08-09 [place] deficit y d 0-16 08:44:00 Bruno 09:48: [id number] 00 Safety risk for Safety Resolve 2017-092018-08-09 Blaire hospitaliza d 0-16 08:44:00 Bruno tion 09:48: [id number] 00 Respiratory oxygen Respirator Resolve 2017-092018-08-09 [place] treatments y d 1- 08:44:00 Bruno in home 08:44: [id number] 00 Respiratory nebulizer Respirator Resolve 2017-092018-08-09 [place] treatment y d 10-09 08:44:00 Bruno in home 08:44: [id number] 00 Neuro anxiety Neuro/Emot Resolve 2017-092018-08-09 Blaire present ion d 10-09 08:44:00 Bruno 08:44: [id number] 00 Safety risk for Safety Resolve 2017-092018-08-30 [facility] hospitaliza d 10-16 09:20:00 [place] tion 10:46: [id number] 00 Respiratory oxygen Respirator Resolve 2017-092018-09-13 Blaire treatments y d 10-31 09:53:00 Bruno in home 09:20: [id number] 00 Respiratory lung sounds Respirator Resolve 2017-092018-09-13 [place] deficit y d 10-31 09:53:00 Bruno 09:20: [id number] 00 Respiratory smoker Respirator Resolve 2017-092018-09-13 Blaire y d 10-31 09:53:00 Bruno 09:20: [id number] 00 Respiratory nebulizer Respirator Resolve 2017-092018-09-13 Blaire treatment y d 10-31 09:53:00 Bruno in home 09:20: [id number] 00 Endo/Derek anti-coagul Endo/Derek Resolve 2017-092018-09-13 Blaire ation d 10-31 09:53:00 Bruno therapy 09:20: [id number] 00 Neuro anxiety Neuro/Emot Resolve 2017-092018-09-13 Blaire present ion d 10-31 09:53:00 Bruno 09:20: [id number] 00 Safety safety Safety Resolve 2017-092018-08-30 Blaire hazards d 10-31 09:20:00 Bruno present 09:20: [id number] 00 Safety risk for Safety Resolve 2017-092018-09-13 Arin hospitaliza d 11-07 09:53:00 Carrier RN tion 10:00: 00 Respiratory dyspnea Respirator Resolve 2017-092018-09-13 Blaire present y d 11-14 09:53:00 Bruno 09:53: [id number] 00 Safety risk for Safety Resolve 2017-092018-09-26 [facility] hospital[facility] d 11-20 09:45:00 [place] tion 10:00: [id number] 00 Respiratory dyspnea Respirator Resolve 2017-092019-01-03 Blaire present y d 09:25:00 Bruno 09:45: [id number] 00 Respiratory oxygen Respirator Resolve 2017-092019-01-03 Blaire treatments y d 09:25:00 Bruno in home 09:45: [id number] 00 Respiratory lung sounds Respirator Resolve 2017-092018-10-25 [place] deficit y d 09:26:00 Bruno 09:45: [id number] 00 Respiratory smoker Respirator Resolve 2017-092018-09-26 Blaire y d 09:45:00 Bruno 09:45: [id number] 00 Respiratory nebulizer Respirator Resolve 2017-092019-01-03 [facility] treatment y d 09:25:00 [place] in home 09:45: [id number] 00 Medication oral med Meds Resolve 2017-092019-03-09 [place] assistance d 14:06:00 [place] required 09:45: [id number] 00 Medication injectable Meds Resolve 2017-092019-03-09 Blaire med d 14:06:00 Bruno assistance 09:45: [id number] required 00 Nutrition nutritional Nutrition Resolve 2018-11-09 [place] restriction d 1 08:50:00 [place] s 12:19: [id number] 00 Safety risk for Safety Resolve 2018-10-25 [facility] hospital[facility] d 1 09:26:00 [place] tion 12:19: [id number] 00 Respiratory lung sounds Respirator Resolve 2018-11-09 [place] deficit y d 11-01 08:50:00 [place] 10:20: [id number] 00 Safety risk for Safety Resolve 2018-11-09 [facility] hospital[facility] d 11-01 08:50:00 [place] tion 10:20: [id number] 00 Respiratory smoker Respirator Resolve 2018-12-20 Blaire y d 11-09 09:22:00 Bruno 08:50: [id number] 00 Neuro anxiety Neuro/Emot Resolve 2018-11-09 Blaire present ion d 11-09 08:50:00 Bruno 08:50: [id number] 00 Nutrition nutritional Nutrition Resolve 2018-12-06 [place] restriction d 11-15 10:45:00 [place] s 11:00: [id number] 00 Safety risk for Safety Resolve 2018-12-06 [facility] hospital[facility] d 11-15 10:45:00 [place] tion 11:00: [id number] 00 Respiratory lung sounds Respirator Resolve 2018-12-20 [place] deficit y d 12-06 09:22:00 Bruno 10:45: [id number] 00 Respiratory pneumonia Respirator Resolve 2018-12-20 Blaire y d 12-06 09:22:00 Bruno 10:45: [id number] 00 Respiratory asthma Respirator Resolve 2019-01-03 Blaire y d 12-06 09:25:00 Bruno 10:45: [id number] 00 Nutrition nutritional Nutrition Resolve 2018-12-20 Blaire restriction d 12-13 09:22:00 Bruno s 09:45: [id number] 00 Safety risk for Safety Resolve 2018-12-20 [facility] hospitaliza d 12-13 09:22:00 Bruno tion 09:45: [id number] 00 Safety safety Safety Resolve 2018-12-20 Blaire hazards d 12-20 09:22:00 Bruno present 09:22: [id number] 00 Respiratory knowledge/s Respirator Resolve 2019-01-03 Blaire kill y d 12-27 09:25:00 Bruno deficit: pt 10:07: [id number] 00 Respiratory lung sounds Respirator Resolve 2019-01-03 [place] deficit y d 4 09:25:00 Bruno 10:07: [id number] 00 Respiratory CPAP Respirator Resolve 2019-01-03 Blaire treatments y d 4-02 09:25:00 Bruno in home 10:07: [id number] 00 Respiratory smoker Respirator Resolve 2019-01-03 Blaire y d 4-02 09:25:00 Bruno 10:07: [id number] 00 Nutrition nutritional Nutrition Resolve 2019-01-03 Blaire restriction d 12-27 09:25:00 Bruno s 10:07: [id number] 00 Neuro impaired Neuro/Emot Resolve 2019-01-03 Blaire decision-ma ion d 12-27 09:25:00 Bruno rosanne 10:07: [id number] 00 Safety risk for Safety Resolve 2019-01-03 Blaire hospitaliza d 12-27 09:25:00 Bruno tion 10:07: [id number] 00 Neuro memory Neuro/Emot Unknown Blaire deficit ion - Bruno needing 09:25: [id number] supervision 00 Respiratory dyspnea Respirator Resolve 2019-03-28 Blaire present y d 01-10 09:06:00 Bruno 09:27: [id number] 00 Respiratory knowledge/s Respirator Resolve 2019-03-07 Blaire kill y d 01-10 09:45:00 Bruno deficit: pt 09:27: [id number] 00 Respiratory lung sounds Respirator Resolve 2019-03-07 [place] deficit y d 01-10 09:45:00 Bruno 09:27: [id number] 00 Respiratory smoker Respirator Resolve 2019-03-07 Blaire y d 01-10 09:45:00 Bruno 09:27: [id number] 00 Nutrition nutritional Nutrition Resolve 2019-02-07 Blaire restriction d 01-10 09:39:00 Bruno s 09:27: [id number] 00 Neuro impaired Neuro/Emot Unknown Blaire decision-ma ion 01-10 Bruno rosanne 09:27: [id number] 00 Neuro memory Neuro/Emot Unknown Bl[place] deficit ion 01-10 Bruno needing 09:27: [id number] supervision 00 Safety fall risk Safety Resolve 2019-02-07 Blaire factor d 01-10 09:39:00 Bruno present 09:27: [id number] 00 Safety risk for Safety Resolve 2019-02-07 Blaire hospitaliza d 01-10 09:39:00 Bruno tion 09:27: [id number] 00 Respiratory oxygen Respirator Resolve 2019-03-28 Elissa treatments y d 01-24 09:06:00 Barbara in home 09:00: [facility] 00 [id number] Respiratory nebulizer Respirator Resolve 2019-03-28 Elissa treatment y d 4-30 09:06:00 Barbara in home 09:00: [employer] 00 [id number] Respiratory asthma Respirator Resolve 2019-03-28 Consuelo y d 5- 09:06:00 [place] 11:00: 00 Elimination urinary Eliminatio Resolve 2019-02-07 Elissa incontinenc n d 01-31 09:39:00 Barbara e 08:30: [employer] 00 [id number] Nutrition nutritional Nutrition Resolve 2019-03-07 Elissa restriction d 02-14 09:45:00 Barbara s 08:13: [employer] 00 [id number] Safety risk for Safety Resolve 2019-03-07 Elissa hospitaliza d 02-14 09:45:00 Barbara tion 08:13: [employer] 00 [id number] Respiratory lung sounds Respirator Resolve 2019-03-09 Blaire deficit y d 6-13 14:06:00 Bruno 14:06: [id number] 00 Respiratory smoker Respirator Resolve 2019-03-09 Blaire y d 613 14:06:00 Bruno 14:06: [id number] 00 Nutrition nutritional Nutrition Resolve 2019-03-28 Blaire restriction d 6-13 09:06:00 Bruno s 14:06: [id number] 00 Safety safety Safety Resolve 2019-03-28 Blaire hazards d 6-13 09:06:00 Bruno present 14:06: [id number] 00 Safety fall risk Safety Resolve 2019-03-28 Blaire factor d 6-13 09:06:00 Bruno present 14:06: [id number] 00 Safety risk for Safety Resolve 2019-03-28 Blaire hospitaliza d 6-13 09:06:00 Bruno tion 14:06: [id number] 00 Medication potential Meds Resolve 2019-03-09 Blaire clinically d 6-13 14:06:00 Bruno significant 14:06: [id number] medication 00 issue Respiratory lung sounds Respirator Resolve 2019-03-28 Elissa deficit y d 6-18 09:06:00 Barbara 07:45: [employer] 00 [id number] Respiratory lung sounds Respirator Resolve 2019-04-25 Elissa deficit y d 04-04 09:45:00 Barbara 08:00: [employer] 00 [id number] Nutrition nutritional Nutrition Resolve 2019-04-25 Elissa restriction d 04-04 09:45:00 Barbara s 08:00: [employer] 00 [id number] Safety risk for Safety Resolve 2019-04-25 [facility] 09:45:00 Barbara tion 08:00: [employer] 00 [id number] Neuro anxiety Neuro/Emot Resolve 2019-04-25 Blaire present ion d 04-25 09:45:00 Bruno 09:45: [id number] 00 Safety risk for Safety Resolve 2019-05-09 [facility] 05-02 12:05:00 Barbara tion 08:15: [employer] 00 [id number] Respiratory lung sounds Respirator Resolve 2019-05-30 [place] deficit y d 05-09 08:38:00 Bruno 12:05: [id number] 00 Medication injectable Meds Resolve 2019-05-30 Blaire med d 05-09 08:38:00 Bruno assistance 12:05: [id number] required 00 Safety risk for Safety Resolve 2019-05-30 Elissa [facility] d 05-16 08:38:00 Barbara tion 08:02: [employer] 00 [id number] Neuro impaired Neuro/Emot Resolve 2019-05-30 Blaire decision-ma ion d 05-30 08:38:00 Bruno rosanne 08:38: [id number] 00 Neuro memory Neuro/Emot Resolve 2019-05-30 [place] deficit ion d 05-30 08:38:00 Bruno needing 08:38: [id number] supervision 00 Safety risk for Safety Resolve 2019-06-27 [facility] 06-06 08:40:00 Barbara tion 07:56: [employer] 00 [id number] Respiratory lung sounds Respirator Resolve 2019-06-27 Elissa deficit y d 06-13 08:40:00 Barbara 07:30: [employer] 00 [id number] Respiratory nebulizer Respirator Resolve 2018-092019-06-27 Blaire treatment y d 0-01 08:40:00 Bruno in home 08:40: [id number] 00 Elimination urinary Eliminatio Resolve 2018-092019-07-11 Elissa incontinenc n d 0-08 10:13:00 Barbara e 08:00: [employer] 00 [id number] Safety risk for Safety Resolve 2018-092019-08-07 Elissa hospitaliza d 0-08 12:15:00 Barbara tion 08:00: [employer] 00 [id number] Respiratory oxygen Respirator Active 2018-09 Blaire treatments y 0-15 Bruno in home 10:13: [id number] 00 Respiratory nebulizer Respirator Active 2018-09 Blaire treatment y 0-15 Bruno in home 10:13: [id number] 00 Respiratory lung sounds Respirator Resolve 2018-092019-07-11 [place] deficit y d 0-15 10:13:00 Bruno 10:13: [id number] 00 Neuro anxiety Neuro/Emot Resolve 2018-092019-08-07 Blaire present ion d 0-15 12:15:00 Bruno 10:13: [id number] 00 Neuro impaired Neuro/Emot Unknown 2018-09 Blaire decision-ma ion 0-15 Bruno rosanne 10:13: [id number] 00 Safety safety Safety Resolve 2018-092019-08-07 Blaire hazards d 0-15 12:15:00 Bruno present 10:13: [id number] 00 Safety fall risk Safety Resolve 2018-092019-08-07 Blaire factor d 0-15 12:15:00 Bruno present 10:13: [id number] 00 Medication injectable Meds Resolve 2018-092019-08-07 Blaire med d 0-15 12:15:00 Bruno assistance 10:13: [id number] required 00 Medication oral med Meds Resolve 2018-092019-08-07 [place] assistance d 0-15 12:15:00 Bruno required 10:13: [id number] 00 Respiratory lung sounds Respirator Resolve 2018-092019-08-07 [place] deficit y d 1-11 12:15:00 Bruno 12:15: [id number] 00 Elimination urinary Eliminatio Active 2018-09 Elissa incontinenc n 10-15 Barbara e 08:00: [employer] 00 [id number] Safety risk for Safety Active 2018-09 Elissa hospitaliza 10-15 Barbara tion 08:00: [employer] 00 [id number] Nutrition nutritional Nutrition Active 2018-09 Rosamaria restriction 10-26 Trista s 10:55: RN 00 Allergies, Adverse Reactions, Alerts Allergy Name Allergy Status Severity Reaction(s) Onset Inactive Treating Comments Type Date Date Clinician sulfa Unknown Active Mild to Rash Elissa Moderate 5- [place] [id number] aspirin Base Active Moderate Hives Elissa Ingredient 5- [place] [id number] penicillin G Base Active Moderate Difficulty Elissa Ingredient to Severe swallowing 01-25 Jessica [id number] Medications Ordered Filled Start Stop Current Ordering [...]
--- OUTSIDE RECORDS SUMMARY | 2019-10-07 18:12 | XMS REPORT ---
:1960 Author Organization [facility] Care Team Providers Name Role Phone Unavailable Unavailable Unavailable Problems Condition Condition Condition Status Onset Resolution Last Treating Comments Name Details Category Date Date Treatment Clinician Date Pain frequent Pain Mgmt Resolve 2018-11-09 Elissa pain d 01-18 08:50:00 Jessica 13:00: [id number] 00 Pain knowledge/s Pain Mgmt Resolve 2018-05-13 Elissa kill d 01-18 11:18:00 Rio Dell deficit: pt 13:00: [id number] 00 Cardio knowledge/s Cardiovasc Resolve 2018-06-07 Elissa kill ular d 01-18 15:30:00 Rio Dell deficit: pt 13:00: [id number] 00 Respiratory oxygen Respirator Resolve 2018-07-05 Elissa treatments y d 01-18 09:20:00 Rio Dell in home 13:00: [id number] 00 Respiratory nebulizer Respirator Resolve 2018-07-05 Elissa treatment y d 01-18 09:20:00 Jessica in home 13:00: [id number] 00 Respiratory dyspnea Respirator Resolve 2018-07-05 Elissa present y d 01-18 09:20:00 Rio Dell 13:00: [id number] 00 Endo/Derek anti-coagul Endo/Derek Resolve 2018-07-12 Elissa ation d 01-18 09:48:00 Jessica therapy 13:00: [id number] 00 Nutrition nutritional Nutrition Resolve 2018-04-12 Elissa restriction d 01-18 10:11:00 Rio Dell s 13:00: [id number] 00 Elimination urinary Eliminatio Resolve 2018-05-13 Elissa frequency n d 01-18 11:18:00 Jessica 13:00: [id number] 00 Neuro impaired Neuro/Emot Resolve 2018-08-09 Elissa goldman-will ion d 01-18 08:44:00 Jessica rosanne 13:00: [id number] 00 Activity ADL Activity Resolve 2018-04-12 Adia assistance d 01-18 10:11:00 Guidelli required 13:00: [id number] 00 Safety risk for Safety Resolve 2018-05-13 Elissa hospitaliza d 01-18 11:18:00 Jessica tion 13:00: [id number] 00 Safety can be left Safety Resolve 2018-05-13 Elissa strong for d 01-18 11:18:00 Jessica only short 13:00: [id number] 00 Safety fall risk Safety Resolve 2018-05-13 Elissa factor d 01-18 11:18:00 Jessica present 13:00: [id number] 00 Medication knowledge/s Meds Resolve 2018-06-07 Elissa kill d 01-18 15:30:00 Rio Dell deficit: pt 13:00: [id number] 00 Medication oral med Meds Resolve 2018-06-07 Elissa assistance d 01-18 15:30:00 Rio Dell required 13:00: [id number] 00 Medication injectable Meds Resolve 2018-06-07 Elissa med d 01-18 15:30:00 Rio Dell assistance 13:00: [id number] required 00 Medication potential Meds Resolve 2018-06-07 Elissa clinically d 01-18 15:30:00 Jessica significant 13:00: [id number] medication 00 issue Diagnoses knowledge/s Diagnoses Active Elissa kill 01-18 Rio Dell deficit: pt 13:00: [id number] 00 Musculoskel requires Musculoske Resolve 2018-05-13 Elissa etal human letal d 01-18 11:18:00 Rio Dell assist to 13:00: [id number] leave home 00 Musculoskel transfer Musculoske Resolve 2018-05-13 Adia etal assistance letal d 01-18 11:18:00 Guidelli required 13:00: [id number] 00 Respiratory lung sounds Respirator Resolve 2018-07-05 Elissa deficit y d 01-25 09:20:00 Rio Dell 16:00: [id number] 00 Safety knowledge/s Safety Resolve 2018-05-13 Elsisa kill d 01-25 11:18:00 Rio Dell deficit: pt 16:00: [id number] 00 Elimination constipatio Eliminatio Resolve 2018-05-13 Elissa n n d 03-15 11:18:00 Cristal 11:43: [id number] 00 Nutrition nutritional Nutrition Resolve 2018-06-07 Elissa restriction d 05-13 15:30:00 Cristal s 11:18: [id number] 00 Respiratory smoker Respirator Resolve 2018-07-05 Elissa y d 06-07 09:20:00 Cristal 15:30: [id number] 00 Elimination urinary Eliminatio Resolve 2018-06-07 Elissa frequency n d 06-07 15:30:00 Cristal 15:30: [id number] 00 Safety knowledge/s Safety Active Elissa kill 06-07 Cristal deficit: pt 15:30: [id number] 00 Safety risk for Safety Resolve 2018-07-05 Elissa hospitaliza d 06-07 09:20:00 Cristal tion 15:30: [id number] 00 Safety [facility] for [facility] [place] [facility] 14:[facility]: [id number] 00 Respiratory dyspnea Respirator Resolve 2017-092018-08-09 Blaire present y d 0-16 08:44:00 Bruno 09:48: [id number] 00 Respiratory lung sounds Respirator Resolve 2017-092018-08-09 Blaire deficit y d 0-16 08:44:00 Bruno 09:48: [id number] 00 Safety risk for Safety Resolve 2017-092018-08-09 Blaire hospitaliza d 0-16 08:44:00 Bruno tion 09:48: [id number] 00 Respiratory oxygen Respirator Resolve 2017-092018-08-09 Blaire treatments y d 1- 08:44:00 Bruno in home 08:44: [id number] 00 Respiratory nebulizer Respirator Resolve 2017-092018-08-09 Blaire treatment y d 10-09 08:44:00 Bruno in home 08:44: [id number] 00 Neuro anxiety Neuro/Emot Resolve 2017-092018-08-09 Blaire present ion d 10-09 08:44:00 Bruno 08:44: [id number] 00 Safety risk for Safety Resolve 2017-092018-08-30 [facility] hospitaliza d 10-16 09:20:00 [place] tion 10:46: [id number] 00 Respiratory oxygen Respirator Resolve 2017-092018-09-13 Blaire treatments y d 10-31 09:53:00 Bruno in home 09:20: [id number] 00 Respiratory lung sounds Respirator Resolve 2017-092018-09-13 Blaire deficit y d 10-31 09:53:00 Bruno 09:20: [id number] 00 Respiratory smoker Respirator Resolve 2017-092018-09-13 Blaire y d 10-31 09:53:00 Bruno 09:20: [id number] 00 Respiratory nebulizer Respirator Resolve 2017-092018-09-13 Blaire treatment y d 10-31 09:53:00 Bruno in home 09:20: [id number] 00 Endo/Derek anti-coagul Endo/Derek Resolve 2017-092018-09-13 Blaire ation d 10-31 09:53:00 Bruno therapy 09:20: [id number] 00 Neuro anxiety Neuro/Emot Resolve 2017-092018-09-13 Blaire present ion d 10-31 09:53:00 Bruno 09:20: [id number] 00 Safety safety Safety Resolve 2017-092018-08-30 Blaire hazards d 10-31 09:20:00 Rbuno present 09:20: [id number] 00 Safety risk for Safety Resolve 2017-092018-09-13 Arin hospitaliza d 11-07 09:53:00 Carrier RN tion 10:00: 00 Respiratory dyspnea Respirator Resolve 2017-092018-09-13 Blaire present y d 11-14 09:53:00 Bruno 09:53: [id number] 00 Safety risk for Safety Resolve 2017-092018-09-26 [facility] hospital[facility] d 11-20 09:45:00 [place] tion 10:00: [id number] 00 Respiratory dyspnea Respirator Resolve 2017-092019-01-03 Blaire present y d 09:25:00 Bruno 09:45: [id number] 00 Respiratory oxygen Respirator Resolve 2017-092019-01-03 Blaire treatments y d 09:25:00 Bruno in home 09:45: [id number] 00 Respiratory lung sounds Respirator Resolve 2017-092018-10-25 Blaire deficit y d 09:26:00 Bruno 09:45: [id number] 00 Respiratory smoker Respirator Resolve 2017-092018-09-26 Blaire y d 09:45:00 Bruno 09:45: [id number] 00 Respiratory nebulizer Respirator Resolve 2017-092019-01-03 Blaire treatment y d 09:25:00 Bruno in home 09:45: [id number] 00 Medication oral med Meds Resolve 2017-092019-03-09 Blaire assistance d 14:06:00 Bruno required 09:45: [id number] 00 Medication injectable Meds Resolve 2017-092019-03-09 Blaire med d 14:06:00 Bruno assistance 09:45: [id number] required 00 Nutrition nutritional Nutrition Resolve 2018-11-09 Jazz restriction d 1 08:50:00 [place] s 12:19: [id number] 00 Safety risk for Safety Resolve 2018-10-25 [facility] hospitaliza d 1 09:26:00 [place] tion 12:19: [id number] 00 Respiratory lung sounds Respirator Resolve 2018-11-09 Jazz deficit y d 11-01 08:50:00 [place] 10:20: [id number] 00 Safety risk for Safety Resolve 2018-11-09 [facility] hospitaliza d 11-01 08:50:00 [place] tion 10:20: [id number] 00 Respiratory smoker Respirator Resolve 2018-12-20 Blaire y d 11-09 09:22:00 Bruno 08:50: [id number] 00 Neuro anxiety Neuro/Emot Resolve 2018-11-09 Blaire present ion d 11-09 08:50:00 Bruno 08:50: [id number] 00 Nutrition nutritional Nutrition Resolve 2018-12-06 Jazz restriction d 11-15 10:45:00 [place] s 11:00: [id number] 00 Safety risk for Safety Resolve 2018-12-06 [facility] hospitaliza d 11-15 10:45:00 [place] tion 11:00: [id number] 00 Respiratory lung sounds Respirator Resolve 2018-12-20 Blaire deficit y d 12-06 09:22:00 Bruno 10:45: [id number] 00 Respiratory pneumonia Respirator Resolve 2018-12-20 Blaire y d 12-06 09:22:00 Bruno 10:45: [id number] 00 Respiratory asthma Respirator Resolve 2019-01-03 Blaire y d 12-06 09:25:00 Bruno 10:45: [id number] 00 Nutrition nutritional Nutrition Resolve 2018-12-20 Blaire restriction d 12-13 09:22:00 Bruno s 09:45: [id number] 00 Safety risk for Safety Resolve 2018-12-20 Blaire hospitaliza d 12-13 09:22:00 Bruno tion 09:45: [id number] 00 Safety safety Safety Resolve 2018-12-20 Blaire hazards d 12-20 09:22:00 Bruno present 09:22: [id number] 00 Respiratory knowledge/s Respirator Resolve 2019-01-03 Blaire kill y d 12-27 09:25:00 Bruno deficit: pt 10:07: [id number] 00 Respiratory lung sounds Respirator Resolve 2019-01-03 Blaire deficit y d 4 09:25:00 Bruno 10:07: [id number] 00 Respiratory CPAP Respirator Resolve 2019-01-03 Blaire treatments y d 4-02 09:25:00 Bruno in home 10:07: [id number] 00 Respiratory smoker Respirator Resolve 2019-01-03 Blaire y d 4-02 09:25:00 Bruno 10:07: [id number] 00 Nutrition nutritional Nutrition Resolve 2019-01-03 Blaire restriction d 12-27 09:25:00 Bruno s 10:07: [id number] 00 Neuro impaired Neuro/Emot Resolve 2019-01-03 Blaire decision-ma ion d 12-27 09:25:00 Bruno rosanne 10:07: [id number] 00 Safety risk for Safety Resolve 2019-01-03 Blaire hospitaliza d 12-27 09:25:00 Bruno tion 10:07: [id number] 00 Neuro memory Neuro/Emot Unknown Blaire deficit ion - Bruno needing 09:25: [id number] supervision 00 Respiratory dyspnea Respirator Resolve 2019-03-28 Blaire present y d 01-10 09:06:00 Bruno 09:27: [id number] 00 Respiratory knowledge/s Respirator Resolve 2019-03-07 Blaire kill y d 01-10 09:45:00 Bruno deficit: pt 09:27: [id number] 00 Respiratory lung sounds Respirator Resolve 2019-03-07 Blaire deficit y d 01-10 09:45:00 Burno 09:27: [id number] 00 Respiratory smoker Respirator Resolve 2019-03-07 Blaire y d 01-10 09:45:00 Bruno 09:27: [id number] 00 Nutrition nutritional Nutrition Resolve 2019-02-07 Blaire restriction d 01-10 09:39:00 Bruno s 09:27: [id number] 00 Neuro impaired Neuro/Emot Unknown Blaire decision-ma ion 01-10 Bruno rosanne 09:27: [id number] 00 Neuro memory Neuro/Emot Unknown Blaire deficit ion 01-10 Bruno needing 09:27: [id number] supervision 00 Safety fall risk Safety Resolve 2019-02-07 Blaire factor d 01-10 09:39:00 Bruno present 09:27: [id number] 00 Safety risk for Safety Resolve 2019-02-07 Blaire hospitaliza d 01-10 09:39:00 Bruno tion 09:27: [id number] 00 Respiratory oxygen Respirator Resolve 2019-03-28 Elissa treatments y d 01-24 09:06:00 Barbara in home 09:00: [facility] 00 [id number] Respiratory nebulizer Respirator Resolve 2019-03-28 Elissa treatment y d 4-30 09:06:00 Barbara in home 09:00: [employer] 00 [id number] Respiratory asthma Respirator Resolve 2019-03-28 Consuelo y d 5- 09:06:00 [place] 11:00: 00 Elimination urinary Eliminatio Resolve 2019-02-07 Elissa incontinenc n d 01-31 09:39:00 Barbara e 08:30: [employer] 00 [id number] Nutrition nutritional Nutrition Resolve 2019-03-07 Elissa restriction d 02-14 09:45:00 Barbara s 08:13: [employer] 00 [id number] Safety risk for Safety Resolve 2019-03-07 Elissa hospitaliza d 02-14 09:45:00 Barbara tion 08:13: [employer] 00 [id number] Respiratory lung sounds Respirator Resolve 2019-03-09 Blaire deficit y d 6-13 14:06:00 Bruno 14:06: [id number] 00 Respiratory smoker Respirator Resolve 2019-03-09 Blaire y d 613 14:06:00 Bruno 14:06: [id number] 00 Nutrition nutritional Nutrition Resolve 2019-03-28 Blaire restriction d 6-13 09:06:00 Bruno s 14:06: [id number] 00 Safety safety Safety Resolve 2019-03-28 Blaire hazards d 6-13 09:06:00 Bruno present 14:06: [id number] 00 Safety fall risk Safety Resolve 2019-03-28 Blaire factor d 6-13 09:06:00 Bruno present 14:06: [id number] 00 Safety risk for Safety Resolve 2019-03-28 Blaire hospitaliza d 6-13 09:06:00 Bruno tion 14:06: [id number] 00 Medication potential Meds Resolve 2019-03-09 Blaire clinically d 6-13 14:06:00 Bruno significant 14:06: [id number] medication 00 issue Respiratory lung sounds Respirator Resolve 2019-03-28 Elissa deficit y d 6-18 09:06:00 Barbara 07:45: [employer] 00 [id number] Respiratory lung sounds Respirator Resolve 2019-04-25 Elissa deficit y d 04-04 09:45:00 Barbara 08:00: [employer] 00 [id number] Nutrition nutritional Nutrition Resolve 2019-04-25 Elissa restriction d 04-04 09:45:00 Barbara s 08:00: [employer] 00 [id number] Safety risk for Safety Resolve 2019-04-25 [facility] 09:[facility]00 Barbara tion 08:00: [employer] 00 [id number] Neuro anxiety Neuro/Emot Resolve 2019-04-25 Blaire present ion d 04-25 09:45:00 Bruno 09:45: [id number] 00 Safety risk for Safety Resolve 2019-05-09 [facility] 12:05:00 Barbara tion 08:15: [employer] 00 [id number] Respiratory lung sounds Respirator Resolve 2019-05-30 Blaire deficit y d 05-09 08:38:00 Bruno 12:05: [id number] 00 Medication injectable Meds Resolve 2019-05-30 Blaire med d 05-09 08:38:00 Bruno assistance 12:05: [id number] required 00 Safety risk for Safety Resolve 2019-05-30 Elissa [facility] d 05-16 08:38:00 Barbara tion 08:02: [employer] 00 [id number] Neuro impaired Neuro/Emot Resolve 2019-05-30 Blaire decision-ma ion d 05-30 08:38:00 Burno rosanne 08:38: [id number] 00 Neuro memory Neuro/Emot Resolve 2019-05-30 Blaire deficit ion d 05-30 08:38:00 Bruno needing 08:38: [id number] supervision 00 Safety risk for Safety Resolve 2019-06-27 [facility] 08:40:00 Barbara tion 07:56: [employer] 00 [id number] Respiratory lung sounds Respirator Resolve 2019-06-27 Elissa deficit y d 06-13 08:40:00 Barbara 07:30: [employer] 00 [id number] Respiratory nebulizer Respirator Resolve 2018-092019-06-27 Blaire treatment y d 0-01 08:40:00 Bruno in home 08:40: [id number] 00 Elimination urinary Eliminatio Resolve 2018-092019-07-11 Elissa incontinenc n d 0-08 10:13:00 Barbara e 08:00: [employer] 00 [id number] Safety risk for Safety Resolve 2018-092019-08-07 Elissa hospitaliza d 0-08 12:15:00 Barbara tion 08:00: [employer] 00 [id number] Respiratory oxygen Respirator Active 2018-09 Blaire treatments y 0-15 Bruno in home 10:13: [id number] 00 Respiratory nebulizer Respirator Active 2018-09 Blaire treatment y 0-15 Bruno in home 10:13: [id number] 00 Respiratory lung sounds Respirator Resolve 2018-092019-07-11 Blaire deficit y d 0-15 10:13:00 Bruno 10:13: [id number] 00 Neuro anxiety Neuro/Emot Resolve 2018-092019-08-07 Blaire present ion d 0-15 12:15:00 Bruno 10:13: [id number] 00 Neuro impaired Neuro/Emot Unknown 2018-09 Blaire decision-ma ion 0-15 Bruno rosanne 10:13: [id number] 00 Safety safety Safety Resolve 2018-092019-08-07 Blaire hazards d 0-15 12:15:00 Bruno present 10:13: [id number] 00 Safety fall risk Safety Resolve 2018-092019-08-07 Blaire factor d 0-15 12:15:00 Bruno present 10:13: [id number] 00 Medication injectable Meds Resolve 2018-092019-08-07 Blaire med d 0-15 12:15:00 Bruno assistance 10:13: [id number] required 00 Medication oral med Meds Resolve 2018-092019-08-07 Blaire assistance d 0-15 12:15:00 Bruno required 10:13: [id number] 00 Respiratory lung sounds Respirator Resolve 2018-092019-08-07 Blaire deficit y d 1-11 12:15:00 Bruno 12:15: [id number] 00 Elimination urinary Eliminatio Active 2018-09 Elissa incontinenc n 10-15 [facility] [id number] Safety risk for Safety Active 2018-09 Elissa hospitaliza 10-15 Barbara tion 08:00: [facility] 00 [id number] Allergies, Adverse Reactions, Alerts Allergy Name Allergy Status Severity Reaction(s) Onset Inactive Treating Comments Type Date Date Clinician sulfa Unknown Active Mild to Rash Elissa Moderate 5- Jessica [id number] aspirin Base Active Moderate Hives Elissa Ingredient 5- Rio Dell [id number] penicillin G Base Active Moderate Difficulty Elissa Ingredient to Severe swallowing 01-25 Jessica [id number] Medications Ordered Filled Start Stop Current Ordering [...] n 40 mg n 40 mg 01-18 Brenden MARIEErit tablet tablet nebulizers nebulizers 2018- No [place] [...] mg Unknown mg capsule mg capsule 01-18- ,Martin amitriptyli amitriptyli No Emilio 100 mg [...] [place] 1 Unknown tablet tablet 01-18 ,Klaus levothyroxi levothyroxi No [place] 50 mcg Unknown [...] 60 mg Unknown mg capsule mg capsule - ,Martin pantoprazol pantoprazol No [place] 40 mg Unknown [...] for powder for inhalation inhalation Chantix Chantix Yes [place] Unknown Unknown Starting Starting 05-23 Klaus MARIEE Month Box Month Box 0.5 mg 0.5 mg (11)-1 mg (11)-1 mg (42) (42) tablets in tablets in dose pack dose pack ciprofloxac ciprofloxac 2018-09- Yes [place] Unknown Unknown in 500 mg in 500 mg 07-28 Brenden MARIEErit tablet tablet Vital Signs Vital Name Observation Time Observation Value Comments SYSTOLIC mm[Hg] 2019-08-15 18:08:56 124 mm[Hg] mm[Hg] Method: Sit SYSTOLIC mm[Hg] 2019-05-11 18:07:20 104 mm[Hg] mm[Hg] Method: Stand DIASTOLIC mm[Hg] 2019-08-15 18:08:56 68 mm[Hg] mm[Hg] Method: Sit DIASTOLIC mm[Hg] 2019-05-11 18:07:20 59 mm[Hg] mm[Hg] Method: Stand PULSE 2019-08-15 18:08:56 84 /min /min RESP RATE 2019-08-15 18:08:56 16 /min /min TEMP 2019-08-15 18:08:56 97.4 [degF] Procedures This patient has no known procedures. Results This patient has no known results.
--- OUTSIDE RECORDS SUMMARY | 2019-10-07 18:12 | XMS REPORT ---
:1960 Author Organization [facility] Care Team Providers Name Role Phone Unavailable Unavailable Unavailable Problems Condition Condition Condition Status Onset Resolution Last Treating Comments Name Details Category Date Date Treatment Clinician Date Pain frequent Pain Mgmt Resolve 2018-11-09 Elissa pain d 01-18 08:50:00 Jessica 13:00: [id number] Pain knowledge/s Pain Mgmt Resolve 2018-05-13 Elissa kill d 01-18 11:18:00 Rampart deficit: pt 13:00: [id number] 00 Cardio knowledge/s Cardiovasc Resolve 2018-06-07 Elissa kill ular d 01-18 15:30:00 Rampart deficit: pt 13:00: [id number] 00 Respiratory oxygen Respirator Resolve 2018-07-05 Elissa treatments y d 01-18 09:20:00 Rampart in home 13:00: [id number] 00 Respiratory nebulizer Respirator Resolve 2018-07-05 Elissa treatment y d 01-18 09:20:00 Jessica in home 13:00: [id number] 00 Respiratory dyspnea Respirator Resolve 2018-07-05 Elissa present y d 01-18 09:20:00 Rampart 13:00: [id number] 00 Endo/Derek anti-coagul Endo/Derek Resolve 2018-07-12 Elissa ation d 01-18 09:48:00 Jessica therapy 13:00: [id number] 00 Nutrition nutritional Nutrition Resolve 2018-04-12 Elissa restriction d 01-18 10:11:00 Rampart s 13:00: [id number] 00 Elimination urinary Eliminatio Resolve 2018-05-13 Elissa frequency n d 01-18 11:18:00 Jessica 13:00: [id number] 00 Neuro impaired Neuro/Emot Resolve 2018-08-09 Elissa goldman-will ion d 01-18 08:44:00 Jessica rosanne 13:00: [id number] 00 Activity ADL Activity Resolve 2018-04-12 Adia assistance d 01-18 10:11:00 Guidelli required 13:00: [id number] 00 Safety risk for Safety Resolve 2018-05-13 Elissa hospitaliza d 01-18 11:18:00 Jessica tion 13:00: [id number] 00 Safety can be left Safety Resolve 2018-05-13 Elissa strong for d 01-18 11:18:00 Jessica only short 13:00: [id number] 00 Safety fall risk Safety Resolve 2018-05-13 Elissa factor d 01-18 11:18:00 Jessica present 13:00: [id number] 00 Medication knowledge/s Meds Resolve 2018-06-07 Elissa kill d 01-18 15:30:00 Rampart deficit: pt 13:00: [id number] 00 Medication oral med Meds Resolve 2018-06-07 Elissa assistance d 01-18 15:30:00 Rampart required 13:00: [id number] 00 Medication injectable Meds Resolve 2018-06-07 Elissa med d 01-18 15:30:00 Rampart assistance 13:00: [id number] required 00 Medication potential Meds Resolve 2018-06-07 Elissa clinically d 01-18 15:30:00 Jessica significant 13:00: [id number] medication 00 issue Diagnoses knowledge/s Diagnoses Active Elissa kill 01-18 Rampart deficit: pt 13:00: [id number] 00 Musculoskel requires Musculoske Resolve 2018-05-13 Elissa etal human letal d 01-18 11:18:00 Rampart assist to 13:00: [id number] leave home 00 Musculoskel transfer Musculoske Resolve 2018-05-13 Adia etal assistance letal d 01-18 11:18:00 Guidelli required 13:00: [id number] 00 Respiratory lung sounds Respirator Resolve 2018-07-05 Elissa deficit y d 01-25 09:20:00 Rampart 16:00: [id number] 00 Safety knowledge/s Safety Resolve 2018-05-13 Elissa kill d 01-25 11:18:00 Rampart deficit: pt 16:00: [id number] 00 Elimination constipatio Eliminatio Resolve 2018-05-13 Elissa n n d 03-15 11:18:00 Cristal 11:43: [id number] 00 Nutrition nutritional Nutrition Resolve 2018-06-07 Elissa restriction d 05-13 15:30:00 Cristal s 11:18: [id number] 00 Respiratory smoker Respirator Resolve 2018-07-05 Elissa y d 06-07 09:20:00 Cristal 15:30: [id number] 00 Elimination urinary Eliminatio Resolve 2018-06-07 Elissa frequency n d 06-07 15:30:00 Cristal 15:30: [id number] 00 Safety knowledge/s Safety Active Elissa kill 06-07 Cristal deficit: pt 15:30: [id number] 00 Safety risk for Safety Resolve 2018-07-05 Elissa hospitaliza d 06-07 09:20:00 Cristal tion 15:30: [id number] 00 Safety risk for Safety [facility] [place] tion 14:00: [id number] 00 Respiratory dyspnea Respirator Resolve 2017-092018-08-09 Blaire present y d 0-16 08:44:00 Bruno 09:48: [id number] 00 Respiratory lung sounds Respirator Resolve 2017-092018-08-09 Blaire deficit y d 0-16 08:44:00 Bruno 09:48: [id number] 00 Safety risk for Safety Resolve 2017-092018-08-09 Blaire hospitaliza d 0-16 08:44:00 Bruno tion 09:48: [id number] 00 Respiratory oxygen Respirator Resolve 2017-092018-08-09 Blaire treatments y d 1- 08:44:00 Bruno in home 08:44: [id number] 00 Respiratory nebulizer Respirator Resolve 2017-092018-08-09 Blaire treatment y d 10-09 08:44:00 Bruno in home 08:44: [id number] 00 Neuro anxiety Neuro/Emot Resolve 2017-092018-08-09 Blaire present ion d 10-09 08:44:00 Bruno 08:44: [id number] 00 Safety risk for Safety Resolve 2017-092018-08-30 [facility] hospital[facility] d 10-16 09:20:00 [place] tion 10:46: [id number] 00 Respiratory oxygen Respirator Resolve 2017-092018-09-13 Blaire treatments y d 10-31 09:53:00 Bruno in home 09:20: [id number] 00 Respiratory lung sounds Respirator Resolve 2017-092018-09-13 Blaire deficit y d 10-31 09:53:00 Bruno 09:20: [id number] 00 Respiratory smoker Respirator Resolve 2017-092018-09-13 Blaire y d 10-31 09:53:00 Bruno 09:20: [id number] 00 Respiratory nebulizer Respirator Resolve 2017-092018-09-13 Blaire treatment y d 10-31 09:53:00 Bruno in home 09:20: [id number] 00 Endo/Derek anti-coagul Endo/Derek Resolve 2017-092018-09-13 Blaire ation d 10-31 09:53:00 Bruno therapy 09:20: [id number] 00 Neuro anxiety Neuro/Emot Resolve 2017-092018-09-13 Blaire present ion d 10-31 09:53:00 Bruno 09:20: [id number] 00 Safety safety Safety Resolve 2017-092018-08-30 Blaire hazards d 10-31 09:20:00 Bruno present 09:20: [id number] 00 Safety risk for Safety Resolve 2017-092018-09-13 Arin hospitaliza d 11-07 09:53:00 Carrier RN tion 10:00: 00 Respiratory dyspnea Respirator Resolve 2017-092018-09-13 Blaire present y d 11-14 09:53:00 Bruno 09:53: [id number] 00 Safety risk for Safety Resolve 2017-092018-09-26 [facility] hospital[facility] d 11-20 09:45:00 [place] tion 10:00: [id number] 00 Respiratory dyspnea Respirator Resolve 2017-092019-01-03 Blaire present y d 09:25:00 Bruno 09:45: [id number] 00 Respiratory oxygen Respirator Resolve 2017-092019-01-03 Blaire treatments y d 09:25:00 Bruno in home 09:45: [id number] 00 Respiratory lung sounds Respirator Resolve 2017-092018-10-25 Blaire deficit y d 09:26:00 Bruno 09:45: [id number] 00 Respiratory smoker Respirator Resolve 2017-092018-09-26 Blaire y d 09:45:00 Bruno 09:45: [id number] 00 Respiratory nebulizer Respirator Resolve 2017-092019-01-03 Blaire treatment y d 09:25:00 Bruno in home 09:45: [id number] 00 Medication oral med Meds Resolve 2017-092019-03-09 Blaire assistance d 14:06:00 Bruno required 09:45: [id number] 00 Medication injectable Meds Resolve 2017-092019-03-09 Blaire med d 14:06:00 Bruno assistance 09:45: [id number] required 00 Nutrition nutritional Nutrition Resolve 2018-11-09 Jazz restriction d 1 08:50:00 [place] s 12:19: [id number] 00 Safety risk for Safety Resolve 2018-10-25 [facility] hospital[facility] d 1 09:26:00 [place] tion 12:19: [id number] 00 Respiratory lung sounds Respirator Resolve 2018-11-09 Jazz deficit y d 11-01 08:50:00 [place] 10:20: [id number] 00 Safety risk for Safety Resolve 2018-11-09 [facility] hospitaliza d 11-01 08:50:00 [place] tion 10:20: [id number] 00 Respiratory smoker Respirator Resolve 2018-12-20 Blaire y d 11-09 09:22:00 Bruno 08:50: [id number] 00 Neuro anxiety Neuro/Emot Resolve 2018-11-09 Blaire present ion d 11-09 08:50:00 Burno 08:50: [id number] 00 Nutrition nutritional Nutrition Resolve 2018-12-06 Jazz restriction d 11-15 10:45:00 [place] s 11:00: [id number] 00 Safety risk for Safety Resolve 2018-12-06 [facility] hospitaliza d 11-15 10:45:00 [place] tion 11:00: [id number] 00 Respiratory lung sounds Respirator Resolve 2018-12-20 Blaire deficit y d 12-06 09:22:00 Bruno 10:45: [id number] 00 Respiratory pneumonia Respirator Resolve 2018-12-20 Blaire y d 12-06 09:22:00 Bruno 10:45: [id number] 00 Respiratory asthma Respirator Resolve 2019-01-03 Blaire y d 12-06 09:25:00 Bruno 10:45: [id number] 00 Nutrition nutritional Nutrition Resolve 2018-12-20 Blaire restriction d 12-13 09:22:00 Bruno s 09:45: [id number] 00 Safety risk for Safety Resolve 2018-12-20 Blaire hospitaliza d 12-13 09:22:00 Bruno tion 09:45: [id number] 00 Safety safety Safety Resolve 2018-12-20 Blaire hazards d 12-20 09:22:00 Bruno present 09:22: [id number] 00 Respiratory knowledge/s Respirator Resolve 2019-01-03 Blaire kill y d 12-27 09:25:00 Bruno deficit: pt 10:07: [id number] 00 Respiratory lung sounds Respirator Resolve 2019-01-03 Blaire deficit y d 4 09:25:00 Bruno 10:07: [id number] 00 Respiratory CPAP Respirator Resolve 2019-01-03 Blaire treatments y d 4-02 09:25:00 Bruno in home 10:07: [id number] 00 Respiratory smoker Respirator Resolve 2019-01-03 Blaire y d 4-02 09:25:00 Bruno 10:07: [id number] 00 Nutrition nutritional Nutrition Resolve 2019-01-03 Blaire restriction d 12-27 09:25:00 Bruno s 10:07: [id number] 00 Neuro impaired Neuro/Emot Resolve 2019-01-03 Blaire decision-ma ion d 12-27 09:25:00 Bruno rosanne 10:07: [id number] 00 Safety risk for Safety Resolve 2019-01-03 Blaire hospitaliza d 12-27 09:25:00 Bruno tion 10:07: [id number] 00 Neuro memory Neuro/Emot Unknown Blaire deficit ion - Bruno needing 09:25: [id number] supervision 00 Respiratory dyspnea Respirator Resolve 2019-03-28 Blaire present y d 01-10 09:06:00 Bruno 09:27: [id number] 00 Respiratory knowledge/s Respirator Resolve 2019-03-07 Blaire kill y d 01-10 09:45:00 Bruno deficit: pt 09:27: [id number] 00 Respiratory lung sounds Respirator Resolve 2019-03-07 Blaire deficit y d 01-10 09:45:00 Bruno 09:27: [id number] 00 Respiratory smoker Respirator Resolve 2019-03-07 Blaire y d 01-10 09:45:00 Bruno 09:27: [id number] 00 Nutrition nutritional Nutrition Resolve 2019-02-07 Blaire restriction d 01-10 09:39:00 Bruno s 09:27: [id number] 00 Neuro impaired Neuro/Emot Unknown Blaire decision-ma ion 01-10 Bruno rosanne 09:27: [id number] 00 Neuro memory Neuro/Emot Unknown Blaire deficit ion 01-10 Bruno needing 09:27: [id number] supervision 00 Safety fall risk Safety Resolve 2019-02-07 Blaire factor d 01-10 09:39:00 Bruno present 09:27: [id number] 00 Safety risk for Safety Resolve 2019-02-07 Blaire hospitaliza d 01-10 09:39:00 Bruno tion 09:27: [id number] 00 Respiratory oxygen Respirator Resolve 2019-03-28 Elissa treatments y d 01-24 09:06:00 Barbara in home 09:00: [facility] 00 [id number] Respiratory nebulizer Respirator Resolve 2019-03-28 Elissa treatment y d 4-30 09:06:00 Barbara in home 09:00: [employer] 00 [id number] Respiratory asthma Respirator Resolve 2019-03-28 Consuelo y d 5- 09:06:00 [place] 11:00: 00 Elimination urinary Eliminatio Resolve 2019-02-07 Elissa incontinenc n d 01-31 09:39:00 Barbara e 08:30: [employer] 00 [id number] Nutrition nutritional Nutrition Resolve 2019-03-07 Elissa restriction d 02-14 09:45:00 Barbara s 08:13: [employer] 00 [id number] Safety risk for Safety Resolve 2019-03-07 Elissa hospitaliza d 02-14 09:45:00 Barbara tion 08:13: [employer] 00 [id number] Respiratory lung sounds Respirator Resolve 2019-03-09 Blaire deficit y d 6-13 14:06:00 Bruno 14:06: [id number] 00 Respiratory smoker Respirator Resolve 2019-03-09 Blaire y d 613 14:06:00 Bruno 14:06: [id number] 00 Nutrition nutritional Nutrition Resolve 2019-03-28 Blaire restriction d 6-13 09:06:00 Bruno s 14:06: [id number] 00 Safety safety Safety Resolve 2019-03-28 Blaire hazards d 6-13 09:06:00 Bruno present 14:06: [id number] 00 Safety fall risk Safety Resolve 2019-03-28 Blaire factor d 6-13 09:06:00 Bruno present 14:06: [id number] 00 Safety risk for Safety Resolve 2019-03-28 Blaire hospitaliza d 6-13 09:06:00 Bruno tion 14:06: [id number] 00 Medication potential Meds Resolve 2019-03-09 Blaire clinically d 6-13 14:06:00 Bruno significant 14:06: [id number] medication 00 issue Respiratory lung sounds Respirator Resolve 2019-03-28 Elissa deficit y d 6-18 09:06:00 Barbara 07:45: [employer] 00 [id number] Respiratory lung sounds Respirator Resolve 2019-04-25 Elissa deficit y d 04-04 09:45:00 Barbara 08:00: [employer] 00 [id number] Nutrition nutritional Nutrition Resolve 2019-04-25 Elissa restriction d 04-04 09:45:00 Barbara s 08:00: [employer] 00 [id number] Safety risk for Safety Resolve 2019-04-25 [facility] 09:45:00 Barbara tion 08:00: [employer] 00 [id number] Neuro anxiety Neuro/Emot Resolve 2019-04-25 Blaire present ion d 04-25 09:45:00 Bruno 09:45: [id number] 00 Safety risk for Safety Resolve 2019-05-09 [facility] 12:05:00 Barbara tion 08:15: [employer] 00 [id number] Respiratory lung sounds Respirator Resolve 2019-05-30 Blaire deficit y d 05-09 08:38:00 Bruno 12:05: [id number] 00 Medication injectable Meds Resolve 2019-05-30 Blaire med d 05-09 08:38:00 Bruno assistance 12:05: [id number] required 00 Safety risk for Safety Resolve 2019-05-30 Elissa [facility] d 05-16 08:38:00 Barbara tion 08:02: [employer] 00 [id number] Neuro impaired Neuro/Emot Resolve 2019-05-30 Blaire decision-ma ion d 05-30 08:38:00 Bruno rosanen 08:38: [id number] 00 Neuro memory Neuro/Emot Resolve 2019-05-30 Blaire deficit ion d 05-30 08:38:00 Bruno needing 08:38: [id number] supervision 00 Safety risk for Safety Resolve 2019-06-27 [facility] 08:40:00 Barbara tion 07:56: [employer] 00 [id number] Respiratory lung sounds Respirator Resolve 2019-06-27 Elissa deficit y d 06-13 08:40:00 Barbara 07:30: [employer] 00 [id number] Respiratory nebulizer Respirator Resolve 2018-092019-06-27 Blaire treatment y d 0-01 08:40:00 Bruno in home 08:40: [id number] 00 Elimination urinary Eliminatio Resolve 2018-092019-07-11 Elissa incontinenc n d 0-08 10:13:00 Barbara e 08:00: [employer] 00 [id number] Safety risk for Safety Resolve 2018-092019-08-07 Elissa hospitaliza d 0-08 12:15:00 Barbara tion 08:00: [employer] 00 [id number] Respiratory oxygen Respirator Active 2018-09 Blaire treatments y 0-15 Bruno in home 10:13: [id number] 00 Respiratory nebulizer Respirator Active 2018-09 Blaire treatment y 0-15 Bruno in home 10:13: [id number] 00 Respiratory lung sounds Respirator Resolve 2018-092019-07-11 Blaire deficit y d 0-15 10:13:00 Bruno 10:13: [id number] 00 Neuro anxiety Neuro/Emot Resolve 2018-092019-08-07 Blaire present ion d 0-15 12:15:00 Bruno 10:13: [id number] 00 Neuro impaired Neuro/Emot Unknown 2018-09 Blaire decision-ma ion 0-15 Bruno rosanne 10:13: [id number] 00 Safety safety Safety Resolve 2018-092019-08-07 Blaire hazards d 0-15 12:15:00 Bruno present 10:13: [id number] 00 Safety fall risk Safety Resolve 2018-092019-08-07 Blaire factor d 0-15 12:15:00 Bruno present 10:13: [id number] 00 Medication injectable Meds Resolve 2018-092019-08-07 Blaire med d 0-15 12:15:00 Burno assistance 10:13: [id number] required 00 Medication oral med Meds Resolve 2018-092019-08-07 Blaire assistance d 0-15 12:15:00 Bruno required 10:13: [id number] 00 Respiratory lung sounds Respirator Resolve 2018-092019-08-07 Blaire deficit y d 1-11 12:15:00 Bruno 12:15: [id number] 00 Allergies, Adverse Reactions, Alerts Allergy Name Allergy Status Severity Reaction(s) Onset Inactive Treating Comments Type Date Date Clinician sulfa Unknown Active Mild to Rash Elissa Moderate 5- Jessica [id number] aspirin Base Active Moderate Hives Elissa Ingredient 5- Jessica [id number] penicillin G Base Active Moderate Difficulty Elissa Ingredient to Severe swallowing 01-25 Jessica [id number] Medications Ordered Filled Start Stop Current Ordering [...] puffs Unknown HFA 90 HFA 90 01-18 MD,Klaus mcg/actuati mcg/actuati on aerosol on aerosol inhaler [...] 10 mg Unknown 10 mg 10 mg 01-18-24 ,Klaus tablet tablet Latuda 120 Latuda 120 No Emilio 120 mg Unknown mg tablet mg tablet 01-18 Martin MARIEE prazosin 1 prazosin 1 2018- No Emilio 1 mg Unknown mg capsule mg capsule 01-18 03-13 Martin MARIEE amitriptyli amitriptyli No Emilio 100 mg Unknown [...] Heetderks 1 Unknown n capsule n capsule 24 MDKlaus PROzac 20 PROzac 20 No Emilio [...] Unknown Unknown sulfate 2.5 sulfate 2.5 12-27 ,Klaus mg/3 mL mg/3 mL (0.083 %) (0.083 %) solution solution for for nebulizatio nebulizatio n n Flonase Flonase No Raza Unknown Unknown Allergy Allergy 12-27 ,Ngozi Relief 50 Relief 50 mcg/actuati mcg/actuati on nasal on nasal spray,suspe spray,suspe nsion nsion amitriptyli amitriptyli 2018- No Emilio Unknown Unknown ne 50 mg ne 50 mg 12-13 ,Mratin tablet tablet prazosin 2 prazosin 2 2018- [...] Observation Time Observation Value Comments SYSTOLIC mm[Hg] 2019-08-07 18:08:48 122 mm[Hg] mm[Hg] Method: Sit SYSTOLIC mm[Hg] 2019-05-11 18:07:20 104 mm[Hg] mm[Hg] Method: Stand DIASTOLIC mm[Hg] 2019-08-07 18:08:48 68 mm[Hg] mm[Hg] Method: Sit DIASTOLIC mm[Hg] 2019-05-11 18:07:20 59 mm[Hg] mm[Hg] Method: Stand PULSE 2019-08-07 18:08:48 82 /min /min RESP RATE 2019-08-07 18:08:48 16 /min /min TEMP 2019-08-07 18:08:48 97.5 [degF] Procedures This patient has no known procedures. Results This patient has no known results.
--- OUTSIDE RECORDS SUMMARY | 2019-10-07 18:12 | XMS REPORT ---
:1960 Author Organization [facility] Care Team Providers Name Role Phone Unavailable Unavailable Unavailable Problems Condition Condition Condition Status Onset Resolution Last Treating Comments Name Details Category Date Date Treatment Clinician Date Pain frequent Pain Mgmt Resolve 2018-11-09 Elissa pain d 01-18 08:50:00 Jessica 13:00: [id number] 00 Pain knowledge/s Pain Mgmt Resolve 2018-05-13 Elissa kill d 01-18 11:18:00 Kersey deficit: pt 13:00: [id number] 00 Cardio knowledge/s Cardiovasc Resolve 2018-06-07 Elissa kill ular d 01-18 15:30:00 Kersey deficit: pt 13:00: [id number] 00 Respiratory oxygen Respirator Resolve 2018-07-05 Elissa treatments y d 01-18 09:20:00 Kersey in home 13:00: [id number] 00 Respiratory nebulizer Respirator Resolve 2018-07-05 Elissa treatment y d 01-18 09:20:00 Jessica in home 13:00: [id number] 00 Respiratory dyspnea Respirator Resolve 2018-07-05 Elissa present y d 01-18 09:20:00 Kersey 13:00: [id number] 00 Endo/Derek anti-coagul Endo/Derek Resolve 2018-07-12 Elissa ation d 01-18 09:48:00 Jessica therapy 13:00: [id number] 00 Nutrition nutritional Nutrition Resolve 2018-04-12 Elissa restriction d 01-18 10:11:00 Kersey s 13:00: [id number] 00 Elimination urinary Eliminatio Resolve 2018-05-13 Elissa frequency n d 01-18 11:18:00 Jessica 13:00: [id number] 00 Neuro impaired Neuro/Emot Resolve 2018-08-09 Elissa goldman-will ion d 01-18 08:44:00 Jessica rosanne 13:00: [id number] 00 Activity ADL Activity Resolve 2018-04-12 Adia assistance d 01-18 10:11:00 Guidelli required 13:00: [id number] 00 Safety risk for Safety Resolve 2018-05-13 Elissa hospitaliza d 01-18 11:18:00 Jessica tion 13:00: [id number] 00 Safety can be left Safety Resolve 2018-05-13 Elissa strong for d 01-18 11:18:00 Jessica only short 13:00: [id number] 00 Safety fall risk Safety Resolve 2018-05-13 Elissa factor d 01-18 11:18:00 Jessica present 13:00: [id number] 00 Medication knowledge/s Meds Resolve 2018-06-07 Elissa kill d 01-18 15:30:00 Kersey deficit: pt 13:00: [id number] 00 Medication oral med Meds Resolve 2018-06-07 Elissa assistance d 01-18 15:30:00 Kersey required 13:00: [id number] 00 Medication injectable Meds Resolve 2018-06-07 Elissa med d 01-18 15:30:00 Kersey assistance 13:00: [id number] required 00 Medication potential Meds Resolve 2018-06-07 Elissa clinically d 01-18 15:30:00 Jessica significant 13:00: [id number] medication 00 issue Diagnoses knowledge/s Diagnoses Active Elissa kill 01-18 Kersey deficit: pt 13:00: [id number] 00 Musculoskel requires Musculoske Resolve 2018-05-13 Elissa etal human letal d 01-18 11:18:00 Kersey assist to 13:00: [id number] leave home 00 Musculoskel transfer Musculoske Resolve 2018-05-13 Adia etal assistance letal d 01-18 11:18:00 Guidelli required 13:00: [id number] 00 Respiratory lung sounds Respirator Resolve 2018-07-05 Elissa deficit y d 01-25 09:20:00 Kersey 16:00: [id number] 00 Safety knowledge/s Safety Resolve 2018-05-13 Elissa kill d 01-25 11:18:00 Kersey deficit: pt 16:00: [id number] 00 Elimination constipatio Eliminatio Resolve 2018-05-13 Elissa n n d 03-15 11:18:00 Cristal 11:43: [id number] 00 Nutrition nutritional Nutrition Resolve 2018-06-07 Elissa restriction d 05-13 15:30:00 Cristal s 11:18: [id number] 00 Respiratory smoker Respirator Resolve 2018-07-05 Elissa y d 06-07 09:20:00 Cristal 15:30: [id number] 00 Elimination urinary Eliminatio Resolve 2018-06-07 Elissa frequency n d 06-07 15:30:00 Cristal 15:30: [id number] 00 Safety knowledge/s Safety Active Elissa kill 06-07 Cristal deficit: pt 15:30: [id number] 00 Safety risk for Safety Resolve 2018-07-05 Elissa hospitaliza d 06-07 09:20:00 Cristal tion 15:30: [id number] 00 Safety risk for Safety Unknown 2017[facility]09 [facility] [place] tion 14:00: [id number] 00 Respiratory dyspnea Respirator Resolve 2017-092018-08-09 Blaire present y d 0-16 08:44:00 Bruno 09:48: [id number] 00 Respiratory lung sounds Respirator Resolve 2017-092018-08-09 Blaire deficit y d 0-16 08:44:00 Bruno 09:48: [id number] 00 Safety risk for Safety Resolve 2017-092018-08-09 Blaire hospitaliza d 0-16 08:44:00 Bruno tion 09:48: [id number] 00 Respiratory oxygen Respirator Resolve 2017-092018-08-09 Blaire treatments y d 1- 08:44:00 Bruno in home 08:44: [id number] 00 Respiratory nebulizer Respirator Resolve 2017-092018-08-09 Blaire treatment y d 10-09 08:44:00 Bruno in home 08:44: [id number] 00 Neuro anxiety Neuro/Emot Resolve 2017-092018-08-09 Blaire present ion d 10-09 08:44:00 Bruno 08:44: [id number] 00 Safety risk for Safety Resolve 2017-092018-08-30 [facility] hospitaliza d 10-16 09:20:00 [place] tion 10:46: [id number] 00 Respiratory oxygen Respirator Resolve 2017-092018-09-13 Blaire treatments y d 10-31 09:53:00 Bruno in home 09:20: [id number] 00 Respiratory lung sounds Respirator Resolve 2017-092018-09-13 Blaire deficit y d 10-31 09:53:00 Bruno 09:20: [id number] 00 Respiratory smoker Respirator Resolve 2017-092018-09-13 Blaire y d 10-31 09:53:00 Bruno 09:20: [id number] 00 Respiratory nebulizer Respirator Resolve 2017-092018-09-13 Blaire treatment y d 10-31 09:53:00 Bruno in home 09:20: [id number] 00 Endo/Derek anti-coagul Endo/Derek Resolve 2017-092018-09-13 Blaire ation d 10-31 09:53:00 Bruno therapy 09:20: [id number] 00 Neuro anxiety Neuro/Emot Resolve 2017-092018-09-13 Blaire present ion d 10-31 09:53:00 Bruno 09:20: [id number] 00 Safety safety Safety Resolve 2017-092018-08-30 Blaire hazards d 10-31 09:20:00 Bruno present 09:20: [id number] 00 Safety risk for Safety Resolve 2017-092018-09-13 Arin hospitaliza d 11-07 09:53:00 Carrier RN tion 10:00: 00 Respiratory dyspnea Respirator Resolve 2017-092018-09-13 Blaire present y d 11-14 09:53:00 Bruno 09:53: [id number] 00 Safety risk for Safety Resolve 2017-092018-09-26 [facility] hospital[facility] d 11-20 09:45:00 [place] tion 10:00: [id number] 00 Respiratory dyspnea Respirator Resolve 2017-092019-01-03 Blaire present y d 09:25:00 Bruno 09:45: [id number] 00 Respiratory oxygen Respirator Resolve 2017-092019-01-03 Blaire treatments y d 09:25:00 Bruno in home 09:45: [id number] 00 Respiratory lung sounds Respirator Resolve 2017-092018-10-25 Blaire deficit y d 09:26:00 Bruno 09:45: [id number] 00 Respiratory smoker Respirator Resolve 2017-092018-09-26 Blaire y d 09:45:00 Bruno 09:45: [id number] 00 Respiratory nebulizer Respirator Resolve 2017-092019-01-03 Blaire treatment y d 09:25:00 Bruno in home 09:45: [id number] 00 Medication oral med Meds Resolve 2017-092019-03-09 Blaire assistance d 14:06:00 Bruno required 09:45: [id number] 00 Medication injectable Meds Resolve 2017-092019-03-09 Blaire med d 14:06:00 Bruno assistance 09:45: [id number] required 00 Nutrition nutritional Nutrition Resolve 2018-11-09 Jazz restriction d 1 08:50:00 [place] s 12:19: [id number] 00 Safety risk for Safety Resolve 2018-10-25 [facility] hospitaliza d 1 09:26:00 [place] tion 12:19: [id number] 00 Respiratory lung sounds Respirator Resolve 2018-11-09 Jazz deficit y d 11-01 08:50:00 [place] 10:20: [id number] 00 Safety risk for Safety Resolve 2018-11-09 [facility] hospital[facility] d 11-01 08:50:00 [place] tion 10:20: [id number] 00 Respiratory smoker Respirator Resolve 2018-12-20 Blaire y d 11-09 09:22:00 Bruno 08:50: [id number] 00 Neuro anxiety Neuro/Emot Resolve 2018-11-09 Blaire present ion d 11-09 08:50:00 Bruno 08:50: [id number] 00 Nutrition nutritional Nutrition Resolve 2018-12-06 Jazz restriction d 11-15 10:45:00 [place] s 11:00: [id number] 00 Safety risk for Safety Resolve 2018-12-06 [facility] hospitaliza d 11-15 10:45:00 [place] tion 11:00: [id number] 00 Respiratory lung sounds Respirator Resolve 2018-12-20 Blaire deficit y d 12-06 09:22:00 Bruno 10:45: [id number] 00 Respiratory pneumonia Respirator Resolve 2018-12-20 Blaire y d 12-06 09:22:00 Bruno 10:45: [id number] 00 Respiratory asthma Respirator Resolve 2019-01-03 Blaire y d 12-06 09:25:00 Bruno 10:45: [id number] 00 Nutrition nutritional Nutrition Resolve 2018-12-20 Blaire restriction d 12-13 09:22:00 Bruno s 09:45: [id number] 00 Safety risk for Safety Resolve 2018-12-20 Blaire hospitaliza d 12-13 09:22:00 Bruno tion 09:45: [id number] 00 Safety safety Safety Resolve 2018-12-20 Blaire hazards d 12-20 09:22:00 Bruno present 09:22: [id number] 00 Respiratory knowledge/s Respirator Resolve 2019-01-03 Blaire kill y d 12-27 09:25:00 Bruno deficit: pt 10:07: [id number] 00 Respiratory lung sounds Respirator Resolve 2019-01-03 Blaire deficit y d 4 09:25:00 Bruno 10:07: [id number] 00 Respiratory CPAP Respirator Resolve 2019-01-03 Blaire treatments y d 4-02 09:25:00 Bruno in home 10:07: [id number] 00 Respiratory smoker Respirator Resolve 2019-01-03 Blaire y d 4-02 09:25:00 Bruno 10:07: [id number] 00 Nutrition nutritional Nutrition Resolve 2019-01-03 Blaire restriction d 12-27 09:25:00 Bruno s 10:07: [id number] 00 Neuro impaired Neuro/Emot Resolve 2019-01-03 Blaire decision-ma ion d 12-27 09:25:00 Bruno rosanne 10:07: [id number] 00 Safety risk for Safety Resolve 2019-01-03 Blaire hospitaliza d 12-27 09:25:00 Bruno tion 10:07: [id number] 00 Neuro memory Neuro/Emot Unknown Blaire deficit ion - Bruno needing 09:25: [id number] supervision 00 Respiratory dyspnea Respirator Resolve 2019-03-28 Blaire present y d 01-10 09:06:00 Bruno 09:27: [id number] 00 Respiratory knowledge/s Respirator Resolve 2019-03-07 Blaire kill y d 01-10 09:45:00 Bruno deficit: pt 09:27: [id number] 00 Respiratory lung sounds Respirator Resolve 2019-03-07 Blaire deficit y d 01-10 09:45:00 Bruno 09:27: [id number] 00 Respiratory smoker Respirator Resolve 2019-03-07 Blaire y d 01-10 09:45:00 Bruno 09:27: [id number] 00 Nutrition nutritional Nutrition Resolve 2019-02-07 Blaire restriction d 01-10 09:39:00 Bruno s 09:27: [id number] 00 Neuro impaired Neuro/Emot Unknown Blaire decision-ma ion 01-10 Bruno rosanne 09:27: [id number] 00 Neuro memory Neuro/Emot Unknown Blaire deficit ion 01-10 Bruno needing 09:27: [id number] supervision 00 Safety fall risk Safety Resolve 2019-02-07 Blaire factor d 01-10 09:39:00 Bruno present 09:27: [id number] 00 Safety risk for Safety Resolve 2019-02-07 Blaire hospitaliza d 01-10 09:39:00 Bruno tion 09:27: [id number] 00 Respiratory oxygen Respirator Resolve 2019-03-28 Elissa treatments y d 01-24 09:06:00 Barbara in home 09:00: [facility], [facility] 00 [id number] Respiratory nebulizer Respirator Resolve 2019-03-28 Elissa treatment y d 4-30 09:06:00 Barbara in home 09:00: [employer] 00 [id number] Respiratory asthma Respirator Resolve 2019-03-28 Consuelo y d 5- 09:06:00 [place] 11:00: 00 Elimination urinary Eliminatio Resolve 2019-02-07 Elissa incontinenc n d 01-31 09:39:00 Barbara e 08:30: [employer] 00 [id number] Nutrition nutritional Nutrition Resolve 2019-03-07 Elissa restriction d 02-14 09:45:00 Barbara s 08:13: [employer] 00 [id number] Safety risk for Safety Resolve 2019-03-07 Elissa hospitaliza d 02-14 09:45:00 Barbara tion 08:13: [employer] 00 [id number] Respiratory lung sounds Respirator Resolve 2019-03-09 Blaire deficit y d 6-13 14:06:00 Bruno 14:06: [id number] 00 Respiratory smoker Respirator Resolve 2019-03-09 Blaire y d 613 14:06:00 Bruno 14:06: [id number] 00 Nutrition nutritional Nutrition Resolve 2019-03-28 Blaire restriction d 6-13 09:06:00 Bruno s 14:06: [id number] 00 Safety safety Safety Resolve 2019-03-28 Blaire hazards d 6-13 09:06:00 Bruno present 14:06: [id number] 00 Safety fall risk Safety Resolve 2019-03-28 Blaire factor d 6-13 09:06:00 Bruno present 14:06: [id number] 00 Safety risk for Safety Resolve 2019-03-28 Blaire hospitaliza d 6-13 09:06:00 Bruno tion 14:06: [id number] 00 Medication potential Meds Resolve 2019-03-09 Blarie clinically d 6-13 14:06:00 Bruno significant 14:06: [id number] medication 00 issue Respiratory lung sounds Respirator Resolve 2019-03-28 Elissa deficit y d 6-18 09:06:00 Barbara 07:45: [employer] 00 [id number] Respiratory lung sounds Respirator Resolve 2019-04-25 Elissa deficit y d 04-04 09:45:00 Barbara 08:00: [employer] 00 [id number] Nutrition nutritional Nutrition Resolve 2019-04-25 Elissa restriction d 04-04 09:45:00 Barbara s 08:00: [employer] 00 [id number] Safety risk for Safety Resolve 2019-04-25 [facility] 09:45:00 Barbara tion 08:00: [employer] 00 [id number] Neuro anxiety Neuro/Emot Resolve 2019-04-25 Blaire present ion d 04-25 09:45:00 Bruno 09:45: [id number] 00 Safety risk for Safety Resolve 2019-05-09 [facility] 05-02 12:05:00 Barbara tion 08:15: [employer] 00 [id number] Respiratory lung sounds Respirator Resolve 2019-05-30 Blaire deficit y d 05-09 08:38:00 Bruno 12:05: [id number] 00 Medication injectable Meds Resolve 2019-05-30 Blaire med d 05-09 08:38:00 Bruno assistance 12:05: [id number] required 00 Safety risk for Safety Resolve 2019-05-30 Elissa [facility] d 05-16 08:38:00 Barbara tion 08:02: [employer] 00 [id number] Neuro impaired Neuro/Emot Resolve 2019-05-30 Blaire decision-ma ion d 05-30 08:38:00 Bruno rosanne 08:38: [id number] 00 Neuro memory Neuro/Emot Resolve 2019-05-30 Blaire deficit ion d 05-30 08:38:00 Bruno needing 08:38: [id number] supervision 00 Safety risk for Safety Resolve 2019-06-27 [facility] 06-06 08:40:00 Barbara tion 07:56: [employer] 00 [id number] Respiratory lung sounds Respirator Resolve 2019-06-27 Elissa deficit y d 06-13 08:40:00 Barbara 07:30: [employer] 00 [id number] Respiratory nebulizer Respirator Resolve 2018-092019-06-27 Blaire treatment y d 0-01 08:40:00 Bruno in home 08:40: [id number] 00 Elimination urinary Eliminatio Resolve 2018-092019-07-11 Elissa incontinenc n d 0-08 10:13:00 Barbara e 08:00: [employer] 00 [id number] Safety risk for Safety Resolve 2018-092019-08-07 Elissa hospitaliza d 0-08 12:15:00 Barbara tion 08:00: [employer] 00 [id number] Respiratory oxygen Respirator Active 2018-09 Blaire treatments y 0-15 Bruno in home 10:13: [id number] 00 Respiratory nebulizer Respirator Active 2018-09 Blaire treatment y 0-15 Bruno in home 10:13: [id number] 00 Respiratory lung sounds Respirator Resolve 2018-092019-07-11 Blaire deficit y d 0-15 10:13:00 Bruno 10:13: [id number] 00 Neuro anxiety Neuro/Emot Resolve 2018-092019-08-07 Blaire present ion d 0-15 12:15:00 Bruno 10:13: [id number] 00 Neuro impaired Neuro/Emot Unknown 2018-09 Blaire decision-ma ion 0-15 Bruno rosanne 10:13: [id number] 00 Safety safety Safety Resolve 2018-092019-08-07 Blaire hazards d 0-15 12:15:00 Bruno present 10:13: [id number] 00 Safety fall risk Safety Resolve 2018-092019-08-07 Blaire factor d 0-15 12:15:00 Bruno present 10:13: [id number] 00 Medication injectable Meds Resolve 2018-092019-08-07 Blaire med d 0-15 12:15:00 Bruno assistance 10:13: [id number] required 00 Medication oral med Meds Resolve 2018-092019-08-07 Blaire assistance d 0-15 12:15:00 Bruno required 10:13: [id number] 00 Respiratory lung sounds Respirator Resolve 2018-092019-08-07 Blaire deficit y d 1-11 12:15:00 Bruno 12:15: [id number] 00 Elimination urinary Eliminatio Active 2018-09 Elissa incontinenc n 10-15 [facility] 08:[facility] [id number] Safety risk for Safety Active 2018-09 Elissa hospitaliza 10-15 Barbara tion 08:00: [facility], [facility] 00 [id number] Allergies, Adverse Reactions, Alerts Allergy Name Allergy Status Severity Reaction(s) Onset Inactive Treating Comments Type Date Date Clinician sulfa Unknown Active Mild to Rash Elissa Moderate 5- Jessica [id number] aspirin Base Active Moderate Hives Elissa Ingredient 5- Kersey [id number] penicillin G Base Active Moderate Difficulty Elissa Ingredient to Severe swallowing 01-25 Jessica [id number] Medications Ordered Filled Start Stop Current Ordering [...] Observation Time Observation Value Comments SYSTOLIC mm[Hg] 2019-08-22 18:09:03 122 mm[Hg] mm[Hg] Method: Sit SYSTOLIC mm[Hg] 2019-05-11 18:07:20 104 mm[Hg] mm[Hg] Method: Stand DIASTOLIC mm[Hg] 2019-08-22 18:09:03 64 mm[Hg] mm[Hg] Method: Sit DIASTOLIC mm[Hg] 2019-05-11 18:07:20 59 mm[Hg] mm[Hg] Method: Stand PULSE 2019-08-22 18:09:03 94 /min /min RESP RATE 2019-08-22 18:09:03 16 /min /min TEMP 2019-08-22 18:09:03 97.7 [degF] Procedures This patient has no known procedures. Results This patient has no known results.
--- OUTSIDE RECORDS SUMMARY | 2019-10-07 18:12 | XMS REPORT ---
:1960 Author Organization [facility] Care Team Providers Name Role Phone Unavailable Unavailable Unavailable Problems Condition Condition Condition Status Onset Resolution Last Treating Comments Name Details Category Date Date Treatment Clinician Date Pain frequent Pain Mgmt Resolve 2018-11-09 Elissa pain d 01-18 08:50:00 Jessica 13:00: [id number] 00 Pain knowledge/s Pain Mgmt Resolve 2018-05-13 Elissa kill d 01-18 11:18:00 [place] deficit: pt 13:00: [id number] 00 Cardio knowledge/s Cardiovasc Resolve 2018-06-07 Elissa kill ular d 01-18 15:30:00 [place] deficit: pt 13:00: [id number] 00 Respiratory oxygen Respirator Resolve 2018-07-05 Elissa treatments y d 01-18 09:20:00 Jessica in home 13:00: [id number] 00 Respiratory nebulizer Respirator Resolve 2018-07-05 Elissa treatment y d 01-18 09:20:00 Jessica in home 13:00: [id number] 00 Respiratory dyspnea Respirator Resolve 2018-07-05 Elissa present y d 01-18 09:20:00 [place] 13:00: [id number] 00 Endo/Derek anti-coagul Endo/Derek Resolve 2018-07-12 Elissa ation d 01-18 09:48:00 Jessica therapy 13:00: [id number] 00 Nutrition nutritional Nutrition Resolve 2018-04-12 Elsisa restriction d 01-18 10:11:00 [place] s 13:00: [id number] 00 Elimination urinary Eliminatio Resolve 2018-05-13 Elissa frequency n d 01-18 11:18:00 Jessica 13:00: [id number] 00 Neuro impaired Neuro/Emot Resolve 2018-08-09 Elissa goldman-will ion d 01-18 08:44:00 Jessica rosanne 13:00: [id number] 00 Activity ADL Activity Resolve 2018-04-12 Adia assistance d 01-18 10:11:00 Guid[place] required 13:00: [id number] 00 Safety risk for Safety Resolve 2018-05-13 Elissa hospitaliza d 01-18 11:18:00 [place] tion 13:00: [id number] 00 Safety can be left Safety Resolve 2018-05-13 Elissa strong for d 01-18 11:18:00 [place] only short 13:00: [id number] 00 Safety fall risk Safety Resolve 2018-05-13 Elissa factor d 01-18 11:18:00 Jessica present 13:00: [id number] 00 Medication knowledge/s Meds Resolve 2018-06-07 Elissa kill d 01-18 15:30:00 Jessica deficit: pt 13:00: [id number] 00 Medication oral med Meds Resolve 2018-06-07 Elissa assistance d 01-18 15:30:00 [place] required 13:00: [id number] 00 Medication injectable Meds Resolve 2018-06-07 Elissa med d 01-18 15:30:00 [place] assistance 13:00: [id number] required 00 Medication potential Meds Resolve 2018-06-07 Elissa clinically d 01-18 15:30:00 Jessica significant 13:00: [id number] medication 00 issue Diagnoses knowledge/s Diagnoses Active Elissa kill 01-18 [place] deficit: pt 13:00: [id number] 00 Musculoskel requires Musculoske Resolve 2018-05-13 Elissa etal human letal d 01-18 11:18:00 Jessica assist to 13:00: [id number] leave home 00 Musculoskel transfer Musculoske Resolve 2018-05-13 Adia etal assistance letal d 01-18 11:18:00 [place] required 13:00: [id number] 00 Respiratory lung sounds Respirator Resolve 2018-07-05 Elissa deficit y d 01-25 09:20:00 Jessica 16:00: [id number] 00 Safety knowledge/s Safety Resolve 2018-05-13 Elissa kill d 01-25 11:18:00 [place] deficit: pt 16:00: [id number] 00 Elimination constipatio Eliminatio Resolve 2018-05-13 Elissa n n d 03-15 11:18:00 Cristal 11:43: [id number] 00 Nutrition nutritional Nutrition Resolve 2018-06-07 Elissa restriction d 05-13 15:30:00 Cristal s 11:18: [id number] 00 Respiratory smoker Respirator Resolve 2018-07-05 Elissa y d 06-07 09:20:00 Cristal 15:30: [id number] 00 Elimination urinary Eliminatio Resolve 2018-06-07 Elissa frequency n d 06-07 15:30:00 Cristal 15:30: [id number] 00 Safety knowledge/s Safety Active Elissa kill 06-07 Cristal deficit: pt 15:30: [id number] 00 Safety risk for Safety Resolve 2018-07-05 Elissa hospitaliza d 06-07 09:20:00 Cristal tion 15:30: [id number] 00 [facility] for [facility] [place] [facility] 14:00: [id number] 00 Respiratory dyspnea Respirator Resolve 2017-092018-08-09 Blaire present y d 0-16 08:44:00 Bruno 09:48: [id number] 00 Respiratory lung sounds Respirator Resolve 2017-092018-08-09 Blaire deficit y d 0-16 08:44:00 Bruno 09:48: [id number] 00 Safety risk for Safety Resolve 2017-092018-08-09 Blaire hospitaliza d 0-16 08:44:00 Bruno tion 09:48: [id number] 00 Respiratory oxygen Respirator Resolve 2017-092018-08-09 Blaire treatments y d 1- 08:44:00 Bruno in home 08:44: [id number] 00 Respiratory nebulizer Respirator Resolve 2017-092018-08-09 Blaire treatment y d 10-09 08:44:00 Bruno in home 08:44: [id number] 00 Neuro anxiety Neuro/Emot Resolve 2017-092018-08-09 Blaire present ion d 10-09 08:44:00 Bruno 08:44: [id number] 00 Safety risk for Safety Resolve 2017-092018-08-30 [facility] hospitaliza d 10-16 09:20:00 [place] tion 10:46: [id number] 00 Respiratory oxygen Respirator Resolve 2017-092018-09-13 Blaire treatments y d 10-31 09:53:00 Bruno in home 09:20: [id number] 00 Respiratory lung sounds Respirator Resolve 2017-092018-09-13 Blaire deficit y d 10-31 09:53:00 Bruno 09:20: [id number] 00 Respiratory smoker Respirator Resolve 2017-092018-09-13 Blaire y d 10-31 09:53:00 Bruno 09:20: [id number] 00 Respiratory nebulizer Respirator Resolve 2017-092018-09-13 Blaire treatment y d 10-31 09:53:00 Bruno in home 09:20: [id number] 00 Endo/Derek anti-coagul Endo/Derek Resolve 2017-092018-09-13 Blaire ation d 10-31 09:53:00 Bruno therapy 09:20: [id number] 00 Neuro anxiety Neuro/Emot Resolve 2017-092018-09-13 Blaire present ion d 10-31 09:53:00 Bruno 09:20: [id number] 00 Safety safety Safety Resolve 2017-092018-08-30 Blaire hazards d 10-31 09:20:00 Bruno present 09:20: [id number] 00 Safety risk for Safety Resolve 2017-092018-09-13 Arin hospitaliza d 11-07 09:53:00 Carrier RN tion 10:00: 00 Respiratory dyspnea Respirator Resolve 2017-092018-09-13 Blaire present y d 11-14 09:53:00 Bruno 09:53: [id number] 00 Safety risk for Safety Resolve 2017-092018-09-26 [facility] hospital[facility] d 11-20 09:45:00 [place] tion 10:00: [id number] 00 Respiratory dyspnea Respirator Resolve 2017-092019-01-03 Blaire present y d 09:25:00 Bruno 09:45: [id number] 00 Respiratory oxygen Respirator Resolve 2017-092019-01-03 Blaire treatments y d 09:25:00 Bruno in home 09:45: [id number] 00 Respiratory lung sounds Respirator Resolve 2017-092018-10-25 Blaire deficit y d 09:26:00 Bruno 09:45: [id number] 00 Respiratory smoker Respirator Resolve 2017-092018-09-26 Blaire y d 09:45:00 Bruno 09:45: [id number] 00 Respiratory nebulizer Respirator Resolve 2017-092019-01-03 Blaire treatment y d 09:25:00 Bruno in home 09:45: [id number] 00 Medication oral med Meds Resolve 2017-092019-03-09 Blaire assistance d 14:06:00 Bruno required 09:45: [id number] 00 Medication injectable Meds Resolve 2017-092019-03-09 Blaire med d 14:06:00 Bruno assistance 09:45: [id number] required 00 Nutrition nutritional Nutrition Resolve 2018-11-09 Jazz restriction d 1 08:50:00 [place] s 12:19: [id number] 00 Safety risk for Safety Resolve 2018-10-25 [facility] hospitaliza d 1 09:26:00 [place] tion 12:19: [id number] 00 Respiratory lung sounds Respirator Resolve 2018-11-09 Jazz deficit y d 11-01 08:50:00 [place] 10:20: [id number] 00 Safety risk for Safety Resolve 2018-11-09 [facility] hospitaliza d 11-01 08:50:00 [place] tion 10:20: [id number] 00 Respiratory smoker Respirator Resolve 2018-12-20 Blaire y d 11-09 09:22:00 Bruno 08:50: [id number] 00 Neuro anxiety Neuro/Emot Resolve 2018-11-09 Blaire present ion d 11-09 08:50:00 Bruno 08:50: [id number] 00 Nutrition nutritional Nutrition Resolve 2018-12-06 Jazz restriction d 11-15 10:45:00 [place] s 11:00: [id number] 00 Safety risk for Safety Resolve 2018-12-06 [facility] hospitaliza d 11-15 10:45:00 [place] tion 11:00: [id number] 00 Respiratory lung sounds Respirator Resolve 2018-12-20 Blaire deficit y d 12-06 09:22:00 Bruno 10:45: [id number] 00 Respiratory pneumonia Respirator Resolve 2018-12-20 Blaire y d 12-06 09:22:00 Bruno 10:45: [id number] 00 Respiratory asthma Respirator Resolve 2019-01-03 Blaire y d 12-06 09:25:00 Bruno 10:45: [id number] 00 Nutrition nutritional Nutrition Resolve 2018-12-20 Blaire restriction d 12-13 09:22:00 Bruno s 09:45: [id number] 00 Safety risk for Safety Resolve 2018-12-20 Blaire hospitaliza d 12-13 09:22:00 Bruno tion 09:45: [id number] 00 Safety safety Safety Resolve 2018-12-20 Blaire hazards d 12-20 09:22:00 Bruno present 09:22: [id number] 00 Respiratory knowledge/s Respirator Resolve 2019-01-03 Blaire kill y d 12-27 09:25:00 Bruno deficit: pt 10:07: [id number] 00 Respiratory lung sounds Respirator Resolve 2019-01-03 Blaire deficit y d 4 09:25:00 Bruno 10:07: [id number] 00 Respiratory CPAP Respirator Resolve 2019-01-03 Blaire treatments y d 4-02 09:25:00 Bruno in home 10:07: [id number] 00 Respiratory smoker Respirator Resolve 2019-01-03 Blaire y d 4-02 09:25:00 Bruno 10:07: [id number] 00 Nutrition nutritional Nutrition Resolve 2019-01-03 Blaire restriction d 12-27 09:25:00 Bruno s 10:07: [id number] 00 Neuro impaired Neuro/Emot Resolve 2019-01-03 Blaire decision-ma ion d 12-27 09:25:00 Bruno rosanne 10:07: [id number] 00 Safety risk for Safety Resolve 2019-01-03 Blaire hospitaliza d 12-27 09:25:00 Bruno tion 10:07: [id number] 00 Neuro memory Neuro/Emot Unknown Blaire deficit ion - Bruno needing 09:25: [id number] supervision 00 Respiratory dyspnea Respirator Resolve 2019-03-28 Blaire present y d 01-10 09:06:00 Bruno 09:27: [id number] 00 Respiratory knowledge/s Respirator Resolve 2019-03-07 Blaire kill y d 01-10 09:45:00 Bruno deficit: pt 09:27: [id number] 00 Respiratory lung sounds Respirator Resolve 2019-03-07 Blaire deficit y d 01-10 09:45:00 Bruno 09:27: [id number] 00 Respiratory smoker Respirator Resolve 2019-03-07 Blaire y d 01-10 09:45:00 Bruno 09:27: [id number] 00 Nutrition nutritional Nutrition Resolve 2019-02-07 Blaire restriction d 01-10 09:39:00 Bruno s 09:27: [id number] 00 Neuro impaired Neuro/Emot Unknown Blaire decision-ma ion 01-10 Bruno rosanne 09:27: [id number] 00 Neuro memory Neuro/Emot Unknown Blaire deficit ion 01-10 Bruno needing 09:27: [id number] supervision 00 Safety fall risk Safety Resolve 2019-02-07 Blaire factor d 01-10 09:39:00 Bruno present 09:27: [id number] 00 Safety risk for Safety Resolve 2019-02-07 Blaire hospitaliza d 01-10 09:39:00 Bruno tion 09:27: [id number] 00 Respiratory oxygen Respirator Resolve 2019-03-28 Elissa treatments y d 01-24 09:06:00 Barbara in home 09:00: [facility] 00 [id number] Respiratory nebulizer Respirator Resolve 2019-03-28 Elissa treatment y d 4-30 09:06:00 Barbara in home 09:00: [employer] 00 [id number] Respiratory asthma Respirator Resolve 2019-03-28 Consuelo y d 5- 09:06:00 [place] 11:00: 00 Elimination urinary Eliminatio Resolve 2019-02-07 Elissa incontinenc n d 01-31 09:39:00 Barbara e 08:30: [employer] 00 [id number] Nutrition nutritional Nutrition Resolve 2019-03-07 Elissa restriction d 02-14 09:45:00 Barbara s 08:13: [employer] 00 [id number] Safety risk for Safety Resolve 2019-03-07 Elissa hospitaliza d 02-14 09:45:00 Barbara tion 08:13: [employer] 00 [id number] Respiratory lung sounds Respirator Resolve 2019-03-09 Blaire deficit y d 6-13 14:06:00 Bruno 14:06: [id number] 00 Respiratory smoker Respirator Resolve 2019-03-09 Blaire y d 613 14:06:00 Bruno 14:06: [id number] 00 Nutrition nutritional Nutrition Resolve 2019-03-28 Blaire restriction d 6-13 09:06:00 Bruno s 14:06: [id number] 00 Safety safety Safety Resolve 2019-03-28 Blaire hazards d 6-13 09:06:00 Bruno present 14:06: [id number] 00 Safety fall risk Safety Resolve 2019-03-28 Blaire factor d 6-13 09:06:00 Bruno present 14:06: [id number] 00 Safety risk for Safety Resolve 2019-03-28 Blaire hospitaliza d 6-13 09:06:00 Bruno tion 14:06: [id number] 00 Medication potential Meds Resolve 2019-03-09 Blaire clinically d 6-13 14:06:00 Bruno significant 14:06: [id number] medication 00 issue Respiratory lung sounds Respirator Resolve 2019-03-28 Elissa deficit y d 6-18 09:06:00 Barbara 07:45: [employer] 00 [id number] Respiratory lung sounds Respirator Resolve 2019-04-25 Elissa deficit y d 04-04 09:45:00 Barbara 08:00: [employer] 00 [id number] Nutrition nutritional Nutrition Resolve 2019-04-25 Elissa restriction d 04-04 09:45:00 Barbara s 08:00: [employer] 00 [id number] Safety risk for Safety Resolve 2019-04-25 [facility] 09:45:00 Barbara tion 08:00: [employer] 00 [id number] Neuro anxiety Neuro/Emot Resolve 2019-04-25 Blaire present ion d 04-25 09:45:00 Bruno 09:45: [id number] 00 Safety risk for Safety Resolve 2019-05-09 [facility] 05-02 12:05:00 Barbara tion 08:15: [employer] 00 [id number] Respiratory lung sounds Respirator Resolve 2019-05-30 Blaire deficit y d 05-09 08:38:00 Bruno 12:05: [id number] 00 Medication injectable Meds Resolve 2019-05-30 Blaire med d 05-09 08:38:00 Bruno assistance 12:05: [id number] required 00 Safety risk for Safety Resolve 2019-05-30 Elissa [facility] d 05-16 08:38:00 Barbara tion 08:02: [employer] 00 [id number] Neuro impaired Neuro/Emot Resolve 2019-05-30 Blaire decision-ma ion d 05-30 08:38:00 Bruno rosanne 08:38: [id number] 00 Neuro memory Neuro/Emot Resolve 2019-05-30 Blaire deficit ion d 05-30 08:38:00 Bruno needing 08:38: [id number] supervision 00 Safety risk for Safety Resolve 2019-06-27 [facility] 06-06 08:40:00 Barbara tion 07:56: [employer] 00 [id number] Respiratory lung sounds Respirator Resolve 2019-06-27 Elissa deficit y d 06-13 08:40:00 Barbara 07:30: [employer] 00 [id number] Respiratory nebulizer Respirator Resolve 2018-092019-06-27 Blaire treatment y d 0-01 08:40:00 Bruno in home 08:40: [id number] 00 Elimination urinary Eliminatio Resolve 2018-092019-07-11 Elissa incontinenc n d 0-08 10:13:00 Barbara e 08:00: [employer] 00 [id number] Safety risk for Safety Resolve 2018-092019-08-07 Elissa hospitaliza d 0-08 12:15:00 Barbara tion 08:00: [employer] 00 [id number] Respiratory oxygen Respirator Active 2018-09 Blaire treatments y 0-15 Bruno in home 10:13: [id number] 00 Respiratory nebulizer Respirator Active 2018-09 Blaire treatment y 0-15 Bruno in home 10:13: [id number] 00 Respiratory lung sounds Respirator Resolve 2018-092019-07-11 Blaire deficit y d 0-15 10:13:00 Bruno 10:13: [id number] 00 Neuro anxiety Neuro/Emot Resolve 2018-092019-08-07 Blaire present ion d 0-15 12:15:00 Bruno 10:13: [id number] 00 Neuro impaired Neuro/Emot Unknown 2018-09 Blaire decision-ma ion 0-15 Bruon roasnne 10:13: [id number] 00 Safety safety Safety Resolve 2018-092019-08-07 Blaire hazards d 0-15 12:15:00 Bruno present 10:13: [id number] 00 Safety fall risk Safety Resolve 2018-092019-08-07 Blaire factor d 0-15 12:15:00 Bruno present 10:13: [id number] 00 Medication injectable Meds Resolve 2018-092019-08-07 Blaire med d 0-15 12:15:00 Bruno assistance 10:13: [id number] required 00 Medication oral med Meds Resolve 2018-092019-08-07 Blaire assistance d 0-15 12:15:00 Bruno required 10:13: [id number] 00 Respiratory lung sounds Respirator Resolve 2018-092019-08-07 Blaire deficit y d 1-11 12:15:00 Bruno 12:15: [id number] 00 Elimination urinary Eliminatio Active 2018-09 Elissa incontinenc n 10-15 Barbara e 08:00: [employer] 00 [id number] Safety risk for Safety Active 2018-09 Elissa hospitaliza 10-15 Barbara tion 08:00: [employer] 00 [id number] Nutrition nutritional Nutrition Active 2018-09 Rosamaria restriction 10-26 Trista s 10:55: RN 00 Allergies, Adverse Reactions, Alerts Allergy Name Allergy Status Severity Reaction(s) Onset Inactive Treating Comments Type Date Date Clinician sulfa Unknown Active Mild to Rash Elissa Moderate 5- Jessica [id number] aspirin Base Active Moderate Hives Elissa Ingredient 5- [place] [id number] penicillin G Base Active Moderate Difficulty Elissa Ingredient to Severe swallowing 01-25 Jessica [id number] Medications Ordered Filled Start Stop Current Ordering [...]
[2019-10-07 18:26] LABS: Albumin/Globulin Ratio 1.4 (1-3); BUN/Creatinine Ratio 18.6 (8-20); Calcium 8.9 mg/dL (8.6-10.3); EGFR African American 70.6 (>60); EGFR Non-African American 58.4 (>60); Globulin 2.9 g/dL (2-4); Potassium 3.2 mmol/L (3.5-5.0); Total Bilirubin 0.5 mg/dL (0.2-1.0); Total Protein 6.9 g/dL (6.4-8.9)
[2019-10-08 01:47] VITALS: BP 128/78
== END 2019-10-08 01:46 | disposition home or self-care (01) ==
LOC: ED 17:42
DX: M25.531 Pain in right wrist (principal); F10.929 Alcohol use, unspecified with intoxication, unspecified; W18.2XXA Fall in (into) shower or empty bathtub, initial encounter; Y92.002 Bathroom of unspecified non-institutional (private) residence as the place of occurrence of the external cause; I10 Essential (primary) hypertension; E78.5 Hyperlipidemia, unspecified; F20.9 Schizophrenia, unspecified; E07.9 Disorder of thyroid, unspecified; D64.9 Anemia, unspecified; I25.2 Old myocardial infarction; J44.9 Chronic obstructive pulmonary disease, unspecified; K21.9 Gastro-esophageal reflux disease without esophagitis; F41.9 Anxiety disorder, unspecified; F32.9 Major depressive disorder, single episode, unspecified; F43.10 Post-traumatic stress disorder, unspecified; F17.210 Nicotine dependence, cigarettes, uncomplicated; Z85.41 Personal history of malignant neoplasm of cervix uteri; Z90.710 Acquired absence of both cervix and uterus; Z95.2 Presence of prosthetic heart valve; Z79.899 Other long term (current) drug therapy; Z88.0 Allergy status to penicillin; Z88.2 Allergy status to sulfonamides; Z88.8 Allergy status to other drugs, medicaments and biological substances
CPT/HCPCS: 36415; 70450; 72125; 72128; 80053; 80320; 85025; 99283; G0480

== ENCOUNTER 2019-10-10 03:18 | Emergency (ER) | payer MEDICARE, MEDICAID ==
--- OUTSIDE RECORDS SUMMARY | 2019-10-10 03:49 | XMS REPORT ---
:1960 Author Organization [facility] Care Team Providers Name Role Phone Unavailable Unavailable Unavailable Problems Condition Condition Condition Status Onset Resolution Last Treating Comments Name Details Category Date Date Treatment Clinician Date Chronic Chronic Diagnosis Active Blaire obstructive obstructive 01-18 Bruno pulmonary pulmonary [id number] disease, disease, unspecified unspecified Patient's Patient's Diagnosis Active Blaire other other 01-18 Bruno noncomplian noncomplian [id number] ce with ce with medication medication regimen regimen Schizophren Schizophren Diagnosis Active Blaire ia, ia, 01-18 Bruno unspecified unspecified [id number] Essential Essential Diagnosis Active Blaire (primary) (primary) 01-18 Bruno hypertensio hypertensio [id number] n n Hypothyroid Hypothyroid Diagnosis Active Blaire ism, ism, 01-18 Bruno unspecified unspecified [id number] Dependence Dependence Diagnosis Active Blaire on on 01-18 Bruno supplementa supplementa [id number] l oxygen l oxygen Anemia, Anemia, Diagnosis Active Blaire unspecified unspecified Bruno [id number] Nicotine Nicotine Diagnosis Active Blaire dependence, dependence, Bruno cigarettes, cigarettes, [id number] uncomplicat uncomplicat ed ed Pain frequent Pain Mgmt Resolve 2018-11-09 Elissa pain d 01-18 08:50:00 Jessica 13:00: [id number] 00 Pain knowledge/s Pain Mgmt Resolve 2018-05-13 Elissa kill d 01-18 11:18:00 [place] deficit: pt 13:00: [id number] 00 Cardio knowledge/s Cardiovasc Resolve 2018-06-07 Elissa wheeler ular d 01-18 15:30:00 [place] deficit: pt 13:00: [id number] 00 Respiratory oxygen Respirator Resolve 2018-07-05 Elissa treatments y d 01-18 09:20:00 [place] in home 13:00: [id number] 00 Respiratory nebulizer Respirator Resolve 2018-07-05 Elissa treatment y d 01-18 09:20:00 Jessica in home 13:00: [id number] 00 Respiratory dyspnea Respirator Resolve 2018-07-05 Elissa present y d 01-18 09:20:00 Jessica 13:00: [id number] 00 Endo/Derek anti-coagul Endo/Derek Resolve 2018-07-12 Elissa ation d 01-18 09:48:00 [place] therapy 13:00: [id number] 00 Nutrition nutritional Nutrition Resolve 2018-04-12 Elissa restriction d 01-18 10:11:00 [place] s 13:00: [id number] 00 Elimination urinary Eliminatio Resolve 2018-05-13 Elissa frequency n d 01-18 11:18:00 [place] 13:00: [id number] 00 Neuro impaired Neuro/Emot Resolve 2018-08-09 Elissa decision-ma ion d 01-18 08:44:00 [place] rosanne 13:00: [id number] 00 Activity ADL Activity Resolve 2018-04-12 Adia assistance d 01-18 10:11:00 Guidelli required 13:00: [id number] 00 Safety risk for Safety Resolve 2018-05-13 Elissa hospitaliza d 01-18 11:18:00 Jessica tion 13:00: [id number] 00 Safety can be left Safety Resolve 2018-05-13 Elissa alone for d 01-18 11:18:00 [place] only short 13:00: [id number] 00 Safety fall risk Safety Resolve 2018-05-13 Elissa factor d 01-18 11:18:00 Jessica present 13:00: [id number] 00 Medication knowledge/s Meds Resolve 2018-06-07 Elissa kill d 01-18 15:30:00 [place] deficit: pt 13:00: [id number] 00 Medication oral med Meds Resolve 2018-06-07 Elissa assistance d 01-18 15:30:00 Jessica required 13:00: [id number] 00 Medication injectable Meds Resolve 2018-06-07 Elissa med d 01-18 15:30:00 [place] assistance 13:00: [id number] required 00 Medication potential Meds Resolve 2018-06-07 Elissa clinically d 01-18 15:30:00 [place] significant 13:00: [id number] medication 00 issue Diagnoses knowledge/s Diagnoses Active Elissa kill 01-18 [place] deficit: pt 13:00: [id number] 00 Musculoskel requires Musculoske Resolve 2018-05-13 Elissa etal human letal d 01-18 11:18:00 Jessica assist to 13:00: [id number] leave home 00 Musculoskel transfer Musculoske Resolve 2018-05-13 Adia etal assistance letal d 01-18 11:18:00 Guidelli required 13:00: [id number] 00 Respiratory lung sounds Respirator Resolve 2018-07-05 Elissa deficit y d 01-25 09:20:00 Jessica 16:00: [id number] 00 Safety knowledge/s Safety Resolve 2018-05-13 Elissa kill d 01-25 11:18:00 Jessica deficit: pt 16:00: [id number] 00 Elimination constipatio Eliminatio Resolve 2018-05-13 Elissa n n d 6-19 11:18:00 Cristal 11:43: [id number] 00 Nutrition nutritional Nutrition Resolve 2018-06-07 Elissa restriction d 17 15:30:00 Cristal s 11:18: [id number] 00 Respiratory smoker Respirator Resolve 2018-07-05 Elissa y d 06-07 09:20:00 Cristal 15:30: [id number] 00 Elimination urinary Eliminatio Resolve 2018-06-07 Elissa frequency n d 06-07 15:30:00 Cristal 15:30: [id number] 00 Safety knowledge/s Safety Active Elissa kill 06-07 Cristal deficit: pt 15:30: [id number] 00 Safety risk for Safety Resolve 2018-07-05 [facility] 09:20[facility]00 Cristal tion 15:30: [id number] 00 Safety risk for Safety Unknown 2017-09 [facility] Giles tion 14:00: [id number] 00 Respiratory dyspnea Respirator Resolve 2017-092018-08-09 Blaire present y d 0-16 08:44:00 Bruno 09:48: [id number] 00 Respiratory lung sounds Respirator Resolve 2017-092018-08-09 Blaire deficit y d 016 08:44:00 Bruno 09:48: [id number] 00 Safety risk for Safety Resolve 2017-092018-08-09 Blaire hospitaliza d 016 08:44:00 Bruno tion 09:48: [id number] 00 Respiratory oxygen Respirator Resolve 2017-092018-08-09 Blaire treatments y d 1 08:44:00 Bruno in home 08:44: [id number] 00 Respiratory nebulizer Respirator Resolve 2017-092018-08-09 Blaire treatment y d 10-09 08:44:00 Bruno in home 08:44: [id number] 00 Neuro anxiety Neuro/Emot Resolve 2017-092018-08-09 Blaire present ion d 10-09 08:44:00 Bruno 08:44: [id number] 00 Safety risk for Safety [facility] 2017[facility]092018-08-[facility] 09:[facility]00 Giles tion 10:46: [id number] 00 Respiratory oxygen Respirator Resolve 2017-092018-09-13 Blaire treatments y d 10-31 09:53:00 Bruno in home 09:20: [id number] 00 Respiratory lung sounds Respirator Resolve 2017-092018-09-13 Blaire deficit y d 10-31 09:53:00 Bruno 09:20: [id number] 00 Respiratory smoker Respirator Resolve 2017-092018-09-13 Blaire y d 10-31 09:53:00 Bruno 09:20: [id number] 00 Respiratory nebulizer Respirator Resolve 2017-092018-09-13 Blaire treatment y d 10-31 09:53:00 Bruno in home 09:20: [id number] 00 Endo/Derek anti-coagul Endo/Derek Resolve 2017-092018-09-13 Blaire ation d 10-31 09:53:00 Brnuo therapy 09:20: [id number] 00 Neuro anxiety Neuro/Emot Resolve 2017-092018-09-13 Blaire present ion d 10-31 09:53:00 Bruno 09:20: [id number] 00 Safety safety Safety Resolve 2017-092018-08-30 Blaire hazards d 10-31 09:20:00 Bruno present 09:20: [id number] 00 Safety risk for Safety Resolve 2017-092018-09-13 [facility]in hospital[facility] d 11-07 09:53:00 Carrier RN tion 10:00: 00 Respiratory dyspnea Respirator Resolve 2017-092018-09-13 Blaire present y d 11-14 09:53:00 Bruno 09:53: [id number] 00 Safety risk for Safety Resolve 2017-092018-09-26 [facility] hospital[facility] d 11-20 09:45:00 Giles tion 10:00: [id number] 00 Respiratory dyspnea Respirator Resolve 2017-092019-01-03 Blaire present y d 09:25:00 Bruno 09:45: [id number] 00 Respiratory oxygen Respirator Resolve 2017-092019-01-03 Blaire treatments y d 09:25:00 Bruno in home 09:45: [id number] 00 Respiratory lung sounds Respirator Resolve 2017-092018-10-25 Blaire deficit y d 09:26:00 Bruno 09:45: [id number] 00 Respiratory smoker Respirator Resolve 2017-092018-09-26 Blaire y d 2 09:45:00 Bruno 09:45: [id number] 00 Respiratory nebulizer Respirator Resolve 2017-092019-01-03 Blaire treatment y d 09:25:00 Bruno in home 09:45: [id number] 00 Medication oral med Meds Resolve 2017-092019-03-09 Blaire assistance d 14:06:00 Bruno required 09:45: [id number] 00 Medication injectable Meds Resolve 2017-092019-03-09 Blaire med d 14:06:00 Bruno assistance 09:45: [id number] required 00 Nutrition nutritional Nutrition Resolve 2018-11-09 Jazz restriction d 09-30 08:50:00 Giles s 12:19: [id number] 00 Safety risk for Safety Resolve 2018-10-25 [facility] hospitaliza d 09-30 09:26:00 Giles tion 12:19: [id number] 00 Respiratory lung sounds Respirator Resolve 2018-11-09 Jazz deficit y d 2 08:50:00 Giles 10:20: [id number] 00 Safety risk for Safety Resolve 2018-11-09 Jazz hospitaliza d 11-01 08:50:00 Giles tion 10:20: [id number] 00 Respiratory smoker Respirator Resolve 2018-12-20 Blaire y d 11-09 09:22:00 Bruno 08:50: [id number] 00 Neuro anxiety Neuro/Emot Resolve 2018-11-09 Blaire present ion d 11-09 08:50:00 Bruno 08:50: [id number] 00 Nutrition nutritional Nutrition Resolve 2018-12-06 Jazz restriction d 11-15 10:45:00 Giles s 11:00: [id number] 00 Safety risk for Safety Resolve 2018-12-06 [facility] hospitaliza d 11-15 10:45:00 Giles tion 11:00: [id number] 00 Respiratory lung sounds Respirator Resolve 2018-12-20 Blaire deficit y d 3 09:22:00 Bruno 10:45: [id number] 00 Respiratory pneumonia Respirator Resolve 2018-12-20 Blaire y d 312 09:22:00 Bruno 10:45: [id number] 00 Respiratory asthma Respirator Resolve 2019-01-03 Blaire y d 12-06 09:25:00 Bruno 10:45: [id number] 00 Nutrition nutritional Nutrition Resolve 2018-12-20 Blaire restriction d 12-13 09:22:00 Bruno s 09:45: [id number] 00 Safety risk for Safety Resolve 2018-12-20 Blaire hospitaliza d 12-13 09:22:00 Bruno tion 09:45: [id number] 00 Safety safety Safety Resolve 2018-2018-12-20 Blaire hazards d 3- 09:22:00 Bruno present 09:22: [id number] 00 Respiratory knowledge/s Respirator Resolve 2018-2019-01-03 Blaire kill y d 12-27 09:25:00 Bruno deficit: pt 10:07: [id number] 00 Respiratory lung sounds Respirator Resolve 2019-01-03 Blaire deficit y d 12-27 09:25:00 Bruno 10:07: [id number] 00 Respiratory CPAP Respirator Resolve 2019-01-03 Blaire treatments y d 12-27 09:25:00 Bruno in home 10:07: [id number] 00 Respiratory smoker Respirator Resolve 2019-01-03 Blaire y d 12-27 09:25:00 Bruno 10:07: [id number] 00 Nutrition nutritional Nutrition Resolve 2019-01-03 Blaire restriction d 12-27 09:25:00 Bruno s 10:07: [id number] 00 Neuro impaired Neuro/Emot Resolve 2019-01-03 Blaire decision-ma ion d 12-27 09:25:00 Bruno rosanne 10:07: [id number] 00 Safety risk for Safety Resolve 2019-01-03 Blaire hospitaliza d 12-27 09:25:00 Bruno tion 10:07: [id number] 00 Neuro memory Neuro/Emot Unknown Blaire deficit ion 01-03 Bruno needing 09:25: [id number] supervision 00 Respiratory dyspnea Respirator Resolve 2019-03-28 Blaire present y d 01-10 09:06:00 Bruno 09:27: [id number] 00 Respiratory knowledge/s Respirator Resolve 2019-03-07 Blaire kill y d 01-10 09:45:00 Bruno deficit: pt 09:27: [id number] 00 Respiratory lung sounds Respirator Resolve 2019-03-07 Blaire deficit y d 01-10 09:45:00 Bruno 09:27: [id number] 00 Respiratory smoker Respirator Resolve 2019-03-07 Blaire y d 01-10 09:45:00 Bruno 09:27: [id number] 00 Nutrition nutritional Nutrition Resolve 2019-02-07 Blaire restriction d 4-16 09:39:00 Bruno s 09:27: [id number] 00 Neuro impaired Neuro/Emot Unknown Blaire decision-ma ion 4-16 Bruno rosanne 09:27: [id number] 00 Neuro memory Neuro/Emot Unknown Blaire deficit ion 4-16 Bruno needing 09:27: [id number] supervision 00 Safety fall risk Safety Resolve 2019-02-07 Blaire factor d 416 09:39:00 Bruno present 09:27: [id number] 00 Safety risk for Safety Resolve 2019-02-07 Blaire hospitaliza d 01-10 09:39:00 Bruno tion 09:27: [id number] 00 Respiratory oxygen Respirator Resolve 2019-03-28 Elissa treatments y d 01-24 09:06:00 Barbara in home 09:00: [employer] 00 [id number] Respiratory nebulizer Respirator Resolve 2019-03-28 Elissa treatment y d 01-24 09:06:00 Barbara in home 09:00: [employer] 00 [id number] Respiratory asthma Respirator Resolve 2019-03-28 Consuelo y d 01-25 09:06:00 [place] 11:00: 00 Elimination urinary Eliminatio Resolve 2019-02-07 Elissa incontinenc n d 01-31 09:39:00 Barbara e 08:30: [employer] 00 [id number] Nutrition nutritional Nutrition Resolve 2019-03-07 Elissa restriction d 02-14 09:45:00 Barbara s 08:13: [employer] 00 [id number] Safety risk for Safety Resolve 2019-03-07 Elissa hospitaliza d 02-14 09:45:00 Barbara tion 08:13: [employer] 00 [id number] Respiratory lung sounds Respirator Resolve 2019-03-09 Blaire deficit y d 6 14:06:00 Bruno 14:06: [id number] 00 Respiratory smoker Respirator Resolve 2019-03-09 Blaire y d 6 14:06:00 Bruno 14:06: [id number] 00 Nutrition nutritional Nutrition Resolve 2019-03-28 Blaire restriction d 6-13 09:06:00 Bruno s 14:06: [id number] 00 Safety safety Safety Resolve 2019-03-28 Blaire hazards d 6-13 09:06:00 Bruno present 14:06: [id number] 00 Safety fall risk Safety Resolve 2019-03-28 Blaire factor d 6-13 09:06:00 Bruno present 14:06: [id number] 00 Safety risk for Safety Resolve 2019-03-28 Blaire hospitaliza d 613 09:06:00 Bruno tion 14:06: [id number] 00 Medication potential Meds Resolve 2019-03-09 Blaire clinically d 6 14:06:00 Bruno significant 14:06: [id number] medication 00 issue Respiratory lung sounds Respirator Resolve 2019-03-28 Eilssa deficit y d 618 09:06:00 Barbara 07:45: [employer] 00 [id number] Respiratory lung sounds Respirator Resolve 2019-04-25 Elissa deficit y d 04-04 09:45:00 Barbara 08:00: [employer] 00 [id number] Nutrition nutritional Nutrition Resolve 2019-04-25 Elissa restriction d 04-04 09:45:00 Barbara s 08:00: [employer] 00 [id number] Safety risk for Safety Resolve 2019-04-25 Elissa hospitaliza d 04-04 09:45:00 Barbara tion 08:00: [employer] 00 [id number] Neuro anxiety Neuro/Emot Resolve 2019-04-25 Blaire present ion d 04-25 09:45:00 Bruno 09:45: [id number] 00 Safety risk for Safety Resolve 2019-05-09 Elissa hospitaliza d 05-02 12:05:00 Barbara tion 08:15: [employer] 00 [id number] Respiratory lung sounds Respirator Resolve 2019-05-30 Blaire deficit y d 8- 08:38:00 Bruno 12:05: [id number] 00 Medication injectable Meds Resolve 2019-05-30 Blaire med d 8 08:38:00 Bruno assistance 12:05: [id number] required 00 Safety risk for Safety Resolve 2019-05-30 [facility] 08:38[facility] Barbara tion 08:02: [employer] 00 [id number] Neuro impaired Neuro/Emot Resolve 2019-05-30 Blaire decision-ma ion d 05-30 08:38:00 Bruno rosanne 08:38: [id number] 00 Neuro memory Neuro/Emot Resolve 2019-05-30 Blaire deficit ion d 05-30 08:38:00 Bruno needing 08:38: [id number] supervision 00 Safety risk for Safety Resolve 2019-06-27 Elissa [facility] d 9 08:40:00 Barbara tion 07:56: [employer] 00 [id number] Respiratory lung sounds Respirator Resolve 2019-06-27 Elissa deficit y d 9 08:40:00 Barbara 07:30: [employer] 00 [id number] Respiratory nebulizer Respirator Resolve 2018-092019-06-27 Blaire treatment y d 0-01 08:40:00 Bruno in home 08:40: [id number] 00 Elimination urinary Eliminatio Resolve 2018-092019-07-11 Elissa incontinenc n d 0-08 10:13:00 Barbara e 08:00: [employer] 00 [id number] Safety risk for Safety Resolve 2018-092019-08-07 Elissa [facility] d 0-08 12:15:00 Barbara tion 08:00: [employer] 00 [id number] Respiratory oxygen Respirator Resolve 2018-092019-10-03 Blaire treatments y d 0-15 09:32:00 Bruno in home 10:13: [id number] 00 Respiratory nebulizer Respirator Resolve 2018-092019-10-03 Blaire treatment y d 0-15 09:32:00 Bruno in home 10:13: [id number] 00 Respiratory lung sounds Respirator Resolve 2018-092019-07-11 Blaire deficit y d 0-15 10:13:00 Bruno 10:13: [id number] 00 Neuro anxiety Neuro/Emot Resolve 2018-092019-08-07 Blaire present ion d 0-15 12:15:00 Bruno 10:13: [id number] 00 Neuro impaired Neuro/Emot Unknown 2018-09 Blaire decision-ma ion 0-15 Bruno rosanne 10:13: [id number] 00 Safety safety Safety Resolve 2018-092019-08-07 Blaire hazards d 0-15 12:15:00 Bruno present 10:13: [id number] 00 Safety fall risk Safety Resolve 2018-092019-08-07 Blaire factor d 0-15 12:15:00 Bruno present 10:13: [id number] 00 Medication injectable Meds Resolve 2018-092019-08-07 Blaire med d 0-15 12:15:00 Bruno assistance 10:13: [id number] required 00 Medication oral med Meds Resolve 2018-092019-08-07 Blaire assistance d 0-15 12:15:00 Bruno required 10:13: [id number] 00 Respiratory lung sounds Respirator Resolve 2018-092019-08-07 Blaire deficit y d 1-11 12:15:00 Bruno 12:15: [id number] 00 Elimination urinary Eliminatio Resolve 2018-092019-09-05 [place] incontinenc n d - 10:26:00 Barbara e 08:00: [employer] 00 [id number] Safety risk for Safety Res[facility] 2018[facility]092019[facility] Barbara tion 08:00: [employer] 00 [id number] Nutrition nutritional Nutrition Active 2018- Rosamaria restriction 1-30 Malnoske s 10:55: RN 00 Respiratory lung sounds Respirator Resolve 2018-092019-09-05 Blaire deficit y d 2-10 10:26:00 Brnuo 10:26: [id number] 00 Medication oral med Meds Resolve 2018-092019-10-03 Blaire assistance d 2-10 09:32:00 Bruno required 10:26: [id number] 00 Medication injectable Meds Resolve 2018-092019-10-03 Blaire med d 2-10 09:32:00 Bruno assistance 10:26: [id number] required 00 Safety risk for Safety Resolve 2018-092019-10-03 Elissa hospitaliza d 2-17 09:32:00 Barbara tion 08:00: [facility] 00 [id number] Respiratory lung sounds Respirator Resolve 2019-10-03 Blaire edge d 10-03 09:32:00 Bruno 09:32: [id number] 00 Allergies, Adverse Reactions, Alerts Allergy Name Allergy Status Severity Reaction(s) Onset Inactive Treating Comments Type Date Date Clinician sulfa Unknown Active Mild to Rash Elissa Moderate 01-25 Jessica [id number] aspirin Base Active Moderate Hives Elissa Ingredient 01-25 Jessica [id number] penicillin G Base Active Moderate Difficulty Elissa Ingredient to Severe swallowing 01-25 Jessica [id number] Medications Ordered Filled Start Stop Current Ordering [...]
[2019-10-10] MEDS ORDERED: Ketorolac INJ* 30 MG/ML 1 ML VIAL IV PUSH ONE (04:02)
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
[2019-10-10] MEDS ORDERED: Ketorolac INJ* 30 MG/ML 1 ML VIAL IM ONE (04:34)
[2019-10-10 05:15] VITALS: BP 132/74
== END 2019-10-10 04:57 | disposition home or self-care (01) ==
LOC: ED 03:18
DX: S60.221S Contusion of right hand, sequela (principal); W19.XXXS Unspecified fall, sequela; R73.03 Prediabetes; E07.9 Disorder of thyroid, unspecified; I25.2 Old myocardial infarction; I10 Essential (primary) hypertension; E78.00 Pure hypercholesterolemia, unspecified; J44.9 Chronic obstructive pulmonary disease, unspecified; K21.9 Gastro-esophageal reflux disease without esophagitis; F41.9 Anxiety disorder, unspecified; F32.9 Major depressive disorder, single episode, unspecified; Z88.6 Allergy status to analgesic agent; Z88.0 Allergy status to penicillin; Z88.2 Allergy status to sulfonamides; Z91.09 Other allergy status, other than to drugs and biological substances; F17.210 Nicotine dependence, cigarettes, uncomplicated
CPT/HCPCS: 99282; J1885

== ENCOUNTER 2023-08-23 14:27 | Inpatient (IN) ==
[2023-08-23 15:48] LABS: ABS Eosinophils 0.3 10^3/uL (0.0-0.5); ABS Lymphocytes 1.1 10^3/uL (1.0-4.8); ABS Monocytes 0.9 10^3/uL (0.0-0.9); ABS Neutrophils 5.5 10^3/uL (1.5-7.6); Eosinophil % 4.1 %; Hematocrit 32.9 % (35-45); Hemoglobin 11.1 g/dL (11.5-14.3); Mean Corpuscular Hemoglobin 34.1 pg (27-33); Mean Corpuscular Hgb Conc 33.9 g/dL (31-36); Mean Corpuscular Volume 100.6 fL (80-97); Mean Platelet Volume 6.6 fL (7.5-11.2); Platelet Count 252 10^3/uL (150-450); Red Blood Count 3.27 10^6/uL (3.63-4.92); White Blood Count 7.8 10^3/uL (3.8-11.8)
[2023-08-23] MEDS ORDERED: Azithromycin 500 mg/250 ml NS 500 MG/250 ML BAG IVPB ONE (15:53)
[2023-08-23] MEDS ORDERED: cefTRIAXone 1 gm/50 mL D5W 1 GM/50 ML BAG IV ONE (15:53)
[2023-08-23 16:06] LABS: Activated Partial Thrombo Time 32.1 seconds (26.0-38.0); INR 1.2 (0.83-1.13)
[2023-08-23 16:17] LABS: Albumin 3.5 g/dL (3.2-5.2); Albumin/Globulin Ratio 1.1 (1-3); C Reactive Protein 300.21 mg/L (<8.01); Calcium 7.6 mg/dL (8.6-10.3); Creatinine, Serum 0.92 mg/dL (0.51-0.95); Globulin 3.1 g/dL (2-4); Potassium 2.8 mmol/L (3.5-5.0); Total Bilirubin 0.5 mg/dL (0.2-1.0); Total Protein 6.6 g/dL (6.4-8.9); eGFR CKD-EPI 69.5 (>60)
[2023-08-23] MEDS ORDERED: Potassium EFFERVES 25 meq TAB PO ONE (16:21)
[2023-08-23] MEDS ORDERED: KCL 20 MEQ/100 ML IVPREMIX 20 MEQ/100 ML BAG IV ONE (16:21)
[2023-08-23 16:49] LABS: PCO2 Arterial 58 mmHg (35-45); PO2 Arterial 98 mmHg (80-100)
[2023-08-23] MEDS ORDERED: Albuterol/Ipratropium NEB.SOL (2.5/0.5 MG) 3 ML NEB.SOLN INH SCH (19:00)
[2023-08-23] MEDS ORDERED: Furosemide 40 mg/4 ml IV VIAL IV SLOW PU ONE (19:07)
[2023-08-23] MEDS ORDERED: ALBUTEROL MDI INH PRN (19:12)
[2023-08-23 19:22] LABS: High Sensitivity Troponin 1 Hr 13 pg/mL (<15)
[2023-08-23] MEDS ORDERED: Dextrose 50% Syringe 50 ml 25 GM/50 ML SYRINGE IV PUSH PRN (19:52)
[2023-08-23] MEDS: Enoxaparin 40 MG/0.4 ML SYR SUBCUT SCH (20:21)
[2023-08-23] MEDS ORDERED: ESOMEPRAZOLE 20 MG PO SCH (21:00)
[2023-08-23 21:18] LABS: Urine Appearance Clear; Urine Bilirubin Negative (Negative); Urine Blood Negative (Negative); Urine Color Yellow; Urine Glucose Negative (Negative); Urine Ketones Negative (Negative); Urine Nitrite Negative (Negative); Urine Protein Negative (Negative); Urine Urobilinogen Negative (Negative)
[2023-08-23 21:23] LABS: Urine Bacteria 1+ (Absent); Urine Red Blood Cell Trace(0-2/hpf) (Absent); Urine Squamous Epithelial Cell Present (Absent); Urine White Blood Cell 1+(6-10/hpf) (Absent)
[2023-08-23] MEDS: Albuterol/Ipratropium NEB.SOL (2.5/0.5 MG) 3 ML NEB.SOLN INH SCH (22:50)
[2023-08-24] MEDS: Albuterol/Ipratropium NEB.SOL (2.5/0.5 MG) 3 ML NEB.SOLN INH SCH ×6 (03:00→23:10)
[2023-08-24 06:18] LABS: ABS Lymphocytes 0.6 10^3/uL (1.0-4.8); ABS Monocytes 0.3 10^3/uL (0.0-0.9); ABS Neutrophils 5.8 10^3/uL (1.5-7.6); ABS Nucleated RBC 0.01 10^3/ul; Eosinophil % 0.1 %; Hematocrit 35.7 % (35-45); Lymphocyte % 8.3 %; Mean Corpuscular Hemoglobin 34.1 pg (27-33); Mean Corpuscular Hgb Conc 33.7 g/dL (31-36); Mean Corpuscular Volume 101.3 fL (80-97); Mean Platelet Volume 6.8 fL (7.5-11.2); Nucleated Red Blood Cells % 0.1 %/100WBC (0.0-0.8); Platelet Count 286 10^3/uL (150-450); Red Blood Count 3.52 10^6/uL (3.63-4.92); Red Cell Distribution Width 14.2 % (12-17); White Blood Count 6.7 10^3/uL (3.8-11.8)
[2023-08-24 06:48] LABS: Calcium 7.7 mg/dL (8.6-10.3); Creatinine, Serum 0.99 mg/dL (0.51-0.95); Magnesium 1.2 mg/dL (1.9-2.7); Potassium 3.2 mmol/L (3.5-5.0); eGFR CKD-EPI 63.7 (>60)
[2023-08-24] MEDS ORDERED: Magnesium Sulfate 2 gm BAG 2 GM/50 ML BAG IVPB ONE (07:21)
[2023-08-24] MEDS ORDERED: Potassium Chlor 20 meq TAB.ER PO ONE (07:21)
[2023-08-24] MEDS ORDERED: guaiFENesin DM SUGAR FREE 100 MG/10 MG 5 ML UDC PO PRN (08:22)
[2023-08-24] MEDS: FLUTICAS/UMECLI/VILANT 100-62.5-25 MDI (NF) INH SCH (08:38)
[2023-08-24] MEDS: Pentoxifylline CR 400 mg TAB 400 MG PO SCH (08:57)
[2023-08-24] MEDS ORDERED: Influenza vaccine *QUAD* *2023-24* 0.5 ML SYRINGE IM ONE (09:00)
[2023-08-24] MEDS ORDERED: Magnesium Sulfate IV 1GM/100ML 1 GM/100 ML BAG IV ONE (09:21)
[2023-08-24] MEDS: cefTRIAXone 1 gm/50 mL D5W 1 GM/50 ML BAG IV SCH (17:31)
[2023-08-24] MEDS: Azithromycin 500 mg/250 ml NS 500 MG/250 ML BAG IVPB SCH (18:16)
[2023-08-24] MEDS: Enoxaparin 40 MG/0.4 ML SYR SUBCUT SCH (21:44)
[2023-08-24] MEDS ORDERED: Albuterol HFA INHALER 8 gm MDI INH PRN (21:56)
[2023-08-25] MEDS: Albuterol/Ipratropium NEB.SOL (2.5/0.5 MG) 3 ML NEB.SOLN INH SCH ×6 (03:53→23:35)
[2023-08-25] MEDS: FLUTICAS/UMECLI/VILANT 100-62.5-25 MDI (NF) INH SCH (08:14)
[2023-08-25] MEDS: Pentoxifylline CR 400 mg TAB 400 MG PO SCH (08:44)
[2023-08-25 10:17] LABS: Calcium 7.6 mg/dL (8.6-10.3); Creatinine, Serum 0.83 mg/dL (0.51-0.95); Magnesium 1.6 mg/dL (1.9-2.7); Potassium 2.8 mmol/L (3.5-5.0); eGFR CKD-EPI 78.7 (>60)
[2023-08-25] MEDS ORDERED: Potassium Chlor 20 meq TAB.ER PO ONE (15:24)
[2023-08-25] MEDS ORDERED: Magnesium Sulfate 2 gm BAG 2 GM/50 ML BAG IVPB ONE (15:24)
[2023-08-25] MEDS: KCL 20 MEQ/100 ML IVPREMIX 20 MEQ/100 ML BAG IV SCH (17:31)
[2023-08-25 19:33] LABS: Calcium 8.4 mg/dL (8.6-10.3); Creatinine, Serum 0.91 mg/dL (0.51-0.95); Potassium 4.2 mmol/L (3.5-5.0); eGFR CKD-EPI 70.4 (>60)
[2023-08-25] MEDS: Enoxaparin 40 MG/0.4 ML SYR SUBCUT SCH (20:15)
[2023-08-25] MEDS: cefTRIAXone 1 gm/50 mL D5W 1 GM/50 ML BAG IV SCH (21:49)
[2023-08-25] MEDS: Azithromycin 500 mg/250 ml NS 500 MG/250 ML BAG IVPB SCH (22:48)
[2023-08-26] MEDS: KCL 20 MEQ/100 ML IVPREMIX 20 MEQ/100 ML BAG IV SCH (00:20)
[2023-08-26] MEDS: Albuterol/Ipratropium NEB.SOL (2.5/0.5 MG) 3 ML NEB.SOLN INH SCH ×4 (03:28→14:53)
[2023-08-26 06:08] LABS: Calcium 8.4 mg/dL (8.6-10.3); Creatinine, Serum 0.78 mg/dL (0.51-0.95); Potassium 3.6 mmol/L (3.5-5.0); eGFR CKD-EPI 84.8 (>60)
[2023-08-26] MEDS: FLUTICAS/UMECLI/VILANT 100-62.5-25 MDI (NF) INH SCH (07:54)
[2023-08-26] MEDS: Pentoxifylline CR 400 mg TAB 400 MG PO SCH (08:22)
[2023-08-26 14:25] VITALS: BP 169/80
== END 2023-08-26 16:45 | disposition home or self-care (01) | DRG 193 ==
LOC: EDHOLD 14:27 → ED 14:27 → SUATTDRO 18:55 → SSU 20:35
PROVIDERS: ADMIT Hospitalist; ATTEND Internal Medicine